=== PATIENT | male | born 1950 | race African-American/Black ===

== ENCOUNTER → 2022-01-28 15:12 | Outpatient (BNVA) | payer MEDICARE, MEDICAID, SELFPAY | PROVIDERS: PCP Internal Medicine; Visit Provider Urology | DX: E11.69 Type 2 diabetes mellitus with other specified complication (principal); N52.1 Erectile dysfunction due to diseases classified elsewhere; E29.1 Testicular hypofunction; I10 Essential (primary) hypertension | CPT/HCPCS: 99202 ==

== ENCOUNTER → 2022-05-08 10:40 | Outpatient (BNVA) | payer MEDICARE, MEDICAID, SELFPAY | PROVIDERS: PCP Internal Medicine; Visit Provider Urology | DX: R97.20 Elevated prostate specific antigen [PSA] (principal); E11.69 Type 2 diabetes mellitus with other specified complication; N52.1 Erectile dysfunction due to diseases classified elsewhere | CPT/HCPCS: 99212 ==

== ENCOUNTER 2022-07-21 09:58 | Outpatient (REF) | payer OTHER, MEDICAID, SELFPAY ==
[2022-07-21 11:22] LABS: PSA,Total (Free>4and<10) 4.16 ng/mL (0.00-4.00)
[2022-07-22 10:53] LABS: Free Prostate Spec Ag 0.8 ng/mL; Percent Free Prostate Spec Ag 21 % (calc) (>25); Prostate Specific Ag Total 3.9 ng/mL (< OR = 4.0)
[2022-07-26 13:19] LABS: Testosterone, Free 76.2 pg/mL (35.0-155.0); Testosterone, Total 595 ng/dL (250-1100)
== END 2022-07-21 09:59 | disposition home or self-care (01) ==
LOC: HO.LAB 09:58
PROVIDERS: PCP Orthopaedic Surgery; Visit Provider Urology
DX: Z12.5 Encounter for screening for malignant neoplasm of prostate (principal); R97.20 Elevated prostate specific antigen [PSA]; E29.1 Testicular hypofunction; N52.1 Erectile dysfunction due to diseases classified elsewhere; E11.69 Type 2 diabetes mellitus with other specified complication
CPT/HCPCS: 36415; 84153; 84154; 84402; 84403

== ENCOUNTER → 2022-08-04 11:10 | Outpatient (BNVA) | payer MEDICARE, MEDICAID, SELFPAY | PROVIDERS: PCP Orthopaedic Surgery; Visit Provider Urology | DX: R97.20 Elevated prostate specific antigen [PSA] (principal); N32.0 Bladder-neck obstruction | CPT/HCPCS: Q3014 ==

== ENCOUNTER 2023-02-09 11:21 | Outpatient (AMB) | payer OTHER, MEDICAID, SELFPAY ==
--- NOTE | 2023-02-09 11:38 | MHC.OFFVIS ---
Intake Intake Visit Reasons: 6m/PVR Intake Note: Patient is Present for Follow Up PVR Urology Medication: Finasteride, Sildenafil, Tadalafil Antibiotic Allergies: None Blood Thinners: None [facility]: [facility] PVR: 28 Allergies No Known Allergies Allergy (Verified 08/04/22 11:13) HPI HPI Comments History of Present Illness Details Damon is a very pleasant male. He is a patient of . He seen for the following urologic conditions - erectile dysfunction - variable PSA Following PSA Three month follow-up Labs - 03/31 T 448 P 7.0, 07/30 T 525 P 3.9 Good response to finasteride will continue Did not find much response to daily 10 mg tadalafil Discussed penile injections and prosthetic Follow-up in 6 months Lower urinary tract symptoms Does have some weakness of stream, nocturia. Positive benefit from finasteride Erectile dysfunction Has background of insulin-dependent diabetes Previously failed oral medications Denies prior heart attacks or other complications from diabetes Has not tried high-dose tadalafil protocol Prescribed 10 mg daily tadalafil with 100 mg sildenafil on demand [facility] Medical History Hypogonadism in male OA (osteoarthritis) Diabetes mellitus, type II Onychomycosis Hypertension, benign Kidney disease Dysuria Review of Systems Const Denies chills and Denies fever(s) Card Reports no additional complaints and Denies syncope Resp Denies cough GI Denies abdominal pain and Denies heartburn Reports as per HPI and Denies change in libido Neuro Denies syncope Psych Denies change in libido Endo Denies change in libido Physical Exam Const General: cooperative, healthy appearing, comfortable and no acute distress Orientation/consciousness: patient oriented x3 HEENT Face and sinus: Yes normal facial exam Mouth: moist mucous membranes Neck Neck: Yes normal visual inspection, Yes full ROM and Yes trachea midline Chest Chest palpation & inspection: normal inspection of the chest Resp Effort & Inspection: normal respiratory effort, able to speak in complete sentences and no respiratory distress GI Inspection: Yes normal to inspection Back/Spine/Pelvis Cervical Spine: normal cervical lordosis Thoracic/Lumbar Spine: thoracic and lumbar spine normal to inspection Skin General skin exam: no rashes or lesions noted Neuro General: patient oriented x3, gait normal, tone normal and moves all extremities Extrem General: Yes normal to inspection and Yes capillary refill normal Office Procedures Post Void Residual Post Residual Void Post Void Residual (PVR): 28 [id number] Void Residual by ultrasound Results AMB Urinalysis, Automated UA Leukoctes 0 Barbara/uL Last Edit by Machelle Pierce [facility] on 02/09/23 11:48 UA Nitrite Negative Last Edit by Machelle Pierce [facility] on 02/09/23 11:48 UA Urobilinogen 0.2 mg/dL Last Edit by Machelle Pierce [facility] on 02/09/23 11:48 UA Protein 300 mg/dL Last Edit by Machelle Pierce A on 02/09/23 11:48 UA pH 5.5 Last Edit by Machelle Pierce [facility] on 02/09/23 11:48 UA Blood 0 Aime/uL Last Edit by Machelle Pierce [facility] on 02/09/23 11:48 UA Specific Ronda 1.020 Last Edit by Machelle Pierce [facility] on 02/09/23 11:48 UA Ketone Negative Last Edit by Machelle Pierce [facility] on 02/09/23 11:48 UA Bilirubin 0 mg/dL Last Edit by Machelle Pierce [facility] on 02/09/23 11:48 UA Glucose 1000 mg/dL Last Edit by Machelle Pierce [facility] on 02/09/23 11:48 Results Reviewed Results Reviewed: Laboratory Last Values Urine pH (Auto) 5.5 02/09/23 11:43 Specific Ronda (Auto) 1.020 02/09/23 11:43 Urine Protein (Auto) 300 mg/dL 02/09/23 11:43 Glucose (UA)(Auto) 1000 mg/dL 02/09/23 11:43 Urine Ketones (Auto) Negative 02/09/23 11:43 Urine Blood (Auto) 0 Aime/uL 02/09/23 11:43 Urine Nitrite (Auto) Negative 02/09/23 11:43 Urine Bilirubin (Auto) 0 mg/dL 02/09/23 11:43 Urine Urobilinogen (Auto) 0.2 mg/dL 02/09/23 11:43 Leukocyte Esterase (Auto) 0 Barbara/uL 02/09/23 11:43 Assessment & Plan Assessment & Plan (1) Erectile dysfunction associated with type 2 diabetes mellitus: Code(s): E11.69 - Type 2 diabetes mellitus with other specified complication; N52.1 - Erectile dysfunction due to diseases classified elsewhere (2) Elevated PSA: Code(s): R97.20 - Elevated prostate specific antigen [PSA] (3) Bladder outlet obstruction: Code(s): N32.0 - Bladder-neck obstruction Plan Six month follow-up labs Orders: Orders AMB Urinalysis Automated 02/09/23 Z13.9 - Encounter for screening, unspecified AMB Post Void Residual by ultrasound 02/09/23 N32.0 - Bladder-neck obstruction Patient Instructions: Imaging studies, laboratory and physical exam results were discussed and reviewed in detail. No major barriers to patient understanding were identified. An opportunity to ask questions regarding the treatment plan was provided. All questions were answered. The patient expressed understanding and agreement with the above treatment plan. The patient is aware they should contact our office by phone for worsening of their current condition or the appearance of new urologic symptoms. Compliance is encouraged with any medications and followup testing that is ordered. It is a privilege to participate in the urologic care of your patient. If you have any questions or concerns regarding treatment for the above conditions, or other urologic issues, please do not hesitate to contact me. The office telephone contact is [phone]. This note is constructed using voice recognition software. While every effort has been made to ensure accuracy area coordinator errors may have been included. Yours sincerely, Dr Loki Wood MD, [facility] - Urology Providers of Expert, Compassionate Care for the Genitourinary System Coding Level of Care Code Est Pt Level 3 (26652) Diagnoses Erectile dysfunction associated with type 2 diabetes mellitus E11.69; N52.1 Elevated PSA R97.20 Bladder outlet obstruction N32.0 CPT Codes Post Residual Void - PVR CPT Code: 43430-Iyyy Void Residual by ultrasound ([id number])
== END 2023-02-09 12:23 | disposition home or self-care (01) ==
PROVIDERS: PCP Orthopaedic Surgery; Visit Provider Urology
DX: E11.69 Type 2 diabetes mellitus with other specified complication (principal); N52.1 Erectile dysfunction due to diseases classified elsewhere; R97.20 Elevated prostate specific antigen [PSA]; N32.0 Bladder-neck obstruction
CPT/HCPCS: 99213

== ENCOUNTER → 2023-02-09 11:21 | Outpatient (BNVA) | payer OTHER, MEDICAID, SELFPAY | PROVIDERS: Visit Provider Urology | DX: R97.20 Elevated prostate specific antigen [PSA] (principal); E11.69 Type 2 diabetes mellitus with other specified complication; N52.1 Erectile dysfunction due to diseases classified elsewhere; N32.0 Bladder-neck obstruction | CPT/HCPCS: 51798; 81003; 99212 ==

== ENCOUNTER 2023-03-05 14:26 | Outpatient (AMB) | payer OTHER, MEDICAID, SELFPAY ==
--- NOTE | 2023-03-05 14:27 | A.OFFVIS_ITS ---
Intake Intake Visit Reasons: Discuss surgery Intake Note: Patient is Present for Telephone Follow Up Surgery Discussion Urology Med:Finasteride, Sildenafil, Tadalafil Antibiotic Allergy: None Blood Thinner: None [facility] Allergies No Known Allergies Allergy (Verified 08/04/22 11:13) HPI HPI Comments History of Present Illness Details Damon is a very pleasant male. He is a patient of . He seen for the following urologic conditions - erectile dysfunction - variable PSA Following PSA Telemedicine Evaluation 15 min Consultation [email or web address] Video attempted Would like to move ahead with penile prosthetic Has watched videos Feels full informed Three month follow-up Labs - 03/31 T 448 P 7.0, 07/30 T 525 P 3.9 Good response to finasteride will continue Lower urinary tract symptoms Does have some weakness of stream, nocturia. Positive benefit from finasteride Erectile dysfunction Has background of insulin-dependent diabetes Previously failed oral medications Denies prior heart attacks or other complications from diabetes Has not tried high-dose tadalafil protocol Prescribed 10 mg daily tadalafil with 100 mg sildenafil on demand [facility] Medical History Hypogonadism in male OA (osteoarthritis) Diabetes mellitus, type II Onychomycosis Hypertension, benign Kidney disease Dysuria Review of Systems Const All systems reviewed & are unremarkable except as noted in HPI and below Reports no additional complaints Resp Reports no additional complaints GI Reports no additional complaints Reports as per HPI Musc Reports no additional complaints Physical Exam Telemedicine evaluation Appropriate responses Regular breathing rate and rhythm HEENT Head: Yes normal to inspection Ears: hearing grossly normal bilaterally Eyes General: appearance normal, both eyes and all related structures Neck Neck: Yes normal visual inspection Chest Chest palpation & inspection: normal inspection of the chest Resp Effort & Inspection: normal respiratory effort and able to speak in complete sentences Assessment & Plan Assessment & Plan (1) Elevated PSA: Code(s): R97.20 - Elevated prostate specific antigen [PSA] (2) Erectile dysfunction associated with type 2 diabetes mellitus: Code(s): E11.69 - Type 2 diabetes mellitus with other specified complication; N52.1 - Erectile dysfunction due to diseases classified elsewhere Plan Risks, benefits and alternatives to therapy were discussed. These include but are not limited to infection, bleeding, damage to local organs and tissues, need for further interventions. Anesthetic risks regarding cardiac arrhythmia, blood clots, and potential mortality were discussed. The patient understands the typical recovery time and the outpatient nature of the procedure. After consideration of these risks the patient gives full informed consent and they wish to move ahead with the procedure. Penile prosthetic placement Patient Instructions: Imaging studies, laboratory and physical exam results were discussed and reviewed in detail. No major barriers to patient understanding were identified. An opportunity to ask questions regarding the treatment plan was provided. All questions were answered. The patient expressed understanding and agreement with the above treatment plan. The patient is aware they should contact our office by phone for worsening of their current condition or the appearance of new urologic symptoms. Compliance is encouraged with any medications and followup testing that is ordered. It is a privilege to participate in the urologic care of your patient. If you have any questions or concerns regarding treatment for the above conditions, or other urologic issues, please do not hesitate to contact me. The office telephone contact is [phone]. This note is constructed using voice recognition software. While every effort has been made to ensure accuracy slab installer errors may have been included. Yours sincerely, Dr Loki Wood MD, [facility] - Urology Providers of Expert, Compassionate Care for the Genitourinary System Telehealth Telehealth Location of provider rendering services: practice address Location of patient: address on file Patient Identification confirmed using: Name, : Yes Telehealth method: voice only Patient verbally consented to treatment: Yes Patient verbally consented to billing insurance company: Yes Patient informed of any privacy concerns related to visit: Yes Coding Level of Care Code Est Pt Level 3 (21617) Diagnoses Elevated PSA R97.20 Erectile dysfunction associated with type 2 diabetes mellitus E11.69; N52.1
== END 2023-03-05 16:10 | disposition home or self-care (01) ==
LOC: HO.HUSH 14:26
PROVIDERS: PCP Orthopaedic Surgery; Visit Provider Urology
DX: R97.20 Elevated prostate specific antigen [PSA] (principal); E11.69 Type 2 diabetes mellitus with other specified complication; N52.1 Erectile dysfunction due to diseases classified elsewhere
CPT/HCPCS: 99213

== ENCOUNTER → 2023-03-05 14:26 | Outpatient (BNVA) | payer OTHER, MEDICAID, SELFPAY | PROVIDERS: PCP Orthopaedic Surgery; Visit Provider Urology ==

== ENCOUNTER 2023-03-16 14:54 | Outpatient (AMB) | payer OTHER, MEDICAID, SELFPAY ==
--- NOTE | 2023-03-16 14:56 | A.OFFVIS_ITS ---
Intake Intake Visit Reasons: Discuss surgery options Intake Note: Patient is Present for Telephone Follow Up Surgery Discussion Urology Med:Finasteride, Sildenafil, Tadalafil Antibiotic Allergy: None Blood Thinner: None [facility] Allergies No Known Allergies Allergy (Verified 08/04/22 11:13) HPI HPI Comments History of Present Illness Details Damon is a very pleasant male. He is a patient of . He seen for the following urologic conditions - erectile dysfunction - variable PSA Telemedicine Evaluation 15 min Consultation [employer] Moises Video attempted Telemedicine Evaluation 15 min Consultation [employer] Moises Video attempted Labs - 03/31 T 448 P 7.0, 07/30 T 525 P 3.9 Did not find much response to daily 10 mg tadalafil Discussed penile injections and prosthetic He is interested in vacuum pump therapy. Information provided. Follow-up in 6 months Lower urinary tract symptoms Does have some weakness of stream, nocturia. Positive benefit from finasteride Erectile dysfunction Has background of insulin-dependent diabetes Previously failed oral medications Denies prior heart attacks or other complications from diabetes Has not tried high-dose tadalafil protocol Prescribed 10 mg daily tadalafil with 100 mg sildenafil on demand [facility] Medical History Hypogonadism in male OA (osteoarthritis) Diabetes mellitus, type II Onychomycosis Hypertension, benign Kidney disease Dysuria Review of Systems Const All systems reviewed & are unremarkable except as noted in HPI and below Reports no additional complaints Resp Reports no additional complaints GI Reports no additional complaints Reports as per HPI Musc Reports no additional complaints Physical Exam Telemedicine evaluation Appropriate responses Regular breathing rate and rhythm HEENT Head: Yes normal to inspection Ears: hearing grossly normal bilaterally Eyes General: appearance normal, both eyes and all related structures Neck Neck: Yes normal visual inspection Chest Chest palpation & inspection: normal inspection of the chest Resp Effort & Inspection: normal respiratory effort and able to speak in complete sentences Assessment & Plan Assessment & Plan (1) Erectile dysfunction associated with type 2 diabetes mellitus: Code(s): E11.69 - Type 2 diabetes mellitus with other specified complication; N52.1 - Erectile dysfunction due to diseases classified elsewhere (2) Elevated PSA: Code(s): R97.20 - Elevated prostate specific antigen [PSA] (3) Bladder outlet obstruction: Code(s): N32.0 - Bladder-neck obstruction Plan Six month follow-up Patient Instructions: Imaging studies, laboratory and physical exam results were discussed and reviewed in detail. No major barriers to patient understanding were identified. An opportunity to ask questions regarding the treatment plan was provided. All questions were answered. The patient expressed understanding and agreement with the above treatment plan. The patient is aware they should contact our office by phone for worsening of their current condition or the appearance of new urologic symptoms. Compliance is encouraged with any medications and followup testing that is ordered. It is a privilege to participate in the urologic care of your patient. If you have any questions or concerns regarding treatment for the above conditions, or other urologic issues, please do not hesitate to contact me. The office telephone contact is [phone]. This note is constructed using voice recognition software. While every effort has been made to ensure accuracy senior director marketing errors may have been included. Yours sincerely, Dr Loki Wood MD, [facility] - Urology Providers of Expert, Compassionate Care for the Genitourinary System Telehealth Telehealth Location of provider rendering services: practice address Location of patient: address on file Patient Identification confirmed using: Name, : Yes Telehealth method: video Patient verbally consented to treatment: Yes Patient verbally consented to billing insurance company: Yes Patient informed of any privacy concerns related to visit: Yes Coding Level of Care Code Tele Est Pt Level 3 (05695) Diagnoses Erectile dysfunction associated with type 2 diabetes mellitus E11.69; N52.1 Elevated PSA R97.20 Bladder outlet obstruction N32.0
== END 2023-03-16 15:38 | disposition home or self-care (01) ==
LOC: HO.HUSH 14:54
PROVIDERS: PCP Orthopaedic Surgery; Visit Provider Urology
DX: E11.69 Type 2 diabetes mellitus with other specified complication (principal); N52.1 Erectile dysfunction due to diseases classified elsewhere; R97.20 Elevated prostate specific antigen [PSA]; N32.0 Bladder-neck obstruction
CPT/HCPCS: 99213

== ENCOUNTER → 2023-03-16 14:54 | Outpatient (BNVA) | payer OTHER, MEDICAID, SELFPAY | PROVIDERS: PCP Orthopaedic Surgery; Visit Provider Urology ==

== ENCOUNTER 2023-05-23 12:23 | Inpatient (IN) | payer MEDICARE, MEDICAID, SELFPAY ==
--- NOTE | ~2023-05-23 | FL_ITS ---
EXAMINATION: XR FLUOROSCOPY WITH IMAGES CLINICAL INFORMATION: Distal femoral fracture for stabilization COMPARISON: Right femur 05/24/2023. TECHNIQUE: Fluoroscopy Supervised By: Dr. Bobby Carballo. Fluoroscopy Time: 1.4. Cumulative Dose: 20.3 mGy. DAP: 0.241 Gycm2. Images: 6. FINDINGS: There are 6 digital images obtained in OR stabilizing distal femoral fracture with intramedullary femoral benjamin extending from proximal femur to the distal segment. The benjamin is anchored by 4 screws along the distal femur and and screws to the proximal femur not completely included in the [id number]. FL/FL guidance in OR IMPRESSION: Fluoroscopy was provided in the OR stabilizing distal femoral fracture with intramedullary femoral benjamin and 4 screws.
--- NOTE | ~2023-05-23 | XR_ITS ---
EXAMINATION: XR KNEE, RIGHT CLINICAL INFORMATION: Follow-up femoral fracture. COMPARISON: Radiograph right femur 05/23/2023. TECHNIQUE: Two views of the right knee. FINDINGS: Increased angulation of the distal femoral fracture on the frontal view compared to 05/23/2023. There is one shaft width of anterior displacement of the distal fragment on the lateral view and approximately half shaft width of lateral displacement of the distal fragment on the frontal view. Redemonstration of total knee arthroplasty. No interval fractures. Chronic appearing deformity of the tibial plateau on the lateral view. Exuberant bony productive changes and degenerative sclerosis in the right knee. No joint effusion in the right knee. Scattered vascular calcifications. XR/XR knee RT 2V IMPRESSION: Increased angulation of the distal femoral fracture compared to 05/23/2023.
--- NOTE | ~2023-05-23 | XR_ITS ---
EXAMINATION: XR FEMUR, RIGHT CLINICAL INFORMATION: Injury, pain COMPARISON: None available. TECHNIQUE: AP and lateral views of the right femur were obtained. FINDINGS: There is a mildly displaced transverse fracture in the distal diaphysis of the femur, the distal fragment is displaced approximately 2.2 cm laterally. There is soft tissue swelling. The right total knee arthroplasty appears grossly intact on the provided views. The right hip appears intact. XR/XR femur RT 2V IMPRESSION: Mildly displaced transverse fracture in the distal diaphysis of the right femur.
--- NOTE | ~2023-05-23 | XR_ITS ---
EXAMINATION: XR CHEST CLINICAL INFORMATION: Dizziness COMPARISON: None available. TECHNIQUE: Frontal view of the chest was obtained. FINDINGS: No significant abnormality is noted involving the heart, lungs, mediastinum, bony thorax or soft tissues. XR/XR chest 1V IMPRESSION: No acute process.
[2023-05-23 12:40] VITALS: BP 76/52; BP 94/63; PULSE 68; PULSE 72; RESP 18; TEMP 36.6; O2SAT 98; BMI 30.6
--- NOTE | 2023-05-23 12:44 | ECG_ITS ---
Test Reason : dizziness Blood Pressure : / mmHG Vent. Rate : 070 BPM Atrial Rate : 070 BPM P-R Int : 164 ms QRS Dur : 088 ms QT Int : 418 ms P-R-T Axes : 062 -10 024 degrees QTc Int : 451 ms Normal sinus rhythm Minimal voltage criteria for LVH, may be normal variant ( R in aVL ) Borderline ECG When compared with ECG of 19-DEC-2010 20:30, No significant change was found Referred By: Generic ED Physician Electronically Signed By:JUAN WISE
[2023-05-23 12:56] LABS: MANUAL DIFF FLAG NO
[2023-05-23 12:57] LABS: Basophils Percent Auto 0.4 % (0-2); Eosinophils Absolute Auto 0.2 X10*3/uL (0.0-0.4); Eosinophils Percent Auto 2.2 % (0-4); Hemoglobin 9.4 g/dl (14.0-18.0); Imm Gran Abs Auto 0.03 X10*3/uL (0.00-0.03); Imm Gran Pct Auto 0.4 % (0.0-0.4); Lymphocytes Absolute Auto 1.1 X10*3/uL (1.2-4.9); Lymphocytes Percent Auto 15.5 % (20-40); Mean Corpuscular HGB Conc 31.3 g/dl (31.0-36.0); Mean Corpuscular Hemoglobin 26.3 pg (27.0-33.0); Mean Platelet Volume 9.4 fL (9.4-12.4); Monocytes Absolute Auto 0.7 X10*3/uL (0.1-1.2); Monocytes Percent Auto 9.1 % (2-11); Neutrophils Absolute Auto 5.3 x10*3/uL (2.0-8.3); Neutrophils Percent Auto 72.4 % (45-73); Platelet Count 206 X10*3/uL (160-400); Red Blood Count 3.57 X10*6/uL (4.60-5.80); Red Cell Distribution Width 14.4 % (11.0-16.0); White Blood Count 7.4 X10*3/uL (4.8-10.8)
--- NOTE | 2023-05-23 13:15 | PC.NURSE ---
patient a&ox3, iv inserted, labs drawn, ekg obtained, big data engineer applied-nsr, pt noted to be hypotensive, xray for rt knee placed, call suggs within reach, will continue to monitor.
[2023-05-23 13:19] LABS: Anion Gap 11 (12-20); Blood Urea Nitrogen 36 mg/dL (9-16); Calcium 8.5 mg/dL (8.4-10.2); Carbon Dioxide 24 mmol/L (22-29); Chloride 108 mmol/L (96-108); Creatinine Clr Calc Pharmacy 18.2; Estimated Glomerular Filt Rate 14; Glucose Random 190 mg/dL (60-115); Potassium 4.7 mmol/L (3.3-5.1); Sodium 138 mmol/L (135-145)
[2023-05-23 13:26] LABS: Troponin-I High Sensitivity 139.2 ng/L (<3.5-35.0)
--- NOTE | 2023-05-23 14:10 | ED_ITS ---
HPI - General Adult General Chief complaint: Fall Stated complaint: DIZZY, HYPOTENSION Time Seen by Provider: 05/23/23 13:23 History of Present Illness HPI narrative: The patient is a 72-year-old male who comes to the emergency room after an episode at the [employer]. He says that he was feeling fine this morning. He and his girlfriend went to the mall. He was walking at the mall when he felt dizzy and stumbled. He started to fall but his girlfriend called him so he did not fall to the floor. However his right knee buckled and his girlfriend says there was a ?pop. He had a lot of pain in his knee and they came to the hospital. He denies any chest pain or shortness of breath. He denies any headache. The patient reports a history of chronic kidney issues but does not know how severe they are. He has not been hospitalized anywhere recently. He does not think he has ever had a stroke or heart attack. Related Data Home Medications Medication Instructions Recorded Confirmed amlodipine 10 mg tablet 10 mg PO DAILY 05/08/22 08/04/22 atorvastatin 40 mg tablet 40 mg PO DAILY 05/08/22 08/04/22 blood sugar diagnostic (FreeStyle #10 ea 05/08/22 08/04/22 Lite Strips) carvedilol 25 mg tablet 25 mg PO BID 05/08/22 08/04/22 dapagliflozin propanediol 10 mg 10 mg PO QAM 05/08/22 08/04/22 tablet (Farxiga) ergocalciferol (vitamin D2) 1,250 1,250 mcg PO QWEEK 05/08/22 08/04/22 mcg (50,000 unit) capsule insulin glargine 100 unit/mL (3 unit subcut 05/08/22 08/04/22 mL) subcutaneous pen (Lantus Solostar U-100 Insulin) Previous Rx's Medication Instructions Recorded sildenafil 100 mg tablet 100 mg PO ONCE PRN sexual activity 05/08/22 30 days #30 tabs tadalafil 10 mg tablet 10 mg PO DAILY sexual activity 90 05/08/22 days #90 tabs finasteride 5 mg tablet 5 mg PO DAILY 90 days #90 tabs 05/17/23 Allergies Allergy/AdvReac Type Severity Reaction Status Date / Time No Known Allergies Allergy Verified 08/04/22 11:13 [facility] Past Medical History Onset Date is defined in the Problem List Problems that require an onset date and time if occurred within 24 hrs of arrival to the ED Aortic Dissection and Rupture; Neurologic impairment; Cardiopulmonary Arrest; Endotracheal Intubation; Insertion or Replacement of Mechanical Circulatory Assist Device Medical History Hypogonadism in male OA (osteoarthritis) Diabetes mellitus, type II Onychomycosis Hypertension, benign Kidney disease Dysuria Social History Social History Smoked in Last 30 Days: No Use of substances other than those prescribed or required for medical reasons: No Advance Directives: No Advance Directives Information Provided: No Physical Exam ED Vital Signs: Vital Signs - 24 hr 05/23/23 12:40 05/23/23 15:26 05/23/23 15:30 Temperature 97.8 F Pulse Rate 72 77 Respiratory Rate 18 14 13 Blood Pressure 94/63 137/82 Pulse Oximetry 98 100 Oxygen Delivery Method Room Air Room Air BMI result Body Mass Index 30.6 Const Other: The patient is awake and alert. He has a pleasant 72-year-old who does not appear acutely toxic. HENMT Other: The face is symmetrical. ?Mucous membranes moist. Eyes Other: Pupils are round equal, conjunctivae are clear, extraocular movements intact Neck Neck: Yes no JVD Resp Effort & Inspection: normal respiratory effort Auscultation: clear to auscultation bilaterally Cardio Rate: regular rate Rhythm: regular rhythm Heart sounds: S1 normal heart sound present and S2 normal heart sound present GI Other: Abdomen is soft and nontender Skin Other: Skin is intact Neuro Other: The patient is awake and alert. Cranial nerves are grossly intact. Moves his arms symmetrically and normally. Left leg is normal. Cannot move his right leg because of pain. Extrem Other: No obvious deformity to the right leg but he is quite tender around the right knee and just above the knee. Medications Administered Discontinued Medications Generic Name Dose Route Start Last Admin Trade Name Freq PRN Reason Stop Dose Admin Hydromorphone HCl 1 mg 05/23/23 14:49 05/23/23 15:25 Hydromorphone Hcl 1 Mg/Ml Syringe IVPUSH 05/23/23 14:50 1 mg ONCE ONE Administration Protocol Morphine Sulfate 4 mg 05/23/23 14:11 05/23/23 14:48 Morphine Sulfate 4 Mg/Ml Cartridge IVPUSH 05/23/23 14:12 4 mg ONCE ONE Administration Protocol Medical Decision Making Medical Decision Making [facility] Narrative: Patient is a very pleasant 72-year-old male with a history of chronic kidney disease who had driven to the [employer] today. At the mall he felt dizzy and stumbled. His girlfriend called him from a more serious fall but in falling he injured his right leg. The girlfriend heard a pop. Patient did not hit his head or injure any other part of his body than the right leg. Patient says that he thinks he felt dizzy because he had not eaten anything this morning. There was no chest pain or shortness of breath. No headache. He does not feel dizzy now. Labs had been ordered at triage that showed a creatinine of 4.25 and a troponin of 139. Repeat troponin was 129. EKG shows J-point elevation of the anterior leads. I suspect this is baseline for the patient but no old EKGs are available for comparison. Records were obtained from [facility]. The patient had a creatinine of 3.0 in October of 2022. I contacted the orthopedic team who requested admission under hospitalist service. The patient was given morphine initially for pain and later hydromorphone. Lab Data 05/23/23 12:52 05/23/23 12:52 Labs: Lab Results 05/23/23 05/23/23 Range/Units 12:52 15:37 WBC 7.4 (4.8-10.8) X10*3/uL RBC 3.57 L (4.60-5.80) X10*6/uL Hgb 9.4 L (14.0-18.0) g/dl Hct 30.0 L (42.0-52.0) % MCV 84.0 (80.0-98.0) fL MCH 26.3 L (27.0-33.0) pg MCHC 31.3 (31.0-36.0) g/dl RDW 14.4 (11.0-16.0) % Plt Count 206 (160-400) X10*3/uL MPV 9.4 (9.4-12.4) fL Immature Gran % (Auto) 0.4 (0.0-0.4) % Neut % (Auto) 72.4 (45-73) % Lymph % (Auto) 15.5 L (20-40) % [place] % (Auto) 9.1 (2-11) % Eos % (Auto) 2.2 (0-4) % Baso % (Auto) 0.4 (0-2) % Lymph # (Auto) 1.1 L (1.2-4.9) X10*3/uL [place] # (Auto) 0.7 (0.1-1.2) X10*3/uL Eos # (Auto) 0.2 (0.0-0.4) X10*3/uL Baso # (Auto) 0.0 (0.0-0.2) X10*3/uL Abs Immat Gran (auto) 0.03 (0.00-0.03) X10*3/uL Absolute Neuts (auto) 5.3 (2.0-8.3) x10*3/uL Absolute Nucleated RBC 0.000 (0.0-0.012) X10*3/uL Nucleated RBC % (auto) 0.0 (0.0-0.2) /100WBC Sodium 138 (135-145) mmol/L Potassium 4.7 (3.3-5.1) mmol/L Chloride 108 (96-108) mmol/L Carbon Dioxide 24 (22-29) mmol/L Anion Gap 11 L (12-20) BUN 36 H (9-16) mg/dL Creatinine 4.25 H* (0.5-1.4) mg/dL Estim Creat Clear Calc 18.2 Estimated GFR 14 Random Glucose 190 H (60-115) mg/dL Calcium 8.5 (8.4-10.2) mg/dL Troponin I High Sens 139.2 H* 129.6 H* (<3.5-35.0) ng/L Independent Interpretation I performed an independent interpretation of an: EKG Interpretation: EKG at 13:03 shows normal sinus rhythm at 70 beats per minute. There is J-point elevation of the anterior leads but no other concerning findings. I suspect this is likely chronic J-point elevation possibly related to LVH. No old EKGs available for comparison. Discharge Plan Discharge Clinical Impression: Closed right femoral fracture, Chronic kidney disease Patient Disposition: Admitted As Inpatient
[2023-05-23] MEDS: Morphine Sulfate 4 MG/ML CARTRIDGE IVPUSH ×2 (14:48→19:31)
--- NOTE | 2023-05-23 14:49 | PC.NURSE ---
patient a&ox3, returned from xray 9/10 pain to RLE, pt medicated with pain meds per order, call suggs within reach, will continue to monitor
[2023-05-23] MEDS: HYDROmorphone HCl 1 MG/ML SYRINGE IVPUSH ×2 (15:25→21:39)
[2023-05-23 15:26] VITALS: RESP 14
[2023-05-23 15:30] VITALS: BP 137/82; PULSE 77; RESP 13; O2SAT 100
--- NOTE | 2023-05-23 16:04 | PM.IMHP ---
History of Present Illness Date of Service: 05/23/23 Attending physician on admission: Curtis Galo Chief Complaint: Right leg pain s/p fall Pt is a 72-year-old male with a PMH significant for?HTN, HLD, toj-tzuzixe-kvthvaefc diabetes type 2, anemia of chronic disease, CKD 4, and right knee replacement around 2015 who presents to the ED with right leg pain and inability to walk after fall. Pt states he was shopping at the [employer] and was waiting for the elevator when he began feeling dizzy and felt like he was going to faint. He then stumbled and fell to the ground landing on his right side. His girlfriend says she heard his knee pop . Patient denies loss of consciousness. Reports has had similar episodes of dizziness infrequently over the past few years. Notes he took his diabetic medications this morning but had not eaten anything today. Admits to some medication noncompliance, saying he sometimes forgets to take his home medications. Reports EMS found his blood sugars to be in the 170s, with noted his BP was low. Exact numbers are unable to be obtained at this time. Patient currently reports 6-7/10 right leg pain, but otherwise has no acute medical complaints. Currently denies lightheadedness or dizziness. No chest pain/pressure, palpitations. Denies fever, chills, nausea, vomiting, abdominal pain. Of note, patient is vague the specifics concerning his right knee replacement, but thinks it occurred by Dr. Radha fu from [facility] with surgery [place] [facility] [place] 7 years ago. Denies any significant cardiac PMH. In the ED pt's vital signs stable, WNL. Labs were significant for normocytic anemia of 9.4/30.0, BUN 36, creatinine 4.25, and initial troponin 139.2. No leukocytosis. No electrolyte abnormalities. CXR showed no acute process. Right femur x-ray found mildly displaced periprosthetic transverse fracture in the distal diaphysis of the right femur. EKG demonstrated normal sinus rhythm with likely LVH, Morin's significant ST elevations or depressions. Pt was treated with morphine and hydromorphone. Pt will be admitted to the hospital for treatment of displaced periprosthetic right femur fracture. Review of Systems Review of Systems: Lightheadedness, dizziness Fall Right leg pain Denies chest pain/pressure, palpitations Shortness of breath Denies fever, chills, nausea, vomiting, abdominal pain [facility] Medical History (Updated 05/24/23 @ 09:52 by Nicanor Garner MD) HLD (hyperlipidemia) Anemia of chronic disease Hypogonadism in male OA (osteoarthritis) Diabetes mellitus, type II Onychomycosis Hypertension, benign Kidney disease Dysuria Social History Household Members: None Housing: Apartment Do you presently have visiting nurse or other home services: No Patient Tobacco Use Status: Never used Tobacco Meds Allergies Allergy/AdvReac Type Severity Reaction Status Date / Time No Known Allergies Allergy Verified 08/04/22 11:13 Home Medications Medication Instructions Recorded Confirmed Last Taken Type amlodipine 10 mg tablet 10 mg PO DAILY 05/08/22 05/23/23 05/23/23 09:00 History atorvastatin 40 mg tablet 40 mg PO DAILY 05/08/22 05/23/23 05/23/23 09:00 History blood sugar diagnostic (FreeStyle #10 ea 05/08/22 08/04/22 Unknown History Lite Strips) carvedilol 25 mg tablet 25 mg PO BID 05/08/22 05/23/23 05/23/23 09:00 History dapagliflozin propanediol 10 mg 10 mg PO DAILY 05/08/22 05/23/23 05/23/23 09:00 History tablet (Farxiga) liraglutide 0.6 mg/0.1 mL (18 mg/3 1.8 mg subcut DAILY 05/23/23 05/23/23 05/23/23 09:00 History mL) subcutaneous pen injector (Victoza 3-Ruben) Physical Exam Vital Signs and Narrative: Vital Signs: Last Vital Signs Temp 97.8 F 05/23/23 12:40 Pulse 77 05/23/23 15:30 Resp 13 05/23/23 15:30 BP 137/82 05/23/23 15:30 Pulse Ox 100 05/23/23 15:30 O2 Del Method Room Air 05/23/23 15:30 BMI result Body Mass Index 30.6 Constitutional: Alert, in no acute distress. Mental Status: Oriented to person, place and time. Eyes: Pupils are equal, round, and reactive to light. Ear, Nose, and Throat: Oropharynx clear, mucous membranes moist. Ears and nose without deformities. Trachea midline. Respiratory: Clear to auscultation bilaterally. No wheezing, rales, or rhonchi. Cardiovascular: S1, S2 regular. 3/6 systolic murmurs heard at right sternal border, radiating to right carotid. Gastrointestinal: Abdomen soft, non-tender, non-distended. Normal bowel sounds. Neurologic: Cranial nerves II-XII are grossly intact bilaterally. No focal neurological deficits. Moves all extremities spontaneously. Skin: Warm, dry. Musculoskeletal: No cyanosis or clubbing. Extremities: Right thigh and knee tender to palpation and with swelling. Psychiatric: Normal mood and affect. Results Labs 05/24/23 14:43 05/24/23 05:51 Labs: Laboratory Results - last 24 hr 05/23/23 12:52 MCV 84.0 MCH 26.3 L MCHC 31.3 RDW 14.4 Plt Count 206 MPV 9.4 Immature Gran % (Auto) 0.4 Neut % (Auto) 72.4 Lymph % (Auto) 15.5 L Barnwell % (Auto) 9.1 Eos % (Auto) 2.2 Baso % (Auto) 0.4 Lymph # (Auto) 1.1 L Barnwell # (Auto) 0.7 Eos # (Auto) 0.2 Baso # (Auto) 0.0 Abs Immat Gran (auto) 0.03 Absolute Neuts (auto) 5.3 Absolute Nucleated RBC 0.000 Nucleated RBC % (auto) 0.0 Anion Gap 11 L Estim Creat Clear Calc 18.2 Estimated GFR 14 Random Glucose 190 H Calcium 8.5 Imaging Radiologist's Impressions: Impressions Chest X-Ray 05/23/23 14:57 IMPRESSION: No acute process. Femur X-Ray 05/23/23 14:57 IMPRESSION: Mildly displaced transverse fracture in the distal diaphysis of the right femur. Assessment and Plan (1) Closed right femoral fracture: Status: Acute Plan Pt is a 72-year-old male with a PMH significant for?HTN, HLD, kly-jdyvuko-ltsytapoc diabetes type 2, anemia of chronic disease, CKD 4, and right knee replacement around 2016 who presents to the ED with right leg pain and inability to walk after fall. Pt will be admitted to the hospital for treatment of displaced periprosthetic right femur fracture. Right femur fracture X-ray found mildly displaced transverse fracture in the distal diaphysis of the right femur Patient with right TKA Orthopedics consulted, plan on doing surgery tomorrow Analgesics for pain management NPO after midnight Patient has moderate to high risk given CKD 4 and DM2 Murmur noted upon exam, see below for additional cardiac workup Dizziness/presyncope Unclear etiology: hypoglycemia vs hypotension vs cardiac Pt reports taking HTN and DM meds this morning but did not eat anything Reports EMS noted normal sugars but low BP Question of consistent med compliance Pt with heart murmur, see below Heart murmur Pt with systolic murmur radiating to right neck; dizziness/presyncope prior to fall Pt with no known significant cardiac history Will get echocardiogram Cardiology consult for cardiac clearance for surgery Monitor on telemetry Elevated troponins Initial troponin 139.2 with repeat flat at 129.6 Pt asymptomatic, EKG without ischemic changes Likely type 2 in the setting of increased demand Monitor on telemetry CKD [address] [facility] [place] show creatinine of 3.0 from 04/30-10/[address] Braden Idc-srjtfhs-[id number] diabetes type [address] on sliding scale insulin Diabetic diet HTN Will hold amlodipine for now given presyncope Resume as indicated Continue carvedilol HLD Continue statin Full Code Attending:?Dr. Galo DVT Prophylaxis: Pneumatic boots d/t impending surgery Pt will require a hospitalization of at least two nights for treatment of?displaced periprosthetic right distal femur fracture. Given patient's risks and physical exam findings, he will require additional cardiac workup for eventual surgical intervention. Quality Stroke Does the patient have a stroke diagnosis?: No VTE Prior VTE?: No VTE Risk Level:: Medical - moderate - high VTE Device Contraindication: N/A - Device Ordered VTE Drug Contraindication: Treatment Not Indicated
[2023-05-23 16:29] LABS: Troponin-I High Sensitivity 129.6 ng/L (<3.5-35.0)
[2023-05-23 17:37] VITALS: BP 151/85; PULSE 76; RESP 17; O2SAT 96
--- NOTE | 2023-05-23 17:37 | PHA.MEDREC ---
Pharmacy Consult ? Medication Reconciliation Pharmacy has completed the medication reconciliation. Spoke to patient to confirm meds.
[2023-05-23] MEDS: Acetaminophen 325 MG TABLET 650 MG PO (18:12)
--- NOTE | 2023-05-23 18:14 | PC.NURSE ---
pt medicated w PRN tylenol for increased pain after repositioning himself in bed. ice packs applied to affected area, next dose of morphine due in ~ 3 hrs, provider notified.
[2023-05-23 19:31] VITALS: RESP 16
[2023-05-23 21:11] VITALS: BP 152/80; PULSE 77; RESP 16; TEMP 36.7; O2SAT 99
[2023-05-23] MEDS: carvediloL 25 MG TABLET PO (21:13)
[2023-05-23] MEDS: traZODone HCL 50 MG TABLET PO (21:13)
[2023-05-23 21:34] LABS: Glucose, Whole Blood 162 mg/dL (60-115)
[2023-05-23] MEDS: Cyclobenzaprine HCl 10 MG TABLET PO (21:39)
[2023-05-24] VITALS (7 sets, daily range): BP systolic 126–145; BP diastolic 61–75; PULSE 69–99; RESP 14–20; TEMP 36.3–36.9; O2SAT 95–98; BMI 31.7; BMI 31.3
[2023-05-24] MEDS: 0.9 % Sodium Chloride Flush 3 ML SYRINGE IVFLUSH ×4 (01:28→21:50)
[2023-05-24] MEDS: Dextrose 5 % and 0.9 % NaCl 1,000 ML 80 ML IVCONT ×2 (01:29→15:03)
--- NOTE | 2023-05-24 04:46 | PC.NURSE ---
pt resting comfortably with eyes closed, breathing even and unlabored. no apparent distress at this time. call suggs w/in reach. IVF infusing
[2023-05-24 06:35] LABS: Anion Gap 11 (12-20); Blood Urea Nitrogen 37 mg/dL (9-16); Calcium 8.4 mg/dL (8.4-10.2); Carbon Dioxide 24 mmol/L (22-29); Chloride 107 mmol/L (96-108); Creatinine Clr Calc Pharmacy 18.8; Estimated Glomerular Filt Rate 14; Glucose Random 164 mg/dL (60-115); Potassium 4.4 mmol/L (3.3-5.1); Sodium 138 mmol/L (135-145)
[2023-05-24 06:40] LABS: Hematocrit 30.3 % (42.0-52.0); Hemoglobin 9.4 g/dl (14.0-18.0); Mean Corpuscular Hemoglobin 26.3 pg (27.0-33.0); Mean Corpuscular Volume 84.9 fL (80.0-98.0); Mean Platelet Volume 9.8 fL (9.4-12.4); Platelet Count 215 X10*3/uL (160-400); Red Blood Count 3.57 X10*6/uL (4.60-5.80); Red Cell Distribution Width 14.3 % (11.0-16.0); White Blood Count 8.2 X10*3/uL (4.8-10.8)
--- NOTE | 2023-05-24 07:00 | CA_ITS ---
Transthoracic Echocardiogram Amended Patient (Last, First, Middle): Damon Escalante, Gender: Male Date of : 1950 Age: 72 Procedure Date: 05/24/2023 Procedure Type: Transthoracic Echocardiogram Location: ER Height: 175.26 cm Weight: 93.9 kg BSA: 2.10 m2 Heart Rate: 71 bpm BP: 129 / 69 mmHg [employer] Helper: SB Referring MD: Landen HARDEN Symptoms: Systolic murmur, dizziness Study Quality: Adequate ECG Rhythm: Sinus Conclusions: - The left ventricular systolic function is low normal. The visually estimated ejection fraction is between 50-55%. - The basal inferior and basal inferolateral segments are hypokinetic. - There is mild aortic valve stenosis. Findings Left Ventricle Normal left ventricular cavity size. The left ventricular systolic function is low normal. The visually estimated ejection fraction is between 50-55%. There is evidence of regional wall motion abnormalities. Evidence suggests grade I (mild) diastolic dysfunction. There is severe septal and severe basal asymmetric hypertrophy. LV peak GLS diminished at -12.2%. Wall Motion Rest Echo Findings The basal inferior and basal inferolateral segments are hypokinetic. Right Ventricle Mildly increased right ventricular cavity size. There is normal right ventricular systolic function. Atria Both atria are normal in size. Aortic Valve There is mild calcification of the aortic valve. There is mild aortic valve stenosis. There is no aortic valve regurgitation. Mitral Valve The mitral valve appears normal. There is trace mitral valve regurgitation. There is no mitral valve stenosis. Pulmonic Valve The pulmonic valve is likely normal. Tricuspid Valve There is mild tricuspid valve regurgitation. There is no evidence of pulmonary hypertension. Great Vessels The asc aorta is normal in size. Venous The inferior vena cava is normal in size and collapses greater than 50% with inspiration. Pericardium/Pleural There is no evidence of pericardial effusion. Prior Study Comparison No prior study available for comparison. Measurements 2D Linear Measurements IVSd: 1.23 0.6-0.9/0.6-1.0 cm LVIDd: 4.99 3.9-5.3/4.2-5.9 cm LVIDd Index: 2.38 2.4-3.2/2.2-3.1 cm/m2 LVIDs: 3.65 2.0-3.6 cm LVPWd: 0.89 0.7-1.1 cm LA Diam: 4.30 2.7-3.8/3.0-4.0 cm LAIDs Index: 2.05 1.5-2.3 cm/m2 LV Mass: 244.90 67-162/88-224 g LV Mass Index: 116.62 43-95/49-115 g/m2 LVOT Diam: 2.30 3.0+(-)1.3 cm 2D Volumes LA Vol: 35.60 2D Systolic Function EF 4C: 42.40 >55% EF 2C: 46.50 >55% EF BiP: 46.30 >55% Mitral Valve MV Pk E: 0.78 MV PK A: 0.90 MV Decel Time: 154.00 E/A: 0.90 E'Lateral: 4.90 E'Medial: 3.92 E/E' Med: 19.80 E/E' Lat: 15.80 PHT: 45.00 MVA PHT: 4.89 Decel Otero: 5.04 Aortic Valve AoV Pk Cornel: 2.28 AoV Mn Cornel: 1.53 AoV VTI: 0.45 AoV Pk Grad: 21.00 Aov Mn Grad: 11.00 JOSHUA Cont.VTI: 1.58 LVOT LVOT Pk Cornel: 0.84 LVOT Mn Cornel: 0.55 LVOT VTI: 0.17 LVOT Pk Grad: 3.00 LVOT Mn Grad: 1.00 LVOT Diam: 2.30 LVOT Area: 4.15 Diastolic Function MV Pk E: 0.78 MV Pk A: 0.90 E/A: 0.90 E'Medial: 3.92 E/E' Med: 19.80 E' Laterial: 4.90 E/E' Lat: 15.80 Right Ventricle TAPSE (mm): 22.40 TVS' Cornel: 15.10 Tricuspid Valve TR Pk Cornel: 2.52 TR Pk Grad: 25.00 Great Vessels Aorta Sinus of Valsalva: 3.20 2.0-3.5 cm Ao Asc: 3.60 2.1-3.4 cm Pulmonary Valve PV Pk Cornel: 0.74 Peak PV Grad: 2.00 Updated in Other Vendor System with Status of Final Nicanor Garner MD electronically signed on 05/24/2023 10:57:10 AM with status of Final
[2023-05-24 07:32] LABS: Glucose, Whole Blood 154 mg/dL (60-115)
--- NOTE | 2023-05-24 07:50 | PC.NURSE ---
PT SEEN BY AGAPITO. PT AWARE OF PLAN OF CARE FOR SURGERY.
--- NOTE | 2023-05-24 09:17 | PC.NURSE ---
PT SEEN BY CARDIOLOGY (DR. ROSALES). PT AWARE OF PLAN OF CARE.
--- NOTE | 2023-05-24 09:20 | PC.NURSE ---
PER MORTGAGE LOAN ORIGINATOR PT TO HAVE ECHOCARDIOGRAM.
--- NOTE | 2023-05-24 09:35 | PM.HPOR ---
History of Present Illness History of Present Illness Date of Service: 05/24/23 Chief complaint: Right periprosthetic femur fracture Narrative: Damon Escalante is a 72 year old male with a PMH significant for?HTN, HLD, bau-tukehya-ohzpvikmp diabetes type 2, anemia of chronic disease, CKD 4, and right knee replacement around [address] [facility] [address] Ashley who presents to the ED with right leg pain and inability to walk after sustaining a fall. Pt states he was shopping at the [employer] and was waiting for the elevator when he began feeling dizzy and felt like he was going to faint. He reports that he hadn't eaten anything and took his at home medications which caused him to become dizzy and fall to the ground. After his fall he felt immediate right knee pain and was unable to ambulate. He presented to the ED by EMS where x-rays were obtained and he was found to have a distal femur fracture on the right. He was admitted to the medicine service with orthopedic consult for further evaluation and treatment. Patient denies any drug use, occasional alcohol consumption on the weekends and denies any recreational drug use. He lives alone but has a girlfriend that he see's nearly every day. Does not use any assistive devices to ambulate. Review of Systems Review of Systems: Yes all other systems are reviewed and are negative PMFSH Past Medical History Medical History (Updated 05/23/23 @ 17:27 by DERECK Nixon) HLD (hyperlipidemia) Anemia of chronic disease Hypogonadism in male OA (osteoarthritis) Diabetes mellitus, type II Onychomycosis Hypertension, benign Kidney disease Dysuria Social History Social History Patient Tobacco Use Status: Never used Tobacco Smoked in Last 30 Days: No Use of substances other than those prescribed or required for medical reasons: No Advance Directives: No Advance Directives Information Provided: No Nutrition Risks: No Nutritional Risk Meds Allergies Allergy/AdvReac Type Severity Reaction Status Date / Time No Known Allergies Allergy Verified 08/04/22 11:13 Active Medications: Current Medications Acetaminophen (Acetaminophen 325 Mg Tablet) 650 mg PO Q6H PRN PRN Reason: Pain, Mild (Pain Scale 1-3) Last Admin: 05/23/23 18:12 Dose: 650 mg Atorvastatin Calcium (Atorvastatin Calcium 40 Mg Tablet) 40 mg PO DAILY [facility] Benzonatate (Benzonatate 100 Mg Capsule) 100 mg PO TID PRN PRN Reason: Cough Carvedilol (Carvedilol 25 Mg Tablet) 25 mg PO BID [facility]; Protocol Last Admin: 05/23/23 21:13 Dose: 25 mg Dextrose (Dextrose 50 % 25 Gm/50 Ml Syringe) 25 gm IVPUSH Q15M PRN; Protocol PRN Reason: per Hypoglycemia Standing Ord. Docusate Sodium (Docusate Sodium 100 Mg Capsule) 100 mg PO DAILY PRN PRN Reason: Constipation Glucose (Glucose Gel 15 Gm Gel..Gram.) 15 gm PO Q15M PRN; Protocol PRN Reason: per Hypoglycemia Standing Ord. Hydromorphone HCl (Hydromorphone Hcl 1 Mg/Ml Syringe) 1 mg IVPUSH Q3H PRN; Protocol PRN Reason: Pain, Severe (Pain Scale 7-10) Last Admin: 05/23/23 21:39 Dose: 1 mg Dextrose/Sodium Chloride (D5ns) 1,000 mls @ 80 mls/hr IVCONT .[id number] [facility] Last Admin: 05/24/23 01:29 Dose: 80 mls/hr Insulin Human Lispro (Insulin Lispro 100 Unit/Ml 3 Ml Vial) 0 unit SUBCUT QIDACHS [facility]; Protocol Last Admin: 05/24/23 09:33 Dose: Not Given Melatonin (Melatonin 3 Mg Tablet) 6 mg PO BEDTIME PRN PRN Reason: Insomnia Ondansetron HCl (Ondansetron Hcl 4 Mg/2 Ml Vial) 4 mg IVPUSH Q8H PRN PRN Reason: Nausea and Vomiting Sodium Chloride (0.9 % Sodium Chloride Flush 3 Ml Syringe) 3 ml IVFLUSH QSHIFT [facility] Last Admin: 05/24/23 09:33 Dose: 3 ml Home Medications Medication Instructions Recorded Confirmed Last Taken Type amlodipine 10 mg tablet 10 mg PO DAILY 05/08/22 05/23/23 05/23/23 09:00 History atorvastatin 40 mg tablet 40 mg PO DAILY 05/08/22 05/23/23 05/23/23 09:00 History blood sugar diagnostic (FreeStyle #10 ea 05/08/22 08/04/22 Unknown History Lite Strips) carvedilol 25 mg tablet 25 mg PO BID 12/05/23/23 05/23/23 09:00 History dapagliflozin propanediol 10 mg 10 mg PO DAILY 05/08/22 05/23/23 05/23/23 09:00 History tablet (Farxiga) liraglutide 0.6 mg/0.1 mL (18 mg/3 1.8 mg subcut DAILY 05/23/23 05/23/23 05/23/23 09:00 History mL) subcutaneous pen injector (Victoza 3-Ruben) Physical Exam Vital Signs: Vital Signs: Last Vital Signs Temp 98.5 F 05/24/23 08:57 Pulse 75 05/24/23 08:57 Resp 14 05/24/23 08:57 BP 129/69 05/24/23 08:57 Pulse Ox 98 05/24/23 08:57 O2 Del Method Room Air 05/24/23 08:57 BMI result Body Mass Index 30.6 Const: General: cooperative, healthy appearing and no acute distress Resp: Effort & Inspection: normal respiratory effort and able to speak in complete sentences Cardio: Rate: regular rate Peripheral pulses: Peripheral pulses 2+ throughout GI: Palpation (GI): Soft to palpation Skin: Lesions: no lesions Rashes: no rashes Extrem: Other: RLE is held in flexion and externally rotated. He is able to perform dorsi/plantar flexion. Sensation intact. Pedal pulse intact. Results Labs 05/24/23 05:51 05/24/23 05:51 Labs: Abnormal lab results 05/23/23 05/23/23 05/23/23 Range/Units 12:52 15:37 21:30 RBC 3.57 L (4.60-5.80) X10*6/uL Hgb 9.4 L (14.0-18.0) g/dl Hct 30.0 L (42.0-52.0) % MCH 26.3 L (27.0-33.0) pg Lymph % (Auto) 15.5 L (20-40) % Lymph # (Auto) 1.1 L (1.2-4.9) X10*3/uL Anion Gap 11 L (12-20) BUN 36 H (9-16) mg/dL Creatinine 4.25 H* (0.5-1.4) mg/dL POC Glucose 162 H (60-115) mg/dL Random Glucose 190 H (60-115) mg/dL Troponin I High Sens 139.2 H* 129.6 H* (<3.5-35.0) ng/L 05/24/23 05/24/23 Range/Units 05:51 07:28 RBC 3.57 L (4.60-5.80) X10*6/uL Hgb 9.4 L (14.0-18.0) g/dl Hct 30.3 L (42.0-52.0) % MCH 26.3 L (27.0-33.0) pg Lymph % (Auto) (20-40) % Lymph # (Auto) (1.2-4.9) X10*3/uL Anion Gap 11 L (12-20) BUN 37 H (9-16) mg/dL Creatinine 4.12 H* (0.5-1.4) mg/dL POC Glucose 154 H (60-115) mg/dL Random Glucose 164 H (60-115) mg/dL Troponin I High Sens (<3.5-35.0) ng/L H & H 05/23/23 05/24/23 Range/Units 12:52 05:51 Hgb 9.4 L 9.4 L (14.0-18.0) g/dl Hct 30.0 L 30.3 L (42.0-52.0) % All other labs normal. Assessment and Plan (1) Chronic kidney disease: Status: Acute (2) Closed right femoral fracture: Status: Acute I discussed the case with Dr. Rosales and explained the extent of the injury to the patient and options available which include surgical intervention. I explained the procedure in detail along with the length of recovery and rehab course. I explained the risk, benefits and alternatives. Risk including, but not limited to infection, blood clots, bleeding, non union or malunion and nerve/tissue damage to surrounding areas. I answered all their questions and with their understanding they have consented to move forward with Operative Fixation of the right femur. The patient will be T&S, pending cardiac clearance, he will remain NPO. Quality Stroke Does the patient have a stroke diagnosis?: No VTE Prior VTE?: No VTE Risk Level:: Medical - moderate - high VTE Device Contraindication: N/A - Device Ordered VTE Drug Contraindication: Treatment Not Indicated Procedures Date of Service Date of Service: 05/24/23
--- NOTE | 2023-05-24 09:48 | P.CONCA_ITS ---
History of Present Illness History of Present Illness Date of Service: 05/24/23 Chief complaint: Right periprosthetic femur fracture Narrative: This is a cardiology consultation regarding preoperative stratification for orthopedic surgery. Discussed with patient also reviewed the chart. Patient with multiple comorbidities including diabetes, hypertension, dyslipidemia, chronic kidney disease. It seems that he was walking in the mall and waiting for elevated all of sudden he got dizzy and thought he was going to faint. He then stumbled and fell to the ground. X-ray has shown distal femur fracture. He needs orthopedic intervention. From a cardiac standpoint, no complaints like angina or shortness of breath or anything else. He states he lives in the 4th floor and can essentially climb 4 flights of stairs almost daily does not get any cardiac symptoms. No previous diagnosis of coronary disease or myocardial infarction or cardiomyopathy or in fact anything else of cardiac nature. With regard to the dizzy episode, he states he has had that before but did not seek any attention. Etiology is not clear. Review of Systems 2 Review of Systems: Yes all other systems are reviewed and are negative Constitutional: Constitutional: Reports as per HPI and Reports no additional constitutional complaints Eyes: Eyes: Reports as per HPI and Denies no additional eye complaints ENT: Denies system reviewed and no additional complaints, except as documented and Reports as per HPI Cardiovascular: Cardiovascular: Reports as per HPI, Reports no additional cardiovascular complaints, Denies acrocyanosis, Denies cool extremities, Denies chest pain, Denies leg edema, Reports lightheadedness, Denies palpitations and Denies dyspnea Respiratory: Respiratory: Reports as per HPI, Denies no additional respiratory complaints and Denies dyspnea Gastrointestinal: Gastrointestinal: Reports as per HPI and Denies no additional gastrointestinal complaints Genitourinary: Genitourinary: Reports no additional male genitourinary complaints and Reports as per HPI Musculoskeletal: Musculoskeletal: Reports no additional musculoskeletal complaints and Reports as per HPI Integumentary/Breasts: Skin/Breast: Reports system reviewed and no additional complaints, except as docu Neurologic: Reports system reviewed and no additional complaints, except as documented and Reports as per HPI Psychiatric: Psychiatric: Reports no additional psychiatric complaints and Reports as per HPI Endocrine: Endocrine: Reports no additional endocrine complaints, Reports as per HPI and Denies palpitations Hematologic/Lymphatic: Hematologic/Lymphatic: Reports no additional hematologic/lymphatic complaints and Reports as per HPI Allergic/Immunologic: Allergic/Immunologic: Reports no additional allergic/immunologic complaints and Reports as per HPI [facility] Past Medical History Medical History (Updated 05/24/23 @ 09:52 by Nicanor Garner MD) HLD (hyperlipidemia) Anemia of chronic disease Hypogonadism in male OA (osteoarthritis) Diabetes mellitus, type II Onychomycosis Hypertension, benign Kidney disease Dysuria Family History Pertinent family history: No pertinent history in this setting. Social History Social History Patient Tobacco Use Status: Never used Tobacco Smoked in Last 30 Days: No Use of substances other than those prescribed or required for medical reasons: No Advance Directives: No Advance Directives Information Provided: No Nutrition Risks: No Nutritional Risk Meds Allergies Allergy/AdvReac Type Severity Reaction Status Date / Time No Known Allergies Allergy Verified 08/04/22 11:13 Active Medications: Current Medications Acetaminophen (Acetaminophen 325 Mg Tablet) 650 mg PO Q6H PRN PRN Reason: Pain, Mild (Pain Scale 1-3) Last Admin: 05/23/23 18:12 Dose: 650 mg Atorvastatin Calcium (Atorvastatin Calcium 40 Mg Tablet) 40 mg PO DAILY [facility] Benzonatate (Benzonatate 100 Mg Capsule) 100 mg PO TID PRN PRN Reason: Cough Carvedilol (Carvedilol 25 Mg Tablet) 25 mg PO BID [facility]; Protocol Last Admin: 05/23/23 21:13 Dose: 25 mg Dextrose (Dextrose 50 % 25 Gm/50 Ml Syringe) 25 gm IVPUSH Q15M PRN; Protocol PRN Reason: per Hypoglycemia Standing Ord. Docusate Sodium (Docusate Sodium 100 Mg Capsule) 100 mg PO DAILY PRN PRN Reason: Constipation Glucose (Glucose Gel 15 Gm Gel..Gram.) 15 gm PO Q15M PRN; Protocol PRN Reason: per Hypoglycemia Standing Ord. Hydromorphone HCl (Hydromorphone Hcl 1 Mg/Ml Syringe) 1 mg IVPUSH Q3H PRN; Protocol PRN Reason: Pain, Severe (Pain Scale 7-10) Last Admin: 05/23/23 21:39 Dose: 1 mg Dextrose/Sodium Chloride (D5ns) 1,000 mls @ 80 mls/hr IVCONT .[id number] [facility] Last Admin: 05/24/23 01:29 Dose: 80 mls/hr Insulin Human Lispro (Insulin Lispro 100 Unit/Ml 3 Ml Vial) 0 unit SUBCUT QIDACHEdd [facility]; Protocol Last Admin: 05/24/23 09:33 Dose: Not Given Melatonin (Melatonin 3 Mg Tablet) 6 mg PO BEDTIME PRN PRN Reason: Insomnia Ondansetron HCl (Ondansetron Hcl 4 Mg/2 Ml Vial) 4 mg IVPUSH Q8H PRN PRN Reason: Nausea and Vomiting Sodium Chloride (0.9 % Sodium Chloride Flush 3 Ml Syringe) [facility] Last Admin: 05/24/23 09:33 Dose: 3 ml Home Medications Medication Instructions Recorded Confirmed Last Taken Type amlodipine 10 mg tablet 10 mg PO DAILY 05/08/22 05/23/23 05/23/23 09:00 History atorvastatin 40 mg tablet 40 mg PO DAILY 05/08/22 05/23/23 05/23/23 09:00 History blood sugar diagnostic (FreeStyle #10 ea 05/08/22 08/04/22 Unknown History Lite Strips) carvedilol 25 mg tablet 25 mg PO BID 05/08/22 05/23/23 05/23/23 09:00 History dapagliflozin propanediol 10 mg 10 mg PO DAILY 05/08/22 05/23/23 05/23/23 09:00 History tablet (Farxiga) liraglutide 0.6 mg/0.1 mL (18 mg/3 1.8 mg subcut DAILY 05/23/23 05/23/23 05/23/23 09:00 History mL) subcutaneous pen injector (Victoza 3-Ruben) Physical Exam 2 Vital Signs: Vital Signs: Last Vital Signs Temp 98.5 F 05/24/23 08:57 Pulse 75 05/24/23 08:57 Resp 14 05/24/23 08:57 BP 129/69 05/24/23 08:57 Pulse Ox 98 05/24/23 08:57 O2 Del Method Room Air 05/24/23 08:57 BMI result Body Mass Index 30.6 Const: General: comfortable and no acute distress O rientation/consciousness: patient oriented x3 HEENT: Other: Unremarkable Head: Yes normal to inspection Neck: Neck: Yes normal visual inspection Chest: Chest palpation & inspection: normal inspection of the chest Resp: Auscultation: clear to auscultation bilaterally Cardio: Palpation: normal PMI Heart sounds: S1 normal heart sound present, S2 normal heart sound present, no gallops, Murmur heart sound present systolic II/ and at the right sternal border and no rubs GI: Palpation (GI): Soft to palpation Back/Spine/Pelvis: Other: unremarkable Skin: General skin exam: no rashes or lesions noted Neuro: General: patient oriented x3 Extrem: General: Yes normal to inspection Psych: Mental Status: mental status grossly normal Objective Labs and Meds 05/24/23 05:51 05/24/23 05:51 Lab results: Laboratory Results - last 24 hr 05/23/23 05/23/23 05/23/23 12:52 15:37 21:30 WBC 7.4 RBC 3.57 L Hgb 9.4 L Hct 30.0 L MCV 84.0 MCH 26.3 L MCHC 31.3 RDW 14.4 Plt Count 206 MPV 9.4 Immature Gran % (Auto) 0.4 Neut % (Auto) 72.4 Lymph % (Auto) 15.5 L [place] % (Auto) 9.1 Eos % (Auto) 2.2 Baso % (Auto) 0.4 Lymph # (Auto) 1.1 L [place] # (Auto) 0.7 Eos # (Auto) 0.2 Baso # (Auto) 0.0 Abs Immat Gran (auto) 0.03 Absolute Neuts (auto) 5.3 Absolute Nucleated RBC 0.000 Nucleated RBC % (auto) 0.0 Sodium 138 Potassium 4.7 Chloride 108 Carbon Dioxide 24 Anion Gap 11 L BUN 36 H Creatinine 4.25 H* Estim Creat Clear Calc 18.2 Estimated GFR 14 POC Glucose 162 H Random Glucose 190 H Calcium 8.5 Troponin I High Sens 139.2 H* 129.6 H* 05/24/23 05/24/23 05:51 07:28 WBC 8.2 RBC 3.57 L Hgb 9.4 L Hct 30.3 L MCV 84.9 MCH 26.3 L MCHC 31.0 RDW 14.3 Plt Count 215 MPV 9.8 Immature Gran % (Auto) Neut % (Auto) Lymph % (Auto) [place] % (Auto) Eos % (Auto) Baso % (Auto) Lymph # (Auto) [place] # (Auto) Eos # (Auto) Baso # (Auto) Abs Immat Gran (auto) Absolute Neuts (auto) Absolute Nucleated RBC 0.000 Nucleated RBC % (auto) 0.0 Sodium 138 Potassium 4.4 Chloride 107 Carbon Dioxide 24 Anion Gap 11 L BUN 37 H Creatinine 4.12 H* Estim Creat Clear Calc 18.8 Estimated GFR 14 POC Glucose 154 H Random Glucose 164 H Calcium 8.4 Troponin I High Sens ECG Interpretation: EKG with sinus rhythm at 70/Min with voltage criteria for LVH. Overall, similar to the EKG from 2011. Imaging Radiologist's impression: Impressions Chest X-Ray 05/23/23 14:57 IMPRESSION: No acute process. Femur X-Ray 05/23/23 14:57 IMPRESSION: Mildly displaced transverse fracture in the distal diaphysis of the right femur. Assessment and Plan (1) Preoperative cardiovascular examination: Status: Acute (2) Elevated troponin: Status: Acute (3) Chronic kidney disease: Status: Acute Plan Significant elevation creatinine 4.1. We do not have previous levels. High sensitivity troponins are 139 and 129. Hemoglobin on the lower side at 9.4, which could be anemia from CKD. Etiology for the dizziness not clear. On auscultation, can hear aortic valve murmur. Elevation troponins could be from demand but he also has significant CKD and hence that could play a role. Doubt any clear NSTEMI. EKG is unchanged from before. He needs an echocardiogram for further assessment. For LVEF, wall motion as well as valvular pathology. Overall, he has many comorbidities but seems to have reasonable functional capacity as he states he can climb 4 flights of stairs. Cardiac risk based on the available data would be considered at least intermediate. Once echocardiogram is completed, will review. Discussed with Dr. Galo. Procedures Date of Service Date of Service: 05/24/23
--- NOTE | 2023-05-24 09:59 | PC.NURSE ---
ECHOCARDIOGRAM IS BEING DONE AT BEDSIDE.
[2023-05-24] MEDS: carvediloL 25 MG TABLET PO ×2 (10:17→21:49)
[2023-05-24] MEDS: HYDROmorphone HCl 1 MG/ML SYRINGE IVPUSH ×2 (10:17→21:48)
[2023-05-24 12:02] LABS: Cholesterol 133 mg/dL (<200); HDL Cholesterol 27 mg/dL (>40); LDL Cholesterol Calculated 58 mg/dL (<100); Triglycerides 241 mg/dL (<150)
--- NOTE | 2023-05-24 12:25 | MHC.CM.PN ---
CM ATTEMPTED TO SEE PT WHO WAS RECEIVING RN CARE CM TO REVISIT
--- NOTE | 2023-05-24 12:54 | PC.NURSE ---
THE PT'S LAB WORK NEEDS TO DRAWN FIRST (LAB-PTT)
[2023-05-24 12:55] LABS: Glucose, Whole Blood 135 mg/dL (60-115)
[2023-05-24] MEDS: Atorvastatin Calcium 40 MG TABLET PO (13:27)
--- NOTE | 2023-05-24 13:30 | PC.NURSE ---
Addendum entered by Melanie Grimm 05/24/23 13:32: PT'S SON BROUGHT IN CHICKEN WITH FRIES AND A CRUSH SODA (REGULAR). Original Note: PT REFUSED [facility] FOOD. PT'S SON BROUGHT 9IN
[2023-05-24 14:59] LABS: Hemoglobin 9.7 g/dl (14.0-18.0); Mean Corpuscular HGB Conc 31.3 g/dl (31.0-36.0); Mean Corpuscular Hemoglobin 26.6 pg (27.0-33.0); Mean Corpuscular Volume 84.9 fL (80.0-98.0); Mean Platelet Volume 9.5 fL (9.4-12.4); Platelet Count 198 X10*3/uL (160-400); Red Blood Count 3.65 X10*6/uL (4.60-5.80); Red Cell Distribution Width 14.5 % (11.0-16.0); White Blood Count 7.6 X10*3/uL (4.8-10.8)
[2023-05-24 15:04] LABS: Prothrombin Time 12.2 SEC (11.1-13.3)
[2023-05-24 15:07] LABS: PTT Heparin Drip 33.5 SEC (53-77.9)
--- NOTE | 2023-05-24 15:11 | P.PNIM_ITS ---
Subjective Subjective Date of Service: 05/24/23 Interval History: hip fracture abnormal echo-in setting of dizziness and fall Review of Systems no new symptoms or dizziness and chest pain has right hip fracture area soarness Physical Exam 2 Vital Signs: Vital Signs: Last Vital Signs Temp 97.5 F 05/24/23 14:00 Pulse 74 05/24/23 14:00 Resp 16 05/24/23 14:00 BP 126/61 05/24/23 14:00 Pulse Ox 98 05/24/23 14:00 O2 Del Method Room Air 05/24/23 14:00 BMI result Body Mass Index 31.3 Appearance: Alert.? Oriented X3.? cvs: rrr, [id number] , no murmur res: clear to auscultation ,no rhonchii or wheezing abd: no rebound or guarding ,nt, bs present. ext pulses present , no cyanosis. Right thigh to palpation neuro: axo3 , nonfocal. Objective Data Active Medications Acetaminophen (Acetaminophen 325 Mg Tablet) 650 mg PO Q6H PRN PRN Reason: Pain, Mild (Pain Scale 1-3) Last Admin: 05/23/23 18:12 Dose: 650 mg Documented By: MADDENL Atorvastatin Calcium (Atorvastatin Calcium 80 Mg Tablet) 80 mg PO DAILY [facility] Benzonatate (Benzonatate 100 Mg Capsule) 100 mg PO TID PRN PRN Reason: Cough Carvedilol (Carvedilol 25 Mg Tablet) 25 mg PO BID [facility]; Protocol Last Admin: 05/24/23 10:17 Dose: 25 mg Documented By: SCOC Dextrose (Dextrose 50 % 25 Gm/50 Ml Syringe) 25 gm IVPUSH Q15M PRN; Protocol PRN Reason: per Hypoglycemia Standing Ord. Docusate Sodium (Docusate Sodium 100 Mg Capsule) 100 mg PO DAILY PRN PRN Reason: Constipation Glucose (Glucose Gel 15 Gm Gel..Gram.) 15 gm PO Q15M PRN; Protocol PRN Reason: per Hypoglycemia Standing Ord. Heparin Sodium (Porcine) (Heparin Sodium,Porcine 5,000 Unit/Ml Vial) 3,900 unit 40 unit/kg (3900 unit) IVPUSH PROTOCOL BOLUS PRN; Protocol PRN Reason: 40 unit/kg - Heparin Protocol Heparin Sodium (Porcine) (Heparin Sodium,Porcine 5,000 Unit/Ml Vial) 7,800 unit 80 unit/kg (7800 unit) IVPUSH PROTOCOL BOLUS PRN; Protocol PRN Reason: 80 unit/kg - Heparin Protocol Hydromorphone HCl (Hydromorphone Hcl 1 Mg/Ml Syringe) 1 mg IVPUSH Q3H PRN; Protocol PRN Reason: Pain, Severe (Pain Scale 7-10) Last Admin: 05/24/23 10:17 Dose: 1 mg Documented By: NIKO Dextrose/Sodium Chloride (D5ns) 1,000 mls @ 80 mls/hr IVCONT .[id number] [facility] Last Admin: 05/24/23 15:03 Dose: 80 mls/hr Documented By: MARYLIN Heparin Sodium/Sodium Chloride (Heparin Sodium,Porcine/1/2ns) 25,000 unit in 250 mls @ 0 mls/hr IVCONT .Q0M [facility]; Protocol Insulin Human Lispro (Insulin Lispro 100 Unit/Ml 3 Ml Vial) 0 unit SUBCUT QIDACHS [facility]; Protocol Last Admin: 05/24/23 13:03 Dose: Not Given Documented By: NIKO Non-Admin Reason: No Insulin Coverage Melatonin (Melatonin 3 Mg Tablet) 6 mg PO BEDTIME PRN PRN Reason: Insomnia Ondansetron HCl (Ondansetron Hcl 4 Mg/2 Ml Vial) 4 mg IVPUSH Q8H PRN PRN Reason: Nausea and Vomiting Sodium Chloride (0.9 % Sodium Chloride Flush 3 Ml Syringe) 3 ml IVFLUSH QSHIFT [facility] Last Admin: 05/24/23 15:03 Dose: 3 ml Documented By: MARYLIN Labs 05/24/23 14:43 05/24/23 05:51 Labs: Laboratory Results - last 24 hr 05/23/23 05/24/23 05/24/23 21:30 05:51 07:28 MCV 84.9 MCH 26.3 L MCHC 31.0 RDW 14.3 Plt Count 215 MPV 9.8 Absolute Nucleated RBC 0.000 Nucleated RBC % (auto) 0.0 PT INR APTT aPTT Heparin Protocol Anion Gap 11 L Estim Creat Clear Calc 18.8 Estimated GFR 14 POC Glucose 162 H 154 H Random Glucose 164 H Calcium 8.4 Triglycerides 241 H Cholesterol 133 LDL Cholesterol, Calc 58 HDL Cholesterol 27 L Hold Yellow Top 05/24/23 05/24/23 12:50 14:43 MCV 84.9 MCH 26.6 L MCHC 31.3 RDW 14.5 Plt Count 198 MPV 9.5 Absolute Nucleated RBC 0.000 Nucleated RBC % (auto) 0.0 PT 12.2 INR 1.0 APTT Cancelled aPTT Heparin Protocol 33.5 L Anion Gap Estim Creat Clear Calc Estimated GFR POC Glucose 135 H Random Glucose Calcium Triglycerides Cholesterol LDL Cholesterol, Calc HDL Cholesterol Hold Yellow Top See Note Assessment and Plan (1) Elevated troponin: Status: Acute (2) Chronic kidney disease: Status: Acute Plan 72-year-old male with a PMH significant for?HTN, HLD, [id number] diabetes type 2, anemia of chronic disease, CKD 4, and right knee replacement around 2015 who presents to the ED with right leg pain and inability to walk after fall. Pt will be admitted to the hospital for treatment of displaced periprosthetic right femur fracture. Right femur fracture X-ray found mildly displaced transverse fracture in the distal diaphysis of the right femur Patient with right TKA high risk for procedure due to wma on echo in addition to ckd 4,iddm. Dizziness/presyncope eleavted troponins with wma : echo: wma seen by cardio:Echocardiogram with low normal LVEF; LVH; inferior/inferolateral WMA. Unclear if old or new. Can treat with IV Heparin drip for 48hrs(pt/ptt protocol) and then plan surgery ( started on low dose heparin drip ) since has fracture ,statin,bb. Will be high cardiac risk. CKD 4 Creatinine 4.25 Review of [facility] records show creatinine of 3.0 from 04/30-10/30 dc fluids since not going for surgery Followed by Dr. Braden [id number] diabetes type [address] on sliding scale insulin Diabetic diet HTN Will hold amlodipine for now given presyncope Resume as indicated Continue carvedilol HLD Continue statin DVT Prophylaxis: on iv heparin. ongoing hospitalization need : for treatment of?displaced periprosthetic right distal femur fracture. also has wma -need iv heparin ,pt/ptt protocol,moniter renal function/electrolytes closely. Quality Stroke Does the patient have a stroke diagnosis?: No VTE Prior VTE?: No VTE Risk Level:: Medical - moderate - high VTE Device Contraindication: N/A - Device Ordered VTE Drug Contraindication: Treatment Not Indicated
[2023-05-24] MEDS: Heparin Sodium,Porcine/1/2NS 25,000 UNIT/250 ML IV.SOLN 9.75 UNIT IVCONT (15:53)
[2023-05-24 16:20] LABS: Glucose, Whole Blood 260 mg/dL (60-115)
[2023-05-24] MEDS: Insulin Lispro 100 UNIT/ML 3 ML VIAL SUBCUT (16:45)
[2023-05-24] MEDS: Omeprazole 20 MG CAPSULE.DR PO (17:19)
[2023-05-24 20:02] LABS: Glucose, Whole Blood 137 mg/dL (60-115)
[2023-05-24 22:30] LABS: PTT Heparin Drip 51.5 SEC (53-77.9)
[2023-05-24] MEDS: Heparin Sodium,Porcine 5,000 UNIT/ML VIAL 3900 UNIT IVPUSH (22:42)
[2023-05-25] VITALS (7 sets, daily range): BP systolic 101–160; BP diastolic 57–82; PULSE 71–86; RESP 18–20; TEMP 36.3–36.8; O2SAT 96–98
[2023-05-25 05:35] LABS: PTT Heparin Drip 129.6 SEC (53-77.9)
[2023-05-25] MEDS: Omeprazole 20 MG CAPSULE.DR PO (05:44)
[2023-05-25 07:32] LABS: Prothrombin Time 12.5 SEC (11.1-13.3)
[2023-05-25 07:34] LABS: Glucose, Whole Blood 152 mg/dL (60-115)
[2023-05-25 07:34] LABS: Hematocrit 29.9 % (42.0-52.0); Hemoglobin 9.3 g/dl (14.0-18.0); Mean Corpuscular HGB Conc 31.1 g/dl (31.0-36.0); Mean Corpuscular Hemoglobin 26.2 pg (27.0-33.0); Mean Corpuscular Volume 84.2 fL (80.0-98.0); Platelet Count 211 X10*3/uL (160-400); Red Blood Count 3.55 X10*6/uL (4.60-5.80); Red Cell Distribution Width 14.1 % (11.0-16.0); White Blood Count 7.6 X10*3/uL (4.8-10.8)
[2023-05-25 07:35] LABS: PTT Heparin Drip 52.5 SEC (53-77.9)
[2023-05-25 07:53] LABS: Anion Gap 13 (12-20); Blood Urea Nitrogen 40 mg/dL (9-16); Calcium 8.4 mg/dL (8.4-10.2); Carbon Dioxide 20 mmol/L (22-29); Chloride 110 mmol/L (96-108); Creatinine Clr Calc Pharmacy 22.2; Estimated Glomerular Filt Rate 17; Glucose Random 133 mg/dL (60-115); Potassium 4.8 mmol/L (3.3-5.1); Sodium 138 mmol/L (135-145)
[2023-05-25] MEDS: carvediloL 25 MG TABLET PO ×2 (09:43→20:49)
[2023-05-25] MEDS: Atorvastatin Calcium 80 MG TABLET PO (09:43)
[2023-05-25] MEDS: 0.9 % Sodium Chloride Flush 3 ML SYRINGE IVFLUSH ×3 (09:44→20:50)
[2023-05-25] MEDS: HYDROmorphone HCl 1 MG/ML SYRINGE IVPUSH ×3 (09:46→20:50)
--- NOTE | 2023-05-25 10:31 | PM.PNCARD ---
Subjective Subjective Date of Service: 05/25/23 Interval history: He states he is feeling okay. No chest pain or any cardiac symptoms at this time. Review of Systems Review of Systems Yes all other systems are reviewed and are negative Constitutional: Reports as per HPI and Reports no additional constitutional complaints Eyes: Reports as per HPI and Denies no additional eye complaints Denies system reviewed and no additional complaints, except as documented and Reports as per HPI Cardiovascular: Reports as per HPI, Reports no additional cardiovascular complaints, Denies acrocyanosis, Denies cool extremities, Denies chest pain, Denies leg edema, Denies lightheadedness, Denies palpitations and Denies dyspnea Respiratory: Reports as per HPI, Denies no additional respiratory complaints and Denies dyspnea Gastrointestinal: Reports as per HPI and Denies no additional gastrointestinal complaints Genitourinary: Reports no additional male genitourinary complaints and Reports as per HPI Musculoskeletal: Reports no additional musculoskeletal complaints and Reports as per HPI Skin/Breast: Reports system reviewed and no additional complaints, except as docu Reports system reviewed and no additional complaints, except as documented and Reports as per HPI Psychiatric: Reports no additional psychiatric complaints and Reports as per HPI Endocrine: Reports no additional endocrine complaints, Reports as per HPI and Denies palpitations Hematologic/Lymphatic: Reports no additional hematologic/lymphatic complaints and Reports as per HPI Allergic/Immunologic: Reports no additional allergic/immunologic complaints and Reports as per HPI Physical Exam Vital Signs: Last Vital Signs Temp 97.9 F 05/25/23 07:26 Pulse 78 05/25/23 07:26 Resp 20 05/25/23 07:26 BP 101/57 L 05/25/23 09:32 Pulse Ox 96 05/25/23 07:26 O2 Del Method Room Air 05/25/23 07:26 BMI result Body Mass Index 31.3 Const General: comfortable and no acute distress Orientation/consciousness: patient oriented x3 HEENT Other: Unremarkable Head: Yes normal to inspection Neck Neck: Yes normal visual inspection Chest Chest palpation & inspection: normal inspection of the chest Resp Auscultation: clear to auscultation bilaterally Cardio Palpation: normal PMI Heart sounds: S1 normal heart sound present, S2 normal heart sound present, no gallops, no murmurs and no rubs GI Palpation (GI): Soft to palpation Back/Spine/Pelvis Other: unremarkable Skin General skin exam: no rashes or lesions noted Neuro General: patient oriented x3 Extrem General: Yes normal to inspection Psych Mental Status: mental status grossly normal Objective Labs and Meds 05/25/23 07:06 05/25/23 07:06 Lab results: Laboratory Results - last 24 hr 05/24/23 05/24/23 05/24/23 05:51 12:50 14:43 WBC 7.6 RBC 3.65 L Hgb 9.7 L Hct 31.0 L MCV 84.9 MCH 26.6 L MCHC 31.3 RDW 14.5 Plt Count 198 MPV 9.5 Absolute Nucleated RBC 0.000 Nucleated RBC % (auto) 0.0 PT 12.2 INR 1.0 APTT Cancelled aPTT Heparin Protocol 33.5 L Sodium Potassium Chloride Carbon Dioxide Anion Gap BUN Creatinine Estim Creat Clear Calc Estimated GFR POC Glucose 135 H Random Glucose Calcium Triglycerides 241 H Cholesterol 133 LDL Cholesterol, Calc 58 HDL Cholesterol 27 L Hold Yellow Top See Note Blood Type B Negative Antibody Screen NEGATIVE 05/24/23 05/24/23 05/24/23 16:14 19:50 22:08 WBC RBC Hgb Hct MCV MCH MCHC RDW Plt Count MPV Absolute Nucleated RBC Nucleated RBC % (auto) PT INR APTT aPTT Heparin Protocol 51.5 L D Sodium Potassium Chloride Carbon Dioxide Anion Gap BUN Creatinine Estim Creat Clear Calc Estimated GFR POC Glucose 260 H 137 H Random Glucose Calcium Triglycerides Cholesterol LDL Cholesterol, Calc HDL Cholesterol Hold Yellow Top Blood Type Antibody Screen 05/25/23 05/25/23 05/25/23 05:04 07:06 07:28 WBC 7.6 RBC 3.55 L Hgb 9.3 L Hct 29.9 L MCV 84.2 MCH 26.2 L MCHC 31.1 RDW 14.1 Plt Count 211 MPV 10.0 Absolute Nucleated RBC 0.000 Nucleated RBC % (auto) 0.0 PT 12.5 INR 1.0 APTT aPTT Heparin Protocol 129.6 H* D 52.5 L D Sodium 138 Potassium 4.8 Chloride 110 H Carbon Dioxide 20 L Anion Gap 13 BUN 40 H Creatinine 3.53 H Estim Creat Clear Calc 22.2 Estimated GFR 17 POC Glucose 152 H Random Glucose 133 H Calcium 8.4 Triglycerides Cholesterol LDL Cholesterol, Calc HDL Cholesterol Hold Yellow Top Blood Type Antibody Screen Progress Note: A&P Assessment and plan (1) Preoperative cardiovascular examination: Status: Acute (2) Elevated troponin: Status: Acute (3) Chronic kidney disease: Status: Acute Plan Many comorbidities; elevated but flat troponins in setting of CKD; Echocardiogram with wall motion abnormality in the inferior/inferolateral segments with low normal LVEF. Overall, suspect high likelihood of underlying CAD. Elevated troponins could be related to demand as well as baseline CKD. Due to fracture, he definitely needs surgery. Considering the overall comorbidities as well as cardiac findings, he would be at high cardiac risk. This is unmodifiable. Specifically discussed with patient. Discussed with Dr. Adams. Time Spent With Patient Time: Total time managing care of this patient today ____ minutes. Progress Note: Quality Stroke Does the patient have a stroke diagnosis?: No Procedures Date of Service Date of Service: 05/25/23
[2023-05-25 11:08] LABS: Glucose, Whole Blood 207 mg/dL (60-115)
--- NOTE | 2023-05-25 11:30 | MHC.CM.PN ---
CM met with Patient at bedside and addressed IMM with him, providing Patient with the original and a copy has been placed on the chart. Patient lives alone in a 2nd floor apartment, with no elevator and he will likely require STR, pending PT eval. CM has initiated and will follow for dc planning. Patient has named his Girlfriend/Kimberly as his HCP and his PCP is Dr. Morin from [facility] in [place].
--- NOTE | 2023-05-25 11:52 | HO.PM.IMPN ---
Subjective Subjective Date of Service: 05/25/23 Interval History: No shortness of breath, no chest pain. Pain in the knee with movement Physical Exam Vital Signs: Vital Signs: Last Vital Signs Temp 98.2 F 05/25/23 11:01 Pulse 76 05/25/23 11:01 Resp 20 05/25/23 11:01 BP 139/73 05/25/23 11:01 Pulse Ox 97 05/25/23 11:01 O2 Del Method Room Air 05/25/23 11:01 BMI result Body Mass Index 31.3 General: AO X 3, no acute distress Resp: CTA bilateral CVS: S1,S2,RRR GI: +BS, NT, no distention Skin: No rash Neuro: motor grossly intact Psych: appropriate affect Objective Data Active Medications Acetaminophen (Acetaminophen 325 Mg Tablet) 650 mg PO Q6H PRN PRN Reason: Pain, Mild (Pain Scale 1-3) Last Admin: 05/23/23 18:12 Dose: 650 mg Documented By: GEE Atorvastatin Calcium (Atorvastatin Calcium 80 Mg Tablet) 80 mg PO DAILY [facility] Last Admin: 05/25/23 09:43 Dose: 80 mg Documented By: BLU Benzonatate (Benzonatate 100 Mg Capsule) 100 mg PO TID PRN PRN Reason: Cough Carvedilol (Carvedilol 25 Mg Tablet) 25 mg PO BID [facility]; Protocol Last Admin: 05/25/23 09:43 Dose: 25 mg Documented By: BLU Dextrose (Dextrose 50 % 25 Gm/50 Ml Syringe) 25 gm IVPUSH Q15M PRN; Protocol PRN Reason: per Hypoglycemia Standing Ord. Docusate Sodium (Docusate Sodium 100 Mg Capsule) 100 mg PO DAILY PRN PRN Reason: Constipation Glucose (Glucose Gel 15 Gm Gel..Gram.) 15 gm PO Q15M PRN; Protocol PRN Reason: per Hypoglycemia Standing Ord. Heparin Sodium (Porcine) (Heparin Sodium,Porcine 5,000 Unit/Ml Vial) 3,900 unit 40 unit/kg (3900 unit) IVPUSH PROTOCOL BOLUS PRN; Protocol PRN Reason: 40 unit/kg - Heparin Protocol Last Admin: 05/24/23 22:42 Dose: 3,900 unit Documented By: PATRICIA Heparin Sodium (Porcine) (Heparin Sodium,Porcine 5,000 Unit/Ml Vial) 7,800 unit 80 unit/kg (7800 unit) IVPUSH PROTOCOL BOLUS PRN; Protocol PRN Reason: 80 unit/kg - Heparin Protocol Hydromorphone HCl (Hydromorphone Hcl 1 Mg/Ml Syringe) 1 mg IVPUSH Q3H PRN; Protocol PRN Reason: Pain, Severe (Pain Scale 7-10) Last Admin: 05/25/23 09:46 Dose: 1 mg Documented By: BLU Heparin Sodium/Sodium Chloride (Heparin Sodium,Porcine/1/2ns) 25,000 unit in 250 mls @ 0 mls/hr IVCONT .Q0M [facility]; Protocol Last Titration: 05/25/23 07:44 Dose: 8 units/kg/hr, 7.8 mls/hr Documented By: BLU Co-signed By: ELAINE Insulin Human Lispro (Insulin Lispro 100 Unit/Ml 3 Ml Vial) 0 unit SUBCUT QIDACHS [facility]; Protocol Last Admin: 05/25/23 09:05 Dose: Not Given Documented By: BLU Non-Admin Reason: doesnt need Melatonin (Melatonin 3 Mg Tablet) 6 mg PO BEDTIME PRN PRN Reason: Insomnia Omeprazole (Omeprazole 20 Mg Capsule.Dr) 20 mg PO DAILY@0630 [facility] Last Admin: 05/25/23 05:44 Dose: 20 mg Documented By: PATRICIA Ondansetron HCl (Ondansetron Hcl 4 Mg/2 Ml Vial) 4 mg IVPUSH Q8H PRN PRN Reason: Nausea and Vomiting Sodium Chloride (0.9 % Sodium Chloride Flush 3 Ml Syringe) [facility] Last Admin: 05/25/23 09:44 Dose: 3 ml Documented By: BLU Labs 05/25/23 07:06 05/25/23 07:06 Labs: Laboratory Results - last 24 hr 05/24/23 05/24/23 05/24/23 05:51 12:50 14:43 MCV 84.9 MCH 26.6 L MCHC 31.3 RDW 14.5 Plt Count 198 MPV 9.5 Absolute Nucleated RBC 0.000 Nucleated RBC % (auto) 0.0 PT 12.2 INR 1.0 APTT Cancelled aPTT Heparin Protocol 33.5 L Anion Gap Estim Creat Clear Calc Estimated GFR POC Glucose 135 H Random Glucose Calcium Triglycerides 241 H Cholesterol 133 LDL Cholesterol, Calc 58 HDL Cholesterol 27 L Hold Yellow Top See Note Blood Type B Negative Antibody Screen NEGATIVE 05/24/23 05/24/23 05/24/23 16:14 19:50 22:08 MCV MCH MCHC RDW Plt Count MPV Absolute Nucleated RBC Nucleated RBC % (auto) PT INR APTT aPTT Heparin Protocol 51.5 L D Anion Gap Estim Creat Clear Calc Estimated GFR POC Glucose 260 H 137 H Random Glucose Calcium Triglycerides Cholesterol LDL Cholesterol, Calc HDL Cholesterol Hold Yellow Top Blood Type Antibody Screen 05/25/23 05/25/23 05/25/23 05:04 07:06 07:28 MCV 84.2 MCH 26.2 L MCHC 31.1 RDW 14.1 Plt Count 211 MPV 10.0 Absolute Nucleated RBC 0.000 Nucleated RBC % (auto) 0.0 PT 12.5 INR 1.0 APTT aPTT Heparin Protocol 129.6 H* D 52.5 L D Anion Gap 13 Estim Creat Clear Calc 22.2 Estimated GFR 17 POC Glucose 152 H Random Glucose 133 H Calcium 8.4 Triglycerides Cholesterol LDL Cholesterol, Calc HDL Cholesterol Hold Yellow Top Blood Type Antibody Screen 05/25/23 11:02 MCV MCH MCHC RDW Plt Count MPV Absolute Nucleated RBC Nucleated RBC % (auto) PT INR APTT aPTT Heparin Protocol Anion Gap Estim Creat Clear Calc Estimated GFR POC Glucose 207 H Random Glucose Calcium Triglycerides Cholesterol LDL Cholesterol, Calc HDL Cholesterol Hold Yellow Top Blood Type Antibody Screen Assessment and Plan (1) Elevated troponin: Status: Acute (2) Chronic kidney disease: Status: Acute Plan 72-year-old male with a PMH significant for?HTN, HLD, [id number] diabetes type 2, anemia of chronic disease, CKD 4, and right knee replacement around 2015 who presents to the ED with right leg pain and inability to walk after fall. Pt will be admitted to the hospital for treatment of displaced periprosthetic right femur fracture. mildly displaced transverse fracture in the distal diaphysis of the right femur above knee prosthesis -Will ultimately need surgical repair once cardiac issues stable, Overall high risk Dizziness/presyncope eleavted troponins with wma on echo: -cardiology has advised treated with IV heparin for 48 hours CKD 4--Cr within baseine [id number] diabetes type 2 SSI, diabetic diet HTN--continue coreg, hold Norvasc HLD Continue statin DVT Prophylaxis: on iv heparin. need for hospitalization: Need surgery for hip fracture Quality Stroke Does the patient have a stroke diagnosis?: No VTE Prior VTE?: No VTE Risk Level:: Medical - moderate - high VTE Device Contraindication: N/A - Device Ordered VTE Drug Contraindication: Treatment Not Indicated
[2023-05-25] MEDS: Insulin Lispro 100 UNIT/ML 3 ML VIAL SUBCUT (12:16)
[2023-05-25 14:35] LABS: PTT Heparin Drip 48.8 SEC (53-77.9)
[2023-05-25] MEDS: Heparin Sodium,Porcine 5,000 UNIT/ML VIAL 3900 UNIT IVPUSH (14:42)
[2023-05-25] MEDS: Heparin Sodium,Porcine/1/2NS 25,000 UNIT/250 ML IV.SOLN 9.75 UNIT IVCONT (15:25)
[2023-05-25 16:10] LABS: Glucose, Whole Blood 100 mg/dL (60-115)
[2023-05-25 20:37] LABS: Glucose, Whole Blood 114 mg/dL (60-115)
[2023-05-25 21:29] LABS: PTT Heparin Drip 115.4 SEC (53-77.9)
[2023-05-25 23:13] LABS: PTT Heparin Drip 57.7 SEC (53-77.9)
[2023-05-26] VITALS (26 sets, daily range): BP systolic 133–190; BP diastolic 68–100; PULSE 66–93; RESP 15–20; TEMP 36.1–37.4; O2SAT 95–99
[2023-05-26] MEDS: HYDROmorphone HCl 1 MG/ML SYRINGE IVPUSH ×3 (03:23→21:19)
[2023-05-26 07:08] LABS: PTT Heparin Drip 43.5 SEC (53-77.9)
[2023-05-26 07:27] LABS: Glucose, Whole Blood 135 mg/dL (60-115)
--- NOTE | 2023-05-26 08:28 | HO.PM.IMPN ---
Subjective Subjective Date of Service: 05/26/23 Interval History: no sob, no dizziness, hip pain only with movment, heparin drip stopped at 5 am Physical Exam Vital Signs: Vital Signs: Last Vital Signs Temp 98.0 F 05/26/23 07:25 Pulse 75 05/26/23 07:25 Resp 20 05/26/23 07:25 BP 146/71 H 05/26/23 07:25 Pulse Ox 98 05/26/23 07:25 O2 Del Method Room Air 05/26/23 07:25 BMI result Body Mass Index 31.3 General: AO X 3, no acute distress Resp: CTA bilateral CVS: S1,S2,RRR GI: +BS, NT, no distention Skin: No rash Neuro: motor grossly intact Psych: appropriate affect Objective Data Active Medications Acetaminophen (Acetaminophen 325 Mg Tablet) 650 mg PO Q6H PRN PRN Reason: Pain, Mild (Pain Scale 1-3) Last Admin: 05/23/23 18:12 Dose: 650 mg Documented By: GEE Atorvastatin Calcium (Atorvastatin Calcium 80 Mg Tablet) 80 mg PO DAILY [facility] Last Admin: 05/25/23 09:43 Dose: 80 mg Documented By: WILLIAC Benzonatate (Benzonatate 100 Mg Capsule) 100 mg PO TID PRN PRN Reason: Cough Carvedilol (Carvedilol 25 Mg Tablet) 25 mg PO BID [facility]; Protocol Last Admin: 05/25/23 20:49 Dose: 25 mg Documented By: XIANG Comments: HR 74, BP150/81 Dextrose (Dextrose 50 % 25 Gm/50 Ml Syringe) 25 gm IVPUSH Q15M PRN; Protocol PRN Reason: per Hypoglycemia Standing Ord. Docusate Sodium (Docusate Sodium 100 Mg Capsule) 100 mg PO DAILY PRN PRN Reason: Constipation Glucose (Glucose Gel 15 Gm Gel..Gram.) 15 gm PO Q15M PRN; Protocol PRN Reason: per Hypoglycemia Standing Ord. Hydromorphone HCl (Hydromorphone Hcl 1 Mg/Ml Syringe) 1 mg IVPUSH Q3H PRN; Protocol PRN Reason: Pain, Severe (Pain Scale 7-10) Last Admin: 05/26/23 03:23 Dose: 1 mg Documented By: XIANG Sodium Chloride (Ns) 100 mls @ 100 mls/hr IV ONCE ONE Stop: 05/26/23 09:25 Insulin Human Lispro (Insulin Lispro 100 Unit/Ml 3 Ml Vial) 0 unit SUBCUT QIDACHS [facility]; Protocol Last Admin: 05/26/23 07:26 Dose: Not Given Documented By: BLU Non-Admin Reason: NPO Melatonin (Melatonin 3 Mg Tablet) 6 mg PO BEDTIME PRN PRN Reason: Insomnia Omeprazole (Omeprazole 20 Mg Capsule.Dr) 20 mg PO DAILY@0630 [facility] Last Admin: 05/26/23 06:13 Dose: Not Given Documented By: XIANG Non-Admin Reason: Refursed; NPO surgery Ondansetron HCl (Ondansetron Hcl 4 Mg/2 Ml Vial) 4 mg IVPUSH Q8H PRN PRN Reason: Nausea and Vomiting Sodium Chloride (0.9 % Sodium Chloride Flush 3 Ml Syringe) 3 ml IVFLUSH QSHIFT [facility] Last Admin: 05/25/23 20:50 Dose: 3 ml Documented By: XIANG Labs 05/25/23 07:06 05/25/23 07:06 Labs: Laboratory Results - last 24 hr 05/25/23 05/25/23 05/25/23 11:02 13:56 16:01 Hold Purple Top aPTT Heparin Protocol 48.8 L POC Glucose 207 H 100 05/25/23 05/25/23 05/25/23 20:26 20:33 22:51 Hold Purple Top aPTT Heparin Protocol 115.4 H* D 57.7 D POC Glucose 114 05/26/23 05/26/23 06:03 07:24 Hold Purple Top SEE NOTE aPTT Heparin Protocol 43.5 L D POC Glucose 135 H Assessment and Plan (1) Elevated troponin: Status: Acute (2) Chronic kidney disease: Status: Acute Plan 72-year-old male with a PMH significant for?HTN, HLD, [id number] diabetes type 2, anemia of chronic disease, CKD 4, and right knee replacement around 2015 who presents to the ED with right leg pain and inability to walk after fall. Pt will be admitted to the hospital for treatment of displaced periprosthetic right femur fracture. R femur fracture -surgical repair today -high risk Dizziness/presyncope, elevated troponin, wma on echo, concern for NSTEMI -treated with heparin x 48 hrs -coreg, lipitor.. ASA after surgery anemia--of chronic disease, h/h stable, given cad, and cardiac event, transfuse to hematocrit 10 or better CKD 4--Cr w/in baseline DM2, SSI, diabetic diet HTN--continue coreg, hold Norvasc HLD Continue statin DVT Prophylaxis: iv heparin pre op need for hospitalization: Need surgery for hip fracture Quality Stroke Does the patient have a stroke diagnosis?: No VTE Prior VTE?: No VTE Risk Level:: Medical - moderate - high VTE Device Contraindication: N/A - Device Ordered VTE Drug Contraindication: Treatment Not Indicated
--- NOTE | 2023-05-26 10:54 | PC.NURSE ---
pt Heparin gtt was discontinued at 500 this morning. When this RN acquired pt it was ntoiced that the Heparin gtt was still running. Gtt was shut off at 745. MD and surgery aware.
[2023-05-26 11:06] LABS: Glucose, Whole Blood 124 mg/dL (60-115)
--- NOTE | 2023-05-26 11:45 | HO.ANESPROP2 ---
HPI - Anesthesia Eval Consult details Narrative: for femur fracture and line exchange knee [facility] Active Problems Active Problems: All Active Problems (Updated 05/24/23 @ 09:52 by Nicanor Garner MD) Elevated troponin (Acute) Preoperative cardiovascular examination (Acute) Chronic kidney disease (Acute) Closed right femoral fracture (Acute) Bladder outlet obstruction (Acute) Elevated PSA (Acute) Hypertension, benign (Acute) Erectile dysfunction associated with type 2 diabetes mellitus (Acute) Past Medical History Medical History HLD (hyperlipidemia) Anemia of chronic disease Hypogonadism in male OA (osteoarthritis) Diabetes mellitus, type II Onychomycosis Hypertension, benign Kidney disease Dysuria Family History Family history of problems with anesthesia: No Surgical History History of Problems with Anesthesia: No Social History Social History Household Members: None Housing: Apartment Do you presently have visiting nurse or other home services: No Patient Tobacco Use Status: Never used Tobacco service: No Meds Allergies Allergy/AdvReac Type Severity Reaction Status Date / Time No Known Allergies Allergy Verified 08/04/22 11:13 Active Medications: Current Medications Acetaminophen (Acetaminophen 325 Mg Tablet) 650 mg PO Q6H PRN PRN Reason: Pain, Mild (Pain Scale 1-3) Last Admin: 05/23/23 18:12 Dose: 650 mg Atorvastatin Calcium (Atorvastatin Calcium 80 Mg Tablet) 80 mg PO DAILY [facility] Last Admin: 05/26/23 10:15 Dose: Not Given Benzonatate (Benzonatate 100 Mg Capsule) 100 mg PO TID PRN PRN Reason: Cough Carvedilol (Carvedilol 25 Mg Tablet) 25 mg PO BID [facility]; Protocol Last Admin: 05/26/23 10:16 Dose: Not Given Dextrose (Dextrose 50 % 25 Gm/50 Ml Syringe) 25 gm IVPUSH Q15M PRN; Protocol PRN Reason: per Hypoglycemia Standing Ord. Docusate Sodium (Docusate Sodium 100 Mg Capsule) 100 mg PO DAILY PRN PRN Reason: Constipation Glucose (Glucose Gel 15 Gm Gel..Gram.) 15 gm PO Q15M PRN; Protocol PRN Reason: per Hypoglycemia Standing Ord. Hydromorphone HCl (Hydromorphone Hcl 1 Mg/Ml Syringe) 1 mg IVPUSH Q3H PRN; Protocol PRN Reason: Pain, Severe (Pain Scale 7-10) Last Admin: 05/26/23 03:23 Dose: 1 mg Insulin Human Lispro (Insulin Lispro 100 Unit/Ml 3 Ml Vial) 0 unit SUBCUT QIDACHS [facility]; Protocol Last Admin: 05/26/23 11:43 Dose: Not Given Melatonin (Melatonin 3 Mg Tablet) 6 mg PO BEDTIME PRN PRN Reason: Insomnia Omeprazole (Omeprazole 20 Mg Capsule.Dr) 20 mg PO DAILY@0630 [facility] Last Admin: 05/26/23 06:13 Dose: Not Given Ondansetron HCl (Ondansetron Hcl 4 Mg/2 Ml Vial) 4 mg IVPUSH Q8H PRN PRN Reason: Nausea and Vomiting Sodium Chloride (0.9 % Sodium Chloride Flush 3 Ml Syringe) 3 ml IVFLUSH QSHIFT [facility] Last Admin: 05/26/23 10:17 Dose: Not Given Home Medications Medication Instructions Recorded Confirmed Last Taken Type amlodipine 10 mg tablet 10 mg PO DAILY 05/08/22 05/23/23 05/23/23 09:00 History atorvastatin 40 mg tablet 40 mg PO DAILY 05/08/22 05/23/23 05/23/23 09:00 History blood sugar diagnostic (FreeStyle #10 ea 05/08/22 08/04/22 Unknown History Lite Strips) carvedilol 25 mg tablet 25 mg PO BID 05/08/22 05/23/23 05/23/23 09:00 History dapagliflozin propanediol 10 mg 10 mg PO DAILY 05/08/22 05/23/23 05/23/23 09:00 History tablet (Farxiga) liraglutide 0.6 mg/0.1 mL (18 mg/3 1.8 mg subcut DAILY 05/23/23 05/23/23 05/23/23 09:00 History mL) subcutaneous pen injector (Victoza 3-Ruben) Exam Height,Weight and Vital Signs: Height 5 ft 9 in Weight 96.1 kg Last Vital Signs Temp 96.9 F 05/26/23 11:37 Pulse 71 05/26/23 11:37 Resp 16 05/26/23 11:37 BP 139/71 05/26/23 11:37 Pulse Ox 98 05/26/23 11:02 O2 Del Method Room Air 05/26/23 11:02 Pertinent Lab Results Pertinent Lab Results: Laboratory Tests 05/23/23 05/23/23 05/23/23 12:52 15:37 21:30 WBC 7.4 RBC 3.57 L Hgb 9.4 L Hct 30.0 L MCV 84.0 MCH 26.3 L MCHC 31.3 RDW 14.4 Plt Count 206 MPV 9.4 Immature Gran % (Auto) 0.4 Neut % (Auto) 72.4 Lymph % (Auto) 15.5 L [place] % (Auto) 9.1 Eos % (Auto) 2.2 Baso % (Auto) 0.4 Lymph # (Auto) 1.1 L [place] # (Auto) 0.7 Eos # (Auto) 0.2 Baso # (Auto) 0.0 Abs Immat Gran (auto) 0.03 Absolute Neuts (auto) 5.3 Absolute Nucleated RBC 0.000 Nucleated RBC % (auto) 0.0 Hold Purple Top PT INR APTT aPTT Heparin Protocol Sodium 138 Potassium 4.7 Chloride 108 Carbon Dioxide 24 Anion Gap 11 L BUN 36 H Creatinine 4.25 H* Estim Creat Clear Calc 18.2 Estimated GFR 14 POC Glucose 162 H Random Glucose 190 H Calcium 8.5 Troponin I High Sens 139.2 H* 129.6 H* Triglycerides Cholesterol LDL Cholesterol, Calc HDL Cholesterol Hold Yellow Top Blood Type Antibody Screen Crossmatch 05/24/23 05/24/23 05/24/23 05:51 07:28 12:50 WBC 8.2 RBC 3.57 L Hgb 9.4 L Hct 30.3 L MCV 84.9 MCH 26.3 L MCHC 31.0 RDW 14.3 Plt Count 215 MPV 9.8 Immature Gran % (Auto) Neut % (Auto) Lymph % (Auto) [place] % (Auto) Eos % (Auto) Baso % (Auto) Lymph # (Auto) [place] # (Auto) Eos # (Auto) Baso # (Auto) Abs Immat Gran (auto) Absolute Neuts (auto) Absolute Nucleated RBC 0.000 Nucleated RBC % (auto) 0.0 Hold Purple Top PT INR APTT aPTT Heparin Protocol Sodium 138 Potassium 4.4 Chloride 107 Carbon Dioxide 24 Anion Gap 11 L BUN 37 H Creatinine 4.12 H* Estim Creat Clear Calc 18.8 Estimated GFR 14 POC Glucose 154 H 135 H Random Glucose 164 H Calcium 8.4 Troponin I High Sens Triglycerides 241 H Cholesterol 133 LDL Cholesterol, Calc 58 HDL Cholesterol 27 L Hold Yellow Top Blood Type Antibody Screen Crossmatch 05/24/23 05/24/23 05/24/23 14:43 16:14 19:50 WBC 7.6 RBC 3.65 L Hgb 9.7 L Hct 31.0 L MCV 84.9 MCH 26.6 L MCHC 31.3 RDW 14.5 Plt Count 198 MPV 9.5 Immature Gran % (Auto) Neut % (Auto) Lymph % (Auto) [place] % (Auto) Eos % (Auto) Baso % (Auto) Lymph # (Auto) [place] # (Auto) Eos # (Auto) Baso # (Auto) Abs Immat Gran (auto) Absolute Neuts (auto) Absolute Nucleated RBC 0.000 Nucleated RBC % (auto) 0.0 Hold Purple Top PT 12.2 INR 1.0 APTT Cancelled aPTT Heparin Protocol 33.5 L Sodium Potassium Chloride Carbon Dioxide Anion Gap BUN Creatinine Estim Creat Clear Calc Estimated GFR POC Glucose 260 H 137 H Random Glucose Calcium Troponin I High Sens Triglycerides Cholesterol LDL Cholesterol, Calc HDL Cholesterol Hold Yellow Top See Note Blood Type B Negative Antibody Screen NEGATIVE Crossmatch See Detail 05/24/23 05/25/23 05/25/23 22:08 05:04 07:06 WBC 7.6 RBC 3.55 L Hgb 9.3 L Hct 29.9 L MCV 84.2 MCH 26.2 L MCHC 31.1 RDW 14.1 Plt Count 211 MPV 10.0 Immature Gran % (Auto) Neut % (Auto) Lymph % (Auto) [place] % (Auto) Eos % (Auto) Baso % (Auto) Lymph # (Auto) [place] # (Auto) Eos # (Auto) Baso # (Auto) Abs Immat Gran (auto) Absolute Neuts (auto) Absolute Nucleated RBC 0.000 Nucleated RBC % (auto) 0.0 Hold Purple Top PT 12.5 INR 1.0 APTT aPTT Heparin Protocol 51.5 L D 129.6 H* D 52.5 L D Sodium 138 Potassium 4.8 Chloride 110 H Carbon Dioxide 20 L Anion Gap 13 BUN 40 H Creatinine 3.53 H Estim Creat Clear Calc 22.2 Estimated GFR 17 POC Glucose Random Glucose 133 H Calcium 8.4 Troponin I High Sens Triglycerides Cholesterol LDL Cholesterol, Calc HDL Cholesterol Hold Yellow Top Blood Type Antibody Screen Crossmatch 05/25/23 05/25/23 05/25/23 07:28 11:02 13:56 WBC RBC Hgb Hct MCV MCH MCHC RDW Plt Count MPV Immature Gran % (Auto) Neut % (Auto) Lymph % (Auto) [place] % (Auto) Eos % (Auto) Baso % (Auto) Lymph # (Auto) [place] # (Auto) Eos # (Auto) Baso # (Auto) Abs Immat Gran (auto) Absolute Neuts (auto) Absolute Nucleated RBC Nucleated RBC % (auto) Hold Purple Top PT INR APTT aPTT Heparin Protocol 48.8 L Sodium Potassium Chloride Carbon Dioxide Anion Gap BUN Creatinine Estim Creat Clear Calc Estimated GFR POC Glucose 152 H 207 H Random Glucose Calcium Troponin I High Sens Triglycerides Cholesterol LDL Cholesterol, Calc HDL Cholesterol Hold Yellow Top Blood Type Antibody Screen Crossmatch 05/25/23 05/25/23 05/25/23 16:01 20:26 20:33 WBC RBC Hgb Hct MCV MCH MCHC RDW Plt Count MPV Immature Gran % (Auto) Neut % (Auto) Lymph % (Auto) [place] % (Auto) Eos % (Auto) Baso % (Auto) Lymph # (Auto) [place] # (Auto) Eos # (Auto) Baso # (Auto) Abs Immat Gran (auto) Absolute Neuts (auto) Absolute Nucleated RBC Nucleated RBC % (auto) Hold Purple Top PT INR APTT aPTT Heparin Protocol 115.4 H* D Sodium Potassium Chloride Carbon Dioxide Anion Gap BUN Creatinine Estim Creat Clear Calc Estimated GFR POC Glucose 100 114 Random Glucose Calcium Troponin I High Sens Triglycerides Cholesterol LDL Cholesterol, Calc HDL Cholesterol Hold Yellow Top Blood Type Antibody Screen Crossmatch 05/25/23 05/26/23 05/26/23 22:51 06:03 07:24 WBC RBC Hgb Hct MCV MCH MCHC RDW Plt Count MPV Immature Gran % (Auto) Neut % (Auto) Lymph % (Auto) [place] % (Auto) Eos % (Auto) Baso % (Auto) Lymph # (Auto) [place] # (Auto) Eos # (Auto) Baso # (Auto) Abs Immat Gran (auto) Absolute Neuts (auto) Absolute Nucleated RBC Nucleated RBC % (auto) Hold Purple Top SEE NOTE PT INR APTT aPTT Heparin Protocol 57.7 D 43.5 L D Sodium Potassium Chloride Carbon Dioxide Anion Gap BUN Creatinine Estim Creat Clear Calc Estimated GFR POC Glucose 135 H Random Glucose Calcium Troponin I High Sens Triglycerides Cholesterol LDL Cholesterol, Calc HDL Cholesterol Hold Yellow Top Blood Type Antibody Screen Crossmatch 05/26/23 10:59 WBC RBC Hgb Hct MCV MCH MCHC RDW Plt Count MPV Immature Gran % (Auto) Neut % (Auto) Lymph % (Auto) [place] % (Auto) Eos % (Auto) Baso % (Auto) Lymph # (Auto) [place] # (Auto) Eos # (Auto) Baso # (Auto) Abs Immat Gran (auto) Absolute Neuts (auto) Absolute Nucleated RBC Nucleated RBC % (auto) Hold Purple Top PT INR APTT aPTT Heparin Protocol Sodium Potassium Chloride Carbon Dioxide Anion Gap BUN Creatinine Estim Creat Clear Calc Estimated GFR POC Glucose 124 H Random Glucose Calcium Troponin I High Sens Triglycerides Cholesterol LDL Cholesterol, Calc HDL Cholesterol Hold Yellow Top Blood Type Antibody Screen Crossmatch Airway Mallampati Class: III TM Dist: <=3cm Neck ROM: Limited Heart: rrr Lungs: cta Other: CBC, LYTES, INR, PT stat ordered prbc one unit ordered pt agrees for transfusion given elevated tropnin, underlying CAD, high risk cardiac , CKD, and blood loss intra op goal to keep HCT around 30. Assessment and Plan Assessment Anesthesia Assessment: Anesthesia Plan Discussed Final Anesthetic Review Family History of Problems with Anesthesia: No History of Problems with Anesthesia: No NPO: Yes ASA Class: IV and Emergency Final Preanesthetic Review: No Changes in Pt Med Stat, Meds/Allgs Chart Reviewed, Consent Obtained/Reviewed and Anes Risks/Benef Reviewed Patient Risk: High Procedure Risk: High Anesthetic Plan Anesthetic Plan: Spinal (back up GA if tech difficult or labs abnormal) Disposition: Standard PACU (if no intraop issues)
[2023-05-26 12:05] LABS: MANUAL DIFF FLAG NO
[2023-05-26 12:12] LABS: Basophils Percent Auto 0.4 % (0-2); Eosinophils Absolute Auto 0.2 X10*3/uL (0.0-0.4); Eosinophils Percent Auto 3.2 % (0-4); Hematocrit 29.5 % (42.0-52.0); Hematocrit 30.1 % (42.0-52.0); Hemoglobin 9.4 g/dl (14.0-18.0); Imm Gran Abs Auto 0.01 X10*3/uL (0.00-0.03); Imm Gran Pct Auto 0.1 % (0.0-0.4); Lymphocytes Absolute Auto 1.1 X10*3/uL (1.2-4.9); Lymphocytes Percent Auto 16.7 % (20-40); Mean Corpuscular HGB Conc 31.2 g/dl (31.0-36.0); Mean Corpuscular HGB Conc 31.9 g/dl (31.0-36.0); Mean Corpuscular Hemoglobin 26.2 pg (27.0-33.0); Mean Corpuscular Hemoglobin 26.3 pg (27.0-33.0); Mean Corpuscular Volume 82.6 fL (80.0-98.0); Mean Corpuscular Volume 83.8 fL (80.0-98.0); Mean Platelet Volume 9.5 fL (9.4-12.4); Mean Platelet Volume 9.6 fL (9.4-12.4); Monocytes Absolute Auto 0.9 X10*3/uL (0.1-1.2); Monocytes Percent Auto 12.6 % (2-11); Neutrophils Absolute Auto 4.6 x10*3/uL (2.0-8.3); Platelet Count 210 X10*3/uL (160-400); Platelet Count 212 X10*3/uL (160-400); Red Blood Count 3.57 X10*6/uL (4.60-5.80); Red Blood Count 3.59 X10*6/uL (4.60-5.80); Red Cell Distribution Width 14.5 % (11.0-16.0); White Blood Count 6.7 X10*3/uL (4.8-10.8); White Blood Count 6.8 X10*3/uL (4.8-10.8)
[2023-05-26 12:17] LABS: Prothrombin Time 12.3 SEC (11.1-13.3)
[2023-05-26 12:28] LABS: Anion Gap 11 (12-20); Blood Urea Nitrogen 42 mg/dL (9-16); Calcium 8.7 mg/dL (8.4-10.2); Carbon Dioxide 24 mmol/L (22-29); Chloride 107 mmol/L (96-108); Creatinine Clr Calc Pharmacy 22.5; Estimated Glomerular Filt Rate 17; Glucose Random 119 mg/dL (60-115); Potassium 4.5 mmol/L (3.3-5.1); Sodium 137 mmol/L (135-145)
--- NOTE | 2023-05-26 15:40 | MHC.CM.PN ---
EMR reviewed and per MD rounds, pt is not medically cleared due to pt in OR for right hip repair today. CM will continue to follow.
--- NOTE | 2023-05-26 15:54 | PM.OP ---
Brief Operative Note Date of Service: 05/26/23 Pre-op diagnosis: Right distal femur periprosthetic fracture Post-op diagnosis: same Procedure: Retrograde benjamin right femur Implants: Styrker [id number] imn with 4 distal and one proximal interlocking screws Surgeon: Haris Rosales MD Anesthesia: spinal Was an Microbiology Quality Control Technician used for this Procedure?: Yes Microbiology Quality Control Technician: Carmenza Bright Estimated blood loss (mL): 25 Tourniquet time (min): 70 IV fluids (mL): 800 Pathology: none sent Condition: stable Disposition: PACU
[2023-05-26] MEDS: HYDROmorphone HCl 0.5 MG/0.5 ML SYRINGE 0.25 MG IVPUSH ×4 (16:20→16:41)
[2023-05-26] MEDS: fentaNYL citrate/PF 100 MCG/2 ML VIAL 50 MCG IVPUSH (16:55)
[2023-05-26] MEDS: fentaNYL citrate/PF 100 MCG/2 ML VIAL 25 MCG IVPUSH ×2 (17:10→17:19)
[2023-05-26 18:26] LABS: Glucose, Whole Blood 127 mg/dL (60-115)
[2023-05-26] MEDS: oxyCODONE HCl Immed Release 5 MG TABLET PO (19:25)
[2023-05-26] MEDS: carvediloL 25 MG TABLET PO (19:34)
[2023-05-26] MEDS: Lactated Ringers 1,000 ML 100 ML IVCONT (19:37)
[2023-05-26] MEDS: ceFAZolin Sodium/Dextrose,Iso 2 GM/50 ML PIGGYBACK IV (19:54)
[2023-05-26] MEDS: Celecoxib 200 MG CAPSULE PO (19:54)
[2023-05-26 20:03] LABS: Glucose, Whole Blood 128 mg/dL (60-115)
[2023-05-26] MEDS: oxyCODONE HCl ER 10 MG TAB.ER.12H PO (21:04)
--- NOTE | 2023-05-26 22:31 | PC.NURSE ---
blood pressure 180/100, 178/80 , pt asymptomatic, medicated with scheduled Carvedilol 25 mg po , made DR Campbell aware, continue to monitor
[2023-05-27] VITALS (11 sets, daily range): BP systolic 162–199; BP diastolic 76–97; PULSE 72–84; RESP 12–20; TEMP 36.6–37.1; O2SAT 95–98
[2023-05-27] MEDS: HYDROmorphone HCl 1 MG/ML SYRINGE IVPUSH ×6 (00:08→23:28)
[2023-05-27] MEDS: Labetalol HCL 100 MG/20 ML VIAL 10 MG IVPUSH (03:53)
[2023-05-27] MEDS: Lactated Ringers 1,000 ML 100 ML IVCONT (03:53)
[2023-05-27] MEDS: Omeprazole 20 MG CAPSULE.DR PO (06:01)
[2023-05-27 07:27] LABS: Glucose, Whole Blood 204 mg/dL (60-115)
[2023-05-27 07:41] LABS: MANUAL DIFF FLAG NO
[2023-05-27] MEDS: Atorvastatin Calcium 80 MG TABLET PO (07:41)
[2023-05-27] MEDS: Celecoxib 200 MG CAPSULE PO ×2 (07:41→21:11)
[2023-05-27] MEDS: Insulin Lispro 100 UNIT/ML 3 ML VIAL SUBCUT (07:41)
[2023-05-27] MEDS: carvediloL 25 MG TABLET PO ×2 (07:41→21:11)
[2023-05-27 07:45] LABS: Basophils Percent Auto 0.3 % (0-2); Eosinophils Percent Auto 0.3 % (0-4); Hematocrit 30.8 % (42.0-52.0); Hemoglobin 9.9 g/dl (14.0-18.0); Imm Gran Abs Auto 0.04 X10*3/uL (0.00-0.03); Imm Gran Pct Auto 0.4 % (0.0-0.4); Lymphocytes Absolute Auto 0.9 X10*3/uL (1.2-4.9); Lymphocytes Percent Auto 10.3 % (20-40); Mean Corpuscular HGB Conc 32.1 g/dl (31.0-36.0); Mean Corpuscular Hemoglobin 26.5 pg (27.0-33.0); Mean Corpuscular Volume 82.4 fL (80.0-98.0); Mean Platelet Volume 9.8 fL (9.4-12.4); Monocytes Absolute Auto 1.3 X10*3/uL (0.1-1.2); Monocytes Percent Auto 14.4 % (2-11); Neutrophils Absolute Auto 6.7 x10*3/uL (2.0-8.3); Neutrophils Percent Auto 74.3 % (45-73); Platelet Count 205 X10*3/uL (160-400); Red Blood Count 3.74 X10*6/uL (4.60-5.80); Red Cell Distribution Width 14.1 % (11.0-16.0)
[2023-05-27 07:58] LABS: Anion Gap 13 (12-20); Blood Urea Nitrogen 42 mg/dL (9-16); Calcium 8.9 mg/dL (8.4-10.2); Carbon Dioxide 22 mmol/L (22-29); Chloride 107 mmol/L (96-108); Estimated Glomerular Filt Rate 21; Glucose Fasting 184 mg/dL (60-99); Potassium 5.3 mmol/L (3.3-5.1); Sodium 137 mmol/L (135-145)
--- NOTE | 2023-05-27 09:01 | PM.PNORT ---
Subjective Subjective Date of Service: 05/27/23 Interval history: POD1 s/p right distal Femur retrograd nail Patient is resting in bed comfortably No overnight events Pain is managed No additional complaints Physical Exam Vital Signs: Vital Signs: Last Vital Signs Temp 98.7 F 05/27/23 07:21 Pulse 72 05/27/23 08:13 Resp 20 05/27/23 07:21 BP 164/92 H 05/27/23 07:21 Pulse Ox 97 05/27/23 08:13 O2 Del Method Room Air 05/27/23 07:21 O2 Flow Rate 96 05/26/23 18:29 BMI result Body Mass Index 31.3 Const: General: cooperative, healthy appearing and no acute distress Resp: Effort & Inspection: normal respiratory effort and able to speak in complete sentences Cardio: Rate: regular rate Peripheral pulses: Peripheral pulses 2+ throughout GI: Palpation (GI): Soft to palpation Skin: Lesions: no lesions Rashes: no rashes Extrem: Other: right lower extremity dressing is c/d/i. Able to dorsi/plantar flex. Calf is supple and nontender. Sensation intact. Pedal pulse intact. Procedures Date of Service Date of Service: 05/27/23 Progress Note: A&P Assessment and plan (1) Closed right femoral fracture: Status: Acute Plan Continue pain mgmnt Begin dvt ppx per medicine recommendation - Ortho rec would be Loveox 40mg once a day injection begin PT/OT for right femure retrograde nail - 25% WB Dispo planning-Pending PT eval, pain mgmnt Time Spent With Patient Time: Total time managing care of this patient today ____ minutes. Quality Stroke Does the patient have a stroke diagnosis?: No VTE Prior VTE?: No VTE Risk Level:: Medical - moderate - high VTE Device Contraindication: N/A - Device Ordered VTE Drug Contraindication: Treatment Not Indicated
--- NOTE | 2023-05-27 09:46 | PC.NURSE ---
when this RN acquired pt at 700, blood pressure was 164/92. Pt was given dilaudid at 730 in hopes blood pressure was due to pain. When Rn rechecked B/P at 900 it was 179/89. MD roach
[2023-05-27] MEDS: oxyCODONE HCl ER 10 MG TAB.ER.12H PO ×2 (10:32→21:12)
--- NOTE | 2023-05-27 10:36 | HO.PM.IMPN ---
Subjective Subjective Date of Service: 05/27/23 <Elana Chávezduglas - Last Filed: 05/27/23 10:54> 05/28/23 <Niranjan Adams MD - Last Filed: 05/28/23 11:44> Interval History: Says he's feeling tired but well. Does complain of some lightheadedness that began this morning. No CP, SOB, fevers, chills. <Elana Collazo - Last Filed: 05/27/23 10:54> Review of Systems Review of Systems: Yes all other systems are reviewed and are negative <Elana Collazo - Last Filed: 05/27/23 10:54> Physical Exam Vital Signs: Vital Signs: Last Vital Signs Temp 98.7 F 05/27/23 07:21 Pulse 72 05/27/23 08:13 Resp 20 05/27/23 07:21 BP 164/92 H 05/27/23 07:21 Pulse Ox 97 05/27/23 08:13 O2 Del Method Room Air 05/27/23 07:21 O2 Flow Rate 96 05/26/23 18:29 BMI result Body Mass Index 31.3 <Elana Collazo - Last Filed: 05/27/23 10:54> General: AO X 3, no acute distress Resp: CTA bilateral CVS: S1,S2,RRR, systolic murmur, no LE edema, 2+ pulses throughout GI: Non tender, non distended Neuro: motor grossly intact Psych: appropriate affect <Elana Chávezduglas - Last Filed: 05/27/23 10:54> General: AO X 3, no acute distress Resp: CTA bilateral CVS: S1,S2,RRR, systolic murmur, no LE edema, 2+ pulses throughout GI: Non tender, non distended Neuro: motor grossly intact skin: Wound d/c/i Psych: appropriate affect <Niranjan Adams MD - Last Filed: 05/28/23 11:44> Objective Data Active Medications Acetaminophen (Acetaminophen 325 Mg Tablet) 650 mg PO Q6H PRN PRN Reason: Pain, Mild (Pain Scale 1-3) Last Admin: 05/23/23 18:12 Dose: 650 mg Documented By: HO.[email or web address] Atorvastatin Calcium (Atorvastatin Calcium 80 Mg Tablet) 80 mg PO DAILY [facility] Last Admin: 05/27/23 07:41 Dose: 80 mg Documented By: BLU Benzonatate (Benzonatate 100 Mg Capsule) 100 mg PO TID PRN PRN Reason: Cough Carvedilol (Carvedilol 25 Mg Tablet) 25 mg PO BID [facility]; Protocol Last Admin: 05/27/23 07:41 Dose: 25 mg Documented By: BLU Celecoxib (Celecoxib 200 Mg Capsule) 200 mg PO BID [facility] Last Admin: 05/27/23 07:41 Dose: 200 mg Documented By: BLU Dextrose (Dextrose 50 % 25 Gm/50 Ml Syringe) 25 gm IVPUSH Q15M PRN; Protocol PRN Reason: per Hypoglycemia Standing Ord. Docusate Sodium (Docusate Sodium 100 Mg Capsule) 100 mg PO DAILY PRN PRN Reason: Constipation Fentanyl (Fentanyl Citrate/Pf 100 Mcg/2 Ml Vial) 25 mcg IVPUSH Q5M PRN; Protocol PRN Reason: Pain, Moderate(Pain Scale 4-6) Last Admin: 05/26/23 17:19 Dose: 25 mcg Documented By: EM Fentanyl (Fentanyl Citrate/Pf 100 Mcg/2 Ml Vial) 50 mcg IVPUSH Q5M PRN; Protocol PRN Reason: Pain, Severe (Pain Scale 7-10) Last Admin: 05/26/23 16:55 Dose: 50 mcg Documented By: EM Glucose (Glucose Gel 15 Gm Gel..Gram.) 15 gm PO Q15M PRN; Protocol PRN Reason: per Hypoglycemia Standing Ord. Hydromorphone HCl (Hydromorphone Hcl 1 Mg/Ml Syringe) 1 mg IVPUSH Q3H PRN; Protocol PRN Reason: Pain, Severe (Pain Scale 7-10) Last Admin: 05/27/23 07:16 Dose: 1 mg Documented By: BLU Hydromorphone HCl (Hydromorphone Hcl 0.5 Mg/0.5 Ml Syringe) 0.25 mg IVPUSH Q5M PRN; Protocol PRN Reason: Pain, Severe (Pain Scale 7-10) Lactated Ringer's (Lr) 1,000 mls @ 100 mls/hr IVCONT .Q10H [facility] Last Admin: 05/27/23 03:53 Dose: 100 mls/hr Documented By: DANI Insulin Human Lispro (Insulin Lispro 100 Unit/Ml 3 Ml Vial) 0 unit SUBCUT QIDACHS [facility]; Protocol Last Admin: 05/27/23 07:41 Dose: 2 unit Documented By: BLU Melatonin (Melatonin 3 Mg Tablet) 6 mg PO BEDTIME PRN PRN Reason: Insomnia Omeprazole (Omeprazole 20 Mg Capsule.Dr) 20 mg PO DAILY@0630 [facility] Last Admin: 05/27/23 06:01 Dose: 20 mg Documented By: DANI Ondansetron HCl (Ondansetron Hcl 4 Mg/2 Ml Vial) 4 mg IVPUSH Q8H PRN PRN Reason: Nausea and Vomiting Oxycodone HCl (Oxycodone Hcl Er 10 Mg Tab.Er.12h) 10 mg PO BID [facility] Last Admin: 05/27/23 10:32 Dose: 10 mg Documented By: BLU Oxycodone HCl (Oxycodone Hcl Immed Release 5 Mg Tablet) 5 mg PO Q4H PRN PRN Reason: Pain, Moderate(Pain Scale 4-6) Last Admin: 05/26/23 19:25 Dose: 5 mg Documented By: FENG Sodium Chloride (0.9 % Sodium Chloride Flush 3 Ml Syringe) [facility] Last Admin: 05/27/23 07:49 Dose: Not Given Documented By: BLU Non-Admin Reason: IV Running <Elana Collazo - Last Filed: 05/27/23 10:54> Labs CBC & Chem 7: 05/28/23 05:36 05/28/23 05:36 <Elana Collazo - Last Filed: 05/27/23 10:54> Labs: Laboratory Results - last 24 hr 05/24/23 05/26/23 05/26/23 14:43 10:59 11:51 MCV 83.8 MCH MCHC RDW Plt Count MPV Immature Gran % (Auto) Neut % (Auto) Lymph % (Auto) [place] % (Auto) Eos % (Auto) Baso % (Auto) Lymph # (Auto) [place] # (Auto) Eos # (Auto) Baso # (Auto) Abs Immat Gran (auto) Absolute Neuts (auto) Absolute Nucleated RBC Nucleated RBC % (auto) PT INR Anion Gap Estim Creat Clear Calc Estimated GFR POC Glucose 124 H Random Glucose Fasting Glucose Calcium Blood Type B Negative Antibody Screen NEGATIVE Crossmatch See Detail 05/26/23 05/26/23 05/26/23 11:51 11:51 11:51 MCV 82.6 MCH 26.2 L 26.3 L MCHC 31.2 31.9 RDW 14.5 Plt Count MPV Immature Gran % (Auto) Neut % (Auto) Lymph % (Auto) [place] % (Auto) Eos % (Auto) Baso % (Auto) Lymph # (Auto) [place] # (Auto) Eos # (Auto) Baso # (Auto) Abs Immat Gran (auto) Absolute Neuts (auto) Absolute Nucleated RBC Nucleated RBC % (auto) PT INR Anion Gap Estim Creat Clear Calc Estimated GFR POC Glucose Random Glucose Fasting Glucose Calcium Blood Type Antibody Screen Crossmatch 05/26/23 05/26/23 05/26/23 11:51 11:51 11:51 MCV MCH MCHC RDW 14.5 Plt Count 212 210 MPV 9.6 9.5 Immature Gran % (Auto) 0.1 Neut % (Auto) 67.0 Lymph % (Auto) 16.7 L [place] % (Auto) 12.6 H Eos % (Auto) 3.2 Baso % (Auto) 0.4 Lymph # (Auto) 1.1 L [place] # (Auto) 0.9 Eos # (Auto) 0.2 Baso # (Auto) 0.0 Abs Immat Gran (auto) 0.01 Absolute Neuts (auto) 4.6 Absolute Nucleated RBC 0.000 Nucleated RBC % (auto) PT INR Anion Gap Estim Creat Clear Calc Estimated GFR POC Glucose Random Glucose Fasting Glucose Calcium Blood Type Antibody Screen Crossmatch 05/26/23 05/26/23 05/26/23 11:51 11:51 18:17 MCV MCH MCHC RDW Plt Count MPV Immature Gran % (Auto) Neut % (Auto) Lymph % (Auto) [place] % (Auto) Eos % (Auto) Baso % (Auto) Lymph # (Auto) [place] # (Auto) Eos # (Auto) Baso # (Auto) Abs Immat Gran (auto) Absolute Neuts (auto) Absolute Nucleated RBC 0.000 Nucleated RBC % (auto) 0.0 0.0 PT 12.3 INR 1.0 Anion Gap 11 L Estim Creat Clear Calc 22.5 Estimated GFR 17 POC Glucose 127 H Random Glucose 119 H Fasting Glucose Calcium 8.7 Blood Type Antibody Screen Crossmatch 05/26/23 05/27/23 05/27/23 19:16 07:17 07:24 MCV 82.4 MCH 26.5 L MCHC 32.1 RDW 14.1 Plt Count 205 MPV 9.8 Immature Gran % (Auto) 0.4 Neut % (Auto) 74.3 H Lymph % (Auto) 10.3 L [place] % (Auto) 14.4 H Eos % (Auto) 0.3 Baso % (Auto) 0.3 Lymph # (Auto) 0.9 L [place] # (Auto) 1.3 H Eos # (Auto) 0.0 Baso # (Auto) 0.0 Abs Immat Gran (auto) 0.04 H Absolute Neuts (auto) 6.7 Absolute Nucleated RBC 0.000 Nucleated RBC % (auto) 0.0 PT INR Anion Gap 13 Estim Creat Clear Calc 26.0 Estimated GFR 21 POC Glucose 128 H 204 H Random Glucose Fasting Glucose 184 H Calcium 8.9 Blood Type Antibody Screen Crossmatch <Elana Collazo - Last Filed: 05/27/23 10:54> Assessment and Plan (1) Elevated troponin: Status: Acute <Elana Collazo - Last Filed: 05/27/23 10:54> (2) Chronic kidney disease: Status: Acute <Elana Collazo - Last Filed: 05/27/23 10:54> Assessment and Plan: 72-year-old male with a PMH significant for?HTN, HLD, [id number] diabetes type 2, anemia of chronic disease, CKD 4, and right knee replacement around 2016 who presents to the ED with right leg pain and inability to walk after fall. Pt will be admitted to the hospital for treatment of displaced periprosthetic right femur fracture s/p retrograde benjamin on 05/26/2023 R femur fracture s/p retrograde benjamin: - PT and OT evaluated and recommend acute rehab at time of discharge Dizziness/presyncope, elevated troponin, wma on echo, concern for NSTEMI - Restart Coreg, Lipitor and ASA - Troponin pending - Follow up with cardiology outpatient for further evaluation. Anemia of chronic disease - h/h stable 9.9 (prev 9.4) - Continue to monitor. CKD 4: - Cr at baseline DM2: - SSI, diabetic diet HTN - - Continue Coreg, restart Norvasc? HLD - Continue statin DVT Prophylaxis: Lovenox 40mg once a day injection per ortho Need for hospitalization: recovery from surgery to treat hip fracture <Elana Collazo - Last Filed: 05/27/23 10:54> 72-year-old male with a PMH significant for?HTN, HLD, [id number] diabetes type 2, anemia of chronic disease, CKD 4, and right knee replacement around 2015 who presents to the ED with right leg pain and inability to walk after fall. Pt will be admitted to the hospital for treatment of displaced periprosthetic right femur fracture s/p retrograde benjamin on 05/26/2023 R femur fracture s/p fixation with retrograde benjamin: - PT and OT evaluated and recommend acute rehab at time of discharge, lovenox for dvt prevention, pain control with dilaudid and oxycodone Dizziness/presyncope, elevated troponin, wma on echo, concern for NSTEMI -treated with iv heparin x 48 hrs - Restart Coreg, Lipitor and ASA - post op Troponin trending down - Follow up with cardiology outpatient for further evaluation. Anemia of chronic disease - h/h stable 9.9 (prev 9.4), s/p 1 unit of rbc 05/26 - Continue to monitor. CKD 4: - Cr at baseline DM2: - SSI, diabetic diet HTN - - Continue Coreg, restart Norvasc HLD - Continue statin DVT Prophylaxis: Lovenox 40mg once a day injection per ortho Need for hospitalization: recovery from surgery to treat hip fracture and need for rehab placement <Niranjan Adams MD - Last Filed: 05/28/23 11:44> Quality Stroke Does the patient have a stroke diagnosis?: No <Elana Collazo - Last Filed: 05/27/23 10:54> VTE Prior VTE?: No <Elana Collazo - Last Filed: 05/27/23 10:54> VTE Risk Level:: Medical - moderate - high <Elana Collazo - Last Filed: 05/27/23 10:54> VTE Device Contraindication: N/A - Device Ordered <Elana Collazo - Last Filed: 05/27/23 10:54> VTE Drug Contraindication: Treatment Not Indicated <Elana Collazo - Last Filed: 05/27/23 10:54>
[2023-05-27 11:02] LABS: Troponin-I High Sensitivity 122.5 ng/L (<3.5-35.0)
[2023-05-27 11:07] LABS: Glucose, Whole Blood 179 mg/dL (60-115)
[2023-05-27] MEDS: amLODIPine Besylate 10 MG TABLET PO (11:42)
[2023-05-27] MEDS: Enoxaparin Sodium 30 MG/0.3 ML SYRINGE SUBCUT (11:57)
--- NOTE | 2023-05-27 12:42 | HO.POSTANES ---
Post Anesthesia Evaluation Post Anesthesia Evaluation Date of Service: 05/27/23 Vital Signs: Vital Signs Temp Pulse Resp BP Pulse Ox O2 Del Method 05/27/23 10:57 98.6 F 77 20 168/88 H 97 Room Air 05/27/23 08:13 72 97 05/27/23 07:21 98.7 F 72 20 164/92 H 97 Room Air 05/27/23 06:08 176/90 H 05/27/23 03:35 79 182/90 H 05/27/23 03:05 97.9 F 84 20 199/97 H 98 Room Air Anesthesia: Spinal Mental Status: Awake Pain Control: Satisfactory Nausea/Vomiting: None Hydration: Adequate Anesthesia-Related Issues: No Anes. Related Issues
[2023-05-27] MEDS: 0.9 % Sodium Chloride Flush 3 ML SYRINGE IVFLUSH ×2 (15:26→23:33)
[2023-05-27 16:03] LABS: Glucose, Whole Blood 198 mg/dL (60-115)
[2023-05-27] MEDS: oxyCODONE HCl Immed Release 5 MG TABLET PO (17:26)
[2023-05-27 20:24] LABS: Glucose, Whole Blood 161 mg/dL (60-115)
[2023-05-28] VITALS (9 sets, daily range): BP systolic 119–164; BP diastolic 66–77; PULSE 75–82; RESP 16–20; TEMP 36.3–37; O2SAT 95–98
[2023-05-28] MEDS: Omeprazole 20 MG CAPSULE.DR PO (05:55)
[2023-05-28] MEDS: HYDROmorphone HCl 1 MG/ML SYRINGE IVPUSH ×2 (06:08→11:02)
[2023-05-28 06:11] LABS: Basophils Percent Auto 0.4 % (0-2); Eosinophils Absolute Auto 0.3 X10*3/uL (0.0-0.4); Eosinophils Percent Auto 2.9 % (0-4); Hematocrit 28.3 % (42.0-52.0); Hemoglobin 9.2 g/dl (14.0-18.0); Imm Gran Abs Auto 0.02 X10*3/uL (0.00-0.03); Imm Gran Pct Auto 0.2 % (0.0-0.4); Lymphocytes Absolute Auto 1.1 X10*3/uL (1.2-4.9); Lymphocytes Percent Auto 12.4 % (20-40); MANUAL DIFF FLAG SCAN; Mean Corpuscular HGB Conc 32.5 g/dl (31.0-36.0); Mean Corpuscular Hemoglobin 26.6 pg (27.0-33.0); Mean Corpuscular Volume 81.8 fL (80.0-98.0); Mean Platelet Volume 9.7 fL (9.4-12.4); Monocytes Absolute Auto 1.5 X10*3/uL (0.1-1.2); Monocytes Percent Auto 17.1 % (2-11); Platelet Count 200 X10*3/uL (160-400); Red Blood Count 3.46 X10*6/uL (4.60-5.80); SCAN SMEAR FLAG 1
[2023-05-28 06:21] LABS: Anion Gap 12 (12-20); Blood Urea Nitrogen 44 mg/dL (9-16); Calcium 8.6 mg/dL (8.4-10.2); Carbon Dioxide 24 mmol/L (22-29); Chloride 104 mmol/L (96-108); Creatinine Clr Calc Pharmacy 25.3; Estimated Glomerular Filt Rate 20; Glucose Fasting 147 mg/dL (60-99); Potassium 4.3 mmol/L (3.3-5.1); Sodium 136 mmol/L (135-145)
[2023-05-28 07:29] LABS: SLIDE REVIEW VERIFIED
[2023-05-28 07:52] LABS: Glucose, Whole Blood 145 mg/dL (60-115)
--- NOTE | 2023-05-28 08:15 | PM.PNORT ---
Subjective Subjective Date of Service: 05/28/23 Interval history: POD2 s/p right distal Femur retrograd nail Patient is resting in chair comfortably No overnight events Pain is managed No additional complaints Physical Exam Vital Signs: Vital Signs: Last Vital Signs Temp 97.3 F 05/28/23 07:46 Pulse 76 05/28/23 07:51 Resp 20 05/28/23 07:46 BP 151/73 H 05/28/23 07:51 Pulse Ox 98 05/28/23 07:51 O2 Del Method Room Air 05/28/23 07:46 O2 Flow Rate 96 05/26/23 18:29 BMI result Body Mass Index 31.3 Const: General: cooperative, healthy appearing and no acute distress Resp: Effort & Inspection: normal respiratory effort and able to speak in complete sentences Cardio: Rate: regular rate Peripheral pulses: Peripheral pulses 2+ throughout GI: Palpation (GI): Soft to palpation Skin: Lesions: no lesions Rashes: no rashes Extrem: Other: right lower extremity dressing is c/d/i. Able to dorsi/plantar flex. Calf is supple and nontender. Sensation intact. Pedal pulse intact. Procedures Date of Service Date of Service: 05/28/23 Progress Note: A&P Assessment and plan (1) Closed right femoral fracture: Status: Acute Plan Continue pain mgmnt dvt ppx lovenox PT/OT for right femure retrograde nail - 25% WB Dispo planning-med clearance and rehab placement Time Spent With Patient Time: Total time managing care of this patient today ____ minutes. Quality Stroke Does the patient have a stroke diagnosis?: No VTE Prior VTE?: No VTE Risk Level:: Medical - moderate - high VTE Device Contraindication: N/A - Device Ordered VTE Drug Contraindication: Treatment Not Indicated
--- NOTE | 2023-05-28 09:49 | PM.PNCARD ---
Subjective Subjective Date of Service: 05/28/23 Interval history: He states that he is feeling fine. No complaints like angina or in fact anything cardiac sounding at this time. Review of Systems Review of Systems Yes all other systems are reviewed and are negative Constitutional: Reports as per HPI and Reports no additional constitutional complaints Eyes: Reports as per HPI and Denies no additional eye complaints Denies system reviewed and no additional complaints, except as documented and Reports as per HPI Cardiovascular: Reports as per HPI, Reports no additional cardiovascular complaints, Denies acrocyanosis, Denies cool extremities, Denies chest pain, Denies leg edema, Denies lightheadedness, Denies palpitations and Denies dyspnea Respiratory: Reports as per HPI, Denies no additional respiratory complaints and Denies dyspnea Gastrointestinal: Reports as per HPI and Denies no additional gastrointestinal complaints Genitourinary: Reports no additional male genitourinary complaints and Reports as per HPI Musculoskeletal: Reports no additional musculoskeletal complaints and Reports as per HPI Skin/Breast: Reports system reviewed and no additional complaints, except as docu Reports system reviewed and no additional complaints, except as documented and Reports as per HPI Psychiatric: Reports no additional psychiatric complaints and Reports as per HPI Endocrine: Reports no additional endocrine complaints, Reports as per HPI and Denies palpitations Hematologic/Lymphatic: Reports no additional hematologic/lymphatic complaints and Reports as per HPI Allergic/Immunologic: Reports no additional allergic/immunologic complaints and Reports as per HPI Physical Exam Vital Signs: Last Vital Signs Temp 97.3 F 05/28/23 07:46 Pulse 76 05/28/23 07:51 Resp 20 05/28/23 07:46 BP 151/73 H 05/28/23 07:51 Pulse Ox 98 05/28/23 07:51 O2 Del Method Room Air 05/28/23 07:46 O2 Flow Rate 96 05/26/23 18:29 BMI result Body Mass Index 31.3 Const General: comfortable and no acute distress Orientation/consciousness: patient oriented x3 HEENT Other: Unremarkable Head: Yes normal to inspection Neck Neck: Yes normal visual inspection Chest Chest palpation & inspection: normal inspection of the chest Resp Auscultation: clear to auscultation bilaterally Cardio Palpation: normal PMI Heart sounds: S1 normal heart sound present, S2 normal heart sound present, no gallops, no murmurs and no rubs GI Palpation (GI): Soft to palpation Back/Spine/Pelvis Other: unremarkable Skin General skin exam: no rashes or lesions noted Neuro General: patient oriented x3 Extrem General: Yes normal to inspection Psych Mental Status: mental status grossly normal Objective Labs and Meds 05/28/23 05:36 05/28/23 05:36 Lab results: Laboratory Results - last 24 hr 05/27/23 05/27/23 05/27/23 09:28 10:58 15:59 WBC RBC Hgb Hct MCV MCH MCHC RDW Plt Count MPV Immature Gran % (Auto) Neut % (Auto) Lymph % (Auto) [place] % (Auto) Eos % (Auto) Baso % (Auto) Lymph # (Auto) [place] # (Auto) Eos # (Auto) Baso # (Auto) Abs Immat Gran (auto) Absolute Neuts (auto) Absolute Nucleated RBC Nucleated RBC % (auto) Smear Tech's Comments Sodium Potassium Chloride Carbon Dioxide Anion Gap BUN Creatinine Estim Creat Clear Calc Estimated GFR POC Glucose 179 H 198 H Fasting Glucose Calcium Troponin I High Sens 122.5 H* 05/27/23 05/28/23 05/28/23 20:21 05:36 07:49 WBC 9.0 RBC 3.46 L Hgb 9.2 L Hct 28.3 L MCV 81.8 MCH 26.6 L MCHC 32.5 RDW 14.0 Plt Count 200 MPV 9.7 Immature Gran % (Auto) 0.2 Neut % (Auto) 67.0 Lymph % (Auto) 12.4 L [place] % (Auto) 17.1 H Eos % (Auto) 2.9 Baso % (Auto) 0.4 Lymph # (Auto) 1.1 L [place] # (Auto) 1.5 H Eos # (Auto) 0.3 Baso # (Auto) 0.0 Abs Immat Gran (auto) 0.02 Absolute Neuts (auto) 6.0 Absolute Nucleated RBC 0.000 Nucleated RBC % (auto) 0.0 Smear Tech's Comments VERIFIED Sodium 136 Potassium 4.3 Chloride 104 Carbon Dioxide 24 Anion Gap 12 BUN 44 H Creatinine 3.10 H Estim Creat Clear Calc 25.3 Estimated GFR 20 POC Glucose 161 H 145 H Fasting Glucose 147 H Calcium 8.6 Troponin I High Sens Progress Note: A&P Assessment and plan (1) Elevated troponin: Status: Acute (2) Chronic kidney disease: Status: Acute (3) CAD (coronary artery disease): Status: Acute Plan Many comorbidities; elevated but flat troponins in setting of CKD; Echocardiogram with wall motion abnormality in the inferior/inferolateral segments with low normal LVEF. The surgery itself was unremarkable and he has not had any postoperative concerns. Continue medications for stable CAD including beta-blockers and statins. Will arrange outpatient follow-up. Discussed with . Time Spent With Patient Time: Total time managing care of this patient today ____ minutes. Progress Note: Quality Stroke Does the patient have a stroke diagnosis?: No Procedures Date of Service Date of Service: 05/28/23
[2023-05-28] MEDS: Docusate Sodium 100 MG CAPSULE PO ×2 (09:50→20:16)
[2023-05-28] MEDS: oxyCODONE HCl ER 10 MG TAB.ER.12H PO ×2 (09:50→20:16)
[2023-05-28] MEDS: carvediloL 25 MG TABLET PO ×2 (09:50→20:16)
[2023-05-28] MEDS: Celecoxib 200 MG CAPSULE PO ×2 (09:50→20:16)
[2023-05-28] MEDS: Atorvastatin Calcium 80 MG TABLET PO (09:50)
[2023-05-28] MEDS: amLODIPine Besylate 10 MG TABLET PO (09:50)
[2023-05-28] MEDS: 0.9 % Sodium Chloride Flush 3 ML SYRINGE IVFLUSH ×3 (09:50→20:18)
--- NOTE | 2023-05-28 10:46 | P.DS_ITS ---
DS: Providers Provider Date of Service: 05/28/23 <Elanaprem Collazo - Last Filed: 05/28/23 11:41> 05/31/23 <Niranjan Adams MD - Last Filed: 05/31/23 12:12> Date of admission: 05/23/23 17:02 <Elana Acunajazmín - Last Filed: 05/28/23 11:41> Primary care physician: Talon Morin MD <Elana Collazo - Last Filed: 05/28/23 11:41> Consults: 05/23/23 16:48 Consult to Cardiology Routine Consulting Provider: [facility] [place] [facility] Reason for consultation: Systolic murmur, dizziness with fall, cardiac clearance for surgery 05/23/23 17:07 Consult to Orthopedics Routine Consulting Provider: [facility] [place] [facility] Surgeons Reason for consultation: Periprosthetic displaced distal right femur fracture <Elana Acunajazmín - Last Filed: 05/28/23 11:41> DS: Diagnosis Discharge Diagnosis (1) Elevated troponin: Status: Acute <Elana Chávezn - Last Filed: 05/28/23 11:41> (2) Chronic kidney disease: Status: Acute <Elana Acunalakeishan - Last Filed: 05/28/23 11:41> (3) CAD (coronary artery disease): Status: Acute <Elana Chávezn - Last Filed: 05/28/23 11:41> (4) Closed right femoral fracture: Status: Acute <Elana Chávezn - Last Filed: 05/28/23 11:41> DS: Summary Hospital Course Hospital Course: Hospital Course: This 72 yo M with PMH of HTN, HLD, non-insulin dependent DM2, anemia of chronic disease, CKD 4, and R. knee replacement around 2016 presented to ED on 05/23/2023 complaining of right leg pain and inability to walk after falling. Patient fell after feeling dizzy and lightheaded. Denies loss of consciousness. He has had similar dizzy episodes in the past few years. He reported that he had taken his diabetic medications that day but hadn't eaten; he also admits to some medication non-compliance due to forgetfulness. In the ED labs showed a normocytic anemia of 9.4/30.0, BUN 36, creatinine 4.25, and initial troponin 139.2 with repeat 129.6. XR of the right femur showed a mildly displaced transverse fracture in the distal diaphysis of the femur. EKG showed a normal s inus rhythm and CXR showed no acute process. He was treated with morphine and hydromorphone and admitted to the hospital for treatment of displaced periprosthetic right femur fracture. Amlodipine was d/c in setting of syncope. Patient was started on Coreg, Lipitor, and ASA On 05/24/23 he was evaluated by the orthopedic surgeon (Dr. Rosales) and after discussing risks patient elected for operative fixation of the right femur. Transthoracic echocardiogram on 05/24/[address] Garner (remote sensing specialist) showed left ventricular systolic function to be low normal with a visually estimated ejection fraction is between 50-55% and mild aortic valve stenosis with hypokinetic inferolateral segments. Dr. Garner evaluated and concluded that elevated troponins could be secondary to from demand or CKD with NSTEMI being unlikely. He was started on IV heparin for 48 hours prior to surgery. Although patient was considered high risk due to his comorbidities, these conditions are not modifiable and Dr. Garner recommended surgery due to fracture; patient agreed. He was transfused with 1 unit of RBC on 05/26/23 A right distal femur retrograde nail was performed by Dr. Rosales on 05/26/2023 without intraoperative complication. Post op he was started on Lovenox for DVT prophylaxis and received diluadid and oxycodone for pain control. Due to high blood pressures, Norvasc was also restarted on 05/27/23. Ortho cleared for discharge to acute rehab for PT/OT on 05/28/23. He was seen by cardiology on 05/28/23 as well who recommends follow up on an outpatient basis. He is medically stable and ready for discharge to an acute rehab facility. <Elana Collazo - Last Filed: 05/28/23 11:41> Time Attestation Discharge coordination time: Greater than 30 minutes <Elana Collazo - Last Filed: 05/28/23 11:41> Quality: Safe Use of Opioids Does Pt have an Active Cancer Diagnosis on the Problem List?: No <Elana Collazo - Last Filed: 05/28/23 11:41> Quality: Stroke Does the patient have a stroke diagnosis?: No <Elana Collazo - Last Filed: 05/28/23 11:41> Physical Exam Vital Signs: Vital Signs: Last Vital Signs Temp 97.3 F 05/28/23 07:46 Pulse 76 05/28/23 07:51 Resp 20 05/28/23 07:46 BP 151/73 H 05/28/23 07:51 Pulse Ox 98 05/28/23 07:51 O2 Del Method Room Air 05/28/23 07:46 O2 Flow Rate 96 05/26/23 18:29 BMI result Body Mass Index 31.3 <Elana Collazo - Last Filed: 05/28/23 11:41> Vital Signs: Selected Entries 05/31/23 11:40 Temperature 97.5 F Pulse Rate 72 Respiratory Rate 20 Blood Pressure 129/62 Pulse Oximetry 97 Oxygen Delivery Me thod Room Air <Niranjansal Adams MD - Last Filed: 05/31/23 12:12> General: AO X 3, no acute distress Resp: CTA bilaterally CVS: S1,S2,RRR, systolic murmur, no LE edema, 2+ pulses throughout GI: Non tender, non distended Neuro: motor grossly intact skin: Wound d/c/i Psych: appropriate affect <Elana Collazo - Last Filed: 05/28/23 11:41> DS: Data Data Completed and Pending Labs on day of discharge: Laboratory Results - last 24 hr 05/27/23 05/27/23 05/27/23 09:28 10:58 15:59 WBC RBC Hgb Hct MCV MCH MCHC RDW Plt Count MPV Immature Gran % (Auto) Neut % (Auto) Lymph % (Auto) [place] % (Auto) Eos % (Auto) Baso % (Auto) Lymph # (Auto) [place] # (Auto) Eos # (Auto) Baso # (Auto) Abs Immat Gran (auto) Absolute Neuts (auto) Absolute Nucleated RBC Nucleated RBC % (auto) Smear Tech's Comments Sodium Potassium Chloride Carbon Dioxide Anion Gap BUN Creatinine Estim Creat Clear Calc Estimated GFR POC Glucose 179 H 198 H Fasting Glucose Calcium Troponin I High Sens 122.5 H* 01/18/24 01/19/24 01/19/24 20:21 05:36 07:49 WBC 9.0 RBC 3.46 L Hgb 9.2 L Hct 28.3 L MCV 81.8 MCH 26.6 L MCHC 32.5 RDW 14.0 Plt Count 200 MPV 9.7 Immature Gran % (Auto) 0.2 Neut % (Auto) 67.0 Lymph % (Auto) 12.4 L [place] % (Auto) 17.1 H Eos % (Auto) 2.9 Baso % (Auto) 0.4 Lymph # (Auto) 1.1 L [place] # (Auto) 1.5 H Eos # (Auto) 0.3 Baso # (Auto) 0.0 Abs Immat Gran (auto) 0.02 Absolute Neuts (auto) 6.0 Absolute Nucleated RBC 0.000 Nucleated RBC % (auto) 0.0 Smear Tech's Comments VERIFIED Sodium 136 Potassium 4.3 Chloride 104 Carbon Dioxide 24 Anion Gap 12 BUN 44 H Creatinine 3.10 H Estim Creat Clear Calc 25.3 Estimated GFR 20 POC Glucose 161 H 145 H Fasting Glucose 147 H Calcium 8.6 Troponin I High Sens <Elana Collazo - Last Filed: 05/28/23 11:41> Discharge Plan Discharge Anticipated Discharge Date/Time: 05/28/23 11:35 <Elana Collazo - Last Filed: 05/28/23 11:41> Patient Disposition: Xfer Inpatient Rehab Fac <Elana Collazo - Last Filed: 05/28/23 11:41> Discharge Diagnosis: R. femoral fracture from fall <Elana Collazo - Last Filed: 05/28/23 11:41> R. femoral fracture from fall <Niranjan Adams MD - Last Filed: 05/31/23 12:12> Referrals: Kristofer Vargas PA-C [Physician Automation And Controls Instructor] - 1 Week (06/10/23 11:30 [facility] [place] [facility] Surgeons Kristofer Vargas PA-C) Talon Morin MD [Primary Care Provider] - 1 Week <Elana Collazo - Last Filed: 05/28/23 11:41> Discharge Medications: New enoxaparin 30 mg/0.3 mL Syringe 30 mg subcut Q24H 42 Days Qty: 12.6 0RF Continued finasteride 5 mg tablet 5 mg PO DAILY 90 Days Qty: 90 1RF Victoza 3-Ruben 0.6 mg/0.1 mL (18 mg/3 mL) pen injector 1.8 mg subcut DAILY (DME) FreeStyle Lite Strips Strip See Rx Instructions .ROUTE BID Qty: 10 Rx Instructions: As directed Farxiga 10 mg tablet 10 mg PO DAILY carvedilol 25 mg tablet 25 mg PO BID amlodipine 10 mg tablet 10 mg PO DAILY atorvastatin 40 mg tablet 40 mg PO DAILY <Elana Collazo - Last Filed: 05/28/23 11:41> Diet: Diabetic diet <Elana Collazo - Last Filed: 05/28/23 11:41> Diabetic diet <Niranjan Adams MD - Last Filed: 05/31/23 12:12> Activity on Discharge: As tolerated <Elana Collazo - Last Filed: 05/28/23 11:41> As tolerated <Niranjan Adams MD - Last Filed: 05/31/23 12:12> Stand Alone Forms: Patient Portal Discharge page <Elana Collazo - Last Filed: 05/28/23 11:41> Care Plan Goals: Right femur retrograde nail 25% weight bearing on right lower extremity Lovenox x6 weeks f/u with orthopedics in 2 weeks 06/10/23 11:30 [facility] [place] [facility] Kristofer Vargas PA-C <Elana Collazo - Last Filed: 05/28/23 11:41> Health Concerns: Coronary artery disease, diabetes mellitus, hypertension, CKD 4, and R. femur fracture s/p surgical repair <Elana Collazo - Last Filed: 05/28/23 11:41> Plan of Treatment: Recover from surgery in acute rehab facility. Follow up with remote sensing specialist. Continue to take carvedilol, atorvastatin, and aspirin in addition to your home medications. Follow up with primary care provider in approximately 1 week for further medical management. <Elana Collazo - Last Filed: 05/28/23 11:41> Assessment: As above <Elana Collazo - Last Filed: 05/28/23 11:41>
[2023-05-28] MEDS: Enoxaparin Sodium 30 MG/0.3 ML SYRINGE SUBCUT (11:03)
[2023-05-28 11:29] LABS: Glucose, Whole Blood 207 mg/dL (60-115)
--- NOTE | 2023-05-28 11:47 | P.PNIM_ITS ---
Subjective Subjective Date of Service: 05/28/23 Interval History: doing well, no new issues, pain is controlled Physical Exam 2 Vital Signs: Vital Signs: Last Vital Signs Temp 97.6 F 05/28/23 11:23 Pulse 75 05/28/23 11:23 Resp 20 05/28/23 11:23 BP 136/72 05/28/23 11:23 Pulse Ox 96 05/28/23 11:23 O2 Del Method Room Air 05/28/23 11:23 O2 Flow Rate 96 05/26/23 18:29 BMI result Body Mass Index 31.3 General: AO X 3, no acute distress Resp: CTA bilaterally CVS: S1,S2,RRR, systolic murmur, no LE edema, 2+ pulses throughout GI: Non tender, non distended Neuro: motor grossly intact skin: Wound d/c/i Psych: appropriate affect Objective Data Active Medications Acetaminophen (Acetaminophen 325 Mg Tablet) 650 mg PO Q6H PRN PRN Reason: Pain, Mild (Pain Scale 1-3) Last Admin: 05/23/23 18:12 Dose: 650 mg Documented By: GEE Amlodipine Besylate (Amlodipine Besylate 10 Mg Tablet) 10 mg PO DAILY [facility]; Protocol Last Admin: 05/28/23 09:50 Dose: 10 mg Documented By: DAELE Aspirin (Aspirin Enteric Coated 81 Mg Tablet.) 81 mg PO DAILY [facility] Atorvastatin Calcium (Atorvastatin Calcium 80 Mg Tablet) 80 mg PO DAILY [facility] Last Admin: 05/28/23 09:50 Dose: 80 mg Documented By: ADELE Benzonatate (Benzonatate 100 Mg Capsule) 100 mg PO TID PRN PRN Reason: Cough Carvedilol (Carvedilol 25 Mg Tablet) 25 mg PO BID [facility]; Protocol Last Admin: 05/28/23 09:50 Dose: 25 mg Documented By: ADELE Celecoxib (Celecoxib 200 Mg Capsule) 200 mg PO BID [facility] Last Admin: 05/28/23 09:50 Dose: 200 mg Documented By: ADELE Dextrose (Dextrose 50 % 25 Gm/50 Ml Syringe) 25 gm IVPUSH Q15M PRN; Protocol PRN Reason: per Hypoglycemia Standing Ord. Docusate Sodium (Docusate Sodium 100 Mg Capsule) 100 mg PO DAILY PRN PRN Reason: Constipation Docusate Sodium (Docusate Sodium 100 Mg Capsule) 100 mg PO BID [facility] Last Admin: 05/28/23 09:50 Dose: 100 mg Documented By: ADELE Enoxaparin Sodium (Enoxaparin Sodium 30 Mg/0.3 Ml Syringe) 30 mg SUBCUT Q24H [facility] Last Admin: 05/28/23 11:03 Dose: 30 mg Documented By: ADELE Fentanyl (Fentanyl Citrate/Pf 100 Mcg/2 Ml Vial) 25 mcg IVPUSH Q5M PRN; Protocol PRN Reason: Pain, Moderate(Pain Scale 4-6) Last Admin: 05/26/23 17:19 Dose: 25 mcg Documented By: EM Fentanyl (Fentanyl Citrate/Pf 100 Mcg/2 Ml Vial) 50 mcg IVPUSH Q5M PRN; Protocol PRN Reason: Pain, Severe (Pain Scale 7-10) Last Admin: 05/26/23 16:55 Dose: 50 mcg Documented By: EM Glucose (Glucose Gel 15 Gm Gel..Gram.) 15 gm PO Q15M PRN; Protocol PRN Reason: per Hypoglycemia Standing Ord. Hydromorphone HCl (Hydromorphone Hcl 1 Mg/Ml Syringe) 1 mg IVPUSH Q3H PRN; Protocol PRN Reason: Pain, Severe (Pain Scale 7-10) Last Admin: 05/28/23 11:02 Dose: 1 mg Documented By: ADELE Hydromorphone HCl (Hydromorphone Hcl 0.5 Mg/0.5 Ml Syringe) 0.25 mg IVPUSH Q5M PRN; Protocol PRN Reason: Pain, Severe (Pain Scale 7-10) Insulin Human Lispro (Insulin Lispro 100 Unit/Ml 3 Ml Vial) 0 unit SUBCUT QIDACHS [facility]; Protocol Last Admin: 05/28/23 09:43 Dose: Not Given Documented By: ADELE Non-Admin Reason: No Insulin Coverage Melatonin (Melatonin 3 Mg Tablet) 6 mg PO BEDTIME PRN PRN Reason: Insomnia Omeprazole (Omeprazole 20 Mg Capsule.Dr) 20 mg PO DAILY@0630 [facility] Last Admin: 05/28/23 05:55 Dose: 20 mg Documented By: MIGNON Ondansetron HCl (Ondansetron Hcl 4 Mg/2 Ml Vial) 4 mg IVPUSH Q8H PRN PRN Reason: Nausea and Vomiting Oxycodone HCl (Oxycodone Hcl Er 10 Mg Tab.Er.12h) 10 mg PO BID [facility] Last Admin: 05/28/23 09:50 Dose: 10 mg Documented By: ADELE Oxycodone HCl (Oxycodone Hcl Immed Release 5 Mg Tablet) 5 mg PO Q4H PRN PRN Reason: Pain, Moderate(Pain Scale 4-6) Last Admin: 05/27/23 17:26 Dose: 5 mg Documented By: FENG Sodium Chloride (0.9 % Sodium Chloride Flush 3 Ml Syringe) 3 ml IVFLUSH QSHIFT [facility] Last Admin: 05/28/23 09:50 Dose: 3 ml Documented By: ADELE Labs 05/28/23 05:36 05/28/23 05:36 Labs: Laboratory Results - last 24 hr 05/27/23 05/27/23 05/28/23 15:59 20:21 05:36 MCV 81.8 MCH 26.6 L MCHC 32.5 RDW 14.0 Plt Count 200 MPV 9.7 Immature Gran % (Auto) 0.2 Neut % (Auto) 67.0 Lymph % (Auto) 12.4 L [place] % (Auto) 17.1 H Eos % (Auto) 2.9 Baso % (Auto) 0.4 Lymph # (Auto) 1.1 L [place] # (Auto) 1.5 H Eos # (Auto) 0.3 Baso # (Auto) 0.0 Abs Immat Gran (auto) 0.02 Absolute Neuts (auto) 6.0 Absolute Nucleated RBC 0.000 Nucleated RBC % (auto) 0.0 Smear Tech's Comments VERIFIED Anion Gap 12 Estim Creat Clear Calc 25.3 Estimated GFR 20 POC Glucose 198 H 161 H Fasting Glucose 147 H Calcium 8.6 05/28/23 05/28/23 07:49 11:25 MCV MCH MCHC RDW Plt Count MPV Immature Gran % (Auto) Neut % (Auto) Lymph % (Auto) [place] % (Auto) Eos % (Auto) Baso % (Auto) Lymph # (Auto) [place] # (Auto) Eos # (Auto) Baso # (Auto) Abs Immat Gran (auto) Absolute Neuts (auto) Absolute Nucleated RBC Nucleated RBC % (auto) Smear Tech's Comments Anion Gap Estim Creat Clear Calc Estimated GFR POC Glucose 145 H 207 H Fasting Glucose Calcium Assessment and Plan (1) Elevated troponin: Status: Acute (2) Chronic kidney disease: Status: Acute Plan 72-year-old male with a PMH significant for?HTN, HLD, [id number] diabetes type 2, anemia of chronic disease, CKD 4, and right knee replacement around 2015 who presents to the ED with right leg pain and inability to walk after fall. Pt will be admitted to the hospital for treatment of displaced periprosthetic right femur fracture s/p retrograde benjamin on 05/26/2023 R femur fracture s/p fixation operative fixation on 05/26 - PT, oxy for pain, lovenox for dvt prophy Dizziness/presyncope, elevated troponin, wma on echo, concern for NSTEMI -treated with iv heparin x 48 hrs - Restart Coreg, Lipitor and ASA 81 - post op Troponin trending down - Follow up with cardiology outpatient for further evaluation. Anemia of chronic disease - h/h stable 9.2 comes in (prev 9.4), s/p 1 unit of rbc 05/26 - Continue to monitor. CKD 4: - Cr at baseline DM2: - SSI, diabetic diet HTN--controlled, continue norvasc and coreg HLD - Continue statin DVT Prophylaxis: Lovenox 40mg once a day injection per ortho Need for hospitalization: recovery from surgery to treat hip fracture and need for rehab placement dc today if rehab bed available Quality Stroke Does the patient have a stroke diagnosis?: No VTE Prior VTE?: No VTE Risk Level:: Medical - moderate - high VTE Device Contraindication: N/A - Device Ordered VTE Drug Contraindication: Treatment Not Indicated
[2023-05-28] MEDS: Insulin Lispro 100 UNIT/ML 3 ML VIAL SUBCUT (11:48)
[2023-05-28] MEDS: Aspirin Enteric Coated 81 MG TABLET.DR PO (11:48)
[2023-05-28] MEDS: oxyCODONE HCl Immed Release 5 MG TABLET PO (16:21)
[2023-05-28 16:25] LABS: Glucose, Whole Blood 194 mg/dL (60-115)
[2023-05-28 20:46] LABS: Glucose, Whole Blood 178 mg/dL (60-115)
[2023-05-29] VITALS (7 sets, daily range): BP systolic 111–137; BP diastolic 55–71; PULSE 69–80; RESP 18–20; TEMP 36.3–37; O2SAT 95–98
[2023-05-29] MEDS: Omeprazole 20 MG CAPSULE.DR PO (05:37)
[2023-05-29] MEDS: polyethylene glycoL 3350 17 GM POWD.PACK PO (05:40)
[2023-05-29 06:14] LABS: Basophils Percent Auto 0.1 % (0-2); Eosinophils Absolute Auto 0.3 X10*3/uL (0.0-0.4); Eosinophils Percent Auto 3.2 % (0-4); Hematocrit 27.1 % (42.0-52.0); Hemoglobin 8.7 g/dl (14.0-18.0); Imm Gran Abs Auto 0.03 X10*3/uL (0.00-0.03); Imm Gran Pct Auto 0.4 % (0.0-0.4); Lymphocytes Absolute Auto 1.2 X10*3/uL (1.2-4.9); Lymphocytes Percent Auto 14.1 % (20-40); MANUAL DIFF FLAG SCAN; Mean Corpuscular HGB Conc 32.1 g/dl (31.0-36.0); Mean Corpuscular Hemoglobin 26.4 pg (27.0-33.0); Mean Corpuscular Volume 82.1 fL (80.0-98.0); Mean Platelet Volume 9.5 fL (9.4-12.4); Monocytes Absolute Auto 1.5 X10*3/uL (0.1-1.2); Monocytes Percent Auto 17.9 % (2-11); Neutrophils Absolute Auto 5.5 x10*3/uL (2.0-8.3); Neutrophils Percent Auto 64.3 % (45-73); Platelet Count 182 X10*3/uL (160-400); Red Cell Distribution Width 14.1 % (11.0-16.0); SCAN SMEAR FLAG 1; White Blood Count 8.5 X10*3/uL (4.8-10.8)
[2023-05-29 06:32] LABS: Anion Gap 13 (12-20); Blood Urea Nitrogen 53 mg/dL (9-16); Calcium 8.4 mg/dL (8.4-10.2); Carbon Dioxide 22 mmol/L (22-29); Chloride 104 mmol/L (96-108); Creatinine Clr Calc Pharmacy 22.6; Estimated Glomerular Filt Rate 18; Glucose Fasting 169 mg/dL (60-99); Potassium 4.4 mmol/L (3.3-5.1); Sodium 135 mmol/L (135-145)
[2023-05-29 06:45] LABS: SLIDE REVIEW VERIFIED
[2023-05-29 07:27] LABS: Glucose, Whole Blood 206 mg/dL (60-115)
[2023-05-29] MEDS: Insulin Lispro 100 UNIT/ML 3 ML VIAL SUBCUT ×2 (08:23→16:49)
[2023-05-29] MEDS: Celecoxib 200 MG CAPSULE PO ×2 (08:24→22:12)
[2023-05-29] MEDS: Atorvastatin Calcium 80 MG TABLET PO (08:24)
[2023-05-29] MEDS: carvediloL 25 MG TABLET PO ×2 (08:24→22:12)
[2023-05-29] MEDS: Docusate Sodium 100 MG CAPSULE PO ×2 (08:25→22:12)
[2023-05-29] MEDS: amLODIPine Besylate 10 MG TABLET PO (08:25)
[2023-05-29] MEDS: Aspirin Enteric Coated 81 MG TABLET.DR PO (08:25)
[2023-05-29] MEDS: oxyCODONE HCl ER 10 MG TAB.ER.12H PO ×2 (08:26→22:12)
--- NOTE | 2023-05-29 10:34 | P.PNIM_ITS ---
Subjective Subjective Date of Service: 05/29/23 <Elana Collazo - Last Filed: 05/29/23 10:43> 05/29/23 <Niranjan Adams MD - Last Filed: 05/29/23 12:01> Interval History: Patient reports he is feeling well and pain is controlled. No SOB, CP, LE swelling, fevers/chills <Elana Collazo - Last Filed: 05/29/23 10:43> Review of Systems Review of Systems: Yes all other systems are reviewed and are negative <Elana Collazo - Last Filed: 05/29/23 10:43> Physical Exam 2 Vital Signs: Vital Signs: Last Vital Signs Temp 97.7 F 05/29/23 07:25 Pulse 80 05/29/23 07:25 Resp 20 05/29/23 07:25 BP 111/65 05/29/23 07:25 Pulse Ox 96 05/29/23 07:25 O2 Del Method Room Air 05/29/23 07:25 O2 Flow Rate 96 05/26/23 18:29 BMI result Body Mass Index 31.3 <Elana Collazo - Last Filed: 05/29/23 10:43> General: AO X 3, no acute distress Resp: CTA bilaterally CVS: RRR, systolic murmur, no LE edema, 2+ pulses throughout GI: Non tender, non distended Neuro: motor grossly intact Skin: Wound d/c/i Psych: appropriate affect <Elana Collazo - Last Filed: 05/29/23 10:43> Objective Data Active Medications Acetaminophen (Acetaminophen 325 Mg Tablet) 650 mg PO Q6H PRN PRN Reason: Pain, Mild (Pain Scale 1-3) Last Admin: 05/23/23 18:12 Dose: 650 mg Documented By: GEE Amlodipine Besylate (Amlodipine Besylate 10 Mg Tablet) 10 mg PO DAILY [facility]; Protocol Last Admin: 05/29/23 08:25 Dose: 10 mg Documented By: MARYLIN Aspirin (Aspirin Enteric Coated 81 Mg Tablet.) 81 mg PO DAILY [facility] Last Admin: 05/29/23 08:25 Dose: 81 mg Documented By: MARYLIN Atorvastatin Calcium (Atorvastatin Calcium 80 Mg Tablet) 80 mg PO DAILY [facility] Last Admin: 05/29/23 08:24 Dose: 80 mg Documented By: MARYLIN Benzonatate (Benzonatate 100 Mg Capsule) 100 mg PO TID PRN PRN Reason: Cough Carvedilol (Carvedilol 25 Mg Tablet) 25 mg PO BID [facility]; Protocol Last Admin: 05/29/23 08:24 Dose: 25 mg Documented By: MARYLIN Celecoxib (Celecoxib 200 Mg Capsule) 200 mg PO BID [facility] Last Admin: 05/29/23 08:24 Dose: 200 mg Documented By: MARYLIN Dextrose (Dextrose 50 % 25 Gm/50 Ml Syringe) 25 gm IVPUSH Q15M PRN; Protocol PRN Reason: per Hypoglycemia Standing Ord. Docusate Sodium (Docusate Sodium 100 Mg Capsule) 100 mg PO DAILY PRN PRN Reason: Constipation Docusate Sodium (Docusate Sodium 100 Mg Capsule) 100 mg PO BID [facility] Last Admin: 05/29/23 08:25 Dose: 100 mg Documented By: MARYLIN Enoxaparin Sodium (Enoxaparin Sodium 30 Mg/0.3 Ml Syringe) 30 mg SUBCUT Q24H [facility] Last Admin: 05/28/23 11:03 Dose: 30 mg Documented By: ADELE Fentanyl (Fentanyl Citrate/Pf 100 Mcg/2 Ml Vial) 25 mcg IVPUSH Q5M PRN; Protocol PRN Reason: Pain, Moderate(Pain Scale 4-6) Last Admin: 05/26/23 17:19 Dose: 25 mcg Documented By: EM Fentanyl (Fentanyl Citrate/Pf 100 Mcg/2 Ml Vial) 50 mcg IVPUSH Q5M PRN; Protocol PRN Reason: Pain, Severe (Pain Scale 7-10) Last Admin: 05/26/23 16:55 Dose: 50 mcg Documented By: EM Glucose (Glucose Gel 15 Gm Gel..Gram.) 15 gm PO Q15M PRN; Protocol PRN Reason: per Hypoglycemia Standing Ord. Hydromorphone HCl (Hydromorphone Hcl 0.5 Mg/0.5 Ml Syringe) 0.25 mg IVPUSH Q5M PRN; Protocol PRN Reason: Pain, Severe (Pain Scale 7-10) Insulin Human Lispro (Insulin Lispro 100 Unit/Ml 3 Ml Vial) 0 unit SUBCUT QIDACHS [facility]; Protocol Last Admin: 05/29/23 08:23 Dose: 2 unit Documented By: MARYLIN Melatonin (Melatonin 3 Mg Tablet) 6 mg PO BEDTIME PRN PRN Reason: Insomnia Omeprazole (Omeprazole 20 Mg Capsule.Dr) 20 mg PO DAILY@0630 [facility] Last Admin: 05/29/23 05:37 Dose: 20 mg Documented By: FLORENCE Ondansetron HCl (Ondansetron Hcl 4 Mg/2 Ml Vial) 4 mg IVPUSH Q8H PRN PRN Reason: Nausea and Vomiting Oxycodone HCl (Oxycodone Hcl Er 10 Mg Tab.Er.12h) 10 mg PO BID [facility] Last Admin: 05/29/23 08:26 Dose: 10 mg Documented By: MARYLIN Oxycodone HCl (Oxycodone Hcl Immed Release 5 Mg Tablet) 5 mg PO Q4H PRN PRN Reason: Pain, Moderate(Pain Scale 4-6) Last Admin: 05/28/23 16:21 Dose: 5 mg Documented By: ADELE Sodium Chloride (0.9 % Sodium Chloride Flush 3 Ml Syringe) [facility] Admin: 05/28/23 20:18 Dose: 3 ml Documented By: FLORENCE <Elana Collazo - Last Filed: 05/29/23 10:43> Labs CBC & Chem 7: 05/29/23 05:35 05/29/23 05:35 <Elana Collazo - Last Filed: 05/29/23 10:43> Labs: Laboratory Results - last 24 hr 05/28/23 05/28/23 05/28/23 11:25 16:19 19:58 MCV MCH MCHC RDW Plt Count MPV Immature Gran % (Auto) Neut % (Auto) Lymph % (Auto) [place] % (Auto) Eos % (Auto) Baso % (Auto) Lymph # (Auto) [place] # (Auto) Eos # (Auto) Baso # (Auto) Abs Immat Gran (auto) Absolute Neuts (auto) Absolute Nucleated RBC Nucleated RBC % (auto) Smear Tech's Comments Anion Gap Estim Creat Clear Calc Estimated GFR POC Glucose 207 H 194 H 178 H Fasting Glucose Calcium 05/29/23 05/29/23 05:35 07:23 MCV 82.1 MCH 26.4 L MCHC 32.1 RDW 14.1 Plt Count 182 MPV 9.5 Immature Gran % (Auto) 0.4 Neut % (Auto) 64.3 Lymph % (Auto) 14.1 L [place] % (Auto) 17.9 H Eos % (Auto) 3.2 Baso % (Auto) 0.1 Lymph # (Auto) 1.2 [place] # (Auto) 1.5 H Eos # (Auto) 0.3 Baso # (Auto) 0.0 Abs Immat Gran (auto) 0.03 Absolute Neuts (auto) 5.5 Absolute Nucleated RBC 0.000 Nucleated RBC % (auto) 0.0 Smear Tech's Comments VERIFIED Anion Gap 13 Estim Creat Clear Calc 22.6 Estimated GFR 18 POC Glucose 206 H Fasting Glucose 169 H Calcium 8.4 <Elana Collazo - Last Filed: 05/29/23 10:43> Assessment and Plan (1) Elevated troponin: Status: Acute <Elana Acunajazmín - Last Filed: 05/29/23 10:43> (2) Chronic kidney disease: Status: Acute <Elana Collazo - Last Filed: 05/29/23 10:43> Assessment and Plan: 72-year-old male with a PMH significant for?HTN, HLD, [id number] diabetes type 2, anemia of chronic disease, CKD 4, and right knee replacement around 2015 who presents to the ED with right leg pain and inability to walk after fall. Pt will be admitted to the hospital for treatment of displaced periprosthetic right femur fracture s/p retrograde benjamin on 05/26/2023. Currently doing well and awaiting spot at acute rehab. R femur fracture s/p fixation operative fixation on 05/26/23 - Continue PT - Oxycodone for pain managment - Lovenox for DVT prophylaxis Dizziness/presyncope, elevated troponin, wma on echo, concern for NSTEMI - Previously treated with iv heparin x 48 hrs - Continue Coreg, Lipitor and ASA 81 - Follow up with cardiology outpatient for further evaluation. Anemia of chronic disease - H/H 8.7/27.1 (previous 9.2/28.3). Patient asymptomatic. Type and screen performed 05/24/23 - Transfuse 1 Unit RBC - Repeat CBC in AM CKD 4: - Cr at baseline DM2: - SSI, diabetic diet HTN: - controlled, continue norvasc and coreg HLD - Continue statin DVT Prophylaxis: Lovenox 40mg once a day injection per ortho Need for hospitalization: recovery from surgery to treat hip fracture and need for rehab placement dc today if rehab bed available <Elana Collazo - Last Filed: 05/29/23 10:43> 72-year-old male with a PMH significant for?HTN, HLD, [id number] diabetes type 2, anemia of chronic disease, CKD 4, and right knee replacement around 2015 who presents to the ED with right leg pain and inability to walk after fall. Pt will be admitted to the hospital for treatment of displaced periprosthetic right femur fracture s/p retrograde benjamin on 05/26/2023. Currently doing well and awaiting spot at acute rehab. R femur fracture s/p operative fixation on 05/26/23 - Continue PT - Oxycodone for pain managment - Lovenox for DVT prophylaxis Dizziness/presyncope, elevated troponin, wma on echo, concern for NSTEMI - Previously treated with iv heparin x 48 hrs - Continue Coreg, Lipitor and ASA 81 - Follow up with cardiology outpatient for further evaluation. Anemia of chronic disease - H/H 8.7/27.1 (previous 9.2/28.3). Patient asymptomatic. Type and screen performed 05/24/23 - consider Transfuse 1 Unit RBC if he is agreeable - Repeat CBC in AM CKD 4: - Cr at baseline DM2: - SSI, diabetic diet HTN: - controlled, continue norvasc and coreg HLD - Continue statin DVT Prophylaxis: Lovenox 40mg once a day injection per ortho Need for hospitalization: recovery from surgery to treat hip fracture and need for rehab placement dc today if rehab bed available <Niranjan Adams MD - Last Filed: 05/29/23 12:01> Quality Stroke Does the patient have a stroke diagnosis?: No <Elana Collazo - Last Filed: 05/29/23 10:43> VTE Prior VTE?: No <Elana Collazo - Last Filed: 05/29/23 10:43> VTE Risk Level:: Medical - moderate - high <Elana Collazo - Last Filed: 05/29/23 10:43> VTE Device Contraindication: N/A - Device Ordered <Elana Collazo - Last Filed: 05/29/23 10:43> VTE Drug Contraindication: Treatment Not Indicated <Elana Collazo - Last Filed: 05/29/23 10:43>
[2023-05-29 12:11] LABS: Glucose, Whole Blood 152 mg/dL (60-115)
--- NOTE | 2023-05-29 12:37 | PM.PNORT ---
Subjective Subjective Date of Service: 05/29/23 Interval history: POD3 s/p right distal Femur retrograd nail Patient is resting in bed-just finished walking No overnight events Pain is managed No additional complaints Physical Exam Vital Signs: Vital Signs: Last Vital Signs Temp 97.3 F 05/29/23 11:12 Pulse 73 05/29/23 11:12 Resp 20 05/29/23 11:12 BP 128/71 05/29/23 11:12 Pulse Ox 98 05/29/23 11:12 O2 Del Method Room Air 05/29/23 11:12 O2 Flow Rate 96 05/26/23 18:29 BMI result Body Mass Index 31.3 Extrem: Other: Right knee bandage clean , dry and intact. Calf supple non tender. He is able to dorsi and plantar flex, nvi. Procedures Date of Service Date of Service: 05/29/23 Progress Note: A&P Assessment and plan (1) Closed right femoral fracture: Status: Acute Plan Continue pain mgmnt dvt ppx lovenox PT/OT for right femure retrograde nail - 25% WB Dispo planning-med clearance and rehab placement Time Spent With Patient Time: Total time managing care of this patient today ____ minutes. Quality Stroke Does the patient have a stroke diagnosis?: No VTE Prior VTE?: No VTE Risk Level:: Medical - moderate - high VTE Device Contraindication: N/A - Device Ordered VTE Drug Contraindication: Treatment Not Indicated
[2023-05-29] MEDS: Enoxaparin Sodium 30 MG/0.3 ML SYRINGE SUBCUT (13:14)
[2023-05-29] MEDS: 0.9 % Sodium Chloride Flush 3 ML SYRINGE IVFLUSH ×2 (13:18→22:13)
[2023-05-29] MEDS: Acetaminophen 325 MG TABLET 650 MG PO (15:01)
[2023-05-29] MEDS: oxyCODONE HCl Immed Release 5 MG TABLET PO (15:02)
[2023-05-29 16:31] LABS: Glucose, Whole Blood 201 mg/dL (60-115)
[2023-05-29 21:01] LABS: Glucose, Whole Blood 200 mg/dL (60-115)
[2023-05-30] VITALS (8 sets, daily range): BP systolic 114–157; BP diastolic 58–78; PULSE 70–93; RESP 16–18; TEMP 36.1–36.7; O2SAT 95–98
[2023-05-30] MEDS: oxyCODONE HCl Immed Release 5 MG TABLET PO ×3 (04:38→22:51)
[2023-05-30] MEDS: Omeprazole 20 MG CAPSULE.DR PO (04:38)
[2023-05-30 05:56] LABS: MANUAL DIFF FLAG NO
[2023-05-30 06:00] LABS: Hematocrit 25.9 % (42.0-52.0); Hemoglobin 8.4 g/dl (14.0-18.0); Mean Corpuscular HGB Conc 32.4 g/dl (31.0-36.0); Mean Corpuscular Hemoglobin 26.8 pg (27.0-33.0); Mean Corpuscular Volume 82.7 fL (80.0-98.0); Mean Platelet Volume 9.3 fL (9.4-12.4); Platelet Count 196 X10*3/uL (160-400); Red Blood Count 3.13 X10*6/uL (4.60-5.80); Red Cell Distribution Width 14.2 % (11.0-16.0); White Blood Count 7.8 X10*3/uL (4.8-10.8)
[2023-05-30 06:04] LABS: Basophils Percent Auto 0.4 % (0-2); Eosinophils Absolute Auto 0.3 X10*3/uL (0.0-0.4); Eosinophils Percent Auto 4.2 % (0-4); Hematocrit 25.3 % (42.0-52.0); Hemoglobin 8.1 g/dl (14.0-18.0); Imm Gran Abs Auto 0.03 X10*3/uL (0.00-0.03); Imm Gran Pct Auto 0.4 % (0.0-0.4); Lymphocytes Absolute Auto 1.2 X10*3/uL (1.2-4.9); Lymphocytes Percent Auto 15.9 % (20-40); Mean Corpuscular Hemoglobin 26.1 pg (27.0-33.0); Mean Corpuscular Volume 81.6 fL (80.0-98.0); Mean Platelet Volume 9.6 fL (9.4-12.4); Monocytes Absolute Auto 1.1 X10*3/uL (0.1-1.2); Monocytes Percent Auto 14.8 % (2-11); Neutrophils Absolute Auto 4.8 x10*3/uL (2.0-8.3); Neutrophils Percent Auto 64.3 % (45-73); Platelet Count 208 X10*3/uL (160-400); Red Cell Distribution Width 14.2 % (11.0-16.0); White Blood Count 7.4 X10*3/uL (4.8-10.8)
[2023-05-30 06:17] LABS: Anion Gap 14 (12-20); Blood Urea Nitrogen 68 mg/dL (9-16); Calcium 8.4 mg/dL (8.4-10.2); Carbon Dioxide 22 mmol/L (22-29); Chloride 104 mmol/L (96-108); Creatinine Clr Calc Pharmacy 19.8; Estimated Glomerular Filt Rate 15; Glucose Fasting 191 mg/dL (60-99); Potassium 4.5 mmol/L (3.3-5.1); Sodium 135 mmol/L (135-145)
[2023-05-30 07:32] LABS: Glucose, Whole Blood 179 mg/dL (60-115)
[2023-05-30] MEDS: oxyCODONE HCl ER 10 MG TAB.ER.12H PO ×2 (08:46→21:21)
[2023-05-30] MEDS: Celecoxib 200 MG CAPSULE PO ×2 (08:47→21:22)
[2023-05-30] MEDS: Atorvastatin Calcium 80 MG TABLET PO (08:47)
[2023-05-30] MEDS: Aspirin Enteric Coated 81 MG TABLET.DR PO (08:47)
[2023-05-30] MEDS: carvediloL 25 MG TABLET PO ×2 (08:47→21:22)
[2023-05-30] MEDS: amLODIPine Besylate 10 MG TABLET PO (08:48)
[2023-05-30] MEDS: 0.9 % Sodium Chloride Flush 3 ML SYRINGE IVFLUSH ×3 (08:48→21:22)
[2023-05-30] MEDS: Docusate Sodium 100 MG CAPSULE PO ×2 (08:48→21:21)
--- NOTE | 2023-05-30 10:41 | HO.PM.IMPN ---
Subjective Subjective Date of Service: 05/30/23 Interval History: Pain is controlled, no new issues, Review of Systems no chest pain, no dizziness, no sob Physical Exam Vital Signs: Vital Signs: Last Vital Signs Temp 97 F 05/30/23 07:10 Pulse 87 05/30/23 07:10 Resp 18 05/30/23 07:10 BP 137/75 05/30/23 07:10 Pulse Ox 96 05/30/23 07:10 O2 Del Method Room Air 05/30/23 07:10 O2 Flow Rate 96 05/26/23 18:29 BMI result Body Mass Index 31.3 General: AO X 3, no acute distress Resp: CTA bilaterally CVS: RRR, systolic murmur, no LE edema, 2+ pulses throughout GI: Non tender, non distended Neuro: motor grossly intact Skin: Wound d/c/i Psych: appropriate affect Objective Data Active Medications Acetaminophen (Acetaminophen 325 Mg Tablet) 650 mg PO Q6H PRN PRN Reason: Pain, Mild (Pain Scale 1-3) Last Admin: 05/29/23 15:01 Dose: 650 mg Documented By: MARYLIN Amlodipine Besylate (Amlodipine Besylate 10 Mg Tablet) 10 mg PO DAILY [facility]; Protocol Last Admin: 05/30/23 08:48 Dose: 10 mg Documented By: SHI Aspirin (Aspirin Enteric Coated 81 Mg Tablet.) 81 mg PO DAILY [facility] Last Admin: 05/30/23 08:47 Dose: 81 mg Documented By: SHI Atorvastatin Calcium (Atorvastatin Calcium 80 Mg Tablet) 80 mg PO DAILY [facility] Last Admin: 05/30/23 08:47 Dose: 80 mg Documented By: SHI Benzonatate (Benzonatate 100 Mg Capsule) 100 mg PO TID PRN PRN Reason: Cough Carvedilol (Carvedilol 25 Mg Tablet) 25 mg PO BID [facility]; Protocol Last Admin: 05/30/23 08:47 Dose: 25 mg Documented By: SHI Celecoxib (Celecoxib 200 Mg Capsule) 200 mg PO BID [facility] Last Admin: 05/30/23 08:47 Dose: 200 mg Documented By: SHI Dextrose (Dextrose 50 % 25 Gm/50 Ml Syringe) 25 gm IVPUSH Q15M PRN; Protocol PRN Reason: per Hypoglycemia Standing Ord. Docusate Sodium (Docusate Sodium 100 Mg Capsule) 100 mg PO DAILY PRN PRN Reason: Constipation Docusate Sodium (Docusate Sodium 100 Mg Capsule) 100 mg PO BID [facility] Last Admin: 05/30/23 08:48 Dose: 100 mg Documented By: SHI Enoxaparin Sodium (Enoxaparin Sodium 30 Mg/0.3 Ml Syringe) 30 mg SUBCUT Q24H [facility] Last Admin: 05/29/23 13:14 Dose: 30 mg Documented By: MARYLIN Fentanyl (Fentanyl Citrate/Pf 100 Mcg/2 Ml Vial) 25 mcg IVPUSH Q5M PRN; Protocol PRN Reason: Pain, Moderate(Pain Scale 4-6) Last Admin: 05/26/23 17:19 Dose: 25 mcg Documented By: EM Fentanyl (Fentanyl Citrate/Pf 100 Mcg/2 Ml Vial) 50 mcg IVPUSH Q5M PRN; Protocol PRN Reason: Pain, Severe (Pain Scale 7-10) Last Admin: 05/26/23 16:55 Dose: 50 mcg Documented By: EM Glucose (Glucose Gel 15 Gm Gel..Gram.) 15 gm PO Q15M PRN; Protocol PRN Reason: per Hypoglycemia Standing Ord. Hydromorphone HCl (Hydromorphone Hcl 0.5 Mg/0.5 Ml Syringe) 0.25 mg IVPUSH Q5M PRN; Protocol PRN Reason: Pain, Severe (Pain Scale 7-10) Sodium Chloride (Ns) 100 mls @ 100 mls/hr IV ONCE ONE Stop: 05/30/23 11:14 Insulin Human Lispro (Insulin Lispro 100 Unit/Ml 3 Ml Vial) 0 unit SUBCUT QIDACHS [facility]; Protocol Last Admin: 05/30/23 07:36 Dose: Not Given Documented By: SHI Non-Admin Reason: No Insulin Coverage Melatonin (Melatonin 3 Mg Tablet) 6 mg PO BEDTIME PRN PRN Reason: Insomnia Omeprazole (Omeprazole 20 Mg Capsule.Dr) 20 mg PO DAILY@0630 [facility] Last Admin: 05/30/23 04:38 Dose: 20 mg Documented By: FLORENCE Ondansetron HCl (Ondansetron Hcl 4 Mg/2 Ml Vial) 4 mg IVPUSH Q8H PRN PRN Reason: Nausea and Vomiting Oxycodone HCl (Oxycodone Hcl Er 10 Mg Tab.Er.12h) 10 mg PO BID [facility] Last Admin: 05/30/23 08:46 Dose: 10 mg Documented By: SHI Oxycodone HCl (Oxycodone Hcl Immed Release 5 Mg Tablet) 5 mg PO Q4H PRN PRN Reason: Pain, Moderate(Pain Scale 4-6) Last Admin: 05/30/23 04:38 Dose: 5 mg Documented By: FLORENCE Sodium Chloride (0.9 % Sodium Chloride Flush 3 Ml Syringe) 3 ml IVFLUSH QSHIFT [facility] Last Admin: 05/30/23 08:48 Dose: 3 ml Documented By: SHI Labs 05/30/23 05:47 05/30/23 05:47 Labs: Laboratory Results - last 24 hr 05/29/23 05/29/23 05/29/23 12:07 16:27 19:38 MCV MCH MCHC RDW Plt Count MPV Immature Gran % (Auto) Neut % (Auto) Lymph % (Auto) [place] % (Auto) Eos % (Auto) Baso % (Auto) Lymph # (Auto) [place] # (Auto) Eos # (Auto) Baso # (Auto) Abs Immat Gran (auto) Absolute Neuts (auto) Absolute Nucleated RBC Nucleated RBC % (auto) Anion Gap Estim Creat Clear Calc Estimated GFR POC Glucose 152 H 201 H 200 H Fasting Glucose Calcium Blood Type Antibody Screen Crossmatch 05/30/23 05/30/23 05/30/23 05:47 05:47 05:47 MCV 81.6 82.7 MCH 26.1 L 26.8 L MCHC 32.0 RDW Plt Count MPV Immature Gran % (Auto) Neut % (Auto) Lymph % (Auto) [place] % (Auto) Eos % (Auto) Baso % (Auto) Lymph # (Auto) [place] # (Auto) Eos # (Auto) Baso # (Auto) Abs Immat Gran (auto) Absolute Neuts (auto) Absolute Nucleated RBC Nucleated RBC % (auto) Anion Gap Estim Creat Clear Calc Estimated GFR POC Glucose Fasting Glucose Calcium Blood Type Antibody Screen Crossmatch 05/30/23 05/30/23 05/30/23 05:47 05:47 05:47 MCV MCH MCHC 32.4 RDW 14.2 14.2 Plt Count 208 196 MPV 9.6 Immature Gran % (Auto) Neut % (Auto) Lymph % (Auto) [place] % (Auto) Eos % (Auto) Baso % (Auto) Lymph # (Auto) [place] # (Auto) Eos # (Auto) Baso # (Auto) Abs Immat Gran (auto) Absolute Neuts (auto) Absolute Nucleated RBC Nucleated RBC % (auto) Anion Gap Estim Creat Clear Calc Estimated GFR POC Glucose Fasting Glucose Calcium Blood Type Antibody Screen Crossmatch 05/30/23 05/30/23 05/30/23 05:47 05:47 05:47 MCV MCH MCHC RDW Plt Count MPV 9.3 L Immature Gran % (Auto) 0.4 Neut % (Auto) 64.3 Lymph % (Auto) 15.9 L [place] % (Auto) 14.8 H Eos % (Auto) 4.2 H Baso % (Auto) 0.4 Lymph # (Auto) 1.2 [place] # (Auto) 1.1 Eos # (Auto) 0.3 Baso # (Auto) 0.0 Abs Immat Gran (auto) 0.03 Absolute Neuts (auto) 4.8 Absolute Nucleated RBC 0.000 0.000 Nucleated RBC % (auto) 0.0 0.0 Anion Gap 14 Estim Creat Clear Calc 19.8 Estimated GFR 15 POC Glucose Fasting Glucose 191 H Calcium 8.4 Blood Type B Negative Antibody Screen NEGATIVE Crossmatch See Detail 05/30/23 07:28 MCV MCH MCHC RDW Plt Count MPV Immature Gran % (Auto) Neut % (Auto) Lymph % (Auto) [place] % (Auto) Eos % (Auto) Baso % (Auto) Lymph # (Auto) [place] # (Auto) Eos # (Auto) Baso # (Auto) Abs Immat Gran (auto) Absolute Neuts (auto) Absolute Nucleated RBC Nucleated RBC % (auto) Anion Gap Estim Creat Clear Calc Estimated GFR POC Glucose 179 H Fasting Glucose Calcium Blood Type Antibody Screen Crossmatch Assessment and Plan (1) Elevated troponin: Status: Acute (2) Chronic kidney disease: Status: Acute Plan 72-year-old male with a PMH significant for?HTN, HLD, [id number] diabetes type 2, anemia of chronic disease, CKD 4, and right knee replacement around 2015 who presents to the ED with right leg pain and inability to walk after fall. Pt will be admitted to the hospital for treatment of displaced periprosthetic right femur fracture s/p retrograde benjamin on 05/26/2023. Currently doing well and awaiting spot at acute rehab. R femur fracture s/p operative fixation on 05/26/23 - Continue PT - Oxycodone for pain managment - Lovenox for DVT prophylaxis -eventually rehab Dizziness/presyncope, elevated troponin, wma on echo, concern for NSTEMI - Previously treated with iv heparin x 48 hrs - Continue Coreg, Lipitor and ASA 81 - Follow up with cardiology outpatient for further evaluation. Anemia of chronic disease, H/H down 01/01 - in light of recent potential cardiac event advise hgb about 10 - Transfuse 1 unit today, recheck H/H tomorrow - Repeat CBC in AM CKD 4: - Cr at baseline DM2: - SSI, diabetic diet HTN: - controlled, continue norvasc and coreg HLD - Continue statin DVT Prophylaxis: Lovenox 40mg once a day injection per ortho Need for hospitalization:Awaiting rehab bed Quality Stroke Does the patient have a stroke diagnosis?: No VTE Prior VTE?: No VTE Risk Level:: Medical - moderate - high VTE Device Contraindication: N/A - Device Ordered VTE Drug Contraindication: Treatment Not Indicated
--- NOTE | 2023-05-30 10:49 | PM.PNORT ---
Subjective Subjective Date of Service: 05/30/23 Interval history: POD4 s/p right distal Femur retrograd nail Patient is resting in bed No overnight events Pain is managed No additional complaints Physical Exam Vital Signs: Vital Signs: Last Vital Signs Temp 97 F 05/30/23 07:10 Pulse 87 05/30/23 07:10 Resp 18 05/30/23 07:10 BP 137/75 05/30/23 07:10 Pulse Ox 96 05/30/23 07:10 O2 Del Method Room Air 05/30/23 07:10 O2 Flow Rate 96 05/26/23 18:29 BMI result Body Mass Index 31.3 Extrem: Other: Right knee bandage clean , dry and intact. Calf supple non tender. He is able to dorsi and plantar flex, nvi. Procedures Date of Service Date of Service: 05/30/23 Progress Note: A&P Assessment and plan (1) Closed right femoral fracture: Status: Acute Plan Continue pain mgmnt dvt ppx lovenox PT/OT for right femure retrograde nail - 25% WB Dispo planning-med clearance and rehab placement Time Spent With Patient Time: Total time managing care of this patient today ____ minutes. Quality Stroke Does the patient have a stroke diagnosis?: No VTE Prior VTE?: No VTE Risk Level:: Medical - moderate - high VTE Device Contraindication: N/A - Device Ordered VTE Drug Contraindication: Treatment Not Indicated
[2023-05-30 11:26] LABS: Glucose, Whole Blood 248 mg/dL (60-115)
[2023-05-30] MEDS: Insulin Lispro 100 UNIT/ML 3 ML VIAL SUBCUT (12:14)
[2023-05-30] MEDS: Enoxaparin Sodium 30 MG/0.3 ML SYRINGE SUBCUT (12:15)
[2023-05-30 15:38] LABS: Glucose, Whole Blood 196 mg/dL (60-115)
--- NOTE | 2023-05-30 18:40 | PC.NURSE ---
Addendum entered by Radha Fraser RN 05/30/23 18:43: Pt is continent and able to void into urinal. Original Note: This rn bladder scanned pt @ 1830. Bladder scan was 140ml.
[2023-05-30 20:42] LABS: Glucose, Whole Blood 158 mg/dL (60-115)
[2023-05-30] MEDS: Melatonin 3 MG TABLET 6 MG PO (22:52)
[2023-05-31 03:21] VITALS: BP 138/68; PULSE 75; RESP 18; TEMP 36.4; O2SAT 98
[2023-05-31] MEDS: Omeprazole 20 MG CAPSULE.DR PO (05:48)
[2023-05-31] MEDS: oxyCODONE HCl Immed Release 5 MG TABLET PO ×2 (05:50→15:35)
[2023-05-31 07:05] LABS: MANUAL DIFF FLAG NO
[2023-05-31 07:12] LABS: Basophils Percent Auto 0.4 % (0-2); Eosinophils Absolute Auto 0.3 X10*3/uL (0.0-0.4); Eosinophils Percent Auto 4.7 % (0-4); Hematocrit 29.2 % (42.0-52.0); Hemoglobin 9.4 g/dl (14.0-18.0); Imm Gran Abs Auto 0.02 X10*3/uL (0.00-0.03); Imm Gran Pct Auto 0.3 % (0.0-0.4); Lymphocytes Absolute Auto 1.2 X10*3/uL (1.2-4.9); Lymphocytes Percent Auto 16.5 % (20-40); Mean Corpuscular HGB Conc 32.2 g/dl (31.0-36.0); Mean Corpuscular Hemoglobin 27.2 pg (27.0-33.0); Mean Corpuscular Volume 84.4 fL (80.0-98.0); Mean Platelet Volume 9.5 fL (9.4-12.4); Monocytes Percent Auto 13.8 % (2-11); Neutrophils Absolute Auto 4.5 x10*3/uL (2.0-8.3); Neutrophils Percent Auto 64.3 % (45-73); Platelet Count 238 X10*3/uL (160-400); Red Blood Count 3.46 X10*6/uL (4.60-5.80); Red Cell Distribution Width 14.1 % (11.0-16.0)
[2023-05-31 07:24] VITALS: BP 136/69; PULSE 71; RESP 20; TEMP 36.4; O2SAT 96
--- NOTE | 2023-05-31 07:24 | PM.PNORT ---
Subjective Subjective Date of Service: 05/31/23 Interval history: POD5 s/p right distal Femur retrograd nail Patient is resting in bed No overnight events Pain is managed No additional complaints Physical Exam Vital Signs: Vital Signs: Last Vital Signs Temp 97.6 F 05/31/23 03:21 Pulse 75 05/31/23 03:21 Resp 18 05/31/23 03:21 BP 138/68 05/31/23 03:21 Pulse Ox 98 05/31/23 03:21 O2 Del Method Room Air 05/31/23 03:21 O2 Flow Rate 96 05/26/23 18:29 BMI result Body Mass Index 31.3 Extrem: Other: Right knee bandage clean , dry and intact. Calf supple non tender. He is able to dorsi and plantar flex, nvi. Procedures Date of Service Date of Service: 05/31/23 Progress Note: A&P Assessment and plan (1) Closed right femoral fracture: Status: Acute Plan Continue pain mgmnt dvt ppx lovenox PT/OT for right femure retrograde nail - 25% WB Dispo planning-med clearance and rehab placement Time Spent With Patient Time: Total time managing care of this patient today ____ minutes. Quality Stroke Does the patient have a stroke diagnosis?: No VTE Prior VTE?: No VTE Risk Level:: Medical - moderate - high VTE Device Contraindication: N/A - Device Ordered VTE Drug Contraindication: Treatment Not Indicated
[2023-05-31 07:26] LABS: Anion Gap 12 (12-20); Blood Urea Nitrogen 68 mg/dL (9-16); Calcium 8.6 mg/dL (8.4-10.2); Carbon Dioxide 23 mmol/L (22-29); Chloride 107 mmol/L (96-108); Creatinine Clr Calc Pharmacy 20.8; Estimated Glomerular Filt Rate 16; Glucose Fasting 173 mg/dL (60-99); Potassium 4.6 mmol/L (3.3-5.1); Sodium 137 mmol/L (135-145)
[2023-05-31 07:31] LABS: Glucose, Whole Blood 164 mg/dL (60-115)
--- NOTE | 2023-05-31 08:05 | P.OP_ITS ---
Operative Note Operative Note Date of Service: 05/26/23 Narrative: Date of Service: 05/26/23 Pre-op diagnosis: Right distal femur periprosthetic fracture Post-op diagnosis: same Procedure: Retrograde benjamin right femur Implants: Styrker [id number] with 4 distal and one proximal interlocking screws Surgeon: Haris Rosales MD Anesthesia: spinal Was an Hr Coordinator used for this Procedure?: Yes Hr Coordinator: Carmenza Bright Estimated blood loss (mL): 25 Tourniquet time (min): 70 IV fluids (mL): 800 Pathology: none sent Condition: stable Disposition: PACU Procedure in detail: Patient was brought to the operating room and placed supine on the fracture table. He was prepped and draped in standard sterile fashion and a time out was called to identify proper site, proper procedure and IV antibiotics per weight were administered. I began by flexing the knee up and making a 5 cm incision between the distal pole of the patella and the tibial tubercle directly midline. I incised transpatellar and retractors were placed to visualize the TS insert and the femoral box. I was able to pass the guidewire into the femur through the open box of the femoral prosthesis. I over-reamed with a 12.5 opening reamer while protecting the TS insert. A ball tipped guidewire was then placed across the fracture. This was a distal transverse fracture and his bone quality was good. With the fracture in a reduced position, I was able to pass a 13.5 reamer up the femoral canal ( without touching the TS insert) to the level of the lesser without resistance. I then measured and placed a 320x12 mm nail. Using the targeting guide 4 distal screws were placed through the nail. Using perfect [place] technique 1 proximal interlocking screw was placed. Final radiographs showed excellent positioning of the hardware and fracture alignment. I irrigated copiously and then closed with absorbable sutures and skin robert. Patient was then placed in sterile dressing and extubated. He was brought to the recovery room in stable condition. There were no known complications.
[2023-05-31] MEDS: carvediloL 25 MG TABLET PO ×2 (08:54→22:31)
[2023-05-31] MEDS: oxyCODONE HCl ER 10 MG TAB.ER.12H PO (08:54)
[2023-05-31] MEDS: Celecoxib 200 MG CAPSULE PO ×2 (08:54→22:31)
[2023-05-31] MEDS: Acetaminophen 325 MG TABLET 650 MG PO ×2 (08:54→15:35)
[2023-05-31] MEDS: Atorvastatin Calcium 80 MG TABLET PO (08:54)
[2023-05-31] MEDS: Aspirin Enteric Coated 81 MG TABLET.DR PO (08:54)
[2023-05-31] MEDS: Docusate Sodium 100 MG CAPSULE PO ×3 (08:54→22:31)
[2023-05-31] MEDS: amLODIPine Besylate 10 MG TABLET PO (08:54)
--- NOTE | 2023-05-31 10:07 | HO.PM.IMPN ---
Subjective Subjective Date of Service: 05/31/23 <Elanaprem Collazo - Last Filed: 05/31/23 10:50> 05/31/23 <Niranjan Adams MD - Last Filed: 05/31/23 12:15> Interval History: Pain is controlled; no new issues, no chest pain, no dizziness, no SOB <Elanaprem Collazo - Last Filed: 05/31/23 10:50> Pain is controlled; no new issues, no chest pain, no dizziness, no SOB he's uncertain about going to rehab, and contemplating going home with services <Niranjan Adams MD - Last Filed: 05/31/23 12:15> Review of Systems Review of Systems: Yes all other systems are reviewed and are negative <Elana Monacot Kalpanajazmín - Last Filed: 05/31/23 10:50> Physical Exam Vital Signs: Vital Signs: Last Vital Signs Temp 97.5 F 05/31/23 07:24 Pulse 71 05/31/23 07:24 Resp 20 05/31/23 07:24 BP 136/69 05/31/23 07:24 Pulse Ox 96 05/31/23 07:24 O2 Del Method Room Air 05/31/23 07:24 O2 Flow Rate 96 05/26/23 18:29 BMI result Body Mass Index 31.3 <Elana Chávezduglas - Last Filed: 05/31/23 10:50> General: AO X 3, no acute distress Resp: CTA bilaterally CVS: RRR, systolic murmur, no LE edema, 2+ pulses throughout GI: Non tender, non distended Neuro: motor grossly intact Skin: Wound d/c/i Psych: appropriate affect <Elana Acunajazmín - Last Filed: 05/31/23 10:50> Objective Data Active Medications Acetaminophen (Acetaminophen 325 Mg Tablet) 650 mg PO Q6H PRN PRN Reason: Pain, Mild (Pain Scale 1-3) Last Admin: 05/31/23 08:54 Dose: 650 mg Documented By: NIHARIKA Amlodipine Besylate (Amlodipine Besylate 10 Mg Tablet) 10 mg PO DAILY [facility]; Protocol Last Admin: 05/31/23 08:54 Dose: 10 mg Documented By: NIHARIKA Aspirin (Aspirin Enteric Coated 81 Mg Tablet.) 81 mg PO DAILY [facility] Last Admin: 05/31/23 08:54 Dose: 81 mg Documented By: NIHARIKA Atorvastatin Calcium (Atorvastatin Calcium 80 Mg Tablet) 80 mg PO DAILY [facility] Last Admin: 05/31/23 08:54 Dose: 80 mg Documented By: NIHARIKA Benzonatate (Benzonatate 100 Mg Capsule) 100 mg PO TID PRN PRN Reason: Cough Carvedilol (Carvedilol 25 Mg Tablet) 25 mg PO BID [facility]; Protocol Last Admin: 05/31/23 08:54 Dose: 25 mg Documented By: NIHARIKA Celecoxib (Celecoxib 200 Mg Capsule) 200 mg PO BID [facility] Last Admin: 05/31/23 08:54 Dose: 200 mg Documented By: NIHARIKA Dextrose (Dextrose 50 % 25 Gm/50 Ml Syringe) 25 gm IVPUSH Q15M PRN; Protocol PRN Reason: per Hypoglycemia Standing Ord. Docusate Sodium (Docusate Sodium 100 Mg Capsule) 100 mg PO DAILY PRN PRN Reason: Constipation Docusate Sodium (Docusate Sodium 100 Mg Capsule) 100 mg PO BID [facility] Last Admin: 05/31/23 08:54 Dose: 100 mg Documented By: NIHARIKA Enoxaparin Sodium (Enoxaparin Sodium 30 Mg/0.3 Ml Syringe) 30 mg SUBCUT Q24H [facility] Last Admin: 05/30/23 12:15 Dose: 30 mg Documented By: SHI Fentanyl (Fentanyl Citrate/Pf 100 Mcg/2 Ml Vial) 25 mcg IVPUSH Q5M PRN; Protocol PRN Reason: Pain, Moderate(Pain Scale 4-6) Last Admin: 05/26/23 17:19 Dose: 25 mcg Documented By: EM Fentanyl (Fentanyl Citrate/Pf 100 Mcg/2 Ml Vial) 50 mcg IVPUSH Q5M PRN; Protocol PRN Reason: Pain, Severe (Pain Scale 7-10) Last Admin: 05/26/23 16:55 Dose: 50 mcg Documented By: EM Glucose (Glucose Gel 15 Gm Gel..Gram.) 15 gm PO Q15M PRN; Protocol PRN Reason: per Hypoglycemia Standing Ord. Hydromorphone HCl (Hydromorphone Hcl 0.5 Mg/0.5 Ml Syringe) 0.25 mg IVPUSH Q5M PRN; Protocol PRN Reason: Pain, Severe (Pain Scale 7-10) Insulin Human Lispro (Insulin Lispro 100 Unit/Ml 3 Ml Vial) 0 unit SUBCUT QIDACHS [facility]; Protocol Last Admin: 05/31/23 07:27 Dose: Not Given Documented By: NIHARIKA Non-Admin Reason: See Note Melatonin (Melatonin 3 Mg Tablet) 6 mg PO BEDTIME PRN PRN Reason: Insomnia Last Admin: 05/30/23 22:52 Dose: 6 mg Documented By: CHARLETTE Omeprazole (Omeprazole 20 Mg Capsule.Dr) 20 mg PO DAILY@0630 [facility] Last Admin: 05/31/23 05:48 Dose: 20 mg Documented By: CHARLETTE Ondansetron HCl (Ondansetron Hcl 4 Mg/2 Ml Vial) 4 mg IVPUSH Q8H PRN PRN Reason: Nausea and Vomiting Oxycodone HCl (Oxycodone Hcl Er 10 Mg Tab.Er.12h) 10 mg PO BID [facility] Last Admin: 05/31/23 08:54 Dose: 10 mg Documented By: NIHARIKA Oxycodone HCl (Oxycodone Hcl Immed Release 5 Mg Tablet) 5 mg PO Q4H PRN PRN Reason: Pain, Moderate(Pain Scale 4-6) Last Admin: 05/31/23 05:50 Dose: 5 mg Documented By: CHARLETTE Sodium Chloride (0.9 % Sodium Chloride Flush 3 Ml Syringe) 3 ml IVFLUSH QSHIFT [facility] Last Admin: 05/31/23 07:06 Dose: Not Given Documented By: NIHARIKA Non-Admin Reason: See Note <Elana Collazo - Last Filed: 05/31/23 10:50> Labs CBC & Chem 7: 05/31/23 06:50 05/31/23 06:50 <Elana Collazo - Last Filed: 05/31/23 10:50> Labs: Laboratory Results - last 24 hr 05/30/23 05/30/23 05/30/23 05:47 11:22 15:34 MCV MCH MCHC RDW Plt Count MPV Immature Gran % (Auto) Neut % (Auto) Lymph % (Auto) Morris % (Auto) Eos % (Auto) Baso % (Auto) Lymph # (Auto) Morris # (Auto) Eos # (Auto) Baso # (Auto) Abs Immat Gran (auto) Absolute Neuts (auto) Absolute Nucleated RBC Nucleated RBC % (auto) Anion Gap Estim Creat Clear Calc Estimated GFR POC Glucose 248 H 196 H Fasting Glucose Calcium Blood Type B Negative Antibody Screen NEGATIVE Crossmatch See Detail 05/30/23 05/31/23 05/31/23 20:25 06:50 07:27 MCV 84.4 MCH 27.2 MCHC 32.2 RDW 14.1 Plt Count 238 MPV 9.5 Immature Gran % (Auto) 0.3 Neut % (Auto) 64.3 Lymph % (Auto) 16.5 L Morris % (Auto) 13.8 H Eos % (Auto) 4.7 H Baso % (Auto) 0.4 Lymph # (Auto) 1.2 Morris # (Auto) 1.0 Eos # (Auto) 0.3 Baso # (Auto) 0.0 Abs Immat Gran (auto) 0.02 Absolute Neuts (auto) 4.5 Absolute Nucleated RBC 0.000 Nucleated RBC % (auto) 0.0 Anion Gap 12 Estim Creat Clear Calc 20.8 Estimated GFR 16 POC Glucose 158 H 164 H Fasting Glucose 173 H Calcium 8.6 Blood Type Antibody Screen Crossmatch <Elana Collazo - Last Filed: 05/31/23 10:50> Assessment and Plan (1) Elevated troponin: Status: Acute <Elana Collazo - Last Filed: 05/31/23 10:50> (2) Chronic kidney disease: Status: Acute <Elana Collazo - Last Filed: 05/31/23 10:50> Assessment and Plan: 72-year-old male with a PMH significant for?HTN, HLD, [id number] diabetes type 2, anemia of chronic disease, CKD 4, and right knee replacement around 2015 who presents to the ED with right leg pain and inability to walk after fall. Pt will be admitted to the hospital for treatment of displaced periprosthetic right femur fracture s/p retrograde benjamin on 05/26/2023. Currently doing well and awaiting spot at acute rehab. R femur fracture s/p operative fixation on 05/26/23 - Pt says he want to leave hospital. Eval by PT for discharge home with home health; needs to be able to navigate stairs - Oxycodone for pain managment - Lovenox for DVT prophylaxis Dizziness/presyncope, elevated troponin, wma on echo, concern for NSTEMI - Previously treated with iv heparin x 48 hrs - Continue Coreg, Lipitor and ASA 81 - Follow up with cardiology outpatient for further evaluation. Anemia of chronic disease s/p transfusion of 1 u RBC on 05/30/23 - H/H 9./.2 from previous . - Repeat in AM CKD 4: - Cr at baseline DM2: - SSI, diabetic diet HTN: - controlled, continue norvasc and coreg HLD - Continue statin DVT Prophylaxis: Lovenox 40mg once a day injection per ortho Need for hospitalization:Awaiting rehab bed <Elanaprem Collazo - Last Filed: 05/31/23 10:50> 72-year-old male with a PMH significant for?HTN, HLD, [id number] diabetes type 2, anemia of chronic disease, CKD 4, and right knee replacement around 2015 who presents to the ED with right leg pain and inability to walk after fall. Pt will be admitted to the hospital for treatment of displaced periprosthetic right femur fracture s/p retrograde benjamin on 05/26/2023. Currently doing well and awaiting spot at acute rehab. R femur fracture s/p operative fixation on 05/26/23 - Waiting for rehab bed, but now saying if possible will go home, PT to reassess, lives on second floor - Oxycodone for pain managment - Lovenox for DVT prophylaxis Dizziness/presyncope, elevated troponin, wma on echo, concern for NSTEMI - Previously treated with iv heparin x 48 hrs - Continue Coreg, Lipitor and ASA 81 - Follow up with cardiology outpatient for further evaluation. Anemia of chronic disease s/p transfusion of 1 u RBC on 05/30/23 - H/H 9./29.2 from previous . CKD 4: - Cr at baseline DM2: - SSI, diabetic diet HTN: - controlled, continue norvasc and coreg HLD - Continue statin DVT Prophylaxis: Lovenox 40mg once a day injection per ortho Need for hospitalization:Awaiting rehab bed or possibly home with VNA, we continue to believe that rehab is the best option <Niranjan Adams MD - Last Filed: 05/31/23 12:15> Quality Stroke Does the patient have a stroke diagnosis?: No <Elana Collazo - Last Filed: 05/31/23 10:50> VTE Prior VTE?: No <Elana Collazo - Last Filed: 05/31/23 10:50> VTE Risk Level:: Medical - moderate - high <Elana Collazo - Last Filed: 05/31/23 10:50> VTE Device Contraindication: N/A - Device Ordered <Elana Collazo - Last Filed: 05/31/23 10:50> VTE Drug Contraindication: Treatment Not Indicated <Elana Collazo - Last Filed: 05/31/23 10:50>
--- NOTE | 2023-05-31 10:44 | MHC.CM.PN ---
Per [facility]DS discussion, Patient is medically cleared for dc. PT is recommending Acute Rehab and Patient has a bed offer from [facility]. Patient is adamantly refusing to go to [facility] in [facility] and wants to go home with VNA instead. Patient's first choice is [facility] but they have no male beds nor have 13 other SNFs made a bed offer. Per MD @ [facility] request, CM has asked PT to see Patient today to determine if home with VNA is an appropriate dc plan.CM will follow.
--- NOTE | 2023-05-31 11:00 | MHC.CM.PN ---
Patient is now willing to go to [facility]; CM awaits response to determine if that bed is still available. CM will follow.
[2023-05-31 11:16] VITALS: BP 136/69; PULSE 71; O2SAT 96
[2023-05-31 11:40] VITALS: BP 129/62; PULSE 72; RESP 20; TEMP 36.4; O2SAT 97
[2023-05-31 11:58] LABS: Glucose, Whole Blood 224 mg/dL (60-115)
[2023-05-31] MEDS: Insulin Lispro 100 UNIT/ML 3 ML VIAL SUBCUT (12:21)
[2023-05-31] MEDS: Enoxaparin Sodium 30 MG/0.3 ML SYRINGE SUBCUT (12:21)
--- NOTE | 2023-05-31 12:24 | MHC.CM.PN ---
Per Raegan from [facility], she will be discussing possible co-pays with Patient (as did this CM)and Human auth process will be initiated. CM will follow.
[2023-05-31 15:51] VITALS: BP 139/75; PULSE 66; RESP 20; TEMP 36.1; O2SAT 97
[2023-05-31 15:58] LABS: Glucose, Whole Blood 138 mg/dL (60-115)
[2023-05-31 19:41] VITALS: BP 157/85; PULSE 75; RESP 16; TEMP 36.6; O2SAT 97
[2023-05-31 20:02] LABS: Glucose, Whole Blood 119 mg/dL (60-115)
[2023-05-31] MEDS: Melatonin 3 MG TABLET 6 MG PO (22:31)
[2023-05-31] MEDS: 0.9 % Sodium Chloride Flush 3 ML SYRINGE IVFLUSH (22:38)
[2023-06-01 03:26] VITALS: BP 141/71; PULSE 77; RESP 20; TEMP 36.4; O2SAT 96
[2023-06-01] MEDS: Acetaminophen 325 MG TABLET 650 MG PO (04:14)
[2023-06-01] MEDS: oxyCODONE HCl Immed Release 5 MG TABLET PO ×2 (04:14→17:14)
[2023-06-01] MEDS: Omeprazole 20 MG CAPSULE.DR PO (04:14)
[2023-06-01 07:14] LABS: Glucose, Whole Blood 161 mg/dL (60-115)
[2023-06-01 07:18] VITALS: BP 133/74; PULSE 72; RESP 18; TEMP 36.1; O2SAT 98
[2023-06-01] MEDS: amLODIPine Besylate 10 MG TABLET PO (08:39)
[2023-06-01] MEDS: Docusate Sodium 100 MG CAPSULE PO ×2 (08:39→21:06)
[2023-06-01] MEDS: carvediloL 25 MG TABLET PO ×2 (08:39→21:06)
[2023-06-01] MEDS: Celecoxib 200 MG CAPSULE PO ×2 (08:39→21:06)
[2023-06-01] MEDS: Aspirin Enteric Coated 81 MG TABLET.DR PO (08:39)
[2023-06-01] MEDS: Atorvastatin Calcium 80 MG TABLET PO (08:39)
[2023-06-01 08:48] VITALS: BP 133/74; PULSE 72; O2SAT 98
[2023-06-01 11:13] LABS: Glucose, Whole Blood 194 mg/dL (60-115)
[2023-06-01 11:40] VITALS: BP 130/78; PULSE 74; RESP 18; TEMP 36.4; O2SAT 98
[2023-06-01] MEDS: Enoxaparin Sodium 30 MG/0.3 ML SYRINGE SUBCUT (11:49)
--- NOTE | 2023-06-01 14:38 | HO.PM.IMPN ---
Subjective Subjective Date of Service: 06/01/23 Interval History: hip fracture Review of Systems pain controlled no new events Physical Exam Vital Signs: Vital Signs: Last Vital Signs Temp 97.6 F 06/01/23 11:40 Pulse 74 06/01/23 11:40 Resp 18 06/01/23 11:40 BP 130/78 06/01/23 11:40 Pulse Ox 98 06/01/23 11:40 O2 Del Method Room Air 06/01/23 11:40 O2 Flow Rate 96 05/26/23 18:29 BMI result Body Mass Index 31.3 General: AO X 3, no acute distress Resp: CTA bilaterally CVS: RRR, systolic murmur, no LE edema, 2+ pulses throughout GI: Non tender, non distended Neuro: motor grossly intact Skin: Wound d/c/i Psych: appropriate affect Objective Data Active Medications Acetaminophen (Acetaminophen 325 Mg Tablet) 650 mg PO Q6H PRN PRN Reason: Pain, Mild (Pain Scale 1-3) Last Admin: 06/01/23 04:14 Dose: 650 mg Documented By: CHARLETTE Amlodipine Besylate (Amlodipine Besylate 10 Mg Tablet) 10 mg PO DAILY [facility]; Protocol Last Admin: 06/01/23 08:39 Dose: 10 mg Documented By: NIHARIKA Aspirin (Aspirin Enteric Coated 81 Mg Tablet.) 81 mg PO DAILY [facility] Last Admin: 06/01/23 08:39 Dose: 81 mg Documented By: NIHARIKA Atorvastatin Calcium (Atorvastatin Calcium 80 Mg Tablet) 80 mg PO DAILY [facility] Last Admin: 06/01/23 08:39 Dose: 80 mg Documented By: NIHARIKA Benzonatate (Benzonatate 100 Mg Capsule) 100 mg PO TID PRN PRN Reason: Cough Carvedilol (Carvedilol 25 Mg Tablet) 25 mg PO BID [facility]; Protocol Last Admin: 06/01/23 08:39 Dose: 25 mg Documented By: NIHARIKA Celecoxib (Celecoxib 200 Mg Capsule) 200 mg PO BID [facility] Last Admin: 06/01/23 08:39 Dose: 200 mg Documented By: NIHARIKA Dextrose (Dextrose 50 % 25 Gm/50 Ml Syringe) 25 gm IVPUSH Q15M PRN; Protocol PRN Reason: per Hypoglycemia Standing Ord. Docusate Sodium (Docusate Sodium 100 Mg Capsule) 100 mg PO DAILY PRN PRN Reason: Constipation Last Admin: 05/31/23 22:31 Dose: 100 mg Documented By: HCARLETTE Docusate Sodium (Docusate Sodium 100 Mg Capsule) 100 mg PO BID [facility] Last Admin: 06/01/23 08:39 Dose: 100 mg Documented By: NIHARIKA Enoxaparin Sodium (Enoxaparin Sodium 30 Mg/0.3 Ml Syringe) 30 mg SUBCUT Q24H [facility] Last Admin: 06/01/23 11:49 Dose: 30 mg Documented By: NIHARIKA Glucose (Glucose Gel 15 Gm Gel..Gram.) 15 gm PO Q15M PRN; Protocol PRN Reason: per Hypoglycemia Standing Ord. Hydromorphone HCl (Hydromorphone Hcl 0.5 Mg/0.5 Ml Syringe) 0.25 mg IVPUSH Q5M PRN; Protocol PRN Reason: Pain, Severe (Pain Scale 7-10) Insulin Human Lispro (Insulin Lispro 100 Unit/Ml 3 Ml Vial) 0 unit SUBCUT QIDACHS [facility]; Protocol Last Admin: 06/01/23 11:14 Dose: Not Given Documented By: NIHARIKA Non-Admin Reason: See Note Melatonin (Melatonin 3 Mg Tablet) 6 mg PO BEDTIME PRN PRN Reason: Insomnia Last Admin: 05/31/23 22:31 Dose: 6 mg Documented By: CHARLETTE Omeprazole (Omeprazole 20 Mg Capsule.) 20 mg PO DAILY@0630 [facility] Last Admin: 06/01/23 04:14 Dose: 20 mg Documented By: CHARLETTE Ondansetron HCl (Ondansetron Hcl 4 Mg/2 Ml Vial) 4 mg IVPUSH Q8H PRN PRN Reason: Nausea and Vomiting Sodium Chloride (0.9 % Sodium Chloride Flush 3 Ml Syringe) 3 ml IVFLUSH QSHIFT [facility] Last Admin: 06/01/23 12:15 Dose: Not Given Documented By: NIHARIKA Non-Admin Reason: See Note Labs 05/31/23 06:50 05/31/23 06:50 Labs: Laboratory Results - last 24 hr 05/31/23 05/31/23 06/01/23 15:54 19:57 07:11 POC Glucose 138 H 119 H 161 H 06/01/23 11:07 POC Glucose 194 H Assessment and Plan (1) Closed right femoral fracture: Status: Acute Plan 72-year-old male with a PMH significant for?HTN, HLD, [id number] diabetes type 2, anemia of chronic disease, CKD 4, and right knee replacement around 2015 who presents to the ED with right leg pain and inability to walk after fall. Pt will be admitted to the hospital for treatment of displaced periprosthetic right femur fracture s/p retrograde benjamin on 05/26/2023. Currently doing well and awaiting spot at acute rehab. R femur fracture s/p operative fixation on 05/26/23 - Waiting for rehab bed, but now saying if possible will go home, PT to reassess, lives on second floor - Oxycodone for pain managment - Lovenox for DVT prophylaxis Dizziness/presyncope, elevated troponin, wma on echo, concern for NSTEMI - Previously treated with iv heparin x 48 hrs - Continue Coreg, Lipitor and ASA 81 - Follow up with cardiology outpatient for further evaluation. Anemia of chronic disease s/p transfusion of 1 u RBC on 05/30/23 - H/H 9.4/29.2 from previous 8.4/25.9 CKD 4: - Cr at baseline DM2: - SSI, diabetic diet HTN: - controlled, continue norvasc and coreg HLD - Continue statin DVT Prophylaxis: Lovenox 40mg once a day injection per ortho Need for hospitalization:Awaiting rehab bed or possibly home with VNA, we continue to believe that rehab is the best option ,also called peer to peer for rehab ,awaiting placement . Quality Stroke Does the patient have a stroke diagnosis?: No VTE Prior VTE?: No VTE Risk Level:: Medical - moderate - high VTE Device Contraindication: N/A - Device Ordered VTE Drug Contraindication: Treatment Not Indicated
--- NOTE | 2023-06-01 15:00 | MHC.CM.NN ---
Pt is awaiting insurance auth to go to acute rehab at [facility], they have asked the provider to call them for a peer to peer review. Dr. Galo has called and left a message, is awaiting return call. CM to follow and continue to assist with DC planning.
--- NOTE | 2023-06-01 15:04 | MHC.CM.PN ---
pt is awaiting insurance auth to go to acute rehab at [facility], they have requested a peer to peer review, provider has called and left a message and is awaiting a call back. CM to continue to assist with DC plan.
[2023-06-01 15:14] VITALS: BP 150/72; PULSE 68; RESP 20; TEMP 36.2; O2SAT 95
--- NOTE | 2023-06-01 16:00 | MHC.CM.PN ---
peer to peer meeting set up for 06/02 afternoon, pt made aware.
[2023-06-01 16:16] LABS: Glucose, Whole Blood 201 mg/dL (60-115)
[2023-06-01] MEDS: Insulin Lispro 100 UNIT/ML 3 ML VIAL SUBCUT (17:14)
[2023-06-01 19:29] VITALS: BP 153/80; PULSE 73; RESP 18; TEMP 36.5; O2SAT 98
[2023-06-01 20:50] LABS: Glucose, Whole Blood 134 mg/dL (60-115)
[2023-06-02] VITALS (8 sets, daily range): BP systolic 149–164; BP diastolic 72–85; PULSE 71–76; RESP 18–20; TEMP 36.2–37.2; O2SAT 96–100
[2023-06-02] MEDS: 0.9 % Sodium Chloride Flush 3 ML SYRINGE IVFLUSH ×2 (00:42→08:57)
[2023-06-02] MEDS: oxyCODONE HCl Immed Release 5 MG TABLET PO ×3 (01:52→22:06)
[2023-06-02] MEDS: Omeprazole 20 MG CAPSULE.DR PO (06:01)
[2023-06-02 07:26] LABS: Glucose, Whole Blood 130 mg/dL (60-115)
[2023-06-02] MEDS: Docusate Sodium 100 MG CAPSULE PO ×2 (08:55→22:06)
[2023-06-02] MEDS: Acetaminophen 325 MG TABLET 650 MG PO (08:56)
[2023-06-02] MEDS: amLODIPine Besylate 10 MG TABLET PO (08:57)
[2023-06-02] MEDS: Aspirin Enteric Coated 81 MG TABLET.DR PO (08:57)
[2023-06-02] MEDS: carvediloL 25 MG TABLET PO ×2 (08:57→22:06)
[2023-06-02] MEDS: Atorvastatin Calcium 80 MG TABLET PO (08:57)
[2023-06-02 11:28] LABS: Glucose, Whole Blood 219 mg/dL (60-115)
[2023-06-02] MEDS: Enoxaparin Sodium 30 MG/0.3 ML SYRINGE SUBCUT (11:53)
[2023-06-02] MEDS: Insulin Lispro 100 UNIT/ML 3 ML VIAL SUBCUT (11:54)
--- NOTE | 2023-06-02 14:22 | MHC.CM.PN ---
The phone number that [facility] was provided with for the peer to peer ([phone] Ute Morin from [facility])is out of service.ADRIENNE is attempting to assist with this issue.
--- NOTE | 2023-06-02 14:28 | MHC.CM.PN ---
CM has left a detailed message at the peer to peer # ([phone])requesting the correct # for Dr. Ute Morin, so that the peer to peer can be completed on time (before 5PM today). CM awaits a return call).
--- NOTE | 2023-06-02 15:30 | MHC.CM.PN ---
completed peer to peer and Acute Rehab LOC has been denied. This CM received a call from Tamiko DELEON/Ann Marie at [phone], ext. [phone], who indicated that Patient has a PPO plan and can go to [facility] ([place] @ [phone], [phone] will do the auth). ADRIENNE has updated 16 SNF referrals and await a bed offer. ADRIENNE will follow.
--- NOTE | 2023-06-02 16:08 | P.PNIM_ITS ---
Subjective Subjective Date of Service: 06/02/23 Interval History: hip fracture Review of Systems pain controlled no new events Physical Exam 2 Vital Signs: Vital Signs: Last Vital Signs Temp 97.2 F 06/02/23 15:17 Pulse 74 06/02/23 15:17 Resp 18 06/02/23 15:17 BP 160/72 H 06/02/23 15:17 Pulse Ox 96 06/02/23 15:17 O2 Del Method Room Air 06/02/23 15:17 O2 Flow Rate 96 05/26/23 18:29 BMI result Body Mass Index 31.3 General: AO X 3, no acute distress Resp: CTA bilaterally CVS: RRR, systolic murmur, no LE edema, 2+ pulses throughout GI: Non tender, non distended Neuro: motor grossly intact Skin: Wound d/c/i Psych: appropriate affect Objective Data Active Medications Acetaminophen (Acetaminophen 325 Mg Tablet) 650 mg PO Q6H PRN PRN Reason: Pain, Mild (Pain Scale 1-3) Last Admin: 06/02/23 08:56 Dose: 650 mg Documented By: KATHRINE Amlodipine Besylate (Amlodipine Besylate 10 Mg Tablet) 10 mg PO DAILY [facility]; Protocol Last Admin: 06/02/23 08:57 Dose: 10 mg Documented By: KATHRINE Aspirin (Aspirin Enteric Coated 81 Mg Tablet.) 81 mg PO DAILY [facility] Last Admin: 06/02/23 08:57 Dose: 81 mg Documented By: KATHRINE Atorvastatin Calcium (Atorvastatin Calcium 80 Mg Tablet) 80 mg PO DAILY [facility] Last Admin: 06/02/23 08:57 Dose: 80 mg Documented By: KATHRINE Benzonatate (Benzonatate 100 Mg Capsule) 100 mg PO TID PRN PRN Reason: Cough Carvedilol (Carvedilol 25 Mg Tablet) 25 mg PO BID [facility]; Protocol Last Admin: 06/02/23 08:57 Dose: 25 mg Documented By: KATHRINE Dextrose (Dextrose 50 % 25 Gm/50 Ml Syringe) 25 gm IVPUSH Q15M PRN; Protocol PRN Reason: per Hypoglycemia Standing Ord. Docusate Sodium (Docusate Sodium 100 Mg Capsule) 100 mg PO DAILY PRN PRN Reason: Constipation Last Admin: 05/31/23 22:31 Dose: 100 mg Documented By: CHARLETTE Docusate Sodium (Docusate Sodium 100 Mg Capsule) 100 mg PO BID [facility] Last Admin: 06/02/23 08:55 Dose: 100 mg Documented By: KATHRINE Enoxaparin Sodium (Enoxaparin Sodium 30 Mg/0.3 Ml Syringe) 30 mg SUBCUT Q24H [facility] Last Admin: 06/02/23 11:53 Dose: 30 mg Documented By: KATHRINE Glucose (Glucose Gel 15 Gm Gel..Gram.) 15 gm PO Q15M PRN; Protocol PRN Reason: per Hypoglycemia Standing Ord. Hydromorphone HCl (Hydromorphone Hcl 0.5 Mg/0.5 Ml Syringe) 0.25 mg IVPUSH Q5M PRN; Protocol PRN Reason: Pain, Severe (Pain Scale 7-10) Insulin Human Lispro (Insulin Lispro 100 Unit/Ml 3 Ml Vial) 0 unit SUBCUT QIDACHS [facility]; Protocol Last Admin: 06/02/23 11:54 Dose: 2 unit Documented By: KATHRINE Melatonin (Melatonin 3 Mg Tablet) 6 mg PO BEDTIME PRN PRN Reason: Insomnia Last Admin: 05/31/23 22:31 Dose: 6 mg Documented By: CHARLETTE Omeprazole (Omeprazole 20 Mg Capsule.) 20 mg PO DAILY@0630 [facility] Last Admin: 06/02/23 06:01 Dose: 20 mg Documented By: TOÑO Ondansetron HCl (Ondansetron Hcl 4 Mg/2 Ml Vial) 4 mg IVPUSH Q8H PRN PRN Reason: Nausea and Vomiting Oxycodone HCl (Oxycodone Hcl Immed Release 5 Mg Tablet) 5 mg PO Q6H PRN PRN Reason: Pain, Mild (Pain Scale 1-3) Last Admin: 06/02/23 01:52 Dose: 5 mg Documented By: TOÑO Sodium Chloride (0.9 % Sodium Chloride Flush 3 Ml Syringe) [facility] Last Admin: 06/02/23 08:57 Dose: 3 ml Documented By: KATHRINE Labs 05/31/23 06:50 05/31/23 06:50 Labs: Laboratory Results - last 24 hr 06/01/23 06/01/23 06/02/23 16:12 20:48 07:11 POC Glucose 201 H 134 H 130 H 06/02/23 11:18 POC Glucose 219 H Assessment and Plan (1) Closed right femoral fracture: Status: Acute Plan 72-year-old male with a PMH significant for?HTN, HLD, [id number] diabetes type 2, anemia of chronic disease, CKD 4, and right knee replacement around 2015 who presents to the ED with right leg pain and inability to walk after fall. Pt will be admitted to the hospital for treatment of displaced periprosthetic right femur fracture s/p retrograde benjamin on 05/26/2023. Currently doing well and awaiting spot at acute rehab. R femur fracture s/p operative fixation on 05/26/23 - Waiting for rehab bed, but now saying if possible will go home, PT to reassess, lives on second floor - Oxycodone for pain managment - Lovenox for DVT prophylaxis Dizziness/presyncope, elevated troponin, wma on echo, concern for NSTEMI - Previously treated with iv heparin x 48 hrs - Continue Coreg, Lipitor and ASA 81 - Follow up with cardiology outpatient for further evaluation. Anemia of chronic disease s/p transfusion of 1 u RBC on 05/30/23 - H/H 9.4/29.2 from previous 8.4/25.9 CKD 4: - Cr at baseline DM2: - SSI, diabetic diet HTN: - controlled, continue norvasc and coreg HLD - Continue statin DVT Prophylaxis: Lovenox 40mg once a day injection per ortho Need for hospitalization: Discussed with peer to peer Dr bettie gandhi( pillowcase folder and pt also provided info)-as per Dr bettie gandhi patient does not qualify for acute rehab. may need str. Quality Stroke Does the patient have a stroke diagnosis?: No VTE Prior VTE?: No VTE Risk Level:: Medical - moderate - high VTE Device Contraindication: N/A - Device Ordered VTE Drug Contraindication: Treatment Not Indicated
[2023-06-02 16:14] LABS: Glucose, Whole Blood 168 mg/dL (60-115)
[2023-06-02 19:59] LABS: Glucose, Whole Blood 167 mg/dL (60-115)
[2023-06-03 03:09] VITALS: BP 171/95; PULSE 73; RESP 20; TEMP 36.9; O2SAT 98
[2023-06-03 07:15] LABS: Glucose, Whole Blood 149 mg/dL (60-115)
[2023-06-03 08:00] VITALS: BP 165/79; PULSE 83; RESP 20; TEMP 36.4; O2SAT 98
--- NOTE | 2023-06-03 08:25 | HO.PM.IMPN ---
Subjective Subjective Date of Service: 06/03/23 Interval History: hip fracture Review of Systems pain controlled no new events Physical Exam Vital Signs: Vital Signs: Last Vital Signs Temp 97.5 F 06/03/23 08:00 Pulse 83 06/03/23 08:00 Resp 20 06/03/23 08:00 BP 165/79 H 06/03/23 08:00 Pulse Ox 98 06/03/23 08:00 O2 Del Method Room Air 06/03/23 08:00 O2 Flow Rate 96 05/26/23 18:29 BMI result Body Mass Index 31.3 General: AO X 3, no acute distress Resp: CTA bilaterally CVS: RRR, systolic murmur, no LE edema, 2+ pulses throughout GI: Non tender, non distended Neuro: motor grossly intact Skin: Wound d/c/i Psych: appropriate affect Objective Data Active Medications Acetaminophen (Acetaminophen 325 Mg Tablet) 650 mg PO Q6H PRN PRN Reason: Pain, Mild (Pain Scale 1-3) Last Admin: 06/02/23 08:56 Dose: 650 mg Documented By: KATHRINE Amlodipine Besylate (Amlodipine Besylate 10 Mg Tablet) 10 mg PO DAILY [facility]; Protocol Last Admin: 06/02/23 08:57 Dose: 10 mg Documented By: KATHRINE Aspirin (Aspirin Enteric Coated 81 Mg Tablet.) 81 mg PO DAILY [facility] Last Admin: 06/02/23 08:57 Dose: 81 mg Documented By: KATHRINE Atorvastatin Calcium (Atorvastatin Calcium 80 Mg Tablet) 80 mg PO DAILY [facility] Last Admin: 06/02/23 08:57 Dose: 80 mg Documented By: KATHRINE Benzonatate (Benzonatate 100 Mg Capsule) 100 mg PO TID PRN PRN Reason: Cough Carvedilol (Carvedilol 25 Mg Tablet) 25 mg PO BID [facility]; Protocol Last Admin: 06/02/23 22:06 Dose: 25 mg Documented By: FENG Dextrose (Dextrose 50 % 25 Gm/50 Ml Syringe) 25 gm IVPUSH Q15M PRN; Protocol PRN Reason: per Hypoglycemia Standing Ord. Docusate Sodium (Docusate Sodium 100 Mg Capsule) 100 mg PO DAILY PRN PRN Reason: Constipation Last Admin: 05/31/23 22:31 Dose: 100 mg Documented By: CHARLETTE Docusate Sodium (Docusate Sodium 100 Mg Capsule) 100 mg PO BID [facility] Last Admin: 06/02/23 22:06 Dose: 100 mg Documented By: FENG Enoxaparin Sodium (Enoxaparin Sodium 30 Mg/0.3 Ml Syringe) 30 mg SUBCUT Q24H [facility] Last Admin: 06/02/23 11:53 Dose: 30 mg Documented By: KATHRINE Glucose (Glucose Gel 15 Gm Gel..Gram.) 15 gm PO Q15M PRN; Protocol PRN Reason: per Hypoglycemia Standing Ord. Hydromorphone HCl (Hydromorphone Hcl 0.5 Mg/0.5 Ml Syringe) 0.25 mg IVPUSH Q5M PRN; Protocol PRN Reason: Pain, Severe (Pain Scale 7-10) Insulin Human Lispro (Insulin Lispro 100 Unit/Ml 3 Ml Vial) 0 unit SUBCUT QIDACHS [facility]; Protocol Last Admin: 06/03/23 07:20 Dose: Not Given Documented By: KATHRINE Non-Admin Reason: No Insulin Coverage Melatonin (Melatonin 3 Mg Tablet) 6 mg PO BEDTIME PRN PRN Reason: Insomnia Last Admin: 05/31/23 22:31 Dose: 6 mg Documented By: CHARLETTE Omeprazole (Omeprazole 20 Mg Capsule.) 20 mg PO DAILY@0630 [facility] Last Admin: 06/03/23 05:48 Dose: Not Given Documented By: ONEL Non-Admin Reason: Patient Asleep Ondansetron HCl (Ondansetron Hcl 4 Mg/2 Ml Vial) 4 mg IVPUSH Q8H PRN PRN Reason: Nausea and Vomiting Oxycodone HCl (Oxycodone Hcl Immed Release 5 Mg Tablet) 5 mg PO Q6H PRN PRN Reason: Pain, Mild (Pain Scale 1-3) Last Admin: 06/02/23 22:06 Dose: 5 mg Documented By: FENG Sodium Chloride (0.9 % Sodium Chloride Flush 3 Ml Syringe) 3 ml IVFLUSH QSHIFT [facility] Last Admin: 06/03/23 00:03 Dose: Not Given Documented By: ONEL Non-Admin Reason: Previously Administered Labs 05/31/23 06:50 05/31/23 06:50 Labs: Laboratory Results - last 24 hr 06/02/23 06/02/23 06/02/23 11:18 16:09 19:32 POC Glucose 219 H 168 H 167 H 06/03/23 07:10 POC Glucose 149 H Assessment and Plan (1) Closed right femoral fracture: Status: Acute Plan 72-year-old male with a PMH significant for?HTN, HLD, yhu-zeiuzst-tipcccgkb diabetes type 2, anemia of chronic disease, CKD 4, and right knee replacement around 2015 who presents to the ED with right leg pain and inability to walk after fall. Pt will be admitted to the hospital for treatment of displaced periprosthetic right femur fracture s/p retrograde benjamin on 05/26/2023. Currently doing well and awaiting spot at acute rehab. R femur fracture s/p operative fixation on 05/26/23 - Waiting for rehab bed, but now saying if possible will go home, PT to reassess, lives on second floor - Oxycodone for pain managment - Lovenox for DVT prophylaxis Dizziness/presyncope, elevated troponin, wma on echo, concern for NSTEMI - Previously treated with iv heparin x 48 hrs - Continue Coreg, Lipitor and ASA 81 - Follow up with cardiology outpatient for further evaluation. Anemia of chronic disease s/p transfusion of 1 u RBC on 05/30/23 - H/H 9.4/29.2 from previous 8.4/25.9 CKD 4: - Cr at baseline DM2: - SSI, diabetic diet HTN: - controlled, continue norvasc and coreg HLD - Continue statin DVT Prophylaxis: Lovenox 40mg once a day injection per ortho Need for hospitalization: Discussed with peer to peer Dr bettie gandhi( case repairer and pt also provided info)-as per Dr bettie gandhi patient does not qualify for acute rehab. may need str. Quality Stroke Does the patient have a stroke diagnosis?: No VTE Prior VTE?: No VTE Risk Level:: Medical - moderate - high VTE Device Contraindication: N/A - Device Ordered VTE Drug Contraindication: Treatment Not Indicated
[2023-06-03] MEDS: carvediloL 25 MG TABLET PO ×2 (09:40→21:42)
[2023-06-03] MEDS: Aspirin Enteric Coated 81 MG TABLET.DR PO (09:40)
[2023-06-03] MEDS: Atorvastatin Calcium 80 MG TABLET PO (09:40)
[2023-06-03] MEDS: oxyCODONE HCl Immed Release 5 MG TABLET PO ×3 (09:40→22:39)
[2023-06-03] MEDS: amLODIPine Besylate 10 MG TABLET PO (09:40)
[2023-06-03] MEDS: Docusate Sodium 100 MG CAPSULE PO (09:41)
--- NOTE | 2023-06-03 10:53 | MHC.CM.PN ---
Per MD, Patient is medically cleared for dc to SNF/STR today. Patient will dc to [facility] today at 4 PM, via [facility]. CM met with Patient at bedside and addressed IMM with him (original was given to Patient and a copy has been placed on the chart). CM left a detailed message for HCP/Kimberly @ [phone], informing her of the dc plan.Patient is pleased with and in agreement with the dc plan.
[2023-06-03 11:10] LABS: COVID-19 Test Negative (Negative); IDNOW Serial# 9DB6401D
[2023-06-03 11:31] LABS: Glucose, Whole Blood 217 mg/dL (60-115)
[2023-06-03] MEDS: Insulin Lispro 100 UNIT/ML 3 ML VIAL SUBCUT (11:57)
[2023-06-03] MEDS: Enoxaparin Sodium 30 MG/0.3 ML SYRINGE SUBCUT (11:57)
[2023-06-03 12:00] VITALS: BP 151/74; PULSE 72; RESP 20; TEMP 36.2; O2SAT 99
--- NOTE | 2023-06-03 12:48 | P.DS_ITS ---
DS: Providers Provider Date of Service: 06/03/23 Date of admission: 05/23/23 17:02 Date of discharge: 06/03/23 Primary care physician: Talon Morin MD Admitting clinician: Curtis Galo Attending physician on admission: Curtis Galo Consults: 05/23/23 16:48 Consult to Cardiology Routine Consulting Provider: [facility] Reason for consultation: Systolic murmur, dizziness with fall, cardiac clearance for surgery 05/23/23 17:07 Consult to Orthopedics Routine Consulting Provider: [facility] Reason for consultation: Periprosthetic displaced distal right femur fracture DS: Diagnosis Discharge Diagnosis (1) Closed right femoral fracture: Status: Acute (2) Elevated troponin: Status: Acute DS: Summary Hospital Course Hospital Course: 72-year-old male with a PMH significant for?HTN, HLD, tsh-pdvaess-cnncsfgys diabetes type 2, anemia of chronic disease, CKD 4, and right knee replacement around 2015 who presents to the ED with right leg pain and inability to walk after fall. Pt states he was shopping at the [employer] and was waiting for t he elevator when he began feeling dizzy and felt like he was going to faint. He then stumbled and fell to the ground landing on his right side. His girlfriend says she heard his knee pop . Patient denies loss of consciousness. Reports has had similar episodes of dizziness infrequently over the past few years. Notes he took his diabetic medications this morning but had not eaten anything today. Admits to some medication noncompliance, saying he sometimes forgets to take his home medications. Reports EMS found his blood sugars to be in the 170s, with noted his BP was low. Exact numbers are unable to be obtained at this time. Patient currently reports 6-7/10 right leg pain, but otherwise has no acute medical complaints. Currently denies lightheadedness or dizziness. No chest pain/pressure, palpitations. Denies fever, chills, nausea, vomiting, abdominal pain. Of note, patient is vague the specifics concerning his right knee replacement, but thinks it occurred by Dr. Radha fu from [facility] with surgery taking place at [facility] around 7 years ago. Denies any significant cardiac PMH. In the ED pt's vital signs stable, WNL. Labs were significant for normocytic anemia of 9.4/30.0, BUN 36, creatinine 4.25, and initial troponin 139.2. No leukocytosis. No electrolyte abnormalities. CXR showed no acute process. Right femur x-ray found mildly displaced periprosthetic transverse fracture in the distal diaphysis of the right femur. EKG demonstrated normal sinus rhythm with likely LVH, Morin's significant ST elevations or depressions. Pt was treated with morphine and hydromorphone. Pt will be admitted to the hospital for treatment of displaced periprosthetic right femur fracture. Hospital Course: This 72 yo M with PMH of HTN, HLD, non-insulin dependent DM2, anemia of chronic disease, CKD 4, and R. knee replacement around 2015 presented to ED on 05/23/2023 complaining of right leg pain and inability to walk after falling. Patient fell after feeling dizzy and lightheaded. Denies loss of consciousness. He has had similar dizzy episodes in the past few years. He reported that he had taken his diabetic medications that day but hadn't eaten; he also admits to some medication non-compliance due to forgetfulness. In the ED labs showed a normocytic anemia of 9.4/30.0, BUN 36, creatinine 4.25, and initial troponin 139.2 with repeat 129.6. XR of the right femur showed a mildly displaced transverse fracture in the distal diaphysis of the femur. EKG showed a normal sinus rhythm and CXR showed no acute process. He was treated with morphine and hydromorphone and admitted to the hospital for treatment of displaced periprosthetic right femur fracture. Amlodipine was d/c in setting of syncope. Patient was started on Coreg, Lipitor, and ASA On 05/24/23 he was evaluated by the orthopedic surgeon (Dr. Rosales) and after discussing risks patient elected for operative fixation of the right femur. Transthoracic echocardiogram on 05/24/[address] Garner (yeast maker) showed left ventricular systolic function to be low normal with a visually estimated ejection fraction is between 50-55% and mild aortic valve stenosis with hypokinetic inferolateral segments. Dr. Garner evaluated and concluded that elevated troponins could be secondary to from demand or CKD with NSTEMI being unlikely. He was started on IV heparin for 48 hours prior to surgery. Although patient was considered high risk due to his comorbidities, these conditions are not modifiable and Dr. Garner recommended surgery due to fracture; patient agreed. He was transfused with 1 unit of PRBC on 05/26/23. A right distal femur retrograde nail was performed by Dr. Rosales on 05/26/2023 without intraoperative complication. Post op he was started on Lovenox for DVT prophylaxis and received diluadid and oxycodone for pain control. Due to high blood pressures, Norvasc was also restarted on 05/27/23. Ortho cleared for discharge to acute rehab for PT/OT on 05/28/23. He was seen by cardiology on 05/28/23 as well who recommends follow up on an outpatient basis. He is medically stable and ready for discharge to an acute rehab facility. assessment and plan coordination time spent 50 min. Time Attestation Discharge coordination time: Greater than 30 minutes Quality: Safe Use of Opioids Does Pt have an Active Cancer Diagnosis on the Problem List?: No Quality: Stroke Does the patient have a stroke diagnosis?: No Physical Exam Vital Signs: Vital Signs: Last Vital Signs Temp 97.2 F 06/03/23 12:00 Pulse 72 06/03/23 12:00 Resp 20 06/03/23 12:00 BP 151/74 H 06/03/23 12:00 Pulse Ox 99 06/03/23 12:00 O2 Del Method Room Air 06/03/23 12:00 O2 Flow Rate 96 05/26/23 18:29 BMI result Body Mass Index 31.3 General: AO X 3, no acute distress Resp: CTA bilaterally CVS: RRR, systolic murmur, no LE edema, 2+ pulses throughout GI: Non tender, non distended Neuro: motor grossly intact Skin: Wound d/c/i Psych: appropriate affect . DS: Data Data Completed and Pending Labs on day of discharge: Laboratory Results - last 24 hr 06/02/23 06/02/23 06/03/23 16:09 19:32 07:10 POC Glucose 168 H 167 H 149 H COVID-19 ([facility]) COVID-19 Clin Com 06/03/23 06/03/23 10:15 11:27 POC Glucose 217 H COVID-19 ([facility]) Negative COVID-19 Clin Com See Note Imaging Chest x-ray: Radiologist's impression: ITS Impressions Chest X-Ray 05/23/23 14:57 IMPRESSION: No acute process. Femur X-Ray 05/23/23 14:57 IMPRESSION: Mildly displaced transverse fracture in the distal diaphysis of the right femur. Knee X-Ray 05/24/23 11:21 IMPRESSION: Increased angulation of the distal femoral fracture compared to 05/23/2023. Guidance Fluoroscopy 05/26/23 15:56 IMPRESSION: Fluoroscopy was provided in the OR stabilizing distal femoral fracture with intramedullary femoral benjamin and 4 screws. Discharge Plan Discharge Anticipated Discharge Date/Time: 05/28/23 11:35 Patient Disposition: er SNF Discharge Diagnosis: R. femoral fracture from fall ,elevated troponins Referrals: [facility] [Outside] - 1 Week Kristofer Vargas PA-C [Physician [employer] [employer] [facility]] - 1 Week (06/10/23 11:30 [facility] Kristofer Vargas PA-C) Talon Morin MD [Primary Care Provider] - 1 Week Discharge Medications: New oxycodone 5 mg Tablet 5 mg PO Q6H PRN (Reason: Pain, Mild (Pain Scale 1-3)) Qty: 20 0RF Rx Instructions: Partial Fill upon patient request. omeprazole 20 mg Capsule,Delayed Release(Dr/Ec) 20 mg PO DAILY@0630 Qty: 30 0RF docusate sodium 100 mg Capsule 100 mg PO BID Qty: 20 0RF enoxaparin 30 mg/0.3 mL Syringe 30 mg subcut Q24H 42 Days Qty: 12.6 0RF aspirin 81 mg Tablet,Delayed Release (Dr/Ec) 81 mg PO DAILY Qty: 30 0RF Continued finasteride 5 mg tablet 5 mg PO DAILY 90 Days Qty: 90 1RF Victoza 3-Ruben 0.6 mg/0.1 mL (18 mg/3 mL) pen injector 1.8 mg subcut DAILY (DME) FreeStyle Lite Strips Strip See Rx Instructions .ROUTE BID Qty: 10 Rx Instructions: As directed Farxiga 10 mg tablet 10 mg PO DAILY carvedilol 25 mg tablet 25 mg PO BID amlodipine 10 mg tablet 10 mg PO DAILY atorvastatin 40 mg tablet 40 mg PO DAILY Discharge Orders: Discharge Order (Routine); Ordered 06/03/23 Ordered By: Curtis Galo Diet: Diabetic diet Activity on Discharge: As tolerated Stand Alone Forms: Patient Portal Discharge page Care Plan Goals: Right femur retrograde nail 25% weight bearing on right lower extremity Lovenox x6 weeks f/u with orthopedics in 2 weeks 06/10/23 11:30 [facility] Kristofer Vargas, [facility] Health Concerns: Coronary artery disease, diabetes mellitus, hypertension, CKD 4, and R. femur fracture s/p surgical repair Plan of Treatment: Recover from surgery in acute rehab facility. Follow up with yeast maker. Continue to take carvedilol, atorvastatin, and aspirin in addition to your home medications. Follow up with primary care provider in approximately 1 week for further medical management. Assessment: As above
[2023-06-03 15:18] VITALS: BP 161/75; PULSE 71; RESP 18; TEMP 36.4; O2SAT 98
--- NOTE | 2023-06-03 15:36 | MHC.CM.PN ---
Insurance auth is still pending; dc will need to be canceled for today.CM will follow for auth tomorrow.
--- NOTE | 2023-06-03 15:43 | MHC.CM.PN ---
Patient has been made aware of the change in the dc date
--- NOTE | 2023-06-03 15:56 | MHC.CM.PN ---
ADRIENNE left a detailed message for Tamiko DELEON/Ann Marie @ [phone] [phone],requesting assistance with expediting auth. ADRIENNE will follow.
--- NOTE | 2023-06-03 16:11 | P.PNIM_ITS ---
Subjective Subjective Date of Service: 06/03/23 Interval History: hip fracture Review of Systems pain controlled no new events Physical Exam 2 Vital Signs: Vital Signs: Last Vital Signs Temp 97.6 F 06/03/23 15:18 Pulse 71 06/03/23 15:18 Resp 18 06/03/23 15:18 BP 161/75 H 06/03/23 15:18 Pulse Ox 98 06/03/23 15:18 O2 Del Method Room Air 06/03/23 15:18 O2 Flow Rate 96 05/26/23 18:29 BMI result Body Mass Index 31.3 General: AO X 3, no acute distress Resp: CTA bilaterally CVS: RRR, systolic murmur, no LE edema, 2+ pulses throughout GI: Non tender, non distended Neuro: motor grossly intact Skin: Wound d/c/i Psych: appropriate affect Objective Data Active Medications Acetaminophen (Acetaminophen 325 Mg Tablet) 650 mg PO Q6H PRN PRN Reason: Pain, Mild (Pain Scale 1-3) Last Admin: 06/02/23 08:56 Dose: 650 mg Documented By: KATHRINE Amlodipine Besylate (Amlodipine Besylate 10 Mg Tablet) 10 mg PO DAILY [facility]; Protocol Last Admin: 06/03/23 09:40 Dose: 10 mg Documented By: KATHRINE Aspirin (Aspirin Enteric Coated 81 Mg Tablet.) 81 mg PO DAILY [facility] Last Admin: 06/03/23 09:40 Dose: 81 mg Documented By: KATHRINE Atorvastatin Calcium (Atorvastatin Calcium 80 Mg Tablet) 80 mg PO DAILY [facility] Last Admin: 06/03/23 09:40 Dose: 80 mg Documented By: KATHRINE Benzonatate (Benzonatate 100 Mg Capsule) 100 mg PO TID PRN PRN Reason: Cough Carvedilol (Carvedilol 25 Mg Tablet) 25 mg PO BID [facility]; Protocol Last Admin: 06/03/23 09:40 Dose: 25 mg Documented By: KATHRINE Dextrose (Dextrose 50 % 25 Gm/50 Ml Syringe) 25 gm IVPUSH Q15M PRN; Protocol PRN Reason: per Hypoglycemia Standing Ord. Docusate Sodium (Docusate Sodium 100 Mg Capsule) 100 mg PO DAILY PRN PRN Reason: Constipation Last Admin: 05/31/23 22:31 Dose: 100 mg Documented By: CHARLETTE Docusate Sodium (Docusate Sodium 100 Mg Capsule) 100 mg PO BID [facility] Last Admin: 06/03/23 09:41 Dose: 100 mg Documented By: KATHRINE Enoxaparin Sodium (Enoxaparin Sodium 30 Mg/0.3 Ml Syringe) 30 mg SUBCUT Q24H [facility] Last Admin: 06/03/23 11:57 Dose: 30 mg Documented By: KATHRINE Glucose (Glucose Gel 15 Gm Gel..Gram.) 15 gm PO Q15M PRN; Protocol PRN Reason: per Hypoglycemia Standing Ord. Hydromorphone HCl (Hydromorphone Hcl 0.5 Mg/0.5 Ml Syringe) 0.25 mg IVPUSH Q5M PRN; Protocol PRN Reason: Pain, Severe (Pain Scale 7-10) Insulin Human Lispro (Insulin Lispro 100 Unit/Ml 3 Ml Vial) 0 unit SUBCUT QIDACHS [facility]; Protocol Last Admin: 06/03/23 11:57 Dose: 2 unit Documented By: KATHRINE Melatonin (Melatonin 3 Mg Tablet) 6 mg PO BEDTIME PRN PRN Reason: Insomnia Last Admin: 05/31/23 22:31 Dose: 6 mg Documented By: CHARLETTE Omeprazole (Omeprazole 20 Mg Capsule.Dr) 20 mg PO DAILY@0630 [facility] Last Admin: 06/03/23 05:48 Dose: Not Given Documented By: ONEL Non-Admin Reason: Patient Asleep Ondansetron HCl (Ondansetron Hcl 4 Mg/2 Ml Vial) 4 mg IVPUSH Q8H PRN PRN Reason: Nausea and Vomiting Oxycodone HCl (Oxycodone Hcl Immed Release 5 Mg Tablet) 5 mg PO Q6H PRN PRN Reason: Pain, Mild (Pain Scale 1-3) Last Admin: 06/03/23 09:40 Dose: 5 mg Documented By: KATHRINE Sodium Chloride (0.9 % Sodium Chloride Flush 3 Ml Syringe) 3 ml IVFLUSH QSHIFT [facility] Last Admin: 06/03/23 09:41 Dose: 3 ml Documented By: KATHRINE Labs 05/31/23 06:50 05/31/23 06:50 Labs: Laboratory Results - last 24 hr 06/02/23 06/02/23 06/03/23 16:09 19:32 07:10 POC Glucose 168 H 167 H 149 H COVID-19 ([facility]) COVID-19 Clin Com 06/03/23 06/03/23 10:15 11:27 POC Glucose 217 H COVID-19 ([facility]) Negative COVID-19 Clin Com See Note Assessment and Plan (1) Closed right femoral fracture: Status: Acute Plan 72-year-old male with a PMH significant for?HTN, HLD, enk-cbyexqd-yaricgxal diabetes type 2, anemia of chronic disease, CKD 4, and right knee replacement around 2015 who presents to the ED with right leg pain and inability to walk after fall. Pt will be admitted to the hospital for treatment of displaced periprosthetic right femur fracture s/p retrograde benjamin on 05/26/2023. Currently doing well and awaiting spot at acute rehab. R femur fracture s/p operative fixation on 05/26/23 - Waiting for rehab bed, but now saying if possible will go home, PT to reassess, lives on second floor - Oxycodone for pain managment - Lovenox for DVT prophylaxis Dizziness/presyncope, elevated troponin, wma on echo, concern for NSTEMI - Previously treated with iv heparin x 48 hrs - Continue Coreg, Lipitor and ASA 81 - Follow up with cardiology outpatient for further evaluation. Anemia of chronic disease s/p transfusion of 1 u RBC on 05/30/23 - H/H 9.4/29.2 from previous 8.4/25.9 CKD 4: - Cr at baseline DM2: - SSI, diabetic diet HTN: - controlled, continue norvasc and coreg HLD - Continue statin DVT Prophylaxis: Lovenox 40mg once a day injection per ortho Need for hospitalization: Patient is awaiting rehab placement. Quality Stroke Does the patient have a stroke diagnosis?: No VTE Prior VTE?: No VTE Risk Level:: Medical - moderate - high VTE Device Contraindication: N/A - Device Ordered VTE Drug Contraindication: Treatment Not Indicated
[2023-06-03 16:29] LABS: Glucose, Whole Blood 148 mg/dL (60-115)
[2023-06-03 19:21] VITALS: BP 160/70; PULSE 70; RESP 18; TEMP 36.8; O2SAT 98
[2023-06-03 20:43] LABS: Glucose, Whole Blood 155 mg/dL (60-115)
[2023-06-04] VITALS (7 sets, daily range): BP systolic 151–173; BP diastolic 70–82; PULSE 64–78; RESP 18–20; TEMP 36.2–36.9; O2SAT 95–99
[2023-06-04] MEDS: oxyCODONE HCl Immed Release 5 MG TABLET PO ×3 (00:17→11:08)
[2023-06-04] MEDS: Omeprazole 20 MG CAPSULE.DR PO (05:01)
[2023-06-04 07:06] LABS: Glucose, Whole Blood 143 mg/dL (60-115)
[2023-06-04] MEDS: Aspirin Enteric Coated 81 MG TABLET.DR PO (10:29)
[2023-06-04] MEDS: amLODIPine Besylate 10 MG TABLET PO (10:29)
[2023-06-04] MEDS: carvediloL 25 MG TABLET PO (10:29)
[2023-06-04] MEDS: Atorvastatin Calcium 80 MG TABLET PO (10:29)
--- NOTE | 2023-06-04 10:37 | MHC.CM.PN ---
Tamiko has given auth for SNF/STR. Patient will dc to [facility] [place] [facility] today at 1PM, via [facility].
[2023-06-04 11:01] LABS: Glucose, Whole Blood 190 mg/dL (60-115)
[2023-06-04] MEDS: Enoxaparin Sodium 30 MG/0.3 ML SYRINGE SUBCUT (11:08)
== END 2023-06-04 13:22 | disposition skilled nursing facility (03) | DRG 481 ==
LOC: HO.ED 16:48 → HO.EDOVER 17:21 → HO.IMC 05-24 13:09
PROVIDERS: Anesthesiology; Internal Medicine; Orthopaedic Surgery; Physician Assistant; Student in an Organized Health Care Education/Training Program; Admitting Provider Student in an Organized Health Care Education/Training Program; Emergency Provider Emergency Medicine; PCP Internal Medicine; Visit Provider Internal Medicine
PROC: 0QSB36Z Reposition Right Lower Femur with Intramedullary Internal Fixation Device, Percutaneous Approach (ICD-10-PCS; principal; 2023-05-26 09:20)
DX: S72.491A Other fracture of lower end of right femur, initial encounter for closed fracture (principal); I24.89 Other forms of acute ischemic heart disease; M97.11XA Periprosthetic fracture around internal prosthetic right knee joint, initial encounter; N18.4 Chronic kidney disease, stage 4 (severe); R01.1 Cardiac murmur, unspecified; E78.5 Hyperlipidemia, unspecified; Z91.148 Patient's other noncompliance with medication regimen for other reason; I25.10 Atherosclerotic heart disease of native coronary artery without angina pectoris; I35.0 Nonrheumatic aortic (valve) stenosis; W19.XXXA Unspecified fall, initial encounter; I12.9 Hypertensive chronic kidney disease with stage 1 through stage 4 chronic kidney disease, or unspecified chronic kidney disease; D63.1 Anemia in chronic kidney disease; E11.22 Type 2 diabetes mellitus with diabetic chronic kidney disease; Z20.822 Contact with and (suspected) exposure to COVID-19; Z79.899 Other long term (current) drug therapy
CPT/HCPCS: 36415; 71045; 73552; 73560; 80048; 80061; 82947; 84484; 85025; 85027; 85610; 85730; 86850; 86900; 86901; 86923; 87635; 93005; 93306; 93356; 97116; 97162; 97166; 97530; 97535; 99024; 99285; C1713; C1769; J0131; J0665; J0690; J1170; J1644; J1650; J1920; J2250; J2270; J2704; J3010; J7120; P9016

== ENCOUNTER 2023-05-23 17:02 | Outpatient (BNV) | payer MEDICARE, MEDICAID, SELFPAY | END 2023-05-24 07:00 | PROVIDERS: Admitting Provider Student in an Organized Health Care Education/Training Program; Emergency Provider Emergency Medicine; Visit Provider Internal Medicine | DX: I35.0 Nonrheumatic aortic (valve) stenosis (principal) | CPT/HCPCS: 93306 ==

== ENCOUNTER → 2023-05-23 17:02 | Outpatient (BNV) | payer MEDICARE, MEDICAID, SELFPAY | PROVIDERS: Admitting Provider Student in an Organized Health Care Education/Training Program; Emergency Provider Emergency Medicine; Visit Provider Student in an Organized Health Care Education/Training Program | DX: S72.91XA Unspecified fracture of right femur, initial encounter for closed fracture (principal); R79.89 Other specified abnormal findings of blood chemistry | CPT/HCPCS: 99223; 99232; 99233; 99239 ==

== ENCOUNTER → 2023-05-23 17:02 | Outpatient (BNV) | payer OTHER, MEDICAID, SELFPAY | PROVIDERS: Admitting Provider Student in an Organized Health Care Education/Training Program; Emergency Provider Emergency Medicine; Visit Provider Physician Assistant | DX: N18.9 Chronic kidney disease, unspecified (principal); S72.91XA Unspecified fracture of right femur, initial encounter for closed fracture | CPT/HCPCS: 27506; 99222 ==

== ENCOUNTER → 2023-05-23 17:02 | Outpatient (BNV) | payer OTHER, MEDICAID, SELFPAY | PROVIDERS: Admitting Provider Student in an Organized Health Care Education/Training Program; Emergency Provider Emergency Medicine; Visit Provider Internal Medicine | DX: R79.89 Other specified abnormal findings of blood chemistry (principal); N18.9 Chronic kidney disease, unspecified; I25.10 Atherosclerotic heart disease of native coronary artery without angina pectoris | CPT/HCPCS: 93010; 99223; 99233 ==

== ENCOUNTER 2023-06-21 09:38 | Outpatient (REF) | payer MEDICARE, MEDICAID, SELFPAY ==
--- NOTE | ~2023-06-21 | XR_ITS ---
EXAMINATION: XR FEMUR, RIGHT CLINICAL INFORMATION: Displaced intertrochanteric fracture of the left femur. COMPARISON: Images from fluoroscopic guidance in OR of 05/27/2023. 05/23/2023 right femur and knee radiographs. TECHNIQUE: AP and lateral views of the right femur, 5 views total, were obtained. FINDINGS: Bones are diffusely demineralized. Moderate degenerative changes in the right hip with joint space narrowing and hypertrophic change. Redemonstration of comminuted, transverse fracture of the distal shaft of the femur with improved alignment and some interval callus formation. Redemonstration of postsurgical changes with intramedullary benjamin extending from the proximal to the distal aspect of the femur. Proximal screw present with adjacent superficial soft tissue clips. Multiple screws in the distal aspect of the femur, distal to the fracture. Redemonstration of total knee arthroplasty. Surgical robert along the knee with joint effusion and soft tissue swelling. XR/XR femur RT 2V IMPRESSION: Status post ORIF fracture of distal shaft of the femur with improved alignment and some interval callus formation. Redemonstration of total knee arthroplasty. Surgical robert along the knee with joint effusion and soft tissue swelling.
== END 2023-06-21 09:39 | disposition home or self-care (01) ==
LOC: HO.HOSX 09:38
PROVIDERS: Visit Provider Physician Assistant
DX: S72.491D Other fracture of lower end of right femur, subsequent encounter for closed fracture with routine healing (principal)
CPT/HCPCS: 73552; 99212

== ENCOUNTER 2023-06-21 11:00 | Outpatient (AMB) | payer MEDICARE, MEDICAID, SELFPAY ==
--- NOTE | 2023-06-21 11:05 | A.OFFVIS_ITS ---
Intake Vital Signs 06/21/23 11:28 Height 5 ft 8.5 in Weight 208 lb BMI 31.2 Intake Visit Reasons: Post Op - Right femur retrograde nail 05/26/23 NE Intake Note: Damon a 72 year old male presents today for a post operative right femur retrograde nail on 05/26/23 NE. Patient reports he is doing well, states mild pain. Currently his pain level is 3 out of 10. Allergies No Known Allergies Allergy (Verified 06/21/23 11:06) HPI Post Op - Right femur retrograde nail 05/26/23 NE HPI Details 72-year-old gentleman returns to the off ice today for postop right distal femur retrograde nail 05/26/[address] Rosales. He missed his initial postop appointment due to COVID. He has has been working at home with [employer]. States he has been weight-bearing as tolerated with a walker. He has no concerns today. [facility] Medical History HLD (hyperlipidemia) Anemia of chronic disease Hypogonadism in male OA (osteoarthritis) Diabetes mellitus, type II Onychomycosis Hypertension, benign Kidney disease Dysuria Social History Household Members: None Housing: Apartment Do you presently have visiting nurse or other home services: No Comment: pain R knee w ADLs Patient Tobacco Use Status: Never used Tobacco service: No Review of Systems Const All systems reviewed & are unremarkable except as noted in HPI and below Physical Exam Vital Signs: BMI result Body Mass Index 31.2 Extrem Other: Right knee incision is clean dry and intact. No erythema or swelling. Range of motion is 0-80 degrees. Calf supple nontender. Neurovascularly intact. Results Reviewed Results Reviewed: X-rays of the right femur obtained in the office today show retrograde nail intact total knee prosthesis intact fracture is stable with interval healing present. Assessment & Plan Assessment & Plan (1) Fracture of distal end of right femur: Code(s): S72.401A - Unspecified fracture of lower end of right femur, initial encounter for closed fracture Qualifiers: Encounter type: subsequent encounter Fracture type: closed Fracture morphology: other fracture Fracture healing: with routine healing Qualified Code(s): S72.491D - Other fracture of lower end of right femur, subsequent encounter for closed fracture with routine healing Plan: Roberta removed today Steri-Strips applied. He will continue weight-bearing as tolerated with a walker I encouraged no driving until about 3 months postop. He will begin outpatient physical therapy for range of motion quad strengthening and gait training. He is weight-bearing as tolerated. Like to see him back in 6 weeks with new x-rays sooner if needed. Orders: Orders XR femur RT 2V Today S72.142A - Displaced intertrochanteric fracture of left femur, initial encounter for closed fracture PT Evaluation and Treatment Today S72.401A - Unspecified fracture of lower end of right femur, initial encounter for closed fracture Coding Level of Care Code Global (70406) Diagnoses Other closed fracture of distal end of right femur with routine healing, subsequent encounter S72.491D Encounter type: subsequent encounter Fracture type: closed Fracture morphology: other fracture Fracture healing: with routine healing
[2023-06-21 11:28] VITALS: BMI 31.2
== END 2023-06-21 12:21 | disposition home or self-care (01) ==
PROVIDERS: PCP Internal Medicine; Visit Provider Physician Assistant
DX: S72.491D Other fracture of lower end of right femur, subsequent encounter for closed fracture with routine healing (principal)
CPT/HCPCS: 99024

== ENCOUNTER 2023-06-24 15:15 | Outpatient (AMB) | payer MEDICARE, MEDICAID, SELFPAY ==
[2023-06-24 15:18] VITALS: BP 120/74; PULSE 96; BMI 30.4
--- NOTE | 2023-06-24 15:18 | A.OFFVIS_ITS ---
Intake Vital Signs 06/24/23 15:18 Height 5 ft 8 in Weight 199 lb 11.821 oz BMI 30.4 BP 120/74 Blood Pressure Location Rt brachial Position Sitting Pulse 96 Pulse Source Pulse Oximeter Intake Visit Reasons: 3-4 wk f/up per HS Allergies No Known Allergies Allergy (Verified 06/24/23 15:22) Medication List - Last Reconciled 06/24/23 by Emily Hernandez NP-C amlodipine 10 mg PO DAILY aspirin 81 mg PO DAILY atorvastatin 40 mg PO DAILY blood sugar diagnostic (FreeStyle Lite Strips) As directed carvedilol 25 mg PO BID dapagliflozin propanediol (Farxiga) 10 mg PO DAILY docusate sodium 100 mg PO BID enoxaparin 30 mg (0.3 mL) subcut Q24H 3 weeks finasteride 5 mg PO DAILY 90 days liraglutide (Victoza 3-Ruben) 1.8 mg subcut DAILY omeprazole 20 mg PO DAILY@0630 oxycodone 5 mg PO Q6H PRN HPI 3-4 wk f/up per HS HPI Details Damon is a 72-year-old male with past medical history of hypertension, chronic kidney disease who was recently admitted to [facility] after having an episode of lightheadedness with fall and fracture of his distal femur. During his hospital admission he was evaluated for preop clearance. His troponins were elevated and thought to be related to demand. An echocardiogram did show wall motion abnormalities and he was managed medically. He did undergo an ORIF of his right femur fracture. Today he reports that he has still had some episodes of lightheadedness since his hospital discharge. He has not had any presyncope, syncope, falls. Ambulates with a walker at present. No chest discomfort at rest or with activity. No heart palpitations, shortness of breath, PND, orthopnea or edema. He is taking his meds as directed. His brother is present. [facility] Medical History CAD (coronary artery disease) HLD (hyperlipidemia) Anemia of chronic disease Hypogonadism in male OA (osteoarthritis) Diabetes mellitus, type II Onychomycosis Hypertension, benign Kidney disease Dysuria Social History Household Members: None Housing: Apartment Do you presently have visiting nurse or other home services: No Comment: pain R knee w ADLs Patient Tobacco Use Status: Never used Tobacco service: No Review of Systems Const All systems reviewed & are unremarkable except as noted in HPI and below ENT Reports dizziness Card Denies chest pain, Denies chest pain at rest, Denies chest pain with activity, Denies rapid heart rate, Denies pedal edema, Denies edema, Denies leg edema, Denies lightheadedness, Denies palpitations, Denies dyspnea, Denies dyspnea on exertion and Denies orthopnea Resp Denies cough, Denies dyspnea and Denies dyspnea on exertion GI Denies hematochezia and Denies change in stool character Musc Details: using walker. still having some discomfort right leg Reports abnormal gait, Denies limited range of motion, Denies muscle cramps, Denies muscle weakness, Denies numbness, Denies radiating pain into limb, Denies stiffness and Denies tingling Neuro Reports abnormal gait, Reports dizziness, Denies numbness and Denies tingling Endo Denies palpitations Physical Exam Vital Signs: Last Vital Signs Pulse 96 06/24/23 15:18 BP 120/74 06/24/23 15:18 BMI result Body Mass Index 30.4 Const General: cooperative, healthy appearing, comfortable and no acute distress Orientation/consciousness: patient oriented x3 Neck Neck: Yes normal visual inspection and Yes no JVD Carotids: normal carotid upstroke Resp Effort & Inspection: normal respiratory effort Auscultation: clear to auscultation bilaterally, no crackles, no rales, no rhonchi and no wheezes Cardio Jugular venous distension: no JVD Rate: regular rate Rhythm: regular rhythm Heart sounds: S1 normal heart sound present, S2 normal heart sound present, no murmurs and no rubs Neuro General: patient oriented x3 Extrem General: Yes normal to inspection, No no pedal edema and No calf tenderness Psych Appearance: grossly normal Mental Status: mental status grossly normal Speech and movement: Normal speech and movement present Assessment & Plan Assessment & Plan (1) Dizziness: Code(s): R42 - Dizziness and giddiness Plan: Episode of dizziness resulting in a fall with a distal femur fracture. Patient was admitted and monitored at [facility] between 05/23 and 06/03. Discharge summary reviewed and no mention of arrhythmia. Blood pressure is mos tly elevated during his admission. Echocardiogram done 05/24/2023 showed EF 50- 55%, basal inferior and basal inferior lateral segments hypokinetic, mild aortic stenosis. Today he reports intermittent episodes of dizziness still occurring. His description of episodes seem to follow a position change from sitting to standing. Blood pressure check in the office today, done by me, sitting 98/58, standing 106/62. He has been on amlodipine and carvedilol. With his reports of dizziness will reduce the amlodipine down to 5 mg daily. Cardiology follow-up in 4-6 weeks, sooner if needed (2) Elevated troponin: Code(s): R79.89 - Other specified abnormal findings of blood chemistry Plan: Troponin elevation during recent hospital admission, troponin up to 139.2. Echocardiogram as above. No known history of CAD. Cardiac risk factors age, hypertension. No reports of anginal sounding symptoms. He is currently on aspirin, atorvastatin and carvedilol. Will check a pharmacological nuclear stress test to evaluate for any ischemia. Signs and symptoms of angina reviewed. (3) CAD (coronary artery disease): Code(s): I25.10 - Atherosclerotic heart disease of [place] coronary artery without angina pectoris Plan: As above. Presumed based on echo findings (4) Hypertension, benign: Code(s): I10 - Essential (primary) hypertension Plan: Normal range initially. Lower after sitting and resting. Not orthostatic. Does report some dizziness with position changes. Decreasing amlodipine to 5 mg daily. Continuing carvedilol without change (5) Hospital discharge follow-up: Code(s): Z09 - Encounter for follow-up examination after completed treatment for conditions other than malignant neoplasm Plan: As above Plan Time spent on chart review, documentation, interview and assessment Coding Level of Care Code Est Pt Level 4 (38622) Diagnoses Dizziness R42 Elevated troponin R79.89 CAD (coronary artery disease) I25.10 Hypertension, benign I10 Hospital discharge follow-up Z09 Time Spent (min) 28
== END 2023-06-24 16:00 | disposition home or self-care (01) ==
PROVIDERS: PCP Internal Medicine; Visit Provider Nurse Practitioner Family
DX: R42 Dizziness and giddiness (principal); R79.89 Other specified abnormal findings of blood chemistry; I25.10 Atherosclerotic heart disease of native coronary artery without angina pectoris; I10 Essential (primary) hypertension; Z09 Encounter for follow-up examination after completed treatment for conditions other than malignant neoplasm
CPT/HCPCS: 99214

== ENCOUNTER → 2023-06-24 15:15 | Outpatient (BNVA) | payer MEDICARE, MEDICAID, SELFPAY | PROVIDERS: PCP Internal Medicine; Visit Provider Nurse Practitioner Family | DX: Z09 Encounter for follow-up examination after completed treatment for conditions other than malignant neoplasm (principal); R42 Dizziness and giddiness; R79.89 Other specified abnormal findings of blood chemistry; I25.10 Atherosclerotic heart disease of native coronary artery without angina pectoris; I10 Essential (primary) hypertension | CPT/HCPCS: 99212 ==

== ENCOUNTER → 2023-08-03 08:26 | Outpatient (REF) | payer MEDICARE, MEDICAID, SELFPAY ==
--- NOTE | ~2023-08-03 | NM_ITS ---
Lexiscan Myocardial perfusion study Indication: Coronary disease, assess for ischemia Technique: The patient was brought in for a Lexiscan perfusion study on 08/03/2023 and was injected 0.4 mg of Lexiscan intravenously. Within a minute of this injection 30 mCi of sestamibi was given intravenously. Images were obtained using the SPECT gamma camera interlaced with the gating device. Images were obtained in supine position. Resting perfusion study was performed on 08/04/2023. Patient was administered 30 mCi of sestamibi intravenously at rest. Images were then obtained in supine position. Images were processed with the software and compared side to side in short axis, horizontal long axis and vertical long axis views. Total DLP 188mGy-cm. Findings: Raw acquisition reviewed. Arms by the patient's side. The stress perfusion study showed diminished tracer uptake along the lateral, inferolateral as well as parts of anterolateral wall. With CT attenuation correction, there is significant improvement suggestive of soft tissue attenuation artifact. The gated study shows diminished LV systolic function with calculated LVEF of 44%. LV cavity is normal in size. The gated study shows diminished contractility in the lateral wall. Resting study shows no significant perfusion abnormality. Gating at rest reveals normal wall motion with ejection fraction at 38% The findings are consistent with reversible perfusion defect in the lateral wall, inferolateral and anterolateral mercado. IN/IN cardiolite stress test Impression: 1. Myocardial perfusion imaging study shows large area of severe perfusion defect in the circumflex territory. 2. Gated LVEF is 44% during stress and 38% during rest. Correlate with echocardiogram. 3. Transient ischemic dilatation not present. EKG component of the test reported separately.
--- NOTE | 2023-08-03 08:29 | CA_ITS ---
Acquisition Time: 2023-08-03 08:41:19 Total Exercise Time: 00:02:00 Test Indications: ELEVATED TROPONINS Medications: SEE H Protocol: LEXISCAN Max HR: 113 BPM 75% of Pred: 150 BPM Max BP: 150/090 mmHG Max Work Load: 1.0 METS Pharmacological stress test with Lexiscan injection while sitting and slowly marching in place, without anginal symptoms,without arrhythmias, with normotensive response to injection, with nondiagnoisitic EKGs. Aminophylline 75mg IVP given to reverse Lexiscan. Nuclear images pending. Test reviewed with Dr. Mccoy. Referred By: Emily Hernandez Overread By: Yulia Ray
== END ==
LOC: HO.CARD 08:26
PROVIDERS: Visit Provider Nurse Practitioner Family
DX: I25.10 Atherosclerotic heart disease of native coronary artery without angina pectoris (principal); R42 Dizziness and giddiness; I10 Essential (primary) hypertension; E11.9 Type 2 diabetes mellitus without complications; W19.XXXA Unspecified fall, initial encounter
CPT/HCPCS: 78452; 93017; A9500; J0280; J2785

== ENCOUNTER → 2023-08-03 08:29 | Outpatient (BNV) | payer MEDICARE, MEDICAID, SELFPAY | PROVIDERS: Visit Provider Nurse Practitioner | DX: I51.89 Other ill-defined heart diseases (principal); R94.39 Abnormal result of other cardiovascular function study | CPT/HCPCS: 78452; 93016; 93018 ==

== ENCOUNTER 2023-08-09 09:07 | Outpatient (REF) | payer MEDICARE, MEDICAID, SELFPAY ==
[2023-08-09 10:41] LABS: MANUAL DIFF FLAG NO
[2023-08-09 11:29] LABS: Basophils Percent Auto 0.3 % (0-2); Eosinophils Absolute Auto 0.3 X10*3/uL (0.0-0.4); Eosinophils Percent Auto 3.4 % (0-4); Hematocrit 30.6 % (42.0-52.0); Hemoglobin 9.6 g/dl (14.0-18.0); Imm Gran Abs Auto 0.02 X10*3/uL (0.00-0.03); Imm Gran Pct Auto 0.2 % (0.0-0.4); Lymphocytes Absolute Auto 1.6 X10*3/uL (1.2-4.9); Mean Corpuscular HGB Conc 31.4 g/dl (31.0-36.0); Mean Corpuscular Hemoglobin 26.7 pg (27.0-33.0); Mean Corpuscular Volume 85.2 fL (80.0-98.0); Monocytes Absolute Auto 0.9 X10*3/uL (0.1-1.2); Monocytes Percent Auto 9.9 % (2-11); Neutrophils Percent Auto 68.2 % (45-73); Platelet Count 212 X10*3/uL (160-400); Red Blood Count 3.59 X10*6/uL (4.60-5.80); Red Cell Distribution Width 17.3 % (11.0-16.0); White Blood Count 8.8 X10*3/uL (4.8-10.8)
[2023-08-09 11:42] LABS: INTERNATIONAL NORM RATIO 0.9 (0.9-1.1); Prothrombin Time 11.4 SEC (11.1-13.3)
[2023-08-09 11:55] LABS: Anion Gap 11 (12-20); Blood Urea Nitrogen 40 mg/dL (9-16); Calcium 8.8 mg/dL (8.4-10.2); Carbon Dioxide 27 mmol/L (22-29); Chloride 109 mmol/L (96-108); Estimated Glomerular Filt Rate 25; Glucose Random 145 mg/dL (60-115); Potassium 4.7 mmol/L (3.3-5.1); Sodium 142 mmol/L (135-145)
== END 2023-08-09 09:08 | disposition home or self-care (01) ==
LOC: HO.LAB 09:07
PROVIDERS: Visit Provider Nurse Practitioner Family
DX: R94.39 Abnormal result of other cardiovascular function study (principal); R42 Dizziness and giddiness; R79.89 Other specified abnormal findings of blood chemistry; I25.10 Atherosclerotic heart disease of native coronary artery without angina pectoris; I10 Essential (primary) hypertension; Z79.891 Long term (current) use of opiate analgesic
CPT/HCPCS: 36415; 80048; 85025; 85610; 99212

== ENCOUNTER 2023-08-09 09:07 | Outpatient (AMB) | payer MEDICARE, MEDICAID, SELFPAY ==
[2023-08-09 09:27] VITALS: BP 144/80; PULSE 89; BMI 31.4
--- NOTE | 2023-08-09 09:27 | A.OFFVIS_ITS ---
Intake Vital Signs 08/09/23 09:27 Height 5 ft 8 in Weight 206 lb 12.697 oz BMI 31.4 BP 144/80 H Blood Pressure Location Lt brachial Position Sitting Pulse 89 Pulse Source Pulse Oximeter Intake Visit Reasons: f/u after testing Regional Facilities Specialist Required: No Allergies No Known Allergies Allergy (Verified 08/09/23 09:29) Medication List - Last Reconciled 08/09/23 by LIBRA Delarosa amlodipine 5 mg PO DAILY aspirin 81 mg PO DAILY atorvastatin 40 mg PO DAILY blood sugar diagnostic (FreeStyle Lite Strips) As directed carvedilol 25 mg PO BID dapagliflozin propanediol (Farxiga) 10 mg PO DAILY docusate sodium 100 mg PO BID enoxaparin 30 mg (0.3 mL) subcut Q24H 3 weeks finasteride 5 mg PO DAILY 90 days liraglutide (Victoza 3-Ruben) 1.8 mg subcut DAILY oxycodone 5 mg PO Q6H PRN HPI f/u after testing HPI Details Damon is a 72-year-old male with past medical history of hypertension, chronic kidney disease who was admitted to [facility] in May 2023 after having an episode of lightheadedness with fall and fracture of his distal femur. During his hospital admission he was evaluated by Cardiology for preop clearance. His troponins were elevated and thought to be related to demand. An echocardiogram did show wall motion abnormalities and he was managed medically. He did undergo an ORIF of his right femur fracture. On last visit a nuclear stress test was ordered and he now presents for follow-up. Today he reports that he has has not been noticing lightheadedness recently. He has had no presyncope, syncope, falls. Ambulates with a walker a cane. He has some swelling in his right knee still following his right femur surgery. He still attends physical therapy. He has been doing mostly light physical act ivity. He does have to climb stairs. In his home he has 1 flight and in his girlfriend's home there is 3 flights to her 4th floor apartment. He denies chest discomfort or concerning shortness of breath with activity. No heart palpitations, PND, orthopnea or edema. He is taking his meds as directed. [facility] Medical History CAD (coronary artery disease) HLD (hyperlipidemia) Anemia of chronic disease Hypogonadism in male OA (osteoarthritis) Diabetes mellitus, type II Onychomycosis Hypertension, benign Kidney disease Dysuria Social History Household Members: None Housing: Apartment Do you presently have visiting nurse or other home services: No Comment: pain R knee w ADLs Patient Tobacco Use Status: Never used Tobacco service: No Review of Systems Const All systems reviewed & are unremarkable except as noted in HPI and below ENT Reports dizziness Card Denies chest pain, Denies chest pain at rest, Denies chest pain with activity, Denies rapid heart rate, Denies pedal edema, Denies edema, Denies leg edema, Denies lightheadedness, Denies palpitations, Denies dyspnea, Denies dyspnea on exertion and Denies orthopnea Resp Denies cough, Denies dyspnea and Denies dyspnea on exertion GI Denies hematochezia and Denies change in stool character Musc Denies abnormal gait, Denies limited range of motion, Denies muscle cramps, Denies muscle weakness, Denies numbness, Denies radiating pain into limb, Denies stiffness and Denies tingling Neuro Denies abnormal gait, Reports dizziness, Denies numbness and Denies tingling Endo Denies palpitations Physical Exam Vital Signs: Last Vital Signs Pulse 89 08/09/23 09:27 BP 144/80 H 08/09/23 09:27 BMI result Body Mass Index 31.4 Const General: cooperative, healthy appearing, comfortable and no acute distress Orientation/consciousness: patient oriented x3 Neck Neck: Yes normal visual inspection and Yes no JVD Resp Effort & Inspection: normal respiratory effort Auscultation: clear to auscultation bilaterally, no rales, no rhonchi and no wheezes Cardio Jugular venous distension: no JVD Rate: regular rate Rhythm: regular rhythm Heart sounds: S1 normal heart sound present, S2 normal heart sound present, no murmurs and no rubs Neuro General: patient oriented x3 Extrem Other: swelling right knee. Recent right femur fx ORIF. ambulates with cane General: Yes normal to inspection and No no pedal edema Psych Appearance: grossly normal Mental Status: mental status grossly normal Speech and movement: Normal speech and movement present Assessment & Plan Assessment & Plan (1) Abnormal nuclear stress test: Code(s): R94.39 - Abnormal result of other cardiovascular function study [place] [facility] [place] after having lightheadedness and fall resulting in fracture of his distal femur. Troponin elevation up to 139.2. No reports of chest discomfort. Echocardiogram done 05/24/2023 showed EF 50-55%, basal inferior and basal inferior lateral segments hypokinetic, mild aortic stenosis. No known history of CAD. Cardiac risk factors age, hypertension. He underwent a pharmacological nuclear stress test on 08/04/2023 showing a large severe perfusion defect in the circumflex territory, EF 44 % with stress and 38% with rest, t.i.d. not present. Test results reviewed with him in detail. He continues to deny anginal sounding symptoms. He is currently on dual antianginal agents of carvedilol and amlodipine which could be masking symptoms. He is also on aspirin and aspirin, atorvastatin. Need for cardiac catheterization with him in detail including risks of the procedure, bleeding, infection, [place], [place], stroke. He is willing to proceed however labs show creatinine very elevated during last hospitalization. Will recheck labs today. 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 He has no contrast dye allergy. Signs and symptoms of angina reviewed with him. Follow-up is planned post cardiac catheterization. If he is not going to have cardiac catheterization due to risk of DEUCE/potential need for dialysis then will plan to have him follow-up in the office in 2-3 months, sooner if needed. (2) Dizziness: Code(s): R42 - Dizziness and giddiness Plan: Episode of dizziness resulting in a fall with a distal femur fracture. Patient was admitted and monitored at [facility] between 05/23 and 06/03. Discharge summary reviewed and no mention of arrhythmia. Blood pressure is mostly elevated during his admission. Echocardiogram showed EF 50-55%, mild aortic stenosis. On last visit he reported intermittent episodes of dizziness were still occurring. His description of episodes seem to follow a position change from sitting to standing. His blood pressure was on the low side and his amlodipine dose was reduced. Today he denies any feelings of lightheadedness, no recurrent falls. Blood pressure mildly elevated. At this time will continue current med management. Blood pressure remains elevated then his amlodipine can be increased. (3) Elevated troponin: Code(s): R79.89 - Other specified abnormal findings of blood chemistry Plan: As above (4) CAD (coronary artery disease): Code(s): I25.10 - Atherosclerotic heart disease of [place] coronary artery without angina pectoris Plan: As above. Presumed based on echo and stress test findings (5) Hypertension, benign: Code(s): I10 - Essential (primary) hypertension Plan: As above Plan Time spent on chart review, documentation, interview and assessment Orders: Orders Complete Blood Count Auto Diff Today R94.39 - Abnormal result of other cardiovascular function study Prothrombin Time INR Today R94.39 - Abnormal result of other cardiovascular function study Cardiac Cath LT w PCI Today I25.10 - Atherosclerotic heart disease of [place] coronary artery without angina pectoris, R79.89 - Other specified abnormal findings of blood chemistry, R94.39 - Abnormal result of other cardiovascular function study Basic Metabolic Panel Today R94.39 - Abnormal result of other cardiovascular function study Coding Level of Care Code Est Pt Level 4 (75425) Diagnoses Abnormal nuclear stress test R94.39 Dizziness R42 Elevated troponin R79.89 CAD (coronary artery disease) I25.10 Hypertension, benign I10 Time Spent (min) 30
== END 2023-08-09 10:16 | disposition home or self-care (01) ==
PROVIDERS: Visit Provider Nurse Practitioner Family
DX: R94.39 Abnormal result of other cardiovascular function study (principal); R42 Dizziness and giddiness; R79.89 Other specified abnormal findings of blood chemistry; I25.10 Atherosclerotic heart disease of native coronary artery without angina pectoris; I10 Essential (primary) hypertension
CPT/HCPCS: 99214

== ENCOUNTER 2023-08-12 09:02 | Outpatient (AMB) | payer OTHER, MEDICAID, SELFPAY ==
--- NOTE | 2023-08-12 09:29 | A.OFFVIS_ITS ---
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 He is a patient of . He seen for the following urologic conditions - erectile dysfunction - variable PSA Here for discussion regarding penile pumps. Information provided for [employer] Six-month follow-up Labs - 03/31 T 448 P 7.0, 07/30 T 525 P 3.9 Lower urinary tract symptoms Does have some weakness of stream, nocturia. Positive benefit from finasteride Erectile dysfunction Has background of insulin-dependent diabetes Previously failed oral medications Denies prior heart attacks or other complications from diabetes Has not tried high-dose tadalafil protocol Prescribed 10 mg daily tadalafil with 100 mg sildenafil on demand PFSH Medical History CAD (coronary artery disease) HLD (hyperlipidemia) Anemia of chronic disease Hypogonadism in male OA (osteoarthritis) Diabetes mellitus, type II Onychomycosis Hypertension, benign Kidney disease Dysuria Social History Household Members: None Housing: Apartment Do you presently have visiting nurse or other home services: No Comment: pain R knee w ADLs Patient Tobacco Use Status: Never used Tobacco service: No Review of Systems Const Denies chills and Denies fever(s) Card Reports no additional complaints and Denies syncope Resp Denies cough GI Denies abdominal pain and Denies heartburn Reports as per HPI and Denies change in libido Neuro Denies syncope Psych Denies change in libido Endo Denies change in libido Physical Exam Const General: cooperative, healthy appearing, comfortable and no acute distress Orientation/consciousness: patient oriented x3 HEENT Face and sinus: Yes normal facial exam Mouth: moist mucous membranes Neck Neck: Yes normal visual inspection, Yes full ROM and Yes trachea midline Chest Chest palpation & inspection: normal inspection of the chest Resp Effort & Inspection: normal respiratory effort, able to speak in complete sentences and no respiratory distress GI Inspection: Yes normal to inspection Back/Spine/Pelvis Cervical Spine: normal cervical lordosis Thoracic/Lumbar Spine: thoracic and lumbar spine normal to inspection Skin General skin exam: no rashes or lesions noted Neuro General: patient oriented x3, gait normal, tone normal and moves all extremities Extrem General: Yes normal to inspection and Yes capillary refill normal Office Procedures Post Void Residual Post Residual Void Post Void Residual (PVR): 0 [id number]-[id number] Void Residual by ultrasound Assessment & Plan Assessment & Plan (1) Bladder outlet obstruction: Code(s): N32.0 - Bladder-neck obstruction (2) Erectile dysfunction associated with type 2 diabetes mellitus: Code(s): E11.69 - Type 2 diabetes mellitus with other specified complication; N52.1 - Erectile dysfunction due to diseases classified elsewhere (3) Elevated PSA: Code(s): R97.20 - Elevated prostate specific antigen [PSA] Plan Six-month follow-up Orders: Orders AMB Post Void Residual by ultrasound Today R33.9 - Retention of urine, unspecified Patient Instructions: Imaging studies, laboratory and physical exam results were discussed and reviewe d in detail. No major barriers to patient understanding were identified. An opportunity to ask questions regarding the treatment plan was provided. All questions were answered. The patient expressed understanding and agreement with the above treatment plan. The patient is aware they should contact our office by phone for worsening of their current condition or the appearance of new urologic symptoms. Compliance is encouraged with any medications and followup testing that is ordered. It is a privilege to participate in the urologic care of your patient. If you have any questions or concerns regarding treatment for the above conditions, or other urologic issues, please do not hesitate to contact me. The office telephone contact is [phone]. This note is constructed using voice recognition software. While every effort has been made to ensure accuracy technical service specialist errors may have been included. Yours sincerely, Dr Loki Wood MD, [facility] - Urology Providers of Expert, Compassionate Care for the Genitourinary System Coding Level of Care Code Est Pt Level 3 (89126) Diagnoses Bladder outlet obstruction N32.0 Erectile dysfunction associated with type 2 diabetes mellitus E11.69; N52.1 Elevated PSA R97.20 CPT Codes Post Residual Void - PVR CPT Code: 65653-Hppx Void Residual by ultrasound ([id number])
== END 2023-08-12 09:55 | disposition home or self-care (01) ==
PROVIDERS: PCP Orthopaedic Surgery; Visit Provider Urology
DX: N32.0 Bladder-neck obstruction (principal); E11.69 Type 2 diabetes mellitus with other specified complication; N52.1 Erectile dysfunction due to diseases classified elsewhere; R97.20 Elevated prostate specific antigen [PSA]
CPT/HCPCS: 99213

== ENCOUNTER → 2023-08-12 09:02 | Outpatient (BNVA) | payer OTHER, MEDICAID, SELFPAY | PROVIDERS: PCP Orthopaedic Surgery; Visit Provider Urology | DX: N32.0 Bladder-neck obstruction (principal); E11.69 Type 2 diabetes mellitus with other specified complication; N52.1 Erectile dysfunction due to diseases classified elsewhere; R97.20 Elevated prostate specific antigen [PSA]; R33.9 Retention of urine, unspecified | CPT/HCPCS: 51798 ==

== ENCOUNTER 2023-08-19 07:18 | Outpatient (REF) | payer OTHER, MEDICAID, SELFPAY ==
--- NOTE | ~2023-08-19 | XR_ITS ---
EXAMINATION: XR FEMUR, RIGHT CLINICAL INFORMATION: Displaced intertrochanteric fracture of left femur, initial evaluation. COMPARISON: 06/21/2023, 05/26/2023, 05/24/2023. TECHNIQUE: AP and lateral views of the right femur were obtained, 4 views total. FINDINGS: Degenerative changes right hip. Redemonstration of intramedullary benjamin with screws transfixing previously noted comminuted, transverse fracture of the distal shaft of the femur with increased abundant callus formation. Hardware appears intact. Alignment is maintained. Total knee prosthesis incompletely imaged, but the visualized portion appears stable. Knee joint effusion with soft tissue swelling. XR/XR femur RT 2V IMPRESSION: Healing fracture distal shaft of the femur status post ORIF. Hardware appears intact. Alignment is maintained.
== END 2023-08-19 07:19 | disposition home or self-care (01) ==
LOC: HO.HOSX 07:18
PROVIDERS: Visit Provider Physician Assistant
DX: S72.491D Other fracture of lower end of right femur, subsequent encounter for closed fracture with routine healing (principal); X58.XXXD Exposure to other specified factors, subsequent encounter; Z98.890 Other specified postprocedural states
CPT/HCPCS: 73552; 99212

== ENCOUNTER 2023-08-19 09:50 | Outpatient (AMB) | payer MEDICARE, MEDICAID, SELFPAY ==
--- NOTE | 2023-08-19 09:53 | MHC.OFFVIS ---
Intake Vital Signs 08/19/23 09:54 Height 5 ft 8 in Weight 206 lb BMI 31.3 Intake Visit Reasons: Post Op - Right femur retrograde nail 05/26/23 NE Intake Note: Damon a 72 year old male presents today for a post operative right femur retrograde nail on 05/26/23 NE. Xrays updated. Patient reports he is doing okay, wishes he was doing better. He states he would like to begin walking without his cane. He continues to work with PT. Allergies No Known Allergies Allergy (Verified 08/19/23 09:54) HPI Post Op - Right femur retrograde nail 05/26/23 NE HPI Details 72-year-old male who returns to the office today for post-op right femur retrograde nail, 05/26/[address] Rosales. He states he has mild improvement in his symptoms however he wishes he was doing better. He currently c/o stiffness in his knee. He reports he would like to begin walking without his cane. He continues to work with physical therapy as instructed. He has no other concerns today. [facility] Medical History CAD (coronary artery disease) HLD (hyperlipidemia) Anemia of chronic disease Hypogonadism in male OA (osteoarthritis) Diabetes mellitus, type II Onychomycosis Hypertension, benign Kidney disease Dysuria Social History Household Members: None Housing: Apartment Do you presently have visiting nurse or other home services: No Comment: pain R knee w ADLs Patient Tobacco Use Status: Never used Tobacco service: No Review of Systems Const All systems reviewed & are unremarkable except as noted in HPI and below Physical Exam Vital Signs: BMI result Body Mass Index 31.3 Extrem Other: Right knee: Incision well healed. He has trace effusion on the right knee but no erythema or warmth. No tenderness to palpation. ROM is 0-100 degrees. Calf supple, nontender. He is able to initiate good quad activation. NVI. Results Reviewed Results Reviewed: X-rays of the right femur obtained in the office today show retrograde nail in place with interval healing and stable position. Assessment & Plan Assessment & Plan (1) Fracture of distal end of right femur: Code(s): S72.401A - Unspecified fracture of lower end of right femur, initial encounter for closed fracture Qualifiers: Encounter type: subsequent encounter Fracture healing: with routine healing Fracture morphology: other fracture Fracture type: closed Qualified Code(s): S72.491D - Other fracture of lower end of right femur, subsequent encounter for closed fracture with routine healing Plan He will continue with physical therapy to work on strengthening and gait training. He will discontinue the cane and increase activity as tolerated and return to work on 08/23/23 without restriction and see me back in 8 weeks with new x-rays, sooner if needed. Orders: Orders XR femur RT 2V Today S72.142A - Displaced intertrochanteric fracture of left femur, initial encounter for closed fracture Medications: New celecoxib (Celebrex) 200 mg PO BID 30 days 60 caps 3RF celecoxib (Celebrex) 200 mg PO BID 30 days 60 caps 3RF Patient Instructions: Scribed for Kristofer Vargas PA-C, by Peyman Moreno medical coding manager, on 08/19/2023 at 10:00 AM EST. IKristofer PA-C, have personally reviewed and agree with the information entered by the scribe. Coding Level of Care Code Global (16694) Diagnoses Other closed fracture of distal end of right femur with routine healing, subsequent encounter S72.491D Encounter type: subsequent encounter Fracture healing: with routine healing Fracture morphology: other fracture Fracture type: closed
[2023-08-19 09:54] VITALS: BMI 31.3
== END 2023-08-19 10:39 | disposition home or self-care (01) ==
PROVIDERS: PCP Internal Medicine; Visit Provider Physician Assistant
DX: S72.491D Other fracture of lower end of right femur, subsequent encounter for closed fracture with routine healing (principal)
CPT/HCPCS: 99024

== ENCOUNTER 2023-08-26 10:03 | Outpatient (REF) | payer OTHER, MEDICAID, SELFPAY ==
[2023-08-26 10:23] LABS: MANUAL DIFF FLAG NO
[2023-08-26 10:36] LABS: Basophils Percent Auto 0.4 % (0-2); Eosinophils Absolute Auto 0.2 X10*3/uL (0.0-0.4); Eosinophils Percent Auto 2.7 % (0-4); Hematocrit 28.7 % (42.0-52.0); Imm Gran Abs Auto 0.03 X10*3/uL (0.00-0.03); Imm Gran Pct Auto 0.4 % (0.0-0.4); Lymphocytes Absolute Auto 1.3 X10*3/uL (1.2-4.9); Lymphocytes Percent Auto 16.1 % (20-40); Mean Corpuscular HGB Conc 31.4 g/dl (31.0-36.0); Mean Corpuscular Hemoglobin 27.1 pg (27.0-33.0); Mean Corpuscular Volume 86.4 fL (80.0-98.0); Mean Platelet Volume 10.1 fL (9.4-12.4); Monocytes Absolute Auto 0.8 X10*3/uL (0.1-1.2); Monocytes Percent Auto 10.2 % (2-11); Neutrophils Absolute Auto 5.7 x10*3/uL (2.0-8.3); Neutrophils Percent Auto 70.2 % (45-73); Platelet Count 199 X10*3/uL (160-400); Red Blood Count 3.32 X10*6/uL (4.60-5.80); Red Cell Distribution Width 17.8 % (11.0-16.0); White Blood Count 8.1 X10*3/uL (4.8-10.8)
[2023-08-26 10:42] LABS: Prothrombin Time 11.6 SEC (11.1-13.3)
[2023-08-26 11:27] LABS: Anion Gap 9 (12-20); Blood Urea Nitrogen 42 mg/dL (9-16); Carbon Dioxide 25 mmol/L (22-29); Chloride 113 mmol/L (96-108); Estimated Glomerular Filt Rate 23; Glucose Random 237 mg/dL (60-115); Potassium 4.7 mmol/L (3.3-5.1); Sodium 142 mmol/L (135-145)
== END 2023-08-26 10:04 | disposition home or self-care (01) ==
LOC: HO.LAB 10:03
PROVIDERS: Visit Provider Nurse Practitioner Family
DX: R94.39 Abnormal result of other cardiovascular function study (principal)
CPT/HCPCS: 36415; 80048; 85025; 85610

== ENCOUNTER → 2023-09-02 23:59 | Outpatient (BNV) | payer OTHER, MEDICAID, SELFPAY | PROVIDERS: PCP Orthopaedic Surgery; Visit Provider Internal Medicine Cardiovascular Disease | DX: R93.1 Abnormal findings on diagnostic imaging of heart and coronary circulation (principal); I25.118 Atherosclerotic heart disease of native coronary artery with other forms of angina pectoris | CPT/HCPCS: 92928; 93458; 93571; 99152 ==

== ENCOUNTER 2023-09-21 09:08 | Outpatient (AMB) | payer OTHER, MEDICAID, SELFPAY ==
--- NOTE | 2023-09-21 09:09 | A.OFFVIS_ITS ---
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 To recall, he was seen in the hospital for a fall and femur fracture. He needed surgery and we saw him preoperative clearance. He had the surgery without any issues. Then he underwent cardiac workup including echocardiogram and stress test. Stress test was abnormal leading to diagnostic catheterization. He underwent LAD stenting. He states he feels fine. No chest pains in the past or present. He did have some dizziness which led to a fall. Blood pressures are high but unfortunately does not know his medications clearly. He has chronic kidney disease and many comorbidities. [facility] Medical History (Updated 09/21/23 @ 09:34 by Nicanor Garner MD) CAD (coronary artery disease) HLD (hyperlipidemia) Anemia of chronic disease Hypogonadism in male OA (osteoarthritis) Diabetes mellitus, type II Onychomycosis Hypertension, benign Kidney disease Dysuria Surgical History (Updated 09/21/23 @ 09:13 by Keyla Carmona CMA) Hx of cardiac cath Family History Father No problems noted. Social History Household Members: None Housing: Apartment Do you presently have visiting nurse or other home services: No Comment: pain R knee w ADLs Patient Tobacco Use Status: Never used Tobacco service: No Review of Systems Const Denies chills, Denies fatigue, Denies fever(s), Denies frequent falls, Denies weakness, Denies weight gain and Denies weight loss ENT Denies dizziness Card Denies chest pain, Denies leg edema, Denies lightheadedness, Denies palpitations, Denies dyspnea and Denies dyspnea on exertion Resp Denies cough, Denies dyspnea and Denies dyspnea on exertion GI Denies hematochezia Musc Denies abnormal gait, Denies muscle weakness, Denies numbness, Denies radiating pain into limb and Denies tingling Neuro Denies abnormal gait, Denies dizziness, Denies frequent falls, Denies numbness, Denies tingling and Denies weakness Endo Denies fatigue and Denies palpitations Physical Exam Vital Signs: Last Vital Signs Pulse 87 09/21/23 09:10 BP 160/82 H 09/21/23 09:10 Pulse Ox 98 09/21/23 09:10 BMI result Body Mass Index 32.6 Const General: comfortable and no acute distress Orientation/consciousness: patient oriented x3 HEENT Other: Unremarkable Head: Yes normal to inspection Neck Neck: Yes normal visual inspection Chest Chest palpation & inspection: normal inspection of the chest Resp Auscultation: clear to auscultation bilaterally Cardio Palpation: normal PMI Heart sounds: S1 normal heart sound present, S2 normal heart sound present, no gallops, Murmur heart sound present systolic II/ and at the right sternal border and no rubs GI Palpation (GI): Soft to palpation Back/Spine/Pelvis Other: unremarkable Skin General skin exam: no rashes or lesions noted Neuro General: patient oriented x3 Extrem General: Yes normal to inspection Psych Mental Status: mental status grossly normal Assessment & Plan Assessment & Plan (1) Atherosclerotic cardiovascular disease: Code(s): I25.10 - Atherosclerotic heart disease of [place] coronary artery without angina pectoris Category: Medical (2) Chronic kidney disease: Code(s): N18.9 - Chronic kidney disease, unspecified Category: Medical (3) Hypertension, benign: Code(s): I10 - Essential (primary) hypertension Category: Medical Plan Echocardiogram with low normal LVEF, 50-55% and basal inferior/inferolateral hypokinesis. Mild aortic stenosis. Myocardial perfusion imaging study shows circumflex territory ischemia. Cardiac catheterization data reviewed. Right dominant circulation. He underwen t PCI to mid LAD. [id number] circumflex disease. Overall, many comorbidities, poorly controlled hypertension, syncope of unknown etiology, coronary disease as listed above status post LAD PCI. Continue dual antiplatelet therapy. Statins. Hypertension meds are confusing and he does not know them clearly. Preferably to be consolidated through his own liquid loader to avoid any confusion. Will also arrange cardiac rehabilitation. Follow-up in 3 months. Orders: Orders Cardiac Rehab Today Z95.5 - Presence of coronary angioplasty implant and graft Coding Level of Care Code Est Pt Level 4 (51637) Diagnoses Atherosclerotic cardiovascular disease I25.10 Chronic kidney disease N18.9 Hypertension, benign I10
[2023-09-21 09:10] VITALS: BP 160/82; PULSE 87; O2SAT 98; BMI 32.6
== END 2023-09-21 09:31 | disposition home or self-care (01) ==
PROVIDERS: PCP Orthopaedic Surgery; Visit Provider Internal Medicine
DX: I25.10 Atherosclerotic heart disease of native coronary artery without angina pectoris (principal); I12.9 Hypertensive chronic kidney disease with stage 1 through stage 4 chronic kidney disease, or unspecified chronic kidney disease; N18.9 Chronic kidney disease, unspecified; Z95.5 Presence of coronary angioplasty implant and graft
CPT/HCPCS: 99214

== ENCOUNTER → 2023-09-21 09:08 | Outpatient (BNVA) | payer OTHER, MEDICAID, SELFPAY | PROVIDERS: PCP Orthopaedic Surgery; Visit Provider Internal Medicine ==

== ENCOUNTER 2023-10-14 06:05 | Outpatient (REF) | payer OTHER, MEDICAID, SELFPAY ==
--- NOTE | ~2023-10-14 | XR_ITS ---
EXAMINATION: XR FEMUR, RIGHT CLINICAL INFORMATION: Displaced intertrochanteric fracture of the left femur. COMPARISON: 08/19/2023, 06/21/2023, 05/26/2023, 05/24/2023. TECHNIQUE: AP and lateral views of the right femur were obtained, 4 views total. FINDINGS: Bones are diffusely demineralized. Redemonstration of advanced degenerative changes in the right hip. Redemonstration of intramedullary benjamin with screws transfixing previously noted comminuted transverse fracture of the distal shaft of the femur with increased abundant callus formation. Fracture line is still visible, but less conspicuous. Total knee arthroplasty incompletely imaged. Knee joint effusion present. XR/XR femur RT 2V IMPRESSION: Healing fracture of the distal shaft of the femur status post ORIF.
== END 2023-10-14 06:06 | disposition home or self-care (01) ==
LOC: HO.HOSX 06:05
PROVIDERS: Visit Provider Physician Assistant
DX: S72.142A Displaced intertrochanteric fracture of left femur, initial encounter for closed fracture (principal)
CPT/HCPCS: 73552

== ENCOUNTER 2023-10-14 12:41 | Outpatient (AMB) | payer OTHER, MEDICAID, SELFPAY ==
--- NOTE | 2023-10-14 12:56 | MHC.OFFVIS ---
Vital Signs 10/14/23 12:58 Height 5 ft 8 in Weight 214 lb BMI 32.5 Intake Visit Reasons: OV-Rt knee retrograde nail Intake Note: Damon a 72 year old male presents today for a post operative right femur retrograde nail on 05/26/23 NE. Xrays updated. Patient reports he is doing okay, states he uses his cane every now and then. He has completed PT. Allergies No Known Allergies Allergy (Verified 10/14/23 13:00) Medication List - Last Reconciled 10/14/23 by Kristofer Vargas PA-C amlodipine 5 mg PO DAILY aspirin 81 mg PO DAILY atorvastatin 40 mg PO DAILY blood sugar diagnostic (FreeStyle Lite Strips) As directed carvedilol 25 mg PO BID celecoxib (Celebrex) 200 mg PO BID 30 days dapagliflozin propanediol (Farxiga) 10 mg PO DAILY finasteride 5 mg PO DAILY 90 days ticagrelor (Brilinta) 90 mg PO BID HPI HPI OV-Rt knee retrograde nail: Details: 73-year-old male who returns to the office today for post-op right femur retrograde nail, 05/26/[address] Rosales. He states he has improvement in his pain and is doing well overall. He uses his cane every now and then. He has completed physical therapy as instructed. He has no concerns today. [facility] Medical History (Updated 09/21/23 @ 09:34 by Nicanor Garner MD) CAD (coronary artery disease) HLD (hyperlipidemia) Anemia of chronic disease Hypogonadism in male OA (osteoarthritis) Diabetes mellitus, type II Onychomycosis Hypertension, benign Kidney disease Dysuria Surgical History Hx of cardiac cath Family History (Updated 09/21/23 @ 09:33 by Nicanor Garner MD) Father No problems noted. Social History Household Members: None Housing: Apartment Do you presently have visiting nurse or other home services: No Comment: pain R knee w ADLs Patient Tobacco Use Status: Never used Tobacco service: No Review of Systems Const All systems reviewed & are unremarkable except as noted in HPI and below Physical Exam Vital Signs: BMI result Body Mass Index 32.5 Extrem Other: Right knee: Incision well healed. No effusion on the right knee, no erythema or warmth. No tenderness to palpation. ROM is 0-100 degrees. Calf supple, nontender. He is able to initiate good quad activation. NVI. Results Reviewed Results Reviewed: X-rays of the right femur obtained in the office today show retrograde nail in place with interval healing and stable position. Assessment & Plan Assessment & Plan (1) Fracture of distal end of right femur: Code(s): S72.401A - Unspecified fracture of lower end of right femur, initial encounter for closed fracture Category: Medical Qualifiers: Encounter type: subsequent encounter Fracture healing: with routine healing Fracture morphology: other fracture Fracture type: closed Qualified Code(s): S72.491D - Other fracture of lower end of right femur, subsequent encounter for closed fracture with routine healing Plan He will continue working on exercises for ROM and strengthening. He will continue activities as tolerated and if he has any questions or concerns, he will contact the office, otherwise follow-up as needed. Orders: Orders XR femur RT 2V Today S72.142A - Displaced intertrochanteric fracture of left femur, initial encounter for closed fracture Patient Instructions: Scribed for Kristofer Vargas PA-C, by Peyman Moreno medical record retrieval specialist, on 10/14/2023 at 12:45 PM EST.? I, Kristofer Vargas PA-C, have personally reviewed and agree with the information entered by the scribe. Coding Level of Care Code Global (14542) Diagnoses Other closed fracture of distal end of right femur with routine healing, subsequent encounter S72.491D Encounter type: subsequent encounter Fracture healing: with routine healing Fracture morphology: other fracture Fracture type: closed
[2023-10-14 12:58] VITALS: BMI 32.5
== END 2023-10-14 13:32 | disposition home or self-care (01) ==
PROVIDERS: PCP Orthopaedic Surgery; Visit Provider Physician Assistant
DX: S72.491D Other fracture of lower end of right femur, subsequent encounter for closed fracture with routine healing (principal)
CPT/HCPCS: 99213

== ENCOUNTER 2023-11-08 08:30 | Outpatient (RCR) | payer OTHER, SELFPAY ==
[2023-10-21 12:32] LABS: Glucose, Whole Blood 175 mg/dL (60-115)
[2023-10-27 09:30] LABS: Glucose, Whole Blood 170 mg/dL (60-115)
[2023-11-08 09:29] LABS: Glucose, Whole Blood 151 mg/dL (60-115)
== END 2023-12-15 08:45 | disposition home or self-care (01) ==
LOC: HO.CR 08:30
PROVIDERS: PCP Orthopaedic Surgery; Visit Provider Internal Medicine
DX: Z95.5 Presence of coronary angioplasty implant and graft (principal)
CPT/HCPCS: 82947; 93798

== ENCOUNTER 2024-02-11 10:11 | Outpatient (AMB) | payer OTHER, SELFPAY ==
--- NOTE | 2024-02-11 10:12 | MHC.OFFVIS ---
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 He is a patient of . He seen for the following urologic conditions - erectile dysfunction - variable PSA Telemedicine Evaluation 15 min Consultation [employer] Has not used pump Continuing to benefit from finasteride Six-month follow-up PSA Labs - 03/31 T 448 P 7.0, 07/30 T 525 P 3.9 Lower urinary tract symptoms Does have some weakness of stream, nocturia. Positive benefit from finasteride Erectile dysfunction Has background of insulin-dependent diabetes Previously failed oral medications Denies prior heart attacks or other complications from diabetes Information provided regarding penile pumps Has not tried high-dose tadalafil protocol Prescribed 10 mg daily tadalafil with 100 mg sildenafil on demand [facility] Medical History CAD (coronary artery disease) HLD (hyperlipidemia) Anemia of chronic disease Hypogonadism in male OA (osteoarthritis) Diabetes mellitus, type II Onychomycosis Hypertension, benign Kidney disease Dysuria Surgical History Hx of cardiac cath Family History Father No problems noted. Social History Household Members: None Housing: Apartment Do you presently have visiting nurse or other home services: No Comment: pain R knee w ADLs Patient Tobacco Use Status: Never used Tobacco service: No Review of Systems Const All systems reviewed & are unremarkable except as noted in HPI and below Reports no additional complaints Resp Reports no additional complaints GI Reports no additional complaints Reports as per HPI Musc Reports no additional complaints Physical Exam Telemedicine evaluation Appropriate responses Regular breathing rate and rhythm HEENT Head: Yes normal to inspection Ears: hearing grossly normal bilaterally Eyes General: appearance normal, both eyes and all related structures Neck Neck: Yes normal visual inspection Chest Chest palpation & inspection: normal inspection of the chest Resp Effort & Inspection: normal respiratory effort and able to speak in complete sentences Telehealth Telehealth Telehealth Platform: [employer] Location of provider rendering services: practice address Location of patient: address on file Patient Identification confirmed using: Name, : Yes Telehealth method: video Patient verbally consented to treatment: Yes Patient verbally consented to billing insurance company: Yes Patient informed of any privacy concerns related to visit: Yes Minutes spent on Phone/Video with Pt.: 15 Assessment & Plan Assessment & Plan (1) Elevated PSA: Code(s): R97.20 - Elevated prostate specific antigen [PSA] Category: Medical (2) Bladder outlet obstruction: Code(s): N32.0 - Bladder-neck obstruction Category: Medical Plan Six-month follow-up PSA Orders: Orders Prostate Specific Antigen 6 Months N32.0 - Bladder-neck obstruction Patient Instructions: Imaging studies, laboratory and physical exam results were discussed and reviewed in detail. No major barriers to patient understanding were identified. An opportunity to ask questions regarding the treatment plan was provided. All questions were answered. The patient expressed understanding and agreement with the above treatment plan. The patient is aware they should contact our office by phone for worsening of their current condition or the appearance of new urologic symptoms. Compliance is encouraged with any medications and followup testing that is ordered. It is a privilege to participate in the urologic care of your patient. If you have any questions or concerns regarding treatment for the above conditions, or other urologic issues, please do not hesitate to contact me. The office telephone contact is [phone]. This note is constructed using voice recognition software. While every effort has been made to ensure accuracy b operator errors may have been included. Yours sincerely, Dr Loki Wood MD, [facility] - Urology Providers of Expert, Compassionate Care for the Genitourinary System Coding Level of Care Code Tele Est Pt Level 3 (56189) Diagnoses Elevated PSA R97.20 Bladder outlet obstruction N32.0
== END 2024-02-11 10:40 | disposition home or self-care (01) ==
LOC: HO.HUSH 10:11
PROVIDERS: PCP Orthopaedic Surgery; Visit Provider Urology
DX: R97.20 Elevated prostate specific antigen [PSA] (principal); N32.0 Bladder-neck obstruction
CPT/HCPCS: 99213

== ENCOUNTER → 2024-02-11 10:11 | Outpatient (BNVA) | payer OTHER, SELFPAY | PROVIDERS: PCP Orthopaedic Surgery; Visit Provider Urology ==

== ENCOUNTER 2024-08-11 10:15 | Outpatient (REF) | payer MEDICARE, SELFPAY ==
--- OUTSIDE RECORDS SUMMARY | 2024-08-11 11:42 | XMS_ITS | Encounter Summary ---
Author Organization [facility] Address [address] [place] [address] Care Team Providers Care Shank Carrier Name Role Phone Talon Morin MD Primary Care Provider [phone] Encounter Details Date Type Department Care Team (Latest Contact Info) Description 12/09/2020 Pharmacist Visit [facility] [address] [place] [phone] Jessika Pedroza, THI [address] [place] [address] Prophylactic antibiotic (Primary Dx) Social History Tobacco Use Types Packs/Day Years Used Date Smoking Tobacco: Never Smokeless Tobacco: Never Alcohol Use Standard Drinks/Week Comments Yes 1.7 (1 standard drink = 0.6 oz p ure alcohol) Occasional Social Connections Answer Date Recorded Social Connections and Isolation 0 12/29/2018 Financial Resource Strain Answer Date R ecorded Financial Resource Strain 0 2018 Stress Answer Date Recorded Stress 0 12/29/2018 Physical Activity Answer Date Recorded Physical Activity 0 12/29/2018 Food Insecurity Answer Date Recorded Food 0 12/29/2018 Transportation Needs Answer Date Record ed Transportation 0 12/29/2018 Housing Stability Answer Date Recorded Housing 0 12/29/2018 Safety and Environment Answer Date Anuel rded Safety 0 12/29/2018 Utilities Answer Date Recorded Utilities 0 12/29/2018 Employment Answer Date Recorded Employment 0 12/29/2018 Sex and Gender Information Value Date Recorded Sex Assigned at Male 04/16/2017 11:33 AM PST Legal Sex Male 11:36 AM PDT Gender Identity Male 04/16/2017 11:33 AM PST Sexual Orientation Straight 04/16/2017 11 :33 AM PST COVID-19 Exposure Response Date Recorded In the last month, have you been in contact with someone who was confirmed or suspected to have Coronavirus / COVID-19? No / Unsure 11/27/2020 9:42 AM PDT documented as of this encounter Plan of Treatment Upcoming Encounters Date Type Department Care Team ([facility] st Contact Info) Description 08/30/2024 11:20 AM EDT Office Visit [facility] [address] [place] [phone] Talon Morin MD [address] [place] [phone] documented as of this encounter Visit Diagnoses Diagnosis Prophylactic antibiotic- Primary Encounter for long-term (current) use of antibiotics documented in this encounter Additional Health Concerns Assessment Noted Time PHQ-9 Depression Total Score: 6 05/22/19 21 11:05 AM PST documented as of this encounter Care Teams Shank Carrier Relationship Specialty [place] [address] [place] [phone] PCP - General Internal Medicine 06/04/17 documented as of this encounter
--- OUTSIDE RECORDS SUMMARY | 2024-08-11 11:42 | XMS_ITS | Clinical Summary ---
Author Organization [facility] Address [address] [place] [id number] Care Team Providers Care Mica Layer Name Role Phone Talon Morin MD Primary Care Provider [phone] Social History Tobacco Use Types Packs/Day Years Used Date Smoking Tobacco: Never Assessed Sex and Gender Information Value Date Recorded Sex Assigned at Male 05/31/2023 1:22 PM EST Gender Identity Not on file Sexual Orientation Not on file Job Start Date Occupation Industry Not on file Not on file Not on file Plan of Treatment Not on file Care Teams Mica Layer Relationship Specialty Start Date End Date Talon Morin MD [address] [place] [address] PCP - General Internal Medicine 05/31/23
--- OUTSIDE RECORDS SUMMARY | 2024-08-11 11:42 | XMS_ITS | Clinical Summary ---
Author Organization [facility] Address [address] [place] [address] Phone Care Team Providers Care [facility] Name Role Phone Talon Morin MD Primary Care Provider Allergies No known active allergies Medications amLODIPine (NORVASC) 10 MG tablet Take 1 tablet by mouth 1 (one) time each day Active atorvastatin (LIPITOR) 40 MG tablet Take 1 tablet by mouth 1 (one) time each day Active carvedilol (COREG) 25 MG tablet Take 1 tablet by mouth 2 (two) times a day 09/08/2018 Active insulin glargine (Lantus) 100 UNIT/ML injection Active liraglutide (Victoza) 18 MG/3ML injection Inject under the skin 1 (one) time each day Active Farxiga 10 MG tablet Take 1 tablet by mouth 1 (one) time each day 11/21/2021 Active finasteride (PROSCAR) 5 MG tablet Take 1 tablet by mouth 1 (one) time each day 05/08/2022 Active ergocalciferol 1.25 MG (87367 UT) capsule TAKE 1 CAPSULE (50,000 UNITS TOTAL) BY MOUTH ONCE WEEKLY 12 capsule 1 09/29/2022 Active Active Problems Problem Noted Date Diagnosed Date Anemia in chronic kidney disease 04/20/2023 Iron deficiency anemia, not otherwise specified 04/20/2023 Vitamin D deficiency, not otherwise specified Secondary hyperparathyroidism 04/20/2023 Chronic kidney disease, stage 4 (severe) 023 Hypertension 12/17/2020 Hypertensive nephrosclerosis 09/23/2020 Essential hypertension 12/20/2012 Resolved Problems Problem Noted Date Diagnosed Date Resolved Date Screening status 06/25/2022 04/19/2023 Degeneration of lumbar intervertebral disc 12/13/2018 12/17/2020 Overview (12/17/2020): x-ray back = Moderate degeneratiive changes with disc space narrowing L5 and S 1 Referred to [place] [facility] Male hypogonadism 08/05/2018 12/17/2020 Overview (12/17/2020): Sees Urology Chest pain on breathing 03/11/201812/08 Overview (12/17/2020): ER [facility] 03/01/18 for right sided chest pain. EKG and blood test were normal. Exercise Stress Test normal. 2 D Echo normal.EF 55 % Other male erectile dysfunction 06/21/2017 12/17/2020 History of procedure 03/12/2017 021 [facility] Stable nodules f/u 2yrs Please see note Replacing diagnoses that were inactivated after the 02/08/24 Regulatory Import Neuropathy due to type 2 diabetes mellitus 10/10/2016 12/17/2020 Overview (12/17/2020): Of feet Onychomycosis 10/10/2016 12/17/2020 Overview (12/17/2020): Followed by podiatry Syncope and collapse 01/24/2016 021 Overview (12/17/2020): Transthoracic echo done 02/14/16, indicates normal left ventricular function with EF 55-60%, mild mitral calcification, , thickened aortic valve leaflets without stenosis or insufficiency, trace mitral regurgitation Chronic kidney disease 09/19/201404/19 Overview (12/17/2020): Sees Assistance Representative Hypercholesterolemia 03/22/2014 021 History of total knee arthroplasty 02/14/2013 12/17/2020 Overview (12/17/2020): Right knee 2 years ago Obese class I 12/20/2012 12/17/2020 Osteoarthritis 12/20/2012 12/17/2020 Other specified health status 12/20/2012 12/17/2020 Diabetes mellitus 12/20/2012 08/14/2021 Overview (08/14/2021): Patient sees podiatry last visit- 01/28/16 Encounters Date Type Department Care Team Description 08/02/2024 Office Communication [facility] [address] [phone] Manoj Mederos MD from Last 3 Months Immunizations Name Administration Dates Next Due Pfizer SARS-COV-2 06/05/2021,11/27/2020,11/07/19 21 Family History Medical History Relation Comments Diabetes Father Cancer Mother Diabetes Mother Diabetes Sibling 1 Hypertension Sibling 2 Gout Sibling 3 Relation Status Comments Father Mother Sibling 1 Sibling 2 Sibling 3 Social History Tobacco Use Types Packs/Day Years Used Date Smoking Tobacco: Never Smokeless Tobacco: Never Tobacco Cessation:Counseling Given: No Alcohol Use Standard Drinks/Week Comments Yes 0 (1 standard drink = 0.6 oz pure alcohol) Alcoholic Drinks/day: Occasional social drink Sex and Gender Information Value Date Recorded Sex Assigned at Not on file Legal Sex Male 4:40 PM EST Gender Identity Not on file Sexual Orientation Not on file Last Filed Vital Signs Vital Sign Reading Time Taken Comments Blood Pressure 138/72 04/20/2023 10:49 AM EST Pulse 77 04/20/2023 10:49 AM EST Temperature - - Respiratory Rate - - Oxygen Saturation 95% 04/20/2023 10:49 AM EST Inhaled Oxygen Concentration - - Weight 97.1 kg (214 lb) 04/20/2023 10:49 AM EST Height 174 cm (5' 8.5 ) 03/24/2022 2:30 PM EST Body Mass Index 32.07 03/24/2022 2:30 PM EST Plan of Treatment Upcoming Encounters Date Type Department Care Team (Late st Contact Info) Description 08/22/2024 9:00 AM EDT Office Visit [facility] [address] [facility] [address] [place] [address] Manoj Mederos MD [address] [phone] Health Maintenance Due Date Last Done Comments Pneumococcal Vaccine: 65+ Years (1 of 2 - PCV) 1956 Colorectal Cancer Screening: Annual FOBT 2001 Colorectal Cancer Screening: Colonoscopy 2001 Colorectal Cancer Screening: Sigmoidoscopy 2001 Influenza Vaccine (#1) 2024 Diabetes: Hemoglobin A1C 07/29/2024 024, 03/25/2023, 08/24/2022, Additional history exists Diabetes: Ophthalmology Exam 07/29/2024 Diabetes: Pedal Pulse Checked 07/29/2024 Diabetes: Sensory Foot Exam 07/29/2024 Diabetes: Visual Foot Exam 07/29/2024 Hepatitis B Vaccine Aged Out No longe r eligible based on patient's age to complete this topic Insurance * Guarantor: Damon Escalante Account Type Relation to Patient Date of Phone Billing Address Personal/Family Self [address] [place] [address] [employer] MCR ADV PPO [id number]) Care Teams [facility] Relationship Specialty Start Date End Date Talon Morin MD [address] [place] [phone] PCP - General 05/20/20
--- OUTSIDE RECORDS SUMMARY | 2024-08-11 11:42 | XMS_ITS | Clinical Summary ---
Author Organization [facility] Address [address] [place] [address] Care Team Providers Care Management Internship Name Role Phone Talon Morin MD Primary Care Provider [phone] Source Comments PLEASE NOTE, if this patient is a minor, it may be UNLAWFUL to discuss sensitive information that is contained in these records (such as FAMILY PLANNING, MENTAL HEALTH or SUBSTANCE ABUSE) with the minor patient's parent or other person without the patient's specific authorization.[facility] Allergies No known active allergies Medications sildenafiL (VIAGRA) 100 mg tabletIndication s:Erectile dysfunction, unspecified erectile dysfunction type Take 1 Tablet by mouth once daily as needed for erectile dysfunction 5 Tablet 2 1 Active pen needle, diabetic (BD ULTRA-FINE DARION PEN NEEDLE) 32 gauge x 32 ndleIndications: Uncontrolled type 2 diabetes mellitus with stage 3 chronic kidney disease, with long-term current use of insulin Use BID with medications. DXE11.22 plz disregard previous script 100 Each 11 2 Active ergocalciferol (VITAMIN D-2) 1,250 mcg (50,000 unit) capsule TAKE 1 CAPSULE (50,000 UNITS TOTAL) BY MOUTH ONCE WEEKLY) Authorized by: BRIANNE GANT 3 Active finasteride (PROSCAR) 5 mg tablet TAKE 1 TABLET BY MOUTH EVERY DAY FOR 90 DAYS Authorized by: KANG BURNHAM 3 Active vardenafiL (LEVITRA) 10 mg tabletIndication s:Erectile dysfunction, unspecified erectile dysfunction type TAKE 1 TABLET BY MOUTH 1 (ONE) TIME NEEDED FOR ERECTILE DYSFUNCTION FOR UP TO 1 DOSE 5 Tablet 2 3 Active blood-glucose meter monitoring kitIndications:T ype 2 diabetes mellitus with hemoglobin A1c goal of less than 7.0% ([facility]) as needed for blood glucose monitoring 1 Each 3 Active lancetsIndicatio ns:Type 2 diabetes mellitus with hemoglobin A1c goal of less than 7.0% ([facility]) Use to check BS twice a day 100 Each 11 3 Active FARXIGA 10 mg tabIndications:T ype 2 diabetes mellitus with hemoglobin A1c goal of less than 7.0% ([facility]) TAKE 1 TABLET BY MOUTH EVERY DAY IN THE MORNING 90 Tablet 1 3 Active acetaminophen (TYLENOL) 500 mg tabletIndication s:Myalgia, other site TAKE 2 TABLETS BY MOUTH EVERY 6 HOURS NEEDED FOR PAIN. 180 Tablet 4 Active liraglutide (VICTOZA 3-MICHAEL) 0.6 mg/0.1 mL (18 mg/3 mL)Indications:T ype 2 diabetes mellitus with stage 4 chronic kidney disease, without long-term current use of insulin ([facility]) INJECT 1.8 MG UNDER THE SKIN ONCE DAILY EVERY MORNING 27 mL 1 4 Active amLODIPine (NORVASC) 10 mg tabletIndication s:Hypertension goal BP (blood pressure) < 130/80 Take 1 Tablet by mouth once daily 90 Tablet 1 4 Active atorvastatin (LIPITOR) 40 mg tabletIndication s:Hypercholester olemia Take 1 Tablet by mouth once daily 90 Tablet 1 4 Active blood sugar diagnostic stripsIndication s:Type 2 diabetes mellitus with hemoglobin A1c goal of less than 7.0% ([facility]) 1 Each 2 (two) times daily Use to check blood sugar twice a day. 100 Each 4 Active losartan (COZAAR) 100 mg tabletIndication s:Hypertension goal BP (blood pressure) < 130/80 Take 1 Tablet by mouth once daily 90 Tablet 1 4 Active methocarbamoL (ROBAXIN) 750 mg tabletIndication s:Left buttock pain Take 1 Tablet by mouth 3 (three) times daily 15 Tablet 4 Active lidocaine (LIDODERM) 5 % patchIndications :Left buttock pain Place 1 Patch onto the skin once daily (every 24 hours) Apply 1 patch to the affected area for a maximum of 12 hours, followed by removal for 12 hours. 90 Patch 4 Active carvediloL (COREG) 25 mg tabletIndication s:Hypertension goal BP (blood pressure) < 130/80 Take 1 Tablet by mouth 2 (two) times daily with a meal 180 Tablet 1 4 Active Active Problems Problem Noted Date Diagnosed Date Hypertensive renal disease 09/23/2020 Degenerative disc disease, lumbar 12/13/2018 Overview (12/13/2018): x-ray back = Moderate degeneratiive changes with disc space narrowing L5 and S 1 Referred to [facility] Hypogonadism in male 08/05/2018 Overview (08/05/2018): Sees Urology Chest pain on breathing 03/11/2018 Overview (03/11/2018): [facility] Young 03/01/18 for right sided chest pain. EKG and blood test were normal. Exercise Stress Test normal. 2 D Echo normal.EF 55 % Eye exam and vision examination 07/09/2017 Overview (07/09/2017): [facility] 07/06/17 Bilateral: corneal arcus Bilateral: pinguecula Condition is stable . 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 , Anisometropia Myopia OD Hyperopia OS Astigmatism Prebyopia Other male erectile dysfunction 06/21/2017 H/O [address] scan of chest 03/12[facility]2017 [facility] Stable nodules f/u 2yrs Please see note Diabetic neuropathy associat ed with type 2 diabetes mellitus (HCC-CMS) 10/10/2016 Overview (10/10/2016): Of feet Onychomycosis 10/10/2016 Overview (10/10/2016): Followed by podiatry Syncope and collapse 01/24/2016 Overview (03/02/2016): Transthoracic echo done 02/14/16, indicates normal left ventricular function with EF 55-60%, mild mitral calcification, , thickened aortic valve leaflets without stenosis or insufficiency, trace mitral regurgitation Hospital discharge follow-up 01/24/2016 Essential hypertension 04/17/2015 CKD (chronic kidney disease) 09/19/2014 Overview (12/12/2014): Sees Orthopedic Assistant Hypercholesterolemia 03/22/2014 Status post total knee replacement 02/14/2013 Overview (12/12/2014): Right knee 2 years ago Osteoarthritis 12/20/2012 Hypertension goal BP (blood pressure) < 130/80 0 12/20/2012 Uncontrolled type 2 diabetes mellitus with stage 3 chronic kidney disease, with long-term current use of insulin ([facility]) 12/20/2012 Type 2 diabetes mellitus wit h hemoglobin A1c goal of less than 7.0% ([facility]) 12/20/2012 Overview (02/03/2016): Patient sees podiatry last visit- 01/28/16 Obesity, Class I, BMI 30-34.9 12/20/2012 Hepatitis B immune 12/20/2012 Hepatitis A immune 12/20/2012 Immunizations Immunization Administration Dates Next Due PFIZER COVID VACCINE, PURPLE CAP, 12+ 06/05/2021 ,11/27/2020,11/06/2020 Pfizer COVID vaccine, COMIRN KYLAHY, freeman cap, 12+ 06/05/2021 Family History Medical History Relation Name Comments Diabetes Brother Hypertension Father Hypertension Mother Diabetes Sister Relation Name Status Comments Brother Alive Father Mother Sister Alive Social History Tobacco Use Types Packs/Day Years Used Date Smoking Tobacco: Never Passive Smoke Exposure: Never Smokeless Tobacco: Never Alcohol Use Standard Drinks/Week Comments Yes 1.7 (1 standard drink = 0.6 oz p ure alcohol) Occasional Social Connections Answer Date Recorded Connectedness 0 05/21/2021 Financial Resource Strain Answer Date R ecorded Financial Resource Strain 0 2021 Stress Answer Date Recorded Stress 0 05/21/2021 Physical Activity Answer Date Recorded Physical Activity 0 12/29/2018 Food Insecurity Answer Date Recorded Food 0 05/21/2021 Transportation Needs Answer Date Record ed Transportation 0 05/21/2021 Housing Stability Answer Date Recorded Housing 0 05/21/2021 Safety and Environment Answer Date Anuel rded Safety 0 05/21/2021 Utilities Answer Date Recorded Utilities 0 05/21/2021 Employment Answer Date Recorded Stress 0 07/28/2021 Sex and Gender Information Value Date Recorded Sex Assigned at Male 04/16/2017 11:33 AM PST Legal Sex Male 11:36 AM PDT Gender Identity Male 04/16/2017 11:33 AM PST Sexual Orientation Straight 04/16/2017 11 :33 AM PST Last Filed Vital Signs Vital Sign Reading Time Taken Comments Blood Pressure 144/84 03/31/2024 9:40 AM EST Pulse 96 03/31/2024 9:40 AM EST Temperature 36.7 ??C (98.1 ??F) 03/31/2024 9:40 AM ES T Respiratory Rate 16 03/31/2024 9:40 AM EST Oxygen Saturation 98% 03/31/2024 9:40 AM EST Inhaled Oxygen Concentration - - Weight 97.1 kg (214 lb) 03/31/2024 9:40 AM EST Height 172.7 cm (5' 8 ) 03/31/2024 9:40 AM EST Body Mass Index 32.54 03/31/2024 9:40 AM EST Plan of Treatment Upcoming Encounters Date Type Department Care Team (Late st Contact Info) Description 08/30/2024 11:20 AM EDT Office Visit [facility] [address] [place] [address] Talon Morin MD [address] [place] [id number] Health Maintenance Due Date Last Done Comments Dental Examination [address] CT Colonography 1997 FIT/gFOBT 1997 Fecal DNA 1997 Flexible Sigmoidoscopy 1997 Colonoscopy 09/10/2021 09/10/2016, 08/08 (Managed by Outside Provider), 11/03/2010 Colorectal Cancer Screening 09/10/2021 Diabetes HbA1c 12/29/2023 06/30/2023, 03/10, 08/24/2022, Additional history exists Retinopathy Screening 03/22/2024 03/22/2023 , 07/06/2017, 01/30/2015 (Managed by Outside Provider) Annual Preventive Care Visit 03/25/2024 03/25/2023, 02/21/2018, 01/07/2016, Additional history exists Lipid Screening 03/25/2024 03/25/2023, 08/08, 05/21/2021, Additional history exists Medicare Annual Wellness Visit 03/25/2024 03/25/2023, 02/21/2018, 01/07/2016, Additional history exists Alcohol and Drug Screen 05/10/2024 06/25/19, 03/25/2023, 05/21/2021, Additional history exists Depression Annual Screen 05/10/2024 06/25/2023, 02/07 Diabetes Foot Exam 06/25/2024 06/25/2023, 0 12/11/2020, 07/10/2020, Additional history exists Falls Prevention 06/25/2024 06/25/2023, , 07/18/2021, Additional history exists Urine Albumin Creatinine Ratio Screening 09/26/2024 09/27/2023, 01/31/2020, 02/21/2018, Additional history exists Yvo-AGPIX-15 ( season) 2024 06/05/2021, 06/05/2021, 11/27/2020, Additional history exists Postponed from 01/09/2024 (Patient postponement) Serum Creatinine 10/19/2024 10/20/2023, , 10/13/2022, Additional history exists Tobacco Screening 03/31/2025 03/31/2024 Imm-Influenza Discontinued 03/22/2014 (Declined) Hepatitis C Screening Completed 01/14/2017 Imm-DTaP/Tdap/Td Discontinued Imm-Pneumococcal 65+ Discontinued Imm-Zoster, Recombinant Discontinued Procedures Procedure Name Priority Date/Time Associated Diagnosis Comments REFERRAL SCANNED DOCUMENT 07/28/2024 3:00 AM EDT MICROALBUMIN/CREATININ E RATIO, URINE, RANDOM Routine 09/27/2023 10:15 AM EDT Diabetes mellitus type 2, insulin dependent ([facility]) HEMOGLOBIN GLYCOSYLATED A1C Routine 06/30/2023 10:12 AM EST Type 2 diabetes mellitus with hemoglobin A1c goal of less than 7.0% ([facility]) COMPREHENSIVE METABOLIC PANEL Routine 03/25/2023 9:07 AM EST Encounter for annual physical exam LIPID PANEL Routine 03/25/2023 9:07 AM EST Hypercholesterolem ia EYE EXAM 03/22/2023 3:00 AM EST REFERRAL TO PODIATRY Routine 12/11/2020 12:00 AM EDT Uncontrolled type 2 diabetes mellitus with stage 3 chronic kidney disease, with long-term current use of insulin ([facility]) HEPATITIS A,B,C PANEL Routine 01/14/2017 11:06 AM EDT Liver disease from Last 3 Months or Most Recently Relevant to Health Maintenance Results * REFERRAL SCANNED DOCUMENT (07/28/2024 3:00 AM EDT) 07/28/2024 3:00 AM EDT us Talon Morin MD SCAN REFERRAL Final Result * (ABNORMAL) MICROALBUMIN/CREATININE RATIO, URINE, RANDOM (09/27/2023 10:15 AM EDT) CREATININE, RANDOM URINE 119 20 - 320 mg/dL [facility] MICROALBUMIN 223.0 mg/dL [facility] Comment: Verified by repeat analysis. Reference Range Not established MICROALBUMIN/CREA TININE RATIO, RANDOM URINE 1,874(H) <30 mg/g creat [facility] Comment: The ADA defines abnormalities in albumin excretion as follows: Albuminuria Category ?Result (mg/g creatinine) Normal to Mildly increased ?? <30 Moderately increased ? 30-299 Severely increased ? > OR = 300 The ADA recommends that at least two of three specimens collected within a 3-6 month period be abnormal before considering a patient to be within a diagnostic category. Urine Urine specimen / Unknown 09/27/2023 10:15 AM EDT 09/27/2023 10:16 AM EDT Talon Morin MD LAB - NO BLOOD DRAW Final Resul t Performing Organization Address [facility] Co de Phone Number [employer] [address] [address], [employer] [address] [address] * (ABNORMAL) HEMOGLOBIN GLYCOSYLATED A1C (06/30/2023 10:12 AM EST) HEMOGLOBIN A1C 7.2(H) <5.7 % of total Hgb [facility] Comment: For someone without known diabetes, a hemoglobin A1c value of 6.5% or greater indicates that they may have diabetes and this should be confirmed with a follow-up test. For someone with known diabetes, a value <7% indicates that their diabetes is well controlled and a value greater than or equal to 7% indicates suboptimal control. A1c targets should be individualized based on duration of diabetes, age, comorbid conditions, and other considerations. Currently, no consensus exists regarding use of hemoglobin A1c for diagnosis of diabetes for children. ?? Blood Blood / Unknown 06/30/2023 1 0:12 AM EST 06/30/2023 10:12 AM EST Narrative [employer] [facility] - 07/01/2023 6:20 AM EST FASTING:YES us Talon Morin MD LAB - BLOOD DRAW Final Result Performing Organization Address City/[facility]/ZIP Co de Phone Number [employer] [address] [address], [employer] [address] [address] * LIPID PANEL (03/25/2023 9:07 AM EST) CHOLESTEROL, TOTAL 146 <200 mg/dL [facility] HDL CHOLESTEROL 41 > OR = 40 mg/dL [facility] TRIGLYCERIDES 120 <150 mg/dL [facility] LDL-CHOLESTEROL 83 99 mg/dL (calc) [facility] Comment: Reference range: <100 Desirable range <100 mg/dL for primary prevention; ?? <70 mg/dL for patients with CHD or diabetic patients with > or = 2 CHD risk factors. LDL-C is now calculated using the Carlos calculation, which is a validated novel method providing better accuracy than the Friedewald equation in the estimation of LDL-C. Alan LEZAMA et al. RICK. 2013;310(19): 9998-3948 (http://education.DSI MET-TECH/faq/NBI190) CHOL/HDLC RATIO 3.6 <5.0 (calc) [facility] NON-HDL CHOLESTEROL 105 <130 mg/dL (calc) [facility] Comment: For patients with diabetes plus 1 major ASCVD risk factor, treating to a non-HDL-C goal of <100 mg/dL (LDL-C of <70 mg/dL) is considered a therapeutic option. Blood Blood / Unknown 03/25/2023 9 :07 AM EST 03/25/2023 9:07 AM EST Narrative [employer] - 03/27/2023 7:12 PM EST FASTING:NO us Luis Guaman PA-C LAB - BLOOD DRAW Final Resul t [employer] [address] [place] [id number], [facility] [address] [place] [phone] * (ABNORMAL) COMPREHENSIVE METABOLIC PANEL (03/25/2023 9:07 AM EST) GLUCOSE 169(H) 65 - 139 mg/dL [facility] Comment: ?Non-fasting reference interval UREA NITROGEN (BUN) 37(H) 7 - 25 mg/dL [facility] CREATININE (blood) 2.80(H) 0.70 - 1.28 mg/dL [facility] EGFR 24(L) > OR = 60 mL/min/1. 73m2 [facility] BUN/CREATININE RATIO 13 6 - 22 (calc) [facility] SODIUM 137 135 - 146 mmol/L [facility] POTASSIUM 4.7 3.5 - 5.3 mmol/L [employer] CHLORIDE 104 98 - 110 mmol/L [employer] CARBON DIOXIDE 27 20 - 32 mmol/L [employer] CALCIUM 8.5(L) 8.6 - 10.3 mg/dL [employer] PROTEIN, TOTAL 7.3 6.1 - 8.1 g/dL [employer] ALBUMIN 3.7 3.6 - 5.1 g/dL [employer] GLOBULIN 3.6 1.9 - 3.7 g/dL (calc) [employer] ALBUMIN/GLOBULI N RATIO 1.0 1.0 - 2.5 (calc) [employer] BILIRUBIN, TOTAL 0.4 0.2 - 1.2 mg/dL [employer] ALKALINE PHOSPHATASE 62 35 - 144 U/L [employer] AST 10 10 - 35 U/L [employer] ALT 12 9 - 46 U/L [employer] Blood Blood / Unknown 03/25/2023 9 :07 AM EST 03/25/2023 9:07 AM EST Narrative [employer] [facility] - 03/27/2023 7:12 PM EST FASTING:NO Luis Guaman PA-C LAB - BLOOD DRAW Edited Resu lt - Final [employer] [address] [address], [employer] [address] [address] * EYE EXAM (03/22/2023 3:00 AM EST) 03/22/2023 3:00 AM EST Talon Morin MD OTHER Final Result * REFERRAL TO PODIATRY (12/11/2020 12:00 AM EDT) 12/11/2020 Talon Morin MD REFERRAL Edited Result - Final * (ABNORMAL) HEPATITIS A,B,C PANEL (01/14/2017 11:06 AM EDT) HEPATITIS B SURFACE ANTIBODY POSITIVE(A) NEGATIVE [facility] HEPATITIS B SURFACE ANTIGEN NEGATIVE NEGATIVE [facility] Comment: Over the counter supplements containing high doses of biotin may interfere with this assay. ??If interference is suspected, patients shoud be retested after refraining from biotin supplements for 72 hours. HEPATITIS C VIRUS DIAGNOSTIC NEGATIVE NEGATIVE [facility] HEPATITIS A ANTIBODY TOTAL POSITIVE(A) NEGATIVE [facility] Comment: Over the counter supplements containing high doses of biotin may interfere with this assay. ??If interference is suspected, patients shoud be retested after refraining from biotin supplements for 72 hours. HEPATITIS B CORE ANTIBODY NEGATIVE NEGATIVE [facility] Blood specimen (specimen) Blood / Unknown 01/14/2017 11:06 AM EDT 01/14/2017 1:[address] [facility] - 01/14/2017 4:14 PM EDT [facility] [address] [place] [address] PT ID [id number] ORD# [id number] Jhon HARDEN LAB - BLOOD DRAW Edited Resul t - Final [facility] [address] [place] [address], from Last 3 Months or Most Recently Relevant to Health Maintenance Insurance HEALTH SAF[employer]Y NET DENTAL MEDICAID DENTAL AETNA MEDICARE Care Teams Management Internship Relationship Specialty Start Date End Date Talon Morin MD [address] [place] [phone] PCP - General Internal Medicine 06/04/17
[2024-08-11 13:26] LABS: MANUAL DIFF FLAG NO
[2024-08-11 13:40] LABS: Basophils Percent Auto 0.5 % (0-2); Eosinophils Absolute Auto 0.1 X10*3/uL (0.0-0.4); Eosinophils Percent Auto 2.4 % (0-4); Hematocrit 26.4 % (42.0-52.0); Imm Gran Abs Auto 0.03 X10*3/uL (0.00-0.03); Imm Gran Pct Auto 0.5 % (0.0-0.4); Lymphocytes Absolute Auto 0.8 X10*3/uL (1.2-4.9); Lymphocytes Percent Auto 13.9 % (20-40); Mean Corpuscular HGB Conc 30.3 g/dl (31.0-36.0); Mean Corpuscular Hemoglobin 26.3 pg (27.0-33.0); Mean Corpuscular Volume 86.8 fL (80.0-98.0); Mean Platelet Volume 10.2 fL (9.4-12.4); Monocytes Absolute Auto 0.6 X10*3/uL (0.1-1.2); Monocytes Percent Auto 10.8 % (2-11); Neutrophils Absolute Auto 4.1 x10*3/uL (2.0-8.3); Neutrophils Percent Auto 71.9 % (45-73); Platelet Count 213 X10*3/uL (160-400); Red Blood Count 3.04 X10*6/uL (4.60-5.80); Red Cell Distribution Width 16.6 % (11.0-16.0); White Blood Count 5.8 X10*3/uL (4.8-10.8)
[2024-08-11 13:55] LABS: Creatinine Urine 149.25 mg/dL; Protein/Creatinine Ratio, Ur 0.62 (<0.2); Total Protein Urine Random 93 mg/dL (<12)
[2024-08-11 14:26] LABS: Prostate Specific Antigen 1.85 ng/mL (<0.05-4.0)
[2024-08-11 14:56] LABS: Parathyroid Hormone Intact 923.8 pg/mL (8.7-77.1)
[2024-08-11 15:33] LABS: Alanine Aminotransferase 125 U/L (0-40); Albumin Level 3.2 g/dL (3.5-5.0); Alkaline Phosphatase 104 U/L (39-117); Anion Gap 14 (12-20); Aspartate Amino Transferase 60 U/L (5-37); Bilirubin Total 0.4 mg/dL (0.0-1.0); Blood Urea Nitrogen 117 mg/dL (9-16); Calcium 7.3 mg/dL (8.4-10.2); Carbon Dioxide 20 mmol/L (22-29); Chloride 112 mmol/L (96-108); Ferritin 347 ng/mL (20-250); Glucose Random 189 mg/dL (60-115); Iron 42 mcg/dL (45-160); Magnesium 2.2 mg/dL (1.6-2.6); Percent Iron Saturation 18 % (15-50); Potassium 5.4 mmol/L (3.3-5.1); Sodium 141 mmol/L (135-145); Total Iron Binding Capacity 228 mcg/dL (228-428); Total Protein 5.6 g/dL (6.5-8.0); Unsaturated Iron Binding 186 ug/dL; Uric Acid 10.1 mg/dL (3.4-7.0); Vitamin D 25-OH Total 10.4 ng/mL (>30)
[2024-08-11 15:35] LABS: Estimated Glomerular Filt Rate 10
== END 2024-08-11 10:16 | disposition home or self-care (01) ==
LOC: HO.HMGCLDS 10:15
PROVIDERS: Urology; Visit Provider Internal Medicine Nephrology
DX: N32.0 Bladder-neck obstruction (principal); R33.9 Retention of urine, unspecified; I12.9 Hypertensive chronic kidney disease with stage 1 through stage 4 chronic kidney disease, or unspecified chronic kidney disease; N18.4 Chronic kidney disease, stage 4 (severe); N18.9 Chronic kidney disease, unspecified; E21.1 Secondary hyperparathyroidism, not elsewhere classified; E55.9 Vitamin D deficiency, unspecified; D63.1 Anemia in chronic kidney disease; D50.9 Iron deficiency anemia, unspecified; Z12.5 Encounter for screening for malignant neoplasm of prostate
CPT/HCPCS: 36415; 80053; 82306; 82570; 82728; 83540; 83735; 83970; 84100; 84153; 84156; 84550; 85025

== ENCOUNTER 2025-02-22 09:58 | Outpatient (REF) | payer MEDICARE, SELFPAY ==
[2025-02-22 11:49] LABS: Prostate Specific Antigen 2.49 ng/mL (<0.05-4.0)
--- OUTSIDE RECORDS SUMMARY | 2025-02-22 11:51 | XMS_ITS ---
Author Name [facility] Organization Unknown Care Team Organization Name Specialty Phone Email Start Date End Da te [employer] 10/20/2024 10/25/2024
--- OUTSIDE RECORDS SUMMARY | 2025-02-22 11:51 | XMS_ITS | Clinical Summary ---
Author Organization [facility] Address [address] [place] [address] Care Team Providers Care Senior Power Scheduler Name Role Phone Talon Morin MD Primary Care Provider [phone] Social History Tobacco Use Types Packs/Day Years Used Date Smoking Tobacco: Never Assessed Sex and Gender Information Value Date Recorded Sex Assigned at Male 05/31/2023 1:22 PM EST Gender Identity Not on file Sexual Orientation Not on file Job Start Date Occupation Industry Not on file Not on file Not on file Plan of Treatment Not on file Care Teams Senior Power Scheduler Relationship Specialty Start Date End Date Talon Morin MD [address] [place] [address] PCP - General Internal Medicine 05/31/23
--- OUTSIDE RECORDS SUMMARY | 2025-02-22 11:51 | XMS_ITS | Encounter Summary ---
Author Organization [facility] Address [address] [place] [address] Care Team Providers Care Special Client Bus Driver Name Role Phone Talon Morin MD Primary Care Provider [phone] Encounter Details Date Type Department Care Team (Late st Contact Info) Description 12/09/2020 Pharmacist Visit [facility] [address] [place] [phone] Jessika Pedroza DMD [address] [place] [address] Social History Tobacco Use Types Packs/Day Years [...] Care Team (Late st Contact Info) Description 03/08/2025 10:20 AM EDT Office Visit [facility] [address] [place] [phone] Evita Ghosh RN [phone] [place] [address] documented as of this encounter Visit Diagnoses Diagnosis Prophylactic antibiotic- Primary Encounter for long-term (current) use of antibiotics documented in this encounter Additional Health Concerns Assessment Noted Time PHQ-9 Depression Total Score: 6 05/22/19 21 11:05 AM PST documented as of this encounter Care Teams Special Client Bus Driver Relationship Specialty Start Date End Date Talon Morin MD [address] [place] [address] PCP - General Internal Medicine 06/04/17 documented as of this encounter
--- OUTSIDE RECORDS SUMMARY | 2025-02-22 11:51 | XMS_ITS | Clinical Summary ---
Author Organization [facility] Address [address] [place] [address] Care Team Providers Care Insurance Adjuster Name Role Phone Talon Morin MD Primary Care Provider [phone] Source Comments PLEASE NOTE, if this patient is a minor, it may be UNLAWFUL to discuss sensitive information that is contained in these records (such as FAMILY PLANNING, MENTAL HEALTH or SUBSTANCE ABUSE) with the minor patient's parent or other person without the patient's specific authorization.[facility] Allergies No known active allergies Medications pen needle, diabetic (BD ULTRA-FINE DARION PEN NEEDLE) 32 gauge x ndleIndication s:Uncontrolled type 2 diabetes mellitus with stage 3 chronic kidney disease, with long-term current use of insulin Use BID with medications. DXE11.22 plz disregard previous script 100 Each 11 2 Active finasteride (PROSCAR) 5 mg tablet TAKE 1 TABLET BY MOUTH EVERY DAY FOR 90 DAYS Authorized by: KANG BURNHAM 3 Active lidocaine (LIDODERM) 5 % patchIndicatio ns:Left buttock pain Place 1 Patch onto the skin once daily (every 24 hours) Apply 1 patch to the affected area for a maximum of 12 hours, followed by removal for 12 hours. 90 Patch 4 Active GUM BASE gelIndications :Type 2 diabetes mellitus with hemoglobin A1c goal of less than 7.0% USE TO CHECK BLOOD SUGAR TWICE A DAY 100 g 5 5 Active atorvastatin (LIPITOR) 40 mg tabletIndicati ons:Hyperchole sterolemia Take 1 Tablet by mouth once daily. 90 Tablet 1 5 Active carvediloL (COREG) 25 mg tabletIndicati ons:Hypertensi on goal BP (blood pressure) < 130/80 Take 1 Tablet by mouth 2 (two) times daily with a meal. 180 Tablet 1 5 Active hydrALAZINE (APRESOLINE) 50 mg tablet Take 1 Tablet by mouth 3 (three) times daily for 90 days. 90 Tablet 2 5 Active lancetsIndicat ions:Type 2 diabetes mellitus with hemoglobin A1c goal of less than 7.0% Use to check BS twice a day. 100 Each 11 5 Active blood-glucose meter monitoring kitIndications :Type 2 diabetes mellitus with hemoglobin A1c goal of less than 7.0% as needed for blood glucose monitoring. 1 Each 5 Active blood sugar diagnostic strips 2 (two) times daily Use to test blood sugar once daily. 100 Each 3 5 Active alcohol swabs Apply topically 2 (two) times a day. 100 Each 1 5 Active aspirin [address] tablet Take 81 mg by mouth once daily. Active calcitrioL (ROCALTROL) 0.25 mcg capsule Take 0.5 mcg by mouth. 5 Active clopidogreL (PLAVIX) 75 mg tablet Take 75 mg by mouth. 5 Active LANTUS SOLOSTAR U-100 INSULIN 100 unit/mL (3 mL) pen INJECT 65 UNITS SUBCUTANEOUSLY EVERY DAY AT BEDTIME. ROTATE INJECTION SITES 5 Active Active Problems Problem Noted Date Diagnosed Date ESRD on hemodialysis 01/04/2025 Food insecurity 09/25/2024 Financial difficulties 09/25/2024 Housing problems 09/25/2024 Hypertensive renal disease 09/23/2020 Degenerative disc disease, lumbar 12/13/2018 Overview (12/13/2018): x-ray back = Moderate degeneratiive changes with disc space narrowing L5 and S 1 Referred to [facility] Hypogonadism in male 08/05/2018 Overview (08/05/2018): Sees Urology Chest pain on breathing 03/11/2018 Overview (03/11/2018): [facility] Young 03/01/18 for right sided chest pain. EKG and blood test were normal. Exercise Stress Test normal. 2 D Echo normal.EF 55 % Eye exam and vision examination 07/09/2017 Overview (07/09/2017): [facility] 07/06/17 Bilateral: corneal arcus Bilateral: pinguecula Condition is stable . Epiphora resolved Left eye: Cortical cataract Condition is stable Bilateral : nuclear sclerotic cataract Condition is stable No macular edema, no INSOLE AND OUTSOLE SPLITTER/HTN retinopathy , Anisometropia Myopia OD Hyperopia OS Astigmatism Prebyopia Other male erectile dysfunction 06/21/2017 H/O CT scan of chest 03/12/2017 [facility] (06/18/2017[facility] 02/05/2017 Stable nodules f/u 2yrs Please see note Diabetic neuropathy associat ed with type 2 diabetes mellitus 10/10/2016 Overview (10/10/2016): Of feet Onychomycosis 10/10/2016 Overview (10/10/2016): Followed by podiatry Syncope and collapse 01/24/2016 Overview (03/02/2016): Transthoracic echo done 02/14/16, indicates normal left ventricular function with EF 55-60%, mild mitral calcification, , thickened aortic valve leaflets without stenosis or insufficiency, trace mitral regurgitation Hospital discharge follow-up 01/24/2016 Essential hypertension 04/17/2015 CKD (chronic kidney disease) 09/19/2014 Overview (12/12/2014): Sees Assistant Laboratory Director Hypercholesterolemia 03/22/2014 Status post total knee replacement 02/14/2013 Overview (12/12/2014): Right knee 2 years ago Osteoarthritis 12/20/2012 Hypertension goal BP (blood pressure) < 130/80 0 12/20/2012 Uncontrolled type 2 diabetes mellitus with stage 3 chronic kidney disease, with long-term current use of insulin ([facility]) 12/20/2012 Type 2 diabetes mellitus wit h hemoglobin A1c goal of less than 7.0% 12/20/2012 Overview (02/03/2016): Patient sees podiatry last visit- 01/28/16 Obesity, Class I, BMI 30-34.9 12/20/2012 Hepatitis B immune 12/20/2012 Hepatitis A immune 12/20/2012 Encounters Date Type Department Care Team Description 01/04/2025 4:40 PM EDT Office Visit [address] [address] Lit Antony FNP-C from Last 3 Months Immunizations Immunization Administration Dates Next Due PFIZER COVID VACCINE, PURPLE CAP, + 06/05/2021 ,11/27/2020,11/06/2020 Pfizer COVID vaccine, COMIRN ATY, freeman cap, 06/05/2021 Family History Medical History Relation Name Comments Diabetes Brother Hypertension Father Hypertension Mother Diabetes Sister Relation Name Status Comments Brother Alive Father Mother Sister Alive Social History Tobacco Use Types Packs/Day Years Used Date Smoking Tobacco: Never Passive Smoke Exposure: Never Smokeless Tobacco: Never Tobacco Cessation:Counseling Given: Not Answered Alcohol Use Standard Drinks/Week Comments Yes 1.7 (1 standard drink = 0.6 oz p ure alcohol) Occasional Social Connections Answer Date Recorded How often do you feel lonely or isolated from th ose around you? 1 09/25/2024 Financial Resource Strain Answer Date R ecorded Hard to pay for: Food 2 09/25/2024 Stress Answer Date Recorded Do you feel these kinds of stress these days? 1 09/25/2024 Physical Activity Answer Date Recorded Physical Activity 0 12/29/2018 Food Insecurity Answer Date Recorded Hard to pay for: Food 2 09/25/2024 Transportation Needs Answer Date Record ed Hard to pay for: Transportation 1 09/25/2024 Housing Stability Answer Date Recorded Hard to pay for: Rent/Mortgage payment 2 09/25/2024 Safety and Environment Answer Date Anuel rded Safety 0 05/21/2021 Utilities Answer Date Recorded Hard to pay for: Utilities 1 09/25 Employment Answer Date Recorded Stress 0 07/28/2021 Sex and Gender Information Value Date Recorded Sex Assigned at Male 04/16/2017 11:33 AM PST Legal Sex Male 11:36 AM PDT Gender Identity Male 04/16/2017 11:33 AM PST Sexual Orientation Straight 04/16/2017 11 :33 AM PST Last Filed Vital Signs Vital Sign Reading Time Taken Comments Blood Pressure 148/66 01/04/2025 4:44 PM EDT Pulse 81 01/04/2025 4:44 PM EDT Temperature 36.5 C (97.7 F) 01/04/2025 4:44 PM EDT Respiratory Rate 26 01/04/2025 4:44 PM EDT Oxygen Saturation 97% 11/17/2024 1:12 PM EDT Inhaled Oxygen Concentration - - Weight 92.1 kg (203 lb) 01/04/2025 4:44 PM EDT Height 172.7 cm (5' 8 ) 01/04/2025 4:44 PM EDT Body Mass Index 30.87 01/04/2025 4:44 PM EDT Plan of Treatment Upcoming Encounters Date Type Department Care Team (Late st Contact Info) Description 03/08/2025 10:20 AM EDT Office Visit [facility] [address] [place] [address] Evita Ghosh RN [phone] [place] [address] Health Maintenance Due Date Last Done Comments Dental Examination 1950 Medicare Annual Wellness Visit 1970 CT Colonography 1997 FIT/gFOBT 1997 Fecal DNA 1997 Flexible Sigmoidoscopy 1997 Hepatitis C Screening 01/14/2018 01/14/2017 Colonoscopy 09/10/2021 09/10/2016, 08/08 (Managed by Outside Provider), 11/03/2010 Colorectal Cancer Screening 09/10/2021 [id number] ( season) 2025 06/05/2021, 06/05/2021, 11/27/2020, Additional history exists Hemoglobin A1c 08/08/2025 02/07/2025, 1005/2024, 11/30/2024, Additional history exists Diabetes Foot Exam 08/30/2025 08/30/2024, 0 06/25/2023, 12/11/2020, Additional history exists Falls Prevention 08/30/2025 08/30/2024, , 03/25/2023, Additional history exists Tobacco Screening 01/04/2026 01/04/2025 Lipid Screening 02/07/2026 02/07/2025, 11/08, 10/27/2024, Additional history exists Retinopathy Screening 02/20/2026 02/20/2025 , 03/22/2023, 07/06/2017, Additional history exists Imm-Influenza Discontinued 03/22/2014 (Declined) Alcohol and Drug Screen Completed 08/31/19 25, 06/25/2023, 03/25/2023, Additional history exists Depression Annual Screen Completed 025, 06/25/2023, 02/21/2018 Imm-DTaP/Tdap/Td Discontinued Imm-Pneumococcal 50+ Discontinued Imm-Zoster, Recombinant Discontinued Procedures Procedure Name Priority Date/Time Associated Diagnosis Comments REFERRAL TO OPHTHALMOLOGY Routine 02/20/2025 3:00 AM EDT Type 2 diabetes mellitus with hemoglobin A1c goal of less than 7.0% REFERRAL TO HOME HEALTH CARE Routine 01/05/2025 3:00 AM EDT Acute on chronic diastolic heart failure ([facility]) ESRD on hemodialysis ([facility]) Type 2 diabetes mellitus with hemoglobin A1c goal of less than 7.0% ([facility]) MEDICATIONS SCANNED DOCUMENT 12/08/2024 3:00 AM EDT LIPIDS W RFLX TO DIRECT LDL Routine 10/27/2024 11:16 AM EDT Hypertension goal BP (blood pressure) < 130/80 HGA1C W/EAG Routine 10/27/2024 11:16 AM EDT Hypertension goal BP (blood pressure) < 130/80 REFERRAL TO PODIATRY Routine 12/11/2020 12:00 AM EDT Uncontrolled type 2 diabetes mellitus with stage 3 chronic kidney disease, with long-term current use of insulin ([facility]) HEPATITIS A,B,C PANEL Routine 01/14/2017 11:06 AM EDT Liver disease from Last 3 Months or Most Recently Relevant to Health Maintenance Results * REFERRAL TO OPTHALMOLOGY (02/20/2025 3:00 AM EDT) 02/20/2025 3:00 AM EDT us Lit Antony SHAREPOINT SPECIALIST-C REFERRAL Final Res ult * REFERRAL TO HOME HEALTH CARE (01/05/2025 3:00 AM EDT) 01/05/2025 3:00 AM EDT us Lit Antony SHAREPOINT SPECIALIST-C REFERRAL Final Res ult * MEDICATIONS SCANNED DOCUMENT (12/08/2024 3:00 AM EDT) 12/08/2024 3:00 AM EDT [facility] Provider Default SCAN MEDS OTHER ORDERS Fin al Result * (ABNORMAL) LIPIDS W RFLX TO DIRECT LDL Routine (10/27/2024 11:16 AM EDT) CHOLESTEROL, TOTAL 169 <200 mg/dL [employer] [facility] HDL CHOLESTEROL 41 > OR = 40 mg/dL [employer] [facility] TRIGLYCERIDES 149 <150 mg/dL [employer] [facility] LDL-CHOLESTEROL 103(H) 99 mg/dL (calc) [employer] [facility] Comment: Reference range: <100 Desirable range <100 mg/dL for primary prevention; <70 mg/dL for patients with CHD or diabetic patients with > or = 2 CHD risk factors. LDL-C is now calculated using the Carlos calculation, which is a validated novel method providing better accuracy than the Friedewald equation in the estimation of LDL-C. Alan LEZAMA et al. RICK. 2013;310(19): 7408-8209 (http://education.[employer]/faq/BGP031) CHOL/HDLC RATIO 4.1 <5.0 (calc) [facility] NON-HDL CHOLESTEROL 128 <130 mg/dL (calc) [employer] Comment: For patients with diabetes plus 1 major ASCVD risk factor, treating to a non-HDL-C goal of <100 mg/dL (LDL-C of <70 mg/dL) is considered a therapeutic option. Blood Blood / Unknown 10/27/2024 1 1:16 AM EDT 10/27/2024 11:17 AM EDT Narrative [facility] - 10/28/2024 9:12 AM EDT FASTING:NO PATIENT UNABLE TO VOID; ADVISED TO RETURN FOR COLLECTION. [facility] - BLOOD DRAW Fin al Result [employer] [facility] [place] [facility] [address] [place] [id number], [employer] [facility] [address] [address] * REFERRAL TO PODIATRY (12/11/2020 12:00 AM EDT) 12/11/2020 Talon Morin MD REFERRAL Edited Result - Final * (ABNORMAL) HEPATITIS A,B,C PANEL (01/14/2017 11:06 AM EDT) HEPATITIS B SURFACE ANTIBODY POSITIVE(A) NEGATIVE [facility] HEPATITIS B SURFACE ANTIGEN NEGATIVE NEGATIVE [facility] Comment: Over the counter supplements containing high doses of biotin may interfere with this assay. If interference is suspected, patients shoud be retested after refraining from biotin supplements for 72 hours. HEPATITIS C VIRUS DIAGNOSTIC NEGATIVE NEGATIVE [facility] HEPATITIS A ANTIBODY TOTAL POSITIVE(A) NEGATIVE [facility] Comment: Over the counter supplements containing high doses of biotin may interfere with this assay. If interference is suspected, patients shoud be retested after refraining from biotin supplements for 72 hours. HEPATITIS B CORE ANTIBODY NEGATIVE NEGATIVE [facility] Blood specimen (specimen) Blood / Unknown 01/14/2017 11:06 AM EDT 01/14/2017 1:16 PM EDT Narrative [facility] - 01/14/2017 4:14 PM EDT [facility] [address] [place] [address] [place] [id number] ORD# [id number] [facility] - BLOOD DRAW Edited Resul t - Final [facility] [address] [place] [address], from Last 3 Months or Most Recently Relevant to Health Maintenance Insurance [employer] NET DENTAL MEDICAID [address] [address] [place] [phone] [employer] MEDICARE Care Teams Insurance Adjuster Relationship Specialty Start Date End Date Talon Morin MD [address] [place] [address] PCP - General Internal Medicine 06/04/17
== END 2025-02-22 09:59 | disposition home or self-care (01) ==
LOC: HO.LAB 09:58
PROVIDERS: Visit Provider Urology
DX: Z12.5 Encounter for screening for malignant neoplasm of prostate (principal)
CPT/HCPCS: 36415; 84153

== ENCOUNTER 2025-02-27 10:44 | Outpatient (AMB) | payer MEDICARE, MEDICAID, SELFPAY ==
--- NOTE | 2025-02-27 10:51 | MHC.OFFVIS ---
Intake Visit Reasons: follow up/PSA Intake Note: Patient is Present for: follow up Urology Med: Finasteride Blood Thinner: Aspirin labs done 02/22/25: PSA 2.49 Electrical Maintenance Engineer Required: No Accompanied by: Self / Same As Patient Allergies No Known Allergies Allergy (Verified 02/27/25 10:53) HPI Comments Details: Damon is a very pleasant male. He is a patient of Dr. Morin. He seen for the following urologic conditions - erectile dysfunction - variable PSA Continued benefit from PSA Now on dialysis We will continue Twelve month follow-up Labs - 03/31 T 448 P 7.0, 07/30 T 525 P 3.9, 03/03 2.5 Lower urinary tract symptoms Does have some weakness of stream, nocturia. Positive benefit from finasteride On dialysis Erectile dysfunction Has background of insulin-dependent diabetes Previously failed oral medications Denies prior heart attacks or other complications from diabetes Information provided regarding penile pumps Has not tried high-dose tadalafil protocol Prescribed 10 mg daily tadalafil with 100 mg sildenafil on demand PFSH Medical History CAD (coronary artery disease) HLD (hyperlipidemia) Anemia of chronic disease Hypogonadism in male OA (osteoarthritis) Diabetes mellitus, type II Onychomycosis Hypertension, benign Kidney disease Dysuria Surgical History Hx of cardiac cath Family History Father No problems noted. Social History Household Members: None Housing: Apartment Do you presently have visiting nurse or other home services: No Comment: pain R knee w ADLs Patient Tobacco Use Status: Never used Tobacco service: No Review of Systems Const Denies chills and Denies fever(s) Card Reports no additional complaints and Denies syncope Resp Denies cough GI Denies abdominal pain and Denies heartburn Reports as per HPI and Denies change in libido Neuro Denies syncope Psych Denies change in libido Endo Denies change in libido Physical Exam Const General: cooperative, healthy appearing, comfortable and no acute distress Orientation/consciousness: patient oriented x3 HEENT Face and sinus: Yes normal facial exam Mouth: moist mucous membranes Neck Neck: Yes normal visual inspection, Yes full ROM and Yes trachea midline Chest Chest palpation & inspection: normal inspection of the chest Resp Effort & Inspection: normal respiratory effort, able to speak in complete sentences and no respiratory distress GI Inspection: Yes normal to inspection Back/Spine/Pelvis Cervical Spine: normal cervical lordosis Thoracic/Lumbar Spine: thoracic and lumbar spine normal to inspection Skin General skin exam: no rashes or lesions noted Neuro General: patient oriented x3, gait normal, tone normal and moves all extremities Extrem General: Yes normal to inspection and Yes capillary refill normal Assessment & Plan Assessment & Plan (1) Elevated PSA: Code(s): R97.20 - Elevated prostate specific antigen [PSA] Category: Medical (2) Bladder outlet obstruction: Code(s): N32.0 - Bladder-neck obstruction Category: Medical Plan Twelve month follow-up PSA Orders: Orders Prostate Specific Antigen 12 Months R97.20 - Elevated prostate specific antigen [PSA] Medications: Refilled finasteride 5 mg PO DAILY 90 tabs 3RF 90 days N13.8 - Other obstructive and reflux uropathy, N40.1 - Benign prostatic hyperplasia with lower urinary tract symptoms, R97.20 - Elevated prostate specific antigen [PSA] Patient Instructions: This note is constructed using voice recognition software. While every effort has been made to ensure accuracy client technical support associate errors may have been included. Imaging studies, laboratory and physical exam results were discussed and reviewed in detail. No major barriers to patient understanding were identified. An opportunity to ask questions regarding the treatment plan was provided. All questions were answered. The patient expressed understanding and agreement with the above treatment plan. The patient is aware they should contact our office by phone for worsening of their current condition or the appearance of new urologic symptoms. Compliance is encouraged with any medications and followup testing that is ordered. It is a privilege to participate in the urologic care of your patient. If you have any questions or concerns regarding treatment for the above conditions, or other urologic issues, please do not hesitate to contact me. The office telephone contact is [phone]. Sincerely, Dr Loki Wood MD, [facility] - Urology Compassionate Specialist Care for the Genitourinary System Coding Level of Care Code Est Pt Level 3 (88899) Complex EM visit Add On G2211 Diagnoses Elevated PSA R97.20 Bladder outlet obstruction N32.0
--- OUTSIDE RECORDS SUMMARY | 2025-02-27 12:56 | XMS_ITS | Encounter Summary ---
Author Organization [facility] Address [address] [place] [address] Phone Care Team Providers Care Financial Writer Name Role Phone Talon Morin MD Primary Care Provider [phone] Encounter Details Date Type Department Care Team (Late st Contact Info) Description 11/30/2024 TCM in Dialysis Clinic [facility] [address] [place] [address] Gi Garay MD [address] [place] [address] Social History Tobacco Use Types Packs/Day Years Used Date Smoking Tobacco: Never Smokeless Tobacco: Never Alcohol Use Standard Drinks/Week Comments Yes 0 (1 standard drink = 0.6 oz pure alcohol) Alcoholic Drinks/day: Occasional social drink Sex and Gender Information Value Date Recorded Sex Assigned at Not on file Legal Sex Male 4:40 PM EST Gender Identity Not on file Sexual Orientation Not on file documented as of this encounter Progress Notes * Gi Garay MD - 11/30/2024 12:00 AM EDT Patient: Damon Escalante : 1950 Note Type: Dialysis TCM Service Date: 11/30/2024 The patient was seen for a vxpo-na-mbok visit as part of Transitional Care Management services. Attending Screen Printing Stencil Preparer: GI GARAY MD Dialysis Location: [facility] Schedule: Shift: 2 INTERACTIVE CONTACT This cody-fk-hmkg visit occurred within 2 business days of the patient?s discharge. HOSPITALIZATION SUMMARY Patient transitioned from: Hospital Patient transitioned to: Home Admit Date: 11/18/2024 Discharge Date: 11/28/2024 HOME MEDICATIONS Discharge med list reviewed - changes reconciled and discussed with patient. Active treatment medication orders reviewed with changes noted. PHYSICAL EXAM Exam not performed. DIALYSIS PRESCRIPTION Dry weight during admission reviewed - no change to EDW. CARE COORDINATION Post-discharge follow-up appointments reviewed with the patient. VISIT DIAGNOSES CPT Code 20054 - High complexity, seen within 7 days of discharge. N18.6 End stage renal disease Signed by: GI GARAY MD on 11/30/2024 at 12:35:19 PM Transcribed by: GI GARAY MD on 11/30/2024 at 12:35:19 PM documented in this encounter Plan of Treatment Not on file documented as of this encounter Visit Diagnoses Not on filedocumented in this encounter Care Teams Financial Writer Relationship Specialty Start Date End Date Talon Morin MD [facility] [place] [phone] PCP - General 05/20/20 documented as of this encounter
--- OUTSIDE RECORDS SUMMARY | 2025-02-27 12:57 | XMS_ITS | Clinical Summary ---
Author Organization [facility] Address [address] [place] [address] Care Team Providers Care Knockout Worker Name Role Phone Talon Morin MD Primary Care Provider [phone] Social History Tobacco Use Types Packs/Day Years Used Date Smoking Tobacco: Never Assessed Sex and Gender Information Value Date Recorded Sex Assigned at Male 05/31/2023 1:22 PM EST Gender Identity Not on file Sexual Orientation Not on file Job Start Date Occupation Industry Not on file Not on file Not on file Plan of Treatment Not on file Care Teams Knockout Worker Relationship Specialty Start Date End Date Talon Morin MD [address] [place] [address] PCP - General Internal Medicine 05/31/23
--- OUTSIDE RECORDS SUMMARY | 2025-02-27 12:57 | XMS_ITS | Clinical Summary ---
Author Organization [facility] Address [address] [place] [address] Phone Care Team Providers Care Display Coordinator Name Role Phone Talon Morin MD Primary Care Provider [phone] Allergies No known active allergies Medications carvedilol (COREG) 6.25 MG tablet Take 1 tablet by mouth in the morning and 1 tablet in the evening. 09/08/2018 Active insulin glargine (Lantus) 100 UNIT/ML injection Active finasteride (PROSCAR) 5 MG tablet Take 1 tablet by mouth 1 (one) time each day 05/08/2022 Active aspirin (ST CORDELIA) 81 MG EC tablet Take 81 mg by mouth 09/02/2023 Active hydrALAZINE 50 MG tablet Take 50 mg by mouth 08/01/2024 Active losartan (COZAAR) 100 MG tablet Take 100 mg by mouth 1 (one) time each day Active celecoxib (CeleBREX) 200 MG capsule Take 200 mg by mouth in the morning and 200 mg in the evening. Active clopidogrel (PLAVIX) 75 MG tablet Take 75 mg by mouth 1 (one) time each day Active torsemide (DEMADEX) 20 MG tablet Take 3 tablets (60 mg total) by mouth 1 (one) time each day 90 tablet 3 12/20/2024 5 Active B complex-vitamin C-folic acid (NEPHRO-GISELA) 0.8 MG tablet Take 1 tablet by mouth 1 (one) time each day 30 tablet 3 01/12/2025 6 Active Active Problems Problem Noted Date Diagnosed Date Financial problem 09/25/2024 Congestive heart failure, not otherwise specifie d 08/22/2024 Anemia in chronic kidney disease 04/20/2023 Iron deficiency anemia, not otherwise specified 04/20/2023 Vitamin D deficiency, not otherwise specified Secondary hyperparathyroidism 04/20/2023 Stage 5 chronic kidney disease 06/25/2022 Hypertension 12/17/2020 Hypertensive nephrosclerosis 09/23/2020 Resolved Problems Problem Noted Date Diagnosed Date Resolved Date Aortic valve stenosis 08/22/20242024 Screening status 06/25/2022 04/19/2023 Degeneration of lumbar intervertebral disc 12/13/2018 12/17/2020 Overview (12/17/2020): x-ray back = Moderate degeneratiive changes with disc space narrowing L5 and S 1 Referred to [facility] Male hypogonadism 08/05/2018 12/17/2020 Overview (12/17/2020): Sees Urology Chest pain on breathing 03/11/201812/08 Overview (12/17/2020): KRISTIN Young 03/01/18 for right sided chest pain. EKG and blood test were normal. Exercise Stress Test normal. 2 D Echo normal.EF 55 % Other male erectile dysfunction 06/21/2017 12/17/2020 History of procedure 03/12/2017 021 Overview (02/08/2024): [facility] CT chest 02/05/2017 Stable nodules f/u 2yrs [...] Chronic kidney disease 09/19/201404/19 Overview (12/17/2020): Sees [employer] [facility] Hypercholesterolemia 03/22/2014 021 History of total knee arthroplasty 02/14/2013 12/17/2020 Overview (12/17/2020): Right knee 2 years ago Essential hypertension 12/20/201210/22 Obese class I 12/20/2012 12/17/2020 Osteoarthritis 12/20/2012 12/17/2020 Other specified health status 12/20/2012 12/17/2020 Diabetes mellitus 12/20/2012 08/14/2021 Overview (08/14/2021): Patient sees podiatry last visit- 01/28/16 Encounters Date Type Department Care Team Description 02/26/2025 Treatment [facility] [address] [facility] [address] [place] [address] Johnson Wagner MD End stage renal disease; Dependence on renal dialysis 02/21/2025 Treatment [facility] [address] [facility] [address] [place] [address] Johnson Wagner MD End stage renal disease; Dependence on renal dialysis 02/12/2025 Treatment [facility] [address] [phone] Johnson Wagner MD End stage renal disease; Dependence on renal dialysis 02/07/2025 Treatment [facility] [address] [phone] Johnson Wagner MD End stage renal disease; Dependence on renal dialysis 01/29/2025 Treatment [facility] [address] [phone] Johnson Wagner MD End stage renal disease; Dependence on renal dialysis 01/22/2025 Treatment [facility] [address] [phone] Johnson Wagner MD End stage renal disease; Dependence on renal dialysis 01/15/2025 Treatment [facility] [address] [phone] Johnson Wagner MD End stage renal disease; Dependence on renal dialysis 01/12/2025 Orders Only [facility] [address] [place] [phone] Savanah Torres RN 01/10/2025 Treatment [facility] [address] [phone] Johnson Wagner MD End stage renal disease; Dependence on renal dialysis 01/02/2025 Treatment [facility] [address] [phone] Hipolito Hair MD End stage renal disease; Dependence on renal dialysis 12/26/2024 Treatment [facility] [address] [phone] Hipolito Hair MD End stage renal disease; Dependence on renal dialysis 12/21/2024 Treatment [facility] [address] [phone] Hipolito Hair MD End stage renal disease; Dependence on renal dialysis 12/20/2024 Orders Only [facility] [address] [place] [phone] Savanah Torres RN 12/19/2024 Treatment [facility] [address] [phone] Hipolito Hair MD End stage renal disease; Dependence on renal dialysis 12/12/2024 Treatment [facility] [address] [phone] Hipolito Hair MD End stage renal disease; Dependence on renal dialysis 12/05/2024 Treatment [facility] [address] [phone] Hipolito Hair MD End stage renal disease; Dependence on renal dialysis 11/30/2024 TCM in Dialysis Clinic [facility] [address] [phone] Hipolito Hair MD 11/30/2024 Treatment [facility] [address] [phone] Hipolito Hair MD End stage renal disease; Dependence on renal dialysis from Last 3 Months Immunizations Immunization Administration Dates Next Due Pfizer SARS-COV-2 06/05/2021,11/27/2020,11/07/19 [...] Sign Reading Time Taken Comments Blood Pressure 122/70 08/22/2024 8:53 AM EDT Pulse 83 08/22/2024 8:53 AM EDT Temperature - - Respiratory Rate - - Oxygen Saturation 95% 08/22/2024 8:53 AM EDT Inhaled Oxygen Concentration - - Weight 101 kg (223 lb) 08/22/2024 8:53 AM EDT Height 174 cm (5' 8.5 ) 03/24/2022 2:30 PM EST Body Mass Index 33.41 03/24/2022 2:30 PM EST Plan of Treatment Health Maintenance Due Date Last Done Comments Pneumococcal Vaccine: 50+ Ye ars (1 of 2 - PCV) 09/23/1971 Hepatitis B Vaccine (1 of 5 - Risk Dialysis 4-dose series) 1972 Colorectal Cancer Screening: Annual FOBT 2001 Colorectal Cancer Screening: Colonoscopy 2001 Colorectal Cancer Screening: Sigmoidoscopy 2001 Diabetes: Ophthalmology Exam 07/29/2024 Diabetes: Pedal Pulse Checked 07/29/2024 Diabetes: Sensory Foot Exam 07/29/2024 Diabetes: Visual Foot Exam 07/29/2024 Influenza Vaccine (#1) 2025 Diabetes: Hemoglobin A1C 05/10/2025 025, 11/30/2024, 10/27/2024, Additional history exists Procedures Procedure Name Priority Date/Time Associated Diagnosis Comments PHOSPHATE ( PHOSPHORUS) Routine 02/23/2025 3:00 AM EDT [facility] () Routine 02/23/2025 3:00 AM EDT HEMOGLOBIN AND HEMATOCRIT, BLOOD Routine 02/21/2025 3:00 AM EDT HEMOGLOBIN Routine 02/14/2025 3:00 AM EDT [facility] () Routine 02/14/2025 3:00 AM EDT POTASSIUM Routine 02/14/2025 3:00 AM EDT HEMOGLOBIN A1C Routine 02/07/2025 3:00 AM EDT TRANSFERRIN SATURATION Routine 02/07/2025 3:00 AM EDT PROTEIN, TOTAL, SERUM Routine 02/07/2025 3:00 AM EDT MAGNESIUM Routine 02/07/2025 3:00 AM EDT ELECTROLYTE PANEL Routine 02/07/2025 3:0 0 AM EDT LIPID PANEL Routine 02/07/2025 3:00 AM EDT [facility] (HC) Routine 02/07/2025 3:00 AM EDT LACTATE DEHYDROGENASE Routine 02/07/2025 3:00 AM EDT CREATININE, SERUM Routine 02/07/2025 3:0 0 AM EDT GLUCOSE, RANDOM Routine 02/07/2025 3:00 AM EDT BILIRUBIN, TOTAL Routine 02/07/2025 3:00 AM EDT BUN/CREATININE RATIO Routine 02/07/2025 3:00 AM EDT ALT Routine 02/07/2025 3:00 AM EDT AST Routine 02/07/2025 3:00 AM EDT ALKALINE PHOSPHATASE Routine 02/07/2025 3:00 AM EDT CALCIUM PHOSPHORUS PRODUCT, ADJUSTED (HC) Routine 02/07/2025 3:00 AM EDT PTH, INTACT Routine 02/07/2025 3:00 AM EDT FERRITIN Routine 02/07/2025 3:00 AM EDT RETICULOCYTES Routine 02/07/2025 3:00 AM EDT KT/V NATURAL LOG, URR () Routine 02/07/2025 3:00 AM EDT CBC AND DIFFERENTIAL Routine 02/07/2025 3:00 AM EDT HEMOGLOBIN AND HEMATOCRIT, BLOOD Routine 01/24/2025 3:00 AM EDT [facility] () Routine 01/17/2025 3:00 AM EDT PHOSPHATE ( PHOSPHORUS) Routine 01/17/2025 3:00 AM EDT Stage 5 chronic kidney disease (HCC) Anemia in chronic kidney disease Essential hypertension Hypertension Hypertensive nephrosclerosis Iron deficiency anemia, not otherwise specified Secondary hyperparathyroidism (HCC) Vitamin D deficiency, not otherwise specified Congestive heart failure, not otherwise specified (HCC) FERRITIN Routine 01/12/2025 3:00 AM EDT TRANSFERRIN SATURATION Routine 01/12/2025 3:00 AM EDT PROTEIN, TOTAL, SERUM Routine 01/12/2025 3:00 AM EDT MAGNESIUM Routine 01/12/2025 3:00 AM EDT ELECTROLYTE PANEL Routine 01/12/2025 3:0 0 AM EDT LI[facility] () Routine 01/12/2025 3:00 AM EDT GLUCOSE, RANDOM Routine 01/12/2025 3:00 AM EDT CREATININE, SERUM Routine 01/12/2025 3:0 0 AM EDT LACTATE DEHYDROGENASE Routine 01/12/2025 3:00 AM EDT BUN/CREATININE RATIO Routine 01/12/2025 3:00 AM EDT BILIRUBIN, TOTAL Routine 01/12/2025 3:00 AM EDT AST Routine 01/12/2025 3:00 AM EDT ALKALINE PHOSPHATASE Routine 01/12/2025 3:00 AM EDT ALT Routine 01/12/2025 3:00 AM EDT CALCIUM PHOSPHORUS PRODUCT, ADJUSTED (HC) Routine 01/12/2025 3:00 AM EDT PTH, INTACT Routine 01/12/2025 3:00 AM EDT KT/V NATURAL LOG, URR (HC) Routine 01/12/2025 3:00 AM EDT CBC AND DIFFERENTIAL Routine 01/12/2025 3:00 AM EDT HEMOGLOBIN Routine 01/04/2025 3:00 AM EDT LI[facility] (HC) Routine 01/04/2025 3:00 AM EDT POTASSIUM Routine 01/04/2025 3:00 AM EDT [facility] (HC) Routine 12/28/2024 3:00 AM EDT POTASSIUM Routine 12/28/2024 3:00 AM EDT HEMOGLOBIN AND HEMATOCRIT, BLOOD Routine 12/28/2024 3:00 AM EDT LI[facility] (HC) Routine 12/21/2024 3:00 AM EDT POTASSIUM Routine 12/21/2024 3:00 AM EDT TRANSFERRIN SATURATION Routine 12/14/2024 3:00 AM EDT PROTEIN, TOTAL, SERUM Routine 12/14/2024 3:00 AM EDT MAGNESIUM Routine 12/14/2024 3:00 AM EDT ELECTROLYTE PANEL Routine 12/14/2024 3:0 0 AM EDT LACTATE DEHYDROGENASE Routine 12/14/2024 3:00 AM EDT GLUCOSE, RANDOM Routine 12/14/2024 3:00 AM EDT LI[facility] (HC) Routine 12/14/2024 3:00 AM EDT CREATININE, SERUM Routine 12/14/2024 3:0 0 AM EDT BUN/CREATININE RATIO Routine 12/14/2024 3:00 AM EDT AST Routine 12/14/2024 3:00 AM EDT BILIRUBIN, TOTAL Routine 12/14/2024 3:00 AM EDT ALT Routine 12/14/2024 3:00 AM EDT CALCIUM PHOSPHORUS PRODUCT, ADJUSTED (HC) Routine 12/14/2024 3:00 AM EDT ALKALINE PHOSPHATASE Routine 12/14/2024 3:00 AM EDT FERRITIN Routine 12/14/2024 3:00 AM EDT PTH, INTACT Routine 12/14/2024 3:00 AM EDT CBC AND DIFFERENTIAL Routine 12/14/2024 3:00 AM EDT KT/V NATURAL LOG, URR (HC) Routine 12/14/2024 3:00 AM EDT HEMOGLOBIN AND HEMATOCRIT, BLOOD Routine 12/12/2024 3:00 AM EDT HEMOGLOBIN Routine 12/07/2024 3:00 AM EDT LI[facility] (HC) Routine 12/07/2024 3:00 AM EDT POTASSIUM Routine 12/07/2024 3:00 AM EDT ALUMINUM LEVEL Routine 11/30/2024 3:00 AM EDT HEMOGLOBIN A1C Routine 11/30/2024 3:00 AM EDT RETICULOCYTES Routine 11/30/2024 3:00 AM EDT HEPATITIS B CORE AB TOTAL Routine 11/30/2024 3:00 AM EDT HEPATITIS C ABS W/REFLEX RNA DETECTR Routine 11/30/2024 3:00 AM EDT CONFIRMATION TEST HCV Routine 11/30/2024 3:00 AM EDT HEPATITIS B SURFACE ANTIGEN W/REFL CONFIRM Routine 11/30/2024 3:00 AM EDT TRANSFERRIN SATURATION Routine 11/30/2024 3:00 AM EDT PROTEIN, TOTAL, SERUM Routine 11/30/2024 3:00 AM EDT LIPID PANEL Routine 11/30/2024 3:00 AM EDT ELECTROLYTE PANEL Routine 11/30/2024 3:0 0 AM EDT LACTATE DEHYDROGENASE Routine 11/30/2024 3:00 AM EDT LIH (HC) Routine 11/30/2024 3:00 AM EDT CREATININE, SERUM Routine 11/30/2024 3:0 0 AM EDT GLUCOSE, RANDOM Routine 11/30/2024 3:00 AM EDT BILIRUBIN, TOTAL Routine 11/30/2024 3:00 AM EDT BUN/CREATININE RATIO Routine 11/30/2024 3:00 AM EDT ALKALINE PHOSPHATASE Routine 11/30/2024 3:00 AM EDT ALT Routine 11/30/2024 3:00 AM EDT CALCIUM PHOSPHORUS PRODUCT, ADJUSTED (HC) Routine 11/30/2024 3:00 AM EDT AST Routine 11/30/2024 3:00 AM EDT HEPATITIS B SURFACE ANTIBODY QUANT Routine 11/30/2024 3:00 AM EDT KT/V NATURAL LOG, URR (HC) Routine 11/30/2024 3:00 AM EDT FERRITIN Routine 11/30/2024 3:00 AM EDT Stage 5 chronic kidney disease (HCC) Anemia in chronic kidney disease Essential hypertension Hypertension Hypertensive nephrosclerosis Iron deficiency anemia, not otherwise specified Secondary hyperparathyroidism (HCC) Vitamin D deficiency, not otherwise specified Congestive heart failure, not otherwise specified (HCC) CBC AND DIFFERENTIAL Routine 11/30/2024 3:00 AM EDT Stage 5 chronic kidney disease (HCC) Anemia in chronic kidney disease Essential hypertension Hypertension Hypertensive nephrosclerosis Iron deficiency anemia, not otherwise specified Secondary hyperparathyroidism (HCC) Vitamin D deficiency, not otherwise specified Congestive heart failure, not otherwise specified (HCC) VITAMIN D 25 HYDROXY Routine 11/30/2024 3:00 AM EDT Stage 5 chronic kidney disease (HCC) Anemia in chronic kidney disease Essential hypertension Hypertension Hypertensive nephrosclerosis Iron deficiency anemia, not otherwise specified Secondary hyperparathyroidism (HCC) Vitamin D deficiency, not otherwise specified Congestive heart failure, not otherwise specified (HCC) PTH, INTACT Routine 11/30/2024 3:00 AM EDT Stage 5 chronic kidney disease (HCC) Anemia in chronic kidney disease Essential hypertension Hypertension Hypertensive nephrosclerosis Iron deficiency anemia, not otherwise specified Secondary hyperparathyroidism (HCC) Vitamin D deficiency, not otherwise specified Congestive heart failure, not otherwise specified (HCC) MAGNESIUM Routine 11/30/2024 3:00 AM EDT Stage 5 chronic kidney disease (HCC) Anemia in chronic kidney disease Essential hypertension Hypertension Hypertensive nephrosclerosis Iron deficiency anemia, not otherwise specified Secondary hyperparathyroidism (HCC) Vitamin D deficiency, not otherwise specified Congestive heart failure, not otherwise specified (HCC) URIC ACID Routine 11/30/2024 3:00 AM EDT Stage 5 chronic kidney disease (HCC) Anemia in chronic kidney disease Essential hypertension Hypertension Hypertensive nephrosclerosis Iron deficiency anemia, not otherwise specified Secondary hyperparathyroidism (HCC) Vitamin D deficiency, not otherwise specified Congestive heart failure, not otherwise specified (HCC) from Last 3 Months Results * [facility] (02/23/2025 3:00 AM EDT) Only the most recent of11 resultswithin the time period is included. Lipemia Normal Normal [facility] Icterus Normal Normal [facility] Hemolysis Normal Normal [facility] 02/23/2025 3:00 AM EDT 02/24/2025 1:50 PM EDT us Hipolito Hair MD LAB [id number] ICITED RESULTS Final Result Performing Organization Address City/[facility]/ZIP Co de Phone Number [facility] [address] [place] [address] * (ABNORMAL) Phosphorus (02/23/2025 3:00 AM EDT) Only the most recent of2 resultswithin the time period is included. Phosphorus, Serum 6.9(H) 2.5 - 5.0 mg/dL [facility] 02/23/2025 3:00 AM EDT 02/24/2025 1:50 PM EDT us Hipolito Hair MD LAB BLOOD ORDERABLES Final Resul t [facility] [address] [place] [address] * (ABNORMAL) Hemoglobin and hematocrit (02/21/2025 3:00 AM EDT) Only the most recent of4 resultswithin the time period is included. Hgb 10.7(L) 13.7 - 17.5 g/dL [facility] Hematocrit 34.5(L) 40.1 - 51.0 % [facility] Hemoglobin x 3 32.1(L) 41.1 - 52.5 g/dL [facility] 02/21/2025 3:00 AM EDT 02/22/2025 2:37 PM EDT us Hipolito Hair MD LAB BLOOD ORDERABLES Final Resul t Performing Organization Address [facility] de Phone Number [facility] [address] [place] [address] * (ABNORMAL) Hemoglobin (02/14/2025 3:00 AM EDT) Only the most recent of3 resultswithin the time period is included. Hgb 12.0(L) 13.7 - 17.5 g/dL [facility] Hemoglobin x 3 36.0(L) 41.1 - 52.5 g/dL [facility] 02/14/2025 3:00 AM EDT 02/15/2025 3:05 PM EDT us Hipolito Hair MD LAB BLOOD ORDERABLES Final Resul t Performing Organization Address [facility] Co de Phone Number [facility] [address] [place] [address] * Potassium (02/14/2025 3:00 AM EDT) Only the most recent of5 resultswithin the time period is included. Potassium 4.1 3.4 - 5.0 mEq/L [facility] 02/14/2025 3:00 AM EDT 02/15/2025 2:11 PM EDT us Hipolito Hair MD LAB BLOOD ORDERABLES Final Resul t Performing Organization Address City/[facility] Co de Phone Number [facility] [address] [place] [address] * (ABNORMAL) Kt/V Natural Log, URR (02/07/2025 3:00 AM EDT) Only the most recent of4 resultswithin the time period is included. Treatment Time 226 min [facility] Pre-Weight, lb 95.3 kg [facility] Post-Weight, lb 91.9 kg [facility] Ultrafiltration Rate 10 <=13 mL/kg/hr [facility] Comment: Recommend achieving Ultrafiltration Rate (UFR) <=10 mL/kg/hr References: Balta CASTAÑEDA et al. Kidney Int. 2010; 79(2):250-257 BUN 45(H) 7 - 25 mg/dL [facility] BUN Post Dialysis 14 7 - 25 mg/dL [facility] UREA REDUCTION RATIO (%) 69 >=65 % [facility] Kt/V Natural Log 1.38 >=1.2 [facility] 02/07/2025 3:00 AM EDT 02/08/2025 1:54 PM EDT Hipolito Hair MD LAB [id number] ICITED RESULTS Final Result Performing Organization Address [facility] de Phone Number [facility] [address] [place] [address] * (ABNORMAL) Calcium Phosphorus Product, Adjusted (02/07/2025 3:00 AM EDT) Only the most recent of4 resultswithin the time period is included. Albumin 3.7 3.6 - 5.4 g/dL [facility] Calcium 7.4(L) 8.6 - 10.3 mg/dL [facility] Phosphorus, Serum 6.3(H) 2.5 - 5.0 mg/dL [facility] Ca*PO4 46.6 <55.0 mg2/dL2 [facility] Calcium, Adjusted Total 7.6(L) 8.6 - 10.3 mg/dL [facility] CA*PO4 CORRCTD 47.9 <55.0 mg2/dL2 [facility] 02/07/2025 3:00 AM EDT 02/08/2025 1:54 PM EDT us Hipolito Hair MD LAB [id number] ICITED RESULTS Final Result Performing Organization Address [facility] de Phone Number [facility] [address] [place] [address] * BUN/CREATININE RATIO (02/07/2025 3:00 AM EDT) Only the most recent of4 resultswithin the time period is included. BUN/Creatinine Ratio 7.3 <=23.0 [facility] 02/07/2025 3:00 AM EDT 02/08/2025 1:54 PM EDT us Hipolito Hair MD LAB [id number] ICITED RESULTS Final Result Performing Organization Address [facility] de Phone Number [facility] [address] [place] [address] * (ABNORMAL) TSAT (02/07/2025 3:00 AM EDT) Only the most recent of4 resultswithin the time period is included. Iron 44(L) 65 - 175 ug/dL [facility] Transferrin 156(L) 215 - 365 mg/dL [facility] TIBC 218 211 - 406 ug/dL [facility] Iron Saturation (TSat) 20(L) 22 - 52 % [facility] 02/07/2025 3:00 AM EDT 02/08/2025 1:54 PM EDT us Hipolito Hair MD LAB BLOOD ORDERABLES Final Resul t Performing Organization Address [facility] Co de Phone Number [facility] [address] [place] [address] * (ABNORMAL) Reticulocytes (02/07/2025 3:00 AM EDT) Only the most recent of2 resultswithin the time period is included. Reticulocyte 1.3 0.5 - 1.8 % [facility] Retic Ct Pct 27.8(L) 28.2 - 35.7 pg [facility] 02/07/2025 3:00 AM EDT 02/08/2025 1:40 PM EDT us Hipolito Hair MD LAB BLOOD ORDERABLES Final Resul t [facility] [address] [place] [address] * (ABNORMAL) CBC and Differential (02/07/2025 3:00 AM EDT) Only the most recent of4 resultswithin the time period is included. DIFFERENTIAL MANUAL, 2 Not Indicated [facility] White Blood Cells 6.9 4.2 - 9.1 K/uL [facility] RBC 4.11(L) 4.63 - 6.08 M/uL [facility] Hgb 11.4(L) 13.7 - 17.5 g/dL [facility] Hemoglobin x 3 34.2(L) 41.1 - 52.5 g/dL [facility] Hematocrit 37.5(L) 40.1 - 51.0 % [facility] MCV 91.2 79.0 - 92.2 fL [facility] MCH 27.7 25.7 - 32.2 pg [facility] MCHC 30.4(L) 32.3 - 36.5 g/dL [facility] RDW 16.1(H) 11.6 - 14.4 % [facility] Platelets 137(L) 163 - 337 K/uL [facility] MPV 11.2 9.1 - 13.0 fL [facility] Neutrophils Relative 66.8 34.0 - 67.9 % [facility] Lymphocytes Relative 16.5(L) 21.8 - 53.1 % [facility] Monocytes 10.3 5.3 - 12.2 % [facility] Eosinophils Relative 5.5 0.8 - 7.0 % [facility] Basophils Relative 0.6 0.2 - 1.2 % [facility] Immature Granulocytes 0.3 0.0 - 1.0 % [facility] 02/07/2025 3:00 AM EDT 02/08/2025 1:40 PM EDT us Hipolito Hair MD LAB BLOOD ORDERABLES Final Resul t [facility] [address] [place] [address] * (ABNORMAL) ALT (02/07/2025 3:00 AM EDT) Only the most recent of4 resultswithin the time period is included. ALT (SGPT) <7(L) 10 - 49 U/L [facility] 02/07/2025 3:00 AM EDT 02/08/2025 1:54 PM EDT us Hipolito Hair MD LAB BLOOD ORDERABLES Final Resul t Performing Organization Address [facility] de Phone Number [facility] [address] [place] [address] * AST (02/07/2025 3:00 AM EDT) Only the most recent of4 resultswithin the time period is included. AST (SGOT) 16 <34 U/L [facility] 02/07/2025 3:00 AM EDT 02/08/2025 1:54 PM EDT us Hipolito Hair MD LAB BLOOD ORDERABLES Final Resul t Performing Organization Address [facility] de Phone Number [facility] [address] [place] [address] * Protein, total (02/07/2025 3:00 AM EDT) Only the most recent of4 resultswithin the time period is included. Total Protein 7.0 6.4 - 8.9 g/dL [facility] 02/07/2025 3:00 AM EDT 02/08/2025 1:54 PM EDT us Hipolito Hair MD LAB BLOOD ORDERABLES Final Resul t Performing Organization Address [facility] Co de Phone Number [facility] [address] [place] [address] * Alkaline phosphatase (02/07/2025 3:00 AM EDT) Only the most recent of4 resultswithin the time period is included. Alkaline Phosphatase 74 46 - 116 U/L [facility] 02/07/2025 3:00 AM EDT 02/08/2025 1:54 PM EDT us Hipolito Hair MD LAB BLOOD ORDERABLES Final Resul t Performing Organization Address City/[facility]/ZIP Co de Phone Number [facility] [address] [place] [address] * PTH, Intact (02/07/2025 3:00 AM EDT) Only the most recent of4 resultswithin the time period is included. PTH, Intact 702 160 - 721 pg/mL [facility] Comment: Suggested (KDIGO) ESRD maintenance range is two to nine times the upper normal limit (80.1 pg/mL) for the laboratory. 02/07/2025 3:00 AM EDT 02/08/2025 1:54 PM EDT us Hipolito Hiar MD LAB BLOOD ORDERABLES Final Resul t Performing Organization Address [facility] Co de Phone Number [facility] [address] [place] [address] * Magnesium (02/07/2025 3:00 AM EDT) Only the most recent of4 resultswithin the time period is included. Magnesium 1.9 1.9 - 2.7 mg/dL [facility] 02/07/2025 3:00 AM EDT 02/08/2025 1:54 PM EDT us Hipolito Hair MD LAB BLOOD ORDERABLES Final Resul t Performing Organization Address City/[facility] Co de Phone Number [facility] [address] [place] [address] * Lactate dehydrogenase (02/07/2025 3:00 AM EDT) Only the most recent of4 resultswithin the time period is included. LDH 238 120 - 246 U/L [facility] 02/07/2025 3:00 AM EDT 02/08/2025 1:54 PM EDT us Hipolito Hair MD LAB BLOOD ORDERABLES Final Resul t Performing Organization Address [facility] de Phone Number [facility] [address] [place] [address] * (ABNORMAL) Hemoglobin A1c (02/07/2025 3:00 AM EDT) Only the most recent of2 resultswithin the time period is included. Hemoglobin A1C 5.9(H) <5.7 % [facility] Comment: Methodology: Enzymatic Normal: <5.7% Prediabetes: 5.7-6.4% Diabetes: >6.4% Diabetic Glucose Control Evaluation: Therapeutic action suggested at >8.0% ADA recommends a glycemic goal of <7.0% 02/07/2025 3:00 AM EDT 02/08/2025 1:40 PM EDT us Hipolito Hair MD LAB BLOOD ORDERABLES Final Resul t Performing Organization Address [facility] de Phone Number [facility] [address] [place] [address] * (ABNORMAL) Glucose, random (02/07/2025 3:00 AM EDT) Only the most recent of4 resultswithin the time period is included. Glucose 255(H) 70 - 99 mg/dL [facility] Comment: ADA guidelines outline the following fasting glucose ranges: Normal: <100 Prediabetes: 100-125 Diabetes: >125 02/07/2025 3:00 AM EDT 02/08/2025 1:54 PM EDT us Hipolito Hair MD LAB BLOOD ORDERABLES Final Resul t Performing Organization Address [facility] de Phone Number [facility] [address] [place] [address] * (ABNORMAL) Ferritin (02/07/2025 3:00 AM EDT) Only the most recent of4 resultswithin the time period is included. Ferritin 488(H) 22 - 322 ng/mL [facility] 02/07/2025 3:00 AM EDT 02/08/2025 1:54 PM EDT us Hipolito Hair MD LAB BLOOD ORDERABLES Final Resul t Performing Organization Address [facility] de Phone Number [facility] [address] [place] [address] * (ABNORMAL) Creatinine, serum (02/07/2025 3:00 AM EDT) Only the most recent of4 resultswithin the time period is included. Creatinine 6.20(H) 0.70 - 1.30 mg/dL [facility] 02/07/2025 3:00 AM EDT 02/08/2025 1:54 PM EDT us Hipolito Hair MD LAB BLOOD ORDERABLES Final Resul t Performing Organization Address [facility] de Phone Number [facility] [address] [place] [address] * (ABNORMAL) Bilirubin, total (02/07/2025 3:00 AM EDT) Only the most recent of4 resultswithin the time period is included. Total Bilirubin 0.2(L) 0.3 - 1.2 mg/dL [facility] 02/07/2025 3:00 AM EDT 02/08/2025 1:54 PM EDT us Hipolito Hair MD LAB BLOOD ORDERABLES Final Resul t Performing Organization Address [facility] de Phone Number [facility] [address] [place] [address] * (ABNORMAL) Lipid panel (02/07/2025 3:00 AM EDT) Only the most recent of2 resultswithin the time period is included. Cholesterol 174 mg/dL [facility] Comment: Optimal: <200 Borderline: 200-239 High Risk: >239 Triglycerides 126 mg/dL [facility] Comment: Optimal: <150 Borderline: 150-200 High Risk: >200 HDL 45(L) mg/dL [facility] Comment: Optimal: >59 Borderline: 40-59 High Risk: <40 LDL-Calc 104(H) mg/dL [facility] Comment: Optimal: <100 Borderline: 100-159 High Risk: >159 VLDL Cholesterol Nathan 25 mg/dL [facility] Comment: Optimal: <30 Borderline: 30-40 High Risk: >40 Chol/HDL Ratio 3.9(H) [facility] Comment: Optimal: <3.3 High Risk: >6.2 02/07/2025 3:00 AM EDT 02/08/2025 1:54 PM EDT us Hipolito Hair MD LAB BLOOD ORDERABLES Final Resul t Performing Organization Address [facility] de Phone Number [facility] [address] [place] [address] * (ABNORMAL) Electrolyte panel (02/07/2025 3:00 AM EDT) Only the most recent of4 resultswithin the time period is included. Sodium 141 136 - 145 mEq/L [facility] Potassium 3.7 3.4 - 5.0 mEq/L [facility] Chloride 102 98 - 107 mEq/L [facility] Bicarbonate (CO2) 22 21 - 31 mEq/L [facility] Anion Gap 17(H) 3 - 14 mEq/L [facility] 02/07/2025 3:00 AM EDT 02/08/2025 1:54 PM EDT us Hipolito Hair MD LAB BLOOD ORDERABLES Final Resul t Performing Organization Address [facility] Co de Phone Number [facility] [address] [place] [address] * Confirmation Test HCV (11/30/2024 3:00 AM EDT) Hep C Ab Confirmation Not needed [facility] 11/30/2024 3:0 0 AM EDT 12/01/2024 1:14 PM EDT us Hipolito Hair MD LAB BLOOD ORDERABLES Final Resul t Performing Organization Address [facility] Co de Phone Number [facility] [address] [place] [address] * HEPATITIS C ABS W/REFLEX RNA DETECTR (11/30/2024 3:00 AM EDT) Pathologist [facility] Hep C Virus Ab Non-Reacti ve Non-Reacti ve [facility] 11/30/2024 3:00 AM EDT 12/01/2024 2:05 PM EDT us Hipolito Hair MD LAB [id number] ICITED RESULTS Final Result Performing Organization Address [facility] de Phone Number [facility] [address] [place] [address] * Hepatitis B Surface Ag w/Reflex Confirmation (11/30/2024 3:00 AM EDT) [facility] Hep B Surface Antigen Negative Negative [facility] 11/30/2024 3:00 AM EDT 12/01/2024 2:05 PM EDT us Hipolito Hair MD LAB BLOOD ORDERABLES Final Resul t Performing Organization Address [facility] de Phone Number [facility] [address] [place] [address] * Hepatitis B Core Antibody, Total (11/30/2024 3:00 AM EDT) Pathologist [facility] HBc Total Ab, S Negative Negative [facility] 11/30/2024 3:00 AM EDT 12/01/2024 2:05 PM EDT us Hipolito Hair MD LAB BLOOD ORDERABLES Final Resul t Performing Organization Address [facility] de Phone Number [facility] [address] [place] [address] * Aluminum level (11/30/2024 3:00 AM EDT) Pathologist [facility] Aluminum 3 1 - 20 ug/L [facility] Comment: This test was developed and its performance characteristics determined by [facility] in a manner consistent with CLIA requirements. This test has not been cleared or approved by the U.S. Food and Drug Administration. 11/30/2024 3:00 AM EDT 12/01/2024 12:49 PM EDT Hipolito Hair MD LAB BLOOD ORDERABLES Final Resul t Performing Organization Address [facility] de Phone Number [facility] [address] [address] * Vitamin D 25 Hydroxy (11/30/2024 3:00 AM EDT) Vitamin D, 25-Hydroxy 17 30 - 100 ng/mL [facility] Comment: Status Adult Pediatric Deficient: <20 <15 Insufficient: 20-29 15-19 Sufficient: 30-100 20-100 Blood specimen (specimen) Venous blood / Unknown 11/30/2024 3:00 AM EDT 12/01/2024 2:05 PM EDT Manoj Mederos MD LAB BLOOD ORDERABLES Final Re sult Performing Organization Address [facility] de Phone Number [address] [address] * Hepatitis B Surface Antibody (11/30/2024 3:00 AM EDT) Hep B Surface Antibody 162 mIU/mL [facility] Comment: Interpretation: <10: No Immunity >=10: Probable Immunity 11/30/2024 3:00 AM EDT 12/01/2024 2:05 PM EDT Hipolito Hair MD LAB BLOOD ORDERABLES Final Resul t Performing Organization Address [facility] de Phone Number [address] [address] * Uric Acid (11/30/2024 3:00 AM EDT) Uric Acid 5.2 4.4 - 7.6 mg/dL [facility] Blood specimen (specimen) Venous blood / Unknown 11/30/2024 3:00 AM EDT 12/01/2024 2:05 PM EDT us Manoj Mederos MD LAB BLOOD ORDERABLES Final Re sult [facility] [address] [place] [address] from Last 3 Months Insurance [employer] Commercial [employer] [facility] PPO [phone]) Care Teams Display Coordinator Relationship Specialty Start Date End Date Talon Morin MD [address] [place] [address] PCP - General 05/20/20
--- OUTSIDE RECORDS SUMMARY | 2025-02-27 12:57 | XMS_ITS | Encounter Summary ---
Author Organization [facility] Address [address] [facility] [address] [place] [address] Phone Care Team Providers Care Nursing Informatics Specialist Name Role Phone Talon Morin MD Primary Care Provider [phone] Encounter Details Date Type Department Care Team (Late st Contact Info) Description 02/26/2025 Treatment [facility] [address] [facility] [address] [place] [address] Johnson Fleming MD [address] [facility] [address] [place] [address] End stage renal disease; Dependence on renal dialysis Social History Tobacco Use Types Packs/Day Years [...] on file documented as of this encounter Miscellaneous Notes * Dialysis Note - Johnson Fleming MD - 02/26/2025 12:00 AM EDT BASIC NOTE Patient: Damon Escalante : 1950 Note Author: JOHNSON FLEMING MD Service Date: 02/26/2025 This patient was personally seen [id number] for a basic visit as part of routine monthly dialysis care for end stage renal disease. Attending Shine Worker: JOHNSON FLEMING MD Dialysis Location: [facility] Schedule: Shift: 2 OVERVIEW Patient is stable. COMMENTS: Going for an AVF HOME MEDICATIONS Current [facility] Medications aspirin EC tablet Take 81 mg by mouth Start Date: 09/02/2023 B complex-vitamin C-folic acid (NEPHRO-GISELA) 0.8 MG tablet Take 1 tablet by mouth 1 (one) time each day Start Date: 01/12/2025 carvedilol (COREG) tablet Take 1 tablet by mouth in the morning and 1 tablet in the evening. Start Date: 09/08/2018 celecoxib (CeleBREX) capsule Take 200 mg by mouth in the morning and 200 mg in the evening. Start Date: clopidogrel (PLAVIX) tablet 75 mg Take 75 mg by mouth 1 (one) time each day Start Date: finasteride (PROSCAR) tablet 5 mg Take 1 tablet by mouth 1 (one) time each day Start Date: 05/08/2022 hydrALAZINE (APRESOLINE) tablet Take 50 mg by mouth Start Date: 08/01/2024 LANTUS 100 UNIT/ML SC SOLN Start Date: losartan (COZAAR) tablet Take 100 mg by mouth 1 (one) time each day Start Date: torsemide (DEMADEX) 20 MG tablet Take 3 tablets (60 mg total) by mouth 1 (one) time each day Start Date: 12/20/2024 Current [facility] Allergies Allergen: No Known Allergies BP AND FLUID ASSESSMENT Acceptable blood pressure. Fluid status acceptable. ADEQUACY ASSESSMENT Kt/V, Natural Log 1.38 (02/07/25) 1.38 (01/12/25) 1.49 (12/14/24) UREA REDUCTION RATIO (%) 69 (02/07/25) 70 (01/12/25) 72 (12/14/24) BUN 45 (02/07/25) 44 (01/12/25) 43 (12/14/24) BUN Post Dialysis 14 (02/07/25) 13 (01/12/25) 12 (12/14/24) Creatinine 6.20 (02/07/25) 5.85 (01/12/25) 4.66 (12/14/24) Bicarbonate (CO2) 22 (02/07/25) 29 (01/12/25) 28 (12/14/24) Sodium 141 (02/07/25) 140 (01/12/25) 143 (12/14/24) ACCESS ASSESSMENT COMMENTS: Pt reluctant to get an AVF - advised to go for an eval ANEMIA ASSESSMENT Hgb 10.7 (02/21/25) 12.0 (02/14/25) 11.4 (02/07/25) Hemoglobin 8.3 (10/20/24) Iron Saturation (TSat) 20 (02/07/25) 18 (01/12/25) 14 (12/14/24) Ferritin 488 (02/07/25) 716 (01/12/25) 704 (12/14/24) Iron 44 (02/07/25) 43 (01/12/25) 34 (12/14/24) TIBC 218 (02/07/25) 245 (01/12/25) 244 (12/14/24) MCV 91.2 (02/07/25) 93.0 (01/12/25) 90.6 (12/14/24) Platelets 137 (02/07/25) 164 (01/12/25) 239 (12/14/24) BMM ASSESSMENT Calcium, Adjusted Total 7.6 02/07/25 8.7 01/12/25 8.0 12/14/24 Calcium 7.4 02/07/25 8.5 01/12/25 7.6 12/14/24 Phosphorus, Serum 6.9 02/23/25 6.3 02/07/25 3.8 01/17/25 Phosphorus 5.6 10/20/24 Ca*PO4 46.6 02/07/25 23.8 01/12/25 31.9 12/14/24 PTH, Intact 702 02/07/25 472 01/12/25 558 12/14/24 PTH 329 10/20/24 Vitamin D, 25-Hydroxy 17 11/30/24 10.4 08/11/24 Vitamin D, 25-OH, Total 13.0 10/20/24 Magnesium 1.9 02/07/25.7 01/12/25 1.8 12/14/24 Alkaline Phosphatase 74 02/07/25 88 01/12/25 119 12/14/24 Aluminum 3 11/30/24 NUTRITION ASSESSMENT Albumin 3.7 02/07/25 3.8 01/12/25 3.5 12/14/24 Potassium 4.1 02/14/25 3.7 02/07/25 4.5 01/12/25 Hemoglobin A1C 5.9 02/07/25 6.1 11/30/24 ADDITIONAL LABS White Blood Cells 6.9 (02/07/25) 9.1 (01/12/25) 6.6 (12/14/24) WBC 6.2 (10/20/24) WBC 5.8 (08/11/24) Cholesterol 174 (02/07/25) 94 (11/30/24) HDL 45 (02/07/25) 52 (11/30/24) LDL-Calc 104 (02/07/25) 32 (11/30/24) Triglycerides 126 (02/07/25) 50 (11/30/24) Hep B Surface Antibody 162 (11/30/24) Uric Acid 5.2 (11/30/24) 8.3 (10/20/24) 10.1 (08/11/24) ALT (SGPT) ?7 (02/07/25) 7 (01/12/25) 37 (12/14/24) AST (SGOT) 16 (02/07/25) 14 (01/12/25) 27 (12/14/24) Signed by: JOHNSON FLMEING MD on 02/26/2025 at 08:17:44 PM Transcribed by: JOHNSON FLEMING MD on 02/26/2025 at 08:17:44 PM documented in this encounter Plan of Treatment Not on file documented as of this encounter Visit Diagnoses Diagnosis End stage renal disease Dependence on renal dialysis documented in this encounter Care Teams Nursing Informatics Specialist Relationship Specialty Start Date End Date Talon Morin MD [address] [place] [address] [phone] PCP - General 05/20/20 documented as of this encounter
--- OUTSIDE RECORDS SUMMARY | 2025-02-27 12:57 | XMS_ITS | Encounter Summary ---
Author Organization [facility] Address [address] [facility] [address] [place] [address] Phone Care Team Providers Care Manager Pulmonary Name Role Phone Talon Morin MD Primary Care Provider [phone] Encounter Details Date Type Department Care Team (Late st Contact Info) Description 02/21/2025 Treatment [facility] [address] [facility] [address] [place] [address] Johnson Fleming MD [address] [facility] [address] [place] [address] End stage renal disease; Dependence [...] Dialysis Note - Johnson Fleming MD - 02/21/2025 12:00 AM EDT BASIC NOTE Patient: Damon Escalante : 1950 Note Author: JOHNSON FLEMING MD Service Date: 02/21/2025 This patient was personally seen [id number] for a basic visit as part of routine monthly dialysis care for end stage renal disease. Attending Home Health Outreach Coordinator: JOHNSON FLEMING MD Dialysis Location: [facility] Schedule: Shift: 2 OVERVIEW Patient is [...] go for an eval ANEMIA ASSESSMENT Hgb 12.0 (02/14/25) 11.4 (02/07/25) 10.5 (01/24/25) Hemoglobin 8.3 (10/20/24) Iron Saturation (TSat) 20 [...] 02/07/25 8.5 01/12/25 7.6 12/14/24 Phosphorus, Serum 6.3 02/07/25 3.8 01/17/25 2.8 01/12/25 Phosphorus 5.6 10/20/24 Ca*PO4 46.6 02/07/25 23.8 [...] 14 (01/12/25) 27 (12/14/24) Signed by: JOHNSON FLEMING MD on 02/21/2025 at 11:47:29 PM Transcribed by: JOHNSON FLEMING MD on 02/21/2025 at 11:47:29 PM documented in this encounter Plan of Treatment Not on file documented as of this encounter Visit Diagnoses Diagnosis End stage renal disease Dependence on renal dialysis documented in this encounter Care Teams Manager Pulmonary Relationship Specialty Start Date End Date Talon Morin MD [address] [place] [address] [phone] PCP - General 05/20/20 documented as of this encounter
== END 2025-02-27 11:16 | disposition home or self-care (01) ==
PROVIDERS: PCP Orthopaedic Surgery; Visit Provider Urology
DX: R97.20 Elevated prostate specific antigen [PSA] (principal); N32.0 Bladder-neck obstruction
CPT/HCPCS: 99213; G2211

== ENCOUNTER → 2025-02-27 10:44 | Outpatient (BNVA) | payer MEDICARE, SELFPAY | PROVIDERS: PCP Orthopaedic Surgery; Visit Provider Urology | DX: N32.0 Bladder-neck obstruction (principal); R97.20 Elevated prostate specific antigen [PSA] | CPT/HCPCS: 99212 ==